=== PATIENT | female | born 1960 | race Caucasian/White ===

== ENCOUNTER → 2024-10-14 17:08 | Outpatient (REF) | payer MEDICARE, SELFPAY ==
[2024-10-14 17:57] LABS: ALT (SGPT) 18 U/L (0-35); AST (SGOT) 39 U/L (14-36); Albumin 4.9 g/dl (3.5-5.0); Alkaline Phosphatase 71 U/L (38-126); Blood Urea Nitrogen 12 mg/dl (7-17); Carbon Dioxide 25 mmol/L (22-30); Chloride 96 mmol/L (98-107); Glucose 92 mg/dl (70-99); Potassium 3.4 mmol/L (3.5-5.1); Sodium 132 mmol/L (135-145); Total Bilirubin 0.8 mg/dl (0.2-1.3); Total Protein 8.1 g/dl (6.3-8.2); eGFR > 60.00
== END ==
LOC: RAD 17:08
PROVIDERS: ATTENDING PHYSICIAN Family Medicine
DX: R22.1 Localized swelling, mass and lump, neck (principal); Q61.5 Medullary cystic kidney; Z00.01 Encounter for general adult medical examination with abnormal findings
CPT/HCPCS: 36415; 70491; 80053; Q9967

== ENCOUNTER 2024-12-03 08:31 | Outpatient (RCR) | payer MEDICARE, SELFPAY | END 2024-12-03 23:59 | disposition home or self-care (01) | LOC: RST 08:31 | PROVIDERS: ATTENDING PHYSICIAN Radiology Radiation Oncology | DX: C11.1 Malignant neoplasm of posterior wall of nasopharynx (principal); R13.12 Dysphagia, oropharyngeal phase | CPT/HCPCS: 92526; 92610 ==

== ENCOUNTER → 2024-12-18 07:12 | Outpatient (REF) | payer MEDICARE, SELFPAY ==
[2024-12-18 06:00] VITALS: BMI 17.2
[2024-12-18 08:07] LABS: Hematocrit 37.3 % (37.0-47.0); Hemoglobin 12.7 g/dL (12.0-16.0); Mean Corpuscular Hgb 34.2 pg (27.0-31.0); Mean Corpuscular Volume 100.5 fL (81.0-99.0); Mean Platelet Volume 10.5 fL (7.4-10.4); Platelet Count 377 10^3/uL (130-400); Red Blood Cell Count 3.71 10^6/uL (4.20-5.40); White Blood Cell Count 5.9 10^3/uL (4.8-10.8)
[2024-12-18 08:37] LABS: Absolute Neutrophils -Man Diff 3.3 10^3/uL (1.4-6.5); Band Neutrophils 0 % (0-3); Lymphocytes 23 % (20-51); Monocytes 20 % (2-9); Normal RBC Morphology Yes; Platelets Checked Yes; Segmented Neutrophils 57 % (42-75); Total Cells Counted 100
[2024-12-18 09:04] VITALS: BP 133/90; BP_SYST 60
[2024-12-18] MEDS: ANCEF 10 IV (09:33)
[2024-12-18 10:35] VITALS: BP 134/86; BP_SYST 60
[2024-12-18 10:55] VITALS: BP 108/75; BP_SYST 62
== END ==
LOC: RADI 07:12
PROVIDERS: ATTENDING PHYSICIAN Internal Medicine Hematology & Oncology; FAMILY PHYSICIAN Family Medicine
DX: C09.9 Malignant neoplasm of tonsil, unspecified (principal)
CPT/HCPCS: 36415; 36561; 75827; 76937; 77001; 85025; 99152; 99153; C1769; C1788

== ENCOUNTER → 2024-12-22 12:47 | Outpatient (REF) | payer MEDICARE, SELFPAY ==
--- NOTE | 2024-12-22 13:03 | W.PN.UPDATE ---
Update Note
Progress Note Update
64 yo female s/p IR port placement on 12/18/24. She returns for port site check> She is concerned about the red bump on her chest.
On exam the incision is CDI. Minimal erythema. No warmth or swelling. No tenderness or fluctuance. The raised are of concern is the port itself.
A/P: 64 yo female comes for port site check. She was reassured the site does not appear infected and is healing well. She has her next infusion on Sunday12/26/24
== END ==
LOC: RADI 12:47
PROVIDERS: ATTENDING PHYSICIAN Radiology Vascular & Interventional Radiology; FAMILY PHYSICIAN Family Medicine
DX: Z45.2 Encounter for adjustment and management of vascular access device (principal)

== ENCOUNTER → 2024-12-25 06:38 | Outpatient (REF) | payer MEDICARE, SELFPAY ==
[2024-12-25 07:23] LABS: % Basophils 0.6 % (0-2); % Eosinophils 1.1 % (0-6); % Immature Granulocytes 0.4 % (0-0.5); % Lymphocytes 13.3 % (20.5-51.1); % Monocytes 16.7 % (1.7-9.3); % Neutrophils 67.9 % (42.2-75.2); Absolute Basophils 0.1 10^3/uL (0-0.2); Absolute Eosinophils 0.1 10^3/uL (0-0.7); Absolute Monocytes 1.3 10^3/uL (0.1-0.6); Absolute Neutrophils 5.3 10^3/uL (1.4-6.5); Hematocrit 37.1 % (37.0-47.0); Hemoglobin 12.7 g/dL (12.0-16.0); Mean Corp Hgb Conc. 34.2 g/dL (33.0-37.0); Mean Corpuscular Hgb 34.5 pg (27.0-31.0); Mean Corpuscular Volume 100.8 fL (81.0-99.0); Mean Platelet Volume 10.3 fL (7.4-10.4); Nucleated Red Blood Cells % 0 %; Platelet Count 461 10^3/uL (130-400); Red Blood Cell Count 3.68 10^6/uL (4.20-5.40); Red Cell Dist. Width 12.9 % (11.5-14.5); White Blood Cell Count 7.8 10^3/uL (4.8-10.8)
[2024-12-25 07:47] LABS: ALT (SGPT) 21 U/L (0-35); AST (SGOT) 30 U/L (14-36); Albumin 4.5 g/dl (3.5-5.0); Alkaline Phosphatase 59 U/L (38-126); Blood Urea Nitrogen 15 mg/dl (7-17); Calcium 10.3 mg/dl (8.4-10.2); Carbon Dioxide 26 mmol/L (22-30); Chloride 105 mmol/L (98-107); Glucose 95 mg/dl (70-99); Magnesium 1.7 mg/dl (1.6-2.3); Sodium 138 mmol/L (135-145); Total Bilirubin 0.6 mg/dl (0.2-1.3); eGFR > 60.00
== END ==
LOC: REG 06:38
PROVIDERS: ATTENDING PHYSICIAN Nurse Practitioner Adult Health; FAMILY PHYSICIAN Family Medicine
DX: C01 Malignant neoplasm of base of tongue (principal)
CPT/HCPCS: 36415; 80053; 83735; 85025

== ENCOUNTER → 2025-01-01 06:25 | Outpatient (REF) | payer MEDICARE, SELFPAY ==
[2025-01-01 07:13] LABS: % Basophils 0.5 % (0-2); % Eosinophils 1.3 % (0-6); % Immature Granulocytes 0.5 % (0-0.5); % Lymphocytes 12.3 % (20.5-51.1); % Monocytes 18.1 % (1.7-9.3); % Neutrophils 67.3 % (42.2-75.2); Absolute Eosinophils 0.1 10^3/uL (0-0.7); Absolute Lymphocytes 0.8 10^3/uL (1.2-3.4); Absolute Monocytes 1.1 10^3/uL (0.1-0.6); Absolute Neutrophils 4.2 10^3/uL (1.4-6.5); Hematocrit 35.4 % (37.0-47.0); Mean Corp Hgb Conc. 33.9 g/dL (33.0-37.0); Mean Corpuscular Volume 100.3 fL (81.0-99.0); Mean Platelet Volume 10.1 fL (7.4-10.4); Nucleated Red Blood Cells % 0 %; Platelet Count 506 10^3/uL (130-400); Red Blood Cell Count 3.53 10^6/uL (4.20-5.40); Red Cell Dist. Width 12.5 % (11.5-14.5); White Blood Cell Count 6.3 10^3/uL (4.8-10.8)
[2025-01-01 07:58] LABS: ALT (SGPT) 19 U/L (0-35); AST (SGOT) 26 U/L (14-36); Albumin 4.4 g/dl (3.5-5.0); Alkaline Phosphatase 58 U/L (38-126); Blood Urea Nitrogen 18 mg/dl (7-17); Calcium 10.1 mg/dl (8.4-10.2); Carbon Dioxide 28 mmol/L (22-30); Chloride 99 mmol/L (98-107); Glucose 85 mg/dl (70-99); Magnesium 1.5 mg/dl (1.6-2.3); Potassium 3.7 mmol/L (3.5-5.1); Sodium 136 mmol/L (135-145); Total Bilirubin 0.5 mg/dl (0.2-1.3); Total Protein 7.9 g/dl (6.3-8.2); eGFR > 60.00
== END ==
LOC: RAD 06:25
PROVIDERS: ATTENDING PHYSICIAN Surgery Vascular Surgery; FAMILY PHYSICIAN Family Medicine; REFERRING PHYSICIAN Nurse Practitioner Adult Health
DX: I65.23 Occlusion and stenosis of bilateral carotid arteries (principal)
CPT/HCPCS: 36415; 80053; 83735; 85025; 93880

== ENCOUNTER 2025-01-07 16:00 | Outpatient (RCR) | payer MEDICARE, SELFPAY | END 2025-01-07 23:59 | disposition home or self-care (01) | LOC: RST 16:00 | PROVIDERS: ATTENDING PHYSICIAN Radiology Radiation Oncology | DX: C11.1 Malignant neoplasm of posterior wall of nasopharynx (principal); R13.12 Dysphagia, oropharyngeal phase | CPT/HCPCS: 92526 ==

== ENCOUNTER → 2025-01-08 06:18 | Outpatient (REF) | payer MEDICARE, SELFPAY ==
[2025-01-08 07:42] LABS: % Basophils 0.5 % (0-2); % Immature Granulocytes 0.2 % (0-0.5); % Lymphocytes 17.5 % (20.5-51.1); % Monocytes 19.9 % (1.7-9.3); % Neutrophils 60.9 % (42.2-75.2); Absolute Lymphocytes 0.7 10^3/uL (1.2-3.4); Absolute Monocytes 0.8 10^3/uL (0.1-0.6); Absolute Neutrophils 2.6 10^3/uL (1.4-6.5); Hematocrit 34.2 % (37.0-47.0); Hemoglobin 11.8 g/dL (12.0-16.0); Mean Corp Hgb Conc. 34.5 g/dL (33.0-37.0); Mean Corpuscular Hgb 34.4 pg (27.0-31.0); Mean Corpuscular Volume 99.7 fL (81.0-99.0); Mean Platelet Volume 10.2 fL (7.4-10.4); Nucleated Red Blood Cells % 0.5 %; Platelet Count 384 10^3/uL (130-400); Red Blood Cell Count 3.43 10^6/uL (4.20-5.40); Red Cell Dist. Width 12.4 % (11.5-14.5); White Blood Cell Count 4.2 10^3/uL (4.8-10.8)
[2025-01-08 08:19] LABS: ALT (SGPT) 18 U/L (0-35); AST (SGOT) 26 U/L (14-36); Albumin 4.3 g/dl (3.5-5.0); Alkaline Phosphatase 59 U/L (38-126); Blood Urea Nitrogen 23 mg/dl (7-17); Carbon Dioxide 30 mmol/L (22-30); Chloride 96 mmol/L (98-107); Glucose 84 mg/dl (70-99); Magnesium 1.3 mg/dl (1.6-2.3); Sodium 136 mmol/L (135-145); Total Bilirubin 0.3 mg/dl (0.2-1.3); Total Protein 7.6 g/dl (6.3-8.2); eGFR > 60.00
== END ==
LOC: REG 06:18
PROVIDERS: ATTENDING PHYSICIAN Nurse Practitioner Adult Health; FAMILY PHYSICIAN Family Medicine
DX: C01 Malignant neoplasm of base of tongue (principal)
CPT/HCPCS: 36415; 80053; 83735; 85025

== ENCOUNTER → 2025-01-15 06:26 | Outpatient (REF) | payer MEDICARE, SELFPAY ==
[2025-01-15 07:20] LABS: % Basophils 0.3 % (0-2); % Eosinophils 0.9 % (0-6); % Immature Granulocytes 0.3 % (0-0.5); % Lymphocytes 15.9 % (20.5-51.1); % Monocytes 15.6 % (1.7-9.3); Absolute Lymphocytes 0.5 10^3/uL (1.2-3.4); Absolute Monocytes 0.5 10^3/uL (0.1-0.6); Absolute Neutrophils 2.2 10^3/uL (1.4-6.5); Hemoglobin 11.3 g/dL (12.0-16.0); Mean Corp Hgb Conc. 34.2 g/dL (33.0-37.0); Mean Corpuscular Hgb 33.7 pg (27.0-31.0); Mean Corpuscular Volume 98.5 fL (81.0-99.0); Mean Platelet Volume 10.3 fL (7.4-10.4); Nucleated Red Blood Cells % 0 %; Platelet Count 213 10^3/uL (130-400); Red Blood Cell Count 3.35 10^6/uL (4.20-5.40); Red Cell Dist. Width 12.8 % (11.5-14.5); White Blood Cell Count 3.3 10^3/uL (4.8-10.8)
[2025-01-15 08:05] LABS: ALT (SGPT) 17 U/L (0-35); AST (SGOT) 22 U/L (14-36); Albumin 4.1 g/dl (3.5-5.0); Alkaline Phosphatase 57 U/L (38-126); Blood Urea Nitrogen 18 mg/dl (7-17); Calcium 9.4 mg/dl (8.4-10.2); Carbon Dioxide 28 mmol/L (22-30); Chloride 99 mmol/L (98-107); Glucose 88 mg/dl (70-99); Magnesium 1.2 mg/dl (1.6-2.3); Potassium 3.6 mmol/L (3.5-5.1); Sodium 136 mmol/L (135-145); Total Bilirubin 0.6 mg/dl (0.2-1.3); Total Protein 7.1 g/dl (6.3-8.2); eGFR > 60.00
== END ==
LOC: REG 06:26
PROVIDERS: ATTENDING PHYSICIAN Nurse Practitioner Adult Health; FAMILY PHYSICIAN Family Medicine
DX: C01 Malignant neoplasm of base of tongue (principal)
CPT/HCPCS: 36415; 80053; 83735; 85025

== ENCOUNTER 2025-01-21 16:18 | Emergency (ER) | payer MEDICARE, SELFPAY ==
[2025-01-21 16:19] VITALS: BP 104/70
--- NOTE | 2025-01-21 17:55 | ED.GENMED ---
History of Present Illness
General
Chief Complaint: DVT/Possible Blood Clot
Source: patient
Exam Limitations: none
Time Seen by Provider: 01/21/25 17:10
Nursing documentation reviewed up to this point in time: agreed with
History of Present Illness
History of Present Illness:
The patient is a 64-year-old female with history hypertension, hyperlipidemia, tonsillar CA currently undergoing radiation who presents with atraumatic left leg pain. Patient states that beginning last night she noticed very mild weakness in her
left leg. Upon waking this morning. The patient describes it as a sharp, stabbing pain localized to the left leg, initially starting higher on the leg and radiating downwards toward the front. Earlier today�patient states pain was present at both
at rest and with ambulation and she had to use a walker for assistance with weightbearing.
Patient states that currently her symptoms have completely resolved. She denies any pain. She denies any numbness/tingling in left lower extremity.
Patient denies any recent falls or trauma. She denies any fevers, chills, redness, or warmth of lower extremity. She denies any coolness symptoms of claudication.
She denies any prior history of similar symptoms.
Past History
Past History
ED Past Medical History: Other (History of alcoholism)
ED Past Surgical History: Orthopedic
Social History
Tobacco: Smoker
Alcohol: Former
Personal: Partner
Living: with roommate
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
Review of Systems
Review of Systems
Allergies reviewed?: Yes
All Other Systems: ROS reviewed and negative except as documented in HPI and ROS
Phy Exam
Physical Exam
Physical Exam:
Vitals: Patient's vital signs are stable. Afebrile
General: Patient is in no acute distress.
Skin: Warm and dry, no rashes or lesions
Head: Normocephalic, atraumatic
Throat: Protecting airway
Neck: Normal ROM, no cervical spine tenderness
Cardiac: Regular rate
Pulm: No apparent respiratory distress
Abdomen: Nondistended
Extremities: No deformity or bony tenderness of left lower extremity. She has no tenderness to left calf. Patient has full range of motion left ankle, left knee, and left hip without pain. No overlying erythema, warmth, or joint effusion of left
lower extremity. Patient has 2+ palpable left femoral, left popliteal, and left DP pulse. She has normal sensation. Capillary refill less than 2 seconds. Onychomycosis noted to left digits.
Neuro: Grossly intact
Psychiatric: Normal affect.
Course
Orders/Labs/Results
Orders:
Orders
01/21/25 16:22
US Periph Venous LOWER Ext LT Urgent
Comment:
Reason For Exam: Pain, elevated risk of blood clots
Vital Signs
Initial and Last Documented VS:
Initial Vital Signs
Temp Pulse Resp BP Pulse Ox
99.4 F 90 16 104/70 92
01/21/25 16:19 01/21/25 16:19 01/21/25 16:19 01/21/25 16:19 01/21/25 16:19
Last Documented Vital Signs
Temp Pulse Resp BP Pulse Ox
99.4 F 90 16 104/70 92
01/21/25 16:19 01/21/25 16:19 01/21/25 16:19 01/21/25 16:19 01/21/25 17:56
MDM/Problems Addressed
Differential Diagnosis Includes:
Not limited to: DVT, neuropathic pain, muscle strain, sciatica, PAD, osteoarthritis, etc.
MDM/Problems Addressed:
64-year-old female presenting with atraumatic left leg pain which has since resolved. She reports significant pain in her left leg extending from left mid thigh down to left lower leg worse with ambulation today. No recent trauma. She denies any
obvious joint pain. She denies any erythema, warmth, or rash. She denies any coolness or numbness/tingling in the left leg. Patient has stable vital signs overall, she is afebrile. By my assessment�patient has complete resolution of symptoms and
has no current complaints. Left lower extremity without any obvious deformity or bony tenderness. There is no evidence of joint effusions or any erythema, warmth, or rash of skin. She has excellent palpable femoral, popliteal, DP pulses in LLE.
No calf tenderness. Negative Homans' sign. A ultrasound of the left lower extremity was obtained which shows no evidence of DVT.
Considered x-ray imaging however given no history of trauma and complete resolution of symptoms feel this would be very low yield. With no history of claudication type symptoms and normal exam�do not suspect arterial process. No current findings
suggestive of infectious process. Possible neuropathic pain however at this time symptoms are resolved. Patient is ambulating without recurrence of pain and is requesting discharge home.
Strict return precautions discussed with patient. Advised to continue taking medications as prescribed and follow-up with PCP.
Chronic conditions affecting care:
N/A
Acute Exacerbation and/or Progression of Chronic Illness:
N/A
*Radiology
Radiology exam reviewed: radiology read reviewed
*Pulse Oximetry
SaO2: 92
Oxygen Mode of Delivery: Room air
Patient hypoxic: no
*EKG
Interpreted by ED Provider?: NA
*Claim Benefit Specialist Interpretation
Rate: Claim Benefit Specialist- N/A
*Critical Care Note
Total Time (30-74mins, 75-104mins- exclusive of procedures): Not Applicable
ED Attending Note
-
Portions of this chart may have been created with voice recognition software.� Occasional wrong word or��sound alike� substitutions may have occurred due to the inherent limitations of voice recognition software.
Discharge Plan
Departure
Patient Disposition: Home (Routine Discharge)
Date of Disposition: 01/21/25
Time of Disposition: 19:04
Patient with high blood pressure during this ER visit?: No
Condition: Good
Covid-19: Not Applicable
Discharge Problem:
Left leg pain
Prescriptions:
No Action
alendronate 70 MG tablet
70 mg PO WEEKLY
hydrochlorothiazide 12.5 MG capsule
12.5 mg PO DAILY
multivitamin [One Daily Multivitamin] 1 EACH tablet
1 tab PO DAILY
acetaminophen 325 MG tablet
650 mg PO Q4HPRN PRN (Reason: temp greater than 100.4 F) 0RF
aspirin 81 MG tablet,chewable
81 mg PO DAILY 0RF
atorvastatin 80 MG tablet
80 mg PO QPM Qty: 30 0RF
latanoprost 0.005 % Drops
1 drp OPHTHALMIC (EYE) DAILY
Vitamin C 100 mg Tablet
100 mg PO DAILY
Referrals:
Balwinder Yousif MD [Family Provider, Family Practice] - Follow up in 5-7 days
Activity Restrictions/Additional Instructions:
RETURN TO THE EMERGENCY DEPARTMENT WITH ANY INFECTIOUS SYMPTOMS INCLUDING FEVER, CHILLS, REDNESS OR WARMTH OR WOUNDS OF LEFT LEG, NUMBNESS/TINGLING IN LEFT LEG, RESTRICTED RANGE OF MOTION IN JOINTS AND LEFT LEG, COOLNESS, INTRACTABLE PAIN,
DIFFICULTY AMBULATING, OR ANY OTHER CONCERNS
- As discussed�your ultrasound showed no evidence of a blood clot in your left lower extremity. We are unsure the exact etiology of your symptoms today.
- Continue to take your medications as prescribed
- Follow-up with primary care for further evaluation/management to ensure the symptoms are improving
Monitor your symptoms closely and return to the emergency department with any acute worsening/new symptoms or any other concerns
Interventions
Interventions:
*Risk Screen - Suicide Last Done: 01/21/25 19:09
*General Assessment Last Done: 01/21/25 19:09
*Neglect/Abuse Screening Last Done: 01/21/25 19:09
*ED- Fall Risk Assessment Last Done: 01/21/25 19:09
*ED COVID-19 Vaccine History Last Done: 01/21/25 19:09
*Nursing Disposition Last Done: 01/21/25 19:09
ED- Cardiac Assessment Last Done: 01/21/25 17:30
ED- Pulmonary Assessment Last Done: 01/21/25 17:30
ED-Peripheral Vascular Assessment Last Done: 01/21/25 17:30
ED-Skin Assessment Last Done: 01/21/25 17:30
Discharge Date and Time
Discharge Date/Time: 01/21/25 19:10
Print Language: UGANDAN
== END 2025-01-21 19:10 | disposition home or self-care (01) ==
LOC: EMR 16:18
PROVIDERS: EMERGENCY PHYSICIAN Emergency Medicine; FAMILY PHYSICIAN Family Medicine
DX: M79.605 Pain in left leg (principal); E78.5 Hyperlipidemia, unspecified; I10 Essential (primary) hypertension; F17.200 Nicotine dependence, unspecified, uncomplicated; C09.9 Malignant neoplasm of tonsil, unspecified; Z92.3 Personal history of irradiation
CPT/HCPCS: 99284; 93971

== ENCOUNTER → 2025-01-22 06:34 | Outpatient (REF) | payer MEDICARE, SELFPAY ==
[2025-01-22 07:43] LABS: Hematocrit 30.1 % (37.0-47.0); Hemoglobin 10.4 g/dL (12.0-16.0); Mean Corp Hgb Conc. 34.6 g/dL (33.0-37.0); Mean Corpuscular Hgb 34.3 pg (27.0-31.0); Mean Corpuscular Volume 99.3 fL (81.0-99.0); Platelet Count 175 10^3/uL (130-400); Red Blood Cell Count 3.03 10^6/uL (4.20-5.40); Red Cell Dist. Width 13.5 % (11.5-14.5)
[2025-01-22 08:02] LABS: ALT (SGPT) 15 U/L (0-35); AST (SGOT) 20 U/L (14-36); Alkaline Phosphatase 53 U/L (38-126); Blood Urea Nitrogen 17 mg/dl (7-17); Carbon Dioxide 26 mmol/L (22-30); Chloride 98 mmol/L (98-107); Glucose 93 mg/dl (70-99); Magnesium 1.2 mg/dl (1.6-2.3); Sodium 132 mmol/L (135-145); Total Bilirubin 0.5 mg/dl (0.2-1.3); Total Protein 6.9 g/dl (6.3-8.2); eGFR > 60.00
[2025-01-22 08:59] LABS: Absolute Neutrophils -Man Diff 1.2 10^3/uL (1.4-6.5); Band Neutrophils 0 % (0-3); Eosinophils 1 % (0-6); Lymphocytes 21 % (20-51); Monocytes 11 % (2-9); Normal RBC Morphology Yes; Platelets Checked Yes; Segmented Neutrophils 67 % (42-75); Total Cells Counted 100; White Blood Cell Count 1.9 10^3/uL (4.8-10.8)
== END ==
LOC: REG 06:34
PROVIDERS: ATTENDING PHYSICIAN Nurse Practitioner Adult Health; FAMILY PHYSICIAN Family Medicine
DX: C01 Malignant neoplasm of base of tongue (principal)
CPT/HCPCS: 36415; 80053; 83735; 85025

== ENCOUNTER → 2025-01-29 06:27 | Outpatient (REF) | payer MEDICARE, SELFPAY ==
[2025-01-29 07:21] LABS: Hematocrit 29.4 % (37.0-47.0); Hemoglobin 10.2 g/dL (12.0-16.0); Mean Corp Hgb Conc. 34.7 g/dL (33.0-37.0); Mean Corpuscular Hgb 34.6 pg (27.0-31.0); Mean Corpuscular Volume 99.7 fL (81.0-99.0); Mean Platelet Volume 10.7 fL (7.4-10.4); Platelet Count 367 10^3/uL (130-400); Red Blood Cell Count 2.95 10^6/uL (4.20-5.40); Red Cell Dist. Width 14.3 % (11.5-14.5); White Blood Cell Count 2.5 10^3/uL (4.8-10.8)
[2025-01-29 07:44] LABS: ALT (SGPT) 16 U/L (0-35); AST (SGOT) 22 U/L (14-36); Albumin 4.1 g/dl (3.5-5.0); Alkaline Phosphatase 61 U/L (38-126); Blood Urea Nitrogen 15 mg/dl (7-17); Carbon Dioxide 29 mmol/L (22-30); Chloride 99 mmol/L (98-107); Glucose 78 mg/dl (70-99); Magnesium 1.2 mg/dl (1.6-2.3); Potassium 4.4 mmol/L (3.5-5.1); Sodium 136 mmol/L (135-145); Total Bilirubin 0.3 mg/dl (0.2-1.3); Total Protein 6.9 g/dl (6.3-8.2); eGFR > 60.00
[2025-01-29 07:58] LABS: Absolute Neutrophils -Man Diff 1.4 10^3/uL (1.4-6.5); Band Neutrophils 1 % (0-3); Lymphocytes 26 % (20-51); Monocytes 18 % (2-9); Segmented Neutrophils 55 % (42-75)
[2025-01-29 07:59] LABS: Anisocytosis 1+; Hypochromasia 1+; Normal RBC Morphology No; Nucleated Red Blood Cells 1 (-); Platelets Checked Yes; Polychromasia 1+
[2025-01-29 08:00] LABS: Total Cells Counted 100
== END ==
LOC: REG 06:27
PROVIDERS: ATTENDING PHYSICIAN Nurse Practitioner Adult Health; FAMILY PHYSICIAN Family Medicine
DX: C01 Malignant neoplasm of base of tongue (principal)
CPT/HCPCS: 36415; 80053; 83735; 85025

== ENCOUNTER → 2025-02-05 06:28 | Outpatient (REF) | payer MEDICARE, SELFPAY ==
[2025-02-05 07:34] LABS: Hematocrit 28.2 % (37.0-47.0); Hemoglobin 9.9 g/dL (12.0-16.0); Mean Corp Hgb Conc. 35.1 g/dL (33.0-37.0); Mean Corpuscular Volume 100.0 fL (81.0-99.0); Platelet Count 331 10^3/uL (130-400); Red Cell Dist. Width 14.7 % (11.5-14.5)
[2025-02-05 08:21] LABS: Absolute Neutrophils -Man Diff 3.1 10^3/uL (1.4-6.5); Anisocytosis 1+; Macrocytosis Slight; Normal RBC Morphology No; Platelets Checked Yes; Total Cells Counted 100
[2025-02-05 08:52] LABS: ALT (SGPT) 15 U/L (0-35); AST (SGOT) 23 U/L (14-36); Albumin 4.3 g/dl (3.5-5.0); Alkaline Phosphatase 59 U/L (38-126); Blood Urea Nitrogen 22 mg/dl (7-17); Calcium 9.4 mg/dl (8.4-10.2); Carbon Dioxide 26 mmol/L (22-30); Chloride 99 mmol/L (98-107); Glucose 85 mg/dl (70-99); Magnesium 1.3 mg/dl (1.6-2.3); Potassium 4.4 mmol/L (3.5-5.1); Sodium 133 mmol/L (135-145); Total Protein 7.4 g/dl (6.3-8.2); eGFR > 60.00
== END ==
LOC: REG 06:28
PROVIDERS: ATTENDING PHYSICIAN Nurse Practitioner Adult Health; FAMILY PHYSICIAN Family Medicine
DX: C01 Malignant neoplasm of base of tongue (principal)
CPT/HCPCS: 36415; 80053; 83735; 85025

== ENCOUNTER 2025-02-11 12:00 | Outpatient (RCR) | payer MEDICARE, SELFPAY | END 2025-02-11 23:59 | disposition home or self-care (01) | LOC: RST 12:00 | PROVIDERS: ATTENDING PHYSICIAN Radiology Radiation Oncology | DX: C11.1 Malignant neoplasm of posterior wall of nasopharynx (principal); R13.12 Dysphagia, oropharyngeal phase | CPT/HCPCS: 92526 ==

== ENCOUNTER → 2025-02-12 06:35 | Outpatient (REF) | payer MEDICARE, SELFPAY ==
[2025-02-12 07:48] LABS: Hematocrit 28.2 % (37.0-47.0); Hemoglobin 9.4 g/dL (12.0-16.0); Mean Corp Hgb Conc. 33.3 g/dL (33.0-37.0); Mean Corpuscular Volume 101.1 fL (81.0-99.0); Platelet Count 238 10^3/uL (130-400); Red Cell Dist. Width 16.0 % (11.5-14.5)
[2025-02-12 07:52] LABS: ALT (SGPT) 14 U/L (0-35); AST (SGOT) 23 U/L (14-36); Albumin 4.0 g/dl (3.5-5.0); Alkaline Phosphatase 58 U/L (38-126); Blood Urea Nitrogen 18 mg/dl (7-17); Calcium 9.5 mg/dl (8.4-10.2); Carbon Dioxide 26 mmol/L (22-30); Chloride 98 mmol/L (98-107); Glucose 86 mg/dl (70-99); Magnesium 1.5 mg/dl (1.6-2.3); Potassium 3.7 mmol/L (3.5-5.1); Sodium 133 mmol/L (135-145); Total Protein 6.9 g/dl (6.3-8.2); eGFR > 60.00
[2025-02-12 08:43] LABS: Absolute Neutrophils -Man Diff 2.3 10^3/uL (1.4-6.5)
[2025-02-12 08:44] LABS: Platelets Checked Yes; Total Cells Counted 100
[2025-02-12 08:45] LABS: Anisocytosis 1+; Macrocytosis 1+; Normal RBC Morphology No
== END ==
LOC: REG 06:35
PROVIDERS: ATTENDING PHYSICIAN Nurse Practitioner Adult Health; FAMILY PHYSICIAN Family Medicine
DX: C01 Malignant neoplasm of base of tongue (principal)
CPT/HCPCS: 36415; 80053; 83735; 85025

== ENCOUNTER → 2025-02-19 06:30 | Outpatient (REF) | payer MEDICARE, SELFPAY ==
[2025-02-19 07:29] LABS: Hematocrit 28.7 % (37.0-47.0); Hemoglobin 9.4 g/dL (12.0-16.0); Mean Corp Hgb Conc. 32.8 g/dL (33.0-37.0); Mean Corpuscular Volume 102.1 fL (81.0-99.0); Platelet Count 147 10^3/uL (130-400); Red Cell Dist. Width 16.3 % (11.5-14.5)
[2025-02-19 07:47] LABS: ALT (SGPT) 15 U/L (0-35); AST (SGOT) 24 U/L (14-36); Albumin 4.2 g/dl (3.5-5.0); Alkaline Phosphatase 57 U/L (38-126); Blood Urea Nitrogen 18 mg/dl (7-17); Calcium 9.6 mg/dl (8.4-10.2); Carbon Dioxide 28 mmol/L (22-30); Chloride 97 mmol/L (98-107); Glucose 85 mg/dl (70-99); Magnesium 1.3 mg/dl (1.6-2.3); Potassium 3.5 mmol/L (3.5-5.1); Sodium 134 mmol/L (135-145); Total Protein 7.0 g/dl (6.3-8.2); eGFR > 60.00
[2025-02-19 08:41] LABS: Absolute Neutrophils -Man Diff 2.1 10^3/uL (1.4-6.5); Anisocytosis 1+; Macrocytosis Slight; Normal RBC Morphology No; Platelets Checked Yes; Total Cells Counted 100
== END ==
LOC: REG 06:30
PROVIDERS: ATTENDING PHYSICIAN Nurse Practitioner Adult Health; FAMILY PHYSICIAN Family Medicine
DX: C01 Malignant neoplasm of base of tongue (principal)
CPT/HCPCS: 36415; 80053; 83735; 85025

== ENCOUNTER → 2025-02-26 06:37 | Outpatient (REF) | payer MEDICARE, SELFPAY ==
[2025-02-26 07:43] LABS: Hematocrit 27.4 % (37.0-47.0); Hemoglobin 9.2 g/dL (12.0-16.0); Mean Corp Hgb Conc. 33.6 g/dL (33.0-37.0); Mean Corpuscular Volume 103.8 fL (81.0-99.0); Platelet Count 150 10^3/uL (130-400); Red Cell Dist. Width 17.5 % (11.5-14.5)
[2025-02-26 08:01] LABS: ALT (SGPT) 10 U/L (0-35); AST (SGOT) 20 U/L (14-36); Albumin 4.1 g/dl (3.5-5.0); Alkaline Phosphatase 53 U/L (38-126); Blood Urea Nitrogen 12 mg/dl (7-17); Calcium 9.6 mg/dl (8.4-10.2); Carbon Dioxide 27 mmol/L (22-30); Chloride 103 mmol/L (98-107); Glucose 83 mg/dl (70-99); Magnesium 1.6 mg/dl (1.6-2.3); Potassium 3.9 mmol/L (3.5-5.1); Sodium 136 mmol/L (135-145); Total Protein 7.0 g/dl (6.3-8.2); eGFR > 60.00
[2025-02-26 08:16] LABS: Normal RBC Morphology Yes; Platelets Checked Yes; Total Cells Counted 100
[2025-02-26 08:31] LABS: Absolute Neutrophils -Man Diff 1.5 10^3/uL (1.4-6.5)
== END ==
LOC: REG 06:37
PROVIDERS: ATTENDING PHYSICIAN Nurse Practitioner Adult Health; FAMILY PHYSICIAN Family Medicine
DX: C01 Malignant neoplasm of base of tongue (principal)
CPT/HCPCS: 36415; 80053; 83735; 85025

== ENCOUNTER → 2025-03-05 06:31 | Outpatient (REF) | payer MEDICARE, SELFPAY ==
[2025-03-05 08:22] LABS: Hematocrit 29.3 % (37.0-47.0); Hemoglobin 9.7 g/dL (12.0-16.0); Mean Corp Hgb Conc. 33.1 g/dL (33.0-37.0); Mean Corpuscular Volume 105.4 fL (81.0-99.0); Platelet Count 260 10^3/uL (130-400); Red Cell Dist. Width 18.7 % (11.5-14.5)
[2025-03-05 08:46] LABS: ALT (SGPT) 10 U/L (0-35); AST (SGOT) 21 U/L (14-36); Albumin 4.3 g/dl (3.5-5.0); Alkaline Phosphatase 52 U/L (38-126); Blood Urea Nitrogen 15 mg/dl (7-17); Calcium 9.6 mg/dl (8.4-10.2); Carbon Dioxide 26 mmol/L (22-30); Chloride 103 mmol/L (98-107); Glucose 84 mg/dl (70-99); Magnesium 1.7 mg/dl (1.6-2.3); Potassium 4.3 mmol/L (3.5-5.1); Sodium 135 mmol/L (135-145); Total Protein 7.3 g/dl (6.3-8.2); eGFR > 60.00
[2025-03-05 09:37] LABS: Absolute Neutrophils -Man Diff 1.3 10^3/uL (1.4-6.5); Normal RBC Morphology No; Platelets Checked Yes
[2025-03-05 09:38] LABS: Anisocytosis 1+; Macrocytosis Slight; Total Cells Counted 100
== END ==
LOC: REG 06:31
PROVIDERS: ATTENDING PHYSICIAN Nurse Practitioner Adult Health; FAMILY PHYSICIAN Family Medicine
DX: C01 Malignant neoplasm of base of tongue (principal)
CPT/HCPCS: 36415; 80053; 83735; 85025

== ENCOUNTER → 2025-03-12 06:33 | Outpatient (REF) | payer MEDICARE, SELFPAY ==
[2025-03-12 08:01] LABS: Hematocrit 31.7 % (37.0-47.0); Hemoglobin 10.3 g/dL (12.0-16.0); Mean Corp Hgb Conc. 32.5 g/dL (33.0-37.0); Mean Corpuscular Volume 106.0 fL (81.0-99.0); Platelet Count 339 10^3/uL (130-400); Red Cell Dist. Width 19.2 % (11.5-14.5)
[2025-03-12 08:32] LABS: Absolute Neutrophils -Man Diff 2.0 10^3/uL (1.4-6.5); Platelets Checked Yes
[2025-03-12 08:33] LABS: Anisocytosis 1+; Hypochromasia 1+; Normal RBC Morphology No; Polychromasia 1+; Total Cells Counted 100
[2025-03-12 08:41] LABS: ALT (SGPT) 12 U/L (0-35); AST (SGOT) 26 U/L (14-36); Albumin 4.5 g/dl (3.5-5.0); Alkaline Phosphatase 57 U/L (38-126); Blood Urea Nitrogen 18 mg/dl (7-17); Calcium 10.0 mg/dl (8.4-10.2); Carbon Dioxide 27 mmol/L (22-30); Chloride 99 mmol/L (98-107); Glucose 90 mg/dl (70-99); Magnesium 1.8 mg/dl (1.6-2.3); Potassium 4.8 mmol/L (3.5-5.1); Sodium 136 mmol/L (135-145); Total Protein 7.7 g/dl (6.3-8.2); eGFR > 60.00
== END ==
LOC: REG 06:33
PROVIDERS: ATTENDING PHYSICIAN Nurse Practitioner Adult Health; FAMILY PHYSICIAN Family Medicine
DX: C01 Malignant neoplasm of base of tongue (principal)
CPT/HCPCS: 36415; 80053; 83735; 85025

== ENCOUNTER 2025-03-12 14:15 | Outpatient (RCR) | payer MEDICARE, SELFPAY | END 2025-03-12 23:59 | disposition home or self-care (01) | LOC: RST 14:15 | PROVIDERS: ATTENDING PHYSICIAN Radiology Radiation Oncology | DX: C11.1 Malignant neoplasm of posterior wall of nasopharynx (principal); R13.12 Dysphagia, oropharyngeal phase | CPT/HCPCS: 92526 ==

== ENCOUNTER → 2025-03-20 09:06 | Outpatient (REF) | payer MEDICARE, SELFPAY | LOC: RCS 09:06 | PROVIDERS: ATTENDING PHYSICIAN Physician Assistant; FAMILY PHYSICIAN Family Medicine | DX: E78.2 Mixed hyperlipidemia (principal); I25.10 Atherosclerotic heart disease of native coronary artery without angina pectoris; Z72.0 Tobacco use; R94.31 Abnormal electrocardiogram [ECG] [EKG] | CPT/HCPCS: 93306 ==

== ENCOUNTER → 2025-03-25 07:07 | Outpatient (REF) | payer MEDICARE, SELFPAY | LOC: HWRCS 07:07 | PROVIDERS: ATTENDING PHYSICIAN Physician Assistant; FAMILY PHYSICIAN Family Medicine | DX: E78.2 Mixed hyperlipidemia (principal); I25.10 Atherosclerotic heart disease of native coronary artery without angina pectoris; Z72.0 Tobacco use; R94.31 Abnormal electrocardiogram [ECG] [EKG] | CPT/HCPCS: 78452; 93017; A9500; J2785 ==

== ENCOUNTER → 2025-03-26 06:35 | Outpatient (REF) | payer MEDICARE, SELFPAY ==
[2025-03-26 07:23] LABS: Hematocrit 34.2 % (37.0-47.0); Hemoglobin 11.2 g/dL (12.0-16.0); Mean Corp Hgb Conc. 32.7 g/dL (33.0-37.0); Mean Corpuscular Volume 110.0 fL (81.0-99.0); Platelet Count 386 10^3/uL (130-400); Red Cell Dist. Width 19.2 % (11.5-14.5)
[2025-03-26 07:40] LABS: Absolute Neutrophils -Man Diff 1.9 10^3/uL (1.4-6.5); Anisocytosis 1+; Macrocytosis Slight; Normal RBC Morphology No; Platelets Checked Yes; Total Cells Counted 100
[2025-03-26 08:01] LABS: ALT (SGPT) 11 U/L (0-35); AST (SGOT) 23 U/L (14-36); Albumin 4.6 g/dl (3.5-5.0); Alkaline Phosphatase 56 U/L (38-126); Blood Urea Nitrogen 8 mg/dl (7-17); Calcium 10.0 mg/dl (8.4-10.2); Carbon Dioxide 25 mmol/L (22-30); Chloride 106 mmol/L (98-107); Glucose 92 mg/dl (70-99); Magnesium 1.7 mg/dl (1.6-2.3); Potassium 4.6 mmol/L (3.5-5.1); Sodium 139 mmol/L (135-145); Total Protein 7.6 g/dl (6.3-8.2); eGFR > 60.00
== END ==
LOC: REG 06:35
PROVIDERS: ATTENDING PHYSICIAN Nurse Practitioner Adult Health; FAMILY PHYSICIAN Family Medicine
DX: C01 Malignant neoplasm of base of tongue (principal)
CPT/HCPCS: 36415; 80053; 83735; 85025

== ENCOUNTER → 2025-04-09 06:36 | Outpatient (REF) | payer MEDICARE, SELFPAY ==
[2025-04-09 07:50] LABS: Hematocrit 34.7 % (37.0-47.0); Hemoglobin 11.2 g/dL (12.0-16.0); Mean Corp Hgb Conc. 32.3 g/dL (33.0-37.0); Mean Corpuscular Volume 111.9 fL (81.0-99.0); Platelet Count 291 10^3/uL (130-400); Red Cell Dist. Width 16.3 % (11.5-14.5)
[2025-04-09 07:56] LABS: ALT (SGPT) 11 U/L (0-35); AST (SGOT) 21 U/L (14-36); Albumin 4.5 g/dl (3.5-5.0); Alkaline Phosphatase 57 U/L (38-126); Blood Urea Nitrogen 16 mg/dl (7-17); Calcium 9.8 mg/dl (8.4-10.2); Carbon Dioxide 27 mmol/L (22-30); Chloride 104 mmol/L (98-107); Glucose 96 mg/dl (70-99); HDL Cholesterol 79 mg/dl; LDL Cholesterol, Calculated 76 mg/dl; Magnesium 1.7 mg/dl (1.6-2.3); Potassium 4.7 mmol/L (3.5-5.1); Sodium 137 mmol/L (135-145); Total Protein 7.6 g/dl (6.3-8.2); Very Low Density Lipoprotein 18 mg/dl (0-30); eGFR > 60.00
[2025-04-09 08:47] LABS: Absolute Neutrophils -Man Diff 3.2 10^3/uL (1.4-6.5); Anisocytosis 1+; Macrocytosis Slight; Normal RBC Morphology No; Platelets Checked Yes
[2025-04-09 08:48] LABS: Total Cells Counted 100
== END ==
LOC: REG 06:36
PROVIDERS: ATTENDING PHYSICIAN Nurse Practitioner Adult Health; FAMILY PHYSICIAN Family Medicine; REFERRING PHYSICIAN Internal Medicine Cardiovascular Disease
DX: E78.2 Mixed hyperlipidemia (principal); C01 Malignant neoplasm of base of tongue
CPT/HCPCS: 36415; 80053; 80061; 83735; 85025

== ENCOUNTER → 2025-04-17 08:46 | Outpatient (REF) | payer MEDICARE, SELFPAY | LOC: RST 08:46 | PROVIDERS: ATTENDING PHYSICIAN Nurse Practitioner Adult Health; FAMILY PHYSICIAN Family Medicine | DX: R13.10 Dysphagia, unspecified (principal); C01 Malignant neoplasm of base of tongue | CPT/HCPCS: 74230; 92611 ==

== ENCOUNTER → 2025-04-23 06:39 | Outpatient (REF) | payer MEDICARE, SELFPAY ==
[2025-04-23 08:22] LABS: ALT (SGPT) 11 U/L (0-35); AST (SGOT) 20 U/L (14-36); Albumin 4.5 g/dl (3.5-5.0); Alkaline Phosphatase 56 U/L (38-126); Blood Urea Nitrogen 15 mg/dl (7-17); Calcium 9.8 mg/dl (8.4-10.2); Carbon Dioxide 27 mmol/L (22-30); Chloride 103 mmol/L (98-107); Glucose 88 mg/dl (70-99); Magnesium 1.8 mg/dl (1.6-2.3); Potassium 4.5 mmol/L (3.5-5.1); Sodium 136 mmol/L (135-145); Total Protein 7.5 g/dl (6.3-8.2); eGFR > 60.00
[2025-04-23 09:05] LABS: Hematocrit 36.2 % (37.0-47.0); Hemoglobin 11.9 g/dL (12.0-16.0); Mean Corp Hgb Conc. 32.9 g/dL (33.0-37.0); Mean Corpuscular Volume 110.4 fL (81.0-99.0); Nucleated Red Blood Cells % 0 %; Platelet Count 266 10^3/uL (130-400); Red Cell Dist. Width 13.9 % (11.5-14.5)
== END ==
LOC: REG 06:39
PROVIDERS: ATTENDING PHYSICIAN Nurse Practitioner Adult Health; FAMILY PHYSICIAN Family Medicine
DX: C01 Malignant neoplasm of base of tongue (principal)
CPT/HCPCS: 36415; 80053; 83735; 85025

== ENCOUNTER 2025-04-24 11:31 | Outpatient (RCR) | payer MEDICARE, SELFPAY | END 2025-04-24 23:59 | disposition home or self-care (01) | LOC: RST 11:31 | PROVIDERS: ATTENDING PHYSICIAN Radiology Radiation Oncology | DX: C11.1 Malignant neoplasm of posterior wall of nasopharynx (principal); R13.12 Dysphagia, oropharyngeal phase; R22.0 Localized swelling, mass and lump, head | CPT/HCPCS: 92526 ==

== ENCOUNTER → 2025-05-07 06:31 | Outpatient (REF) | payer MEDICARE, SELFPAY ==
[2025-05-07 07:19] LABS: Hematocrit 39.5 % (37.0-47.0); Hemoglobin 13.1 g/dL (12.0-16.0); Mean Corp Hgb Conc. 33.2 g/dL (33.0-37.0); Mean Corpuscular Volume 108.8 fL (81.0-99.0); Platelet Count 274 10^3/uL (130-400); Red Cell Dist. Width 13.3 % (11.5-14.5)
[2025-05-07 07:34] LABS: ALT (SGPT) 12 U/L (0-35); AST (SGOT) 22 U/L (14-36); Albumin 4.5 g/dl (3.5-5.0); Alkaline Phosphatase 54 U/L (38-126); Blood Urea Nitrogen 14 mg/dl (7-17); Calcium 10.1 mg/dl (8.4-10.2); Carbon Dioxide 28 mmol/L (22-30); Chloride 103 mmol/L (98-107); Glucose 89 mg/dl (70-99); Magnesium 1.7 mg/dl (1.6-2.3); Potassium 4.2 mmol/L (3.5-5.1); Sodium 140 mmol/L (135-145); Total Protein 7.8 g/dl (6.3-8.2); eGFR > 60.00
[2025-05-07 07:59] LABS: Absolute Neutrophils -Man Diff 1.7 10^3/uL (1.4-6.5); Anisocytosis Slight; Macrocytosis Slight; Normal RBC Morphology No; Platelets Checked Yes; Total Cells Counted 100
== END ==
LOC: REG 06:31
PROVIDERS: ATTENDING PHYSICIAN Nurse Practitioner Adult Health; FAMILY PHYSICIAN Family Medicine
DX: C01 Malignant neoplasm of base of tongue (principal)
CPT/HCPCS: 36415; 80053; 83735; 85025

== ENCOUNTER → 2025-05-20 08:40 | Outpatient (REF) | payer MEDICARE, SELFPAY ==
[2025-05-20 09:27] LABS: Glucose 91 mg/dl (70-99)
== END ==
LOC: PET 08:40
PROVIDERS: ATTENDING PHYSICIAN Radiology Radiation Oncology; REFERRING PHYSICIAN Radiology Radiation Oncology
DX: C10.9 Malignant neoplasm of oropharynx, unspecified (principal)
CPT/HCPCS: 36415; 82947

== ENCOUNTER → 2025-05-21 06:38 | Outpatient (REF) | payer MEDICARE, SELFPAY ==
[2025-05-21 07:25] LABS: Hematocrit 43.1 % (37.0-47.0); Hemoglobin 13.6 g/dL (12.0-16.0); Mean Corp Hgb Conc. 31.6 g/dL (33.0-37.0); Mean Corpuscular Volume 108.8 fL (81.0-99.0); Nucleated Red Blood Cells % 0 %; Platelet Count 311 10^3/uL (130-400); Red Cell Dist. Width 13.4 % (11.5-14.5)
[2025-05-21 07:42] LABS: ALT (SGPT) 14 U/L (0-35); AST (SGOT) 19 U/L (14-36); Albumin 4.6 g/dl (3.5-5.0); Alkaline Phosphatase 48 U/L (38-126); Blood Urea Nitrogen 17 mg/dl (7-17); Calcium 10.1 mg/dl (8.4-10.2); Carbon Dioxide 29 mmol/L (22-30); Chloride 104 mmol/L (98-107); Glucose 98 mg/dl (70-99); Magnesium 1.8 mg/dl (1.6-2.3); Potassium 3.8 mmol/L (3.5-5.1); Sodium 139 mmol/L (135-145); Total Protein 7.9 g/dl (6.3-8.2); eGFR > 60.00
== END ==
LOC: REG 06:38
PROVIDERS: ATTENDING PHYSICIAN Nurse Practitioner Adult Health; FAMILY PHYSICIAN Family Medicine
DX: C01 Malignant neoplasm of base of tongue (principal)
CPT/HCPCS: 36415; 80053; 83735; 85025

== ENCOUNTER 2025-06-01 16:39 | Inpatient (IN) | payer MEDICARE, SELFPAY ==
[2025-06-01] VITALS (11 sets, daily range): BP systolic 105–153; BP diastolic 66–96; BMI 16.4; BMI 16.0
--- NOTE | 2025-06-01 12:56 | ED.GENMED ---
History of Present Illness
General
Chief Complaint: Failure to Thrive
Source: patient
Time Seen by Provider: 06/01/25 12:38
History of Present Illness
History of Present Illness:
64-year-old female with past medical history of maxillofacial cancer, hypertension, hyperlipidemia, previous CVA presenting to the emergency department at the request of her radiation oncology team due to worsening pain to the right facial region,
swelling and despite being on 10 mg of oxycodone 3-4 times a day as needed for pain patient still having significant pain and now inability to tolerate solids and minimally liquids. Her oncology team was concern for dehydration/failure to thrive
and that she would need a temporary feeding tube for nutritional purposes. Patient without any fevers or infectious symptoms, nausea or vomiting, bowel changes or urinary symptoms. Family at the bedside notes patient has had minimal oral intake
over the last few days. The right lower jaw is noted to be more swollen and erythematous than usual per family and patient. No recent abx.
Past History
Past History
ED Past Medical History: Cancer, CVA, HTN, Hypercholesterolemia and Other (History of alcoholism)
ED Past Surgical History: Orthopedic
Social History
Tobacco: Smoker
Alcohol: Former
Drug: None
Personal: Partner
Living: with roommate
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
Review of Systems
Review of Systems
All Other Systems: ROS reviewed and negative except as documented in HPI and ROS
Phy Exam
Physical Exam
Physical Exam:
GENERAL: Alert , in no apparent distress, appears older than stated age
HEAD: Normocephalic atraumatic
EYE: clear conjunctiva
NECK: Supple
ENT: o/p clr, significantly dry mucous membranes
CARDIAC: Regular rate and rhythm .
LUNGS: Clear breath sounds bilaterally, no acute respiratory distress, no wheezes/rales/rhonchi, port left upper chest wall
ABDOMEN: Soft, without focal tenderness, no r/g, no cvat
NEUROLOGICAL: Alert and oriented
SKIN: Warm and dry, skin intact.
MUSCULOSKELETAL: No edema, well perfused.
PSYCH: Normal and appropriate interaction.
Scores
Heart Failure Risk
Heart Failure Risk Score: Not Applicable
Heart Score for Chest Pain Patients
STEMI patient?: Not applicable
Withdrawal Assessment of Alcohol
Withdrawal Assessment Completed?: Not applicable
Course
Orders/Labs/Results
Orders:
Orders
06/01/25 12:50
HYDROmorphone [Dilaudid] 0.5 mg IV NOW STA
06/01/25 12:55
CMP [Comprehensive Metabolic Panel] Urgent
Complete Blood Count/With Diff Urgent
Lactic Acid Q4H
Comment: CANCEL 2nd LACTIC ACID IF 1st LACTIC ACID IS LESS THAN 2
Blood Culture Q30M
MAY Source: Blood/Venous
Specimen Description:
06/01/25 13:04
CT Facial Bones W/ Iv Contrast Urgent
Comment:
Reason For Exam: right lower mandible edema/erythema, hx cancer
06/01/25 13:36
Blood Culture Q30M
MAY Source: Blood/Venous
Specimen Description:
06/01/25 Dinner
Clear Liquid
At Your Request: Full Participation
Does patient need a safe tray?: No
06/01/25 16:07
0.9% Sodium Chloride 500 ml [Nss] 500 ml IV BOLUS
06/01/25 16:26
Admit/Transfer Patient As Directed
Co-Sign Provider:
Level of Care: Inpatient admission
Assign to:: Medical/Surgical
Physician / Group: Selvin Burnham
Diagnosis: adult failure to thrive, right tonsillar cancer stage T1 N2AM0 group [facility]
Reason for Hospitalization: adult failure to thrive, right tonsillar cancer stage T1 N2AM0 group [facility]
Expected length of stay greater than two midnights?: Yes
ELOS- Estimated Length of Stay in days: 3
I certify the patient meets the requirements for IP care: Yes
06/01/25 16:27
PRN Pain Medication Management As Directed
May give lesser potent ordered pain med per pt: Yes
preference::
Protocol:: Medication orders for pain may be administered in a
manner that supports deferring to patient preference
when the pt is:
- Requesting an ordered lesser potent pain medication.
Least to most potent pain medications are defined
as: acetaminophen < NSAID < tramadol < opioids
(morphine, oxycodone, hydromorphone).
- Requesting a lesser dose of the same medication IF
ORDERED.
- Requesting a less intrusive route of administration
if both routes are prescribed by the provider (PO <
IV).
06/01/25 16:28
Code Status As Directed
Resuscitation Status: Full Code
06/01/25 17:50
Dextrose 5%/Lactringers 1000ML [D5lr] 1,000 ml IV 80 mls/hr
HYDROmorphone [Dilaudid] 0.75 mg IV Q4HPRN PRN
Oxycodone [Roxicodone] 10 mg PO Q4HPRN PRN
06/01/25 17:50
Consult Cardiology [CARDIOLOGY CONSULT] Routine
Consulting Provider: Kareen Levy
Was physician already notified: Yes
GASTROINTESTINAL CONSULT Routine
Consulting Provider: Anthony Madsen
Was physician already notified: Yes
ONCOLOGY CONSULT Routine
Consulting Provider: Lele Haider
Was physician already notified: Yes
Activity As Directed
Activity Level: Ambulate
Intake/ Output As Directed
Frequency: Per unit guidelines
Pneumatic Compression Sleeves As Directed
Type: Knee high
Vital Signs As Directed
Frequency: Per unit guidelines
Weight As Directed
Frequency: Once
Comment: on admission
DX Deep Vein Thrombosis Video Routine
06/01/25 18:00
Acetaminophen [Tylenol] 650 mg PO Q4HPRN PRN temp greater than 100.4 F
06/01/25 20:00
Chlorhexidine Oral Rinse 0.12% [Peridex 0.12% Oral Rinse] 15 ml PO BID
Dexamethasone [Decadron] 8 mg PO BID
Pregabalin [Lyrica] 50 mg PO BID
06/01/25 22:00
Latanoprost [Xalatan Ophthalmic Solution] See Dose Instructions BOTH EYES HS
06/02/25 Breakfast
NPO
Allow oral meds: Yes
Allow clear liquids: No
06/02/25 08:00
Aspirin Chewable [Low Strength Aspirin] 81 mg PO DAILY
Atorvastatin [Lipitor] 20 mg PO DAILY
Metoprolol Xl [Toprol Xl] 25 mg PO DAILY
Abnormal Lab Results
06/01/25
12:55
RBC 4.17 L 10^6/uL
(4.20-5.40)
MCV 103.1 H fL
(81.0-99.0)
MCH 33.8 H pg
(27.0-31.0)
MCHC 32.8 L g/dL
(33.0-37.0)
MPV 11.4 H fL
(7.4-10.4)
Abs Immat Gran (auto) 0.1 H 10^3/uL
(0-0.05)
Absolute Neuts (auto) 9.3 H 10^3/uL
(1.4-6.5)
Absolute Lymphs (auto) 0.2 L 10^3/uL
(1.2-3.4)
Immature Gran % 0.7 H %
(0-0.5)
Neutrophils % 91.5 H %
(42.2-75.2)
Lymphocytes % 2.4 L %
(20.5-51.1)
Sodium 134 L mmol/L
(135-145)
BUN 35 H mg/dl
(7-17)
Glucose 102 H mg/dl
(70-99)
06/01/25 12:55
06/01/25 12:55
Vital Signs
Initial and Last Documented VS:
Initial Vital Signs
Temp Pulse Resp BP Pulse Ox
98.2 F 66 16 136/94 98
06/01/25 11:41 06/01/25 11:41 06/01/25 11:41 06/01/25 11:41 06/01/25 11:41
Last Documented Vital Signs
Temp Pulse Resp BP Pulse Ox
97.9 F 45 20 123/81 98
06/04/25 07:37 06/04/25 08:04 06/04/25 07:37 06/04/25 08:04 06/04/25 07:37
MDM/Problems Addressed
Differential Diagnosis Includes:
Cancer related pain
Periodontal abscess
Facial Cellulitis
Dehydration
Malnutrition
MDM/Problems Addressed:
64-year-old female presenting to the ER at the request of her radiation oncology team for evaluation and ultimately admission due to poor oral intake and significant weight loss. Patient with right-sided facial swelling and some erythema around the
mandible. Consider possible abscess/infectious etiology for the increased pain. Will obtain labs and CT imaging. Radiation oncology team was concerned about malnutrition and felt patient would likely need a temporary feeding tube in the interim.
Planning for admission.
Chronic conditions affecting care: Cancer
Acute Exacerbation and/or Progression of Chronic Illness: Cancer
*Radiology
Radiology exam reviewed: radiology read reviewed
*Pulse Oximetry
SaO2: 98
Oxygen Mode of Delivery: Room air
Patient hypoxic: no
*Critical Care Note
Total Time (30-74mins, 75-104mins- exclusive of procedures): Not Applicable
Data Reviewed
Review of Other/Old Records Reveals: Labs and Records
Patient Management
Discussion with other providers: Hospitalist
Escalation/DeEscalation of care consider admission/obs:
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 Labs with prerenal azotemia. Due to patient having a hard time with PO intake and recommended for tube feedings, will admit to hospitalist with surgery/oncology in consult.
ED Attending Note
-
Portions of this chart may have been created with voice recognition software.� Occasional wrong word or��sound alike� substitutions may have occurred due to the inherent limitations of voice recognition software.
Discharge Plan
Departure
Patient Disposition: Admit
Date of Disposition: 06/01/25
Time of Disposition: 15:01
Presentation/result/management discussed w/ accepting MD/DO: Hospitalist
Discharge Problem:
Adult failure to thrive, Mandibular pain
Interventions
Interventions:
*Risk Screen - Suicide Last Done: 06/01/25 11:41
*General Assessment Last Done: 06/01/25 12:06
*Neglect/Abuse Screening Last Done: 06/01/25 11:41
*ED- Fall Risk Assessment Last Done: 06/01/25 12:06
*ED COVID-19 Vaccine History Last Done: 06/01/25 12:06
*ED Influenza Vaccine History Last Done: 06/01/25 12:06
*Nursing Disposition Last Done: 06/01/25 17:50
Discharge Date and Time
Discharge Date/Time: 06/01/25 17:50
[2025-06-01 13:18] LABS: Hematocrit 43.0 % (37.0-47.0); Hemoglobin 14.1 g/dL (12.0-16.0); Mean Corp Hgb Conc. 32.8 g/dL (33.0-37.0); Mean Corpuscular Volume 103.1 fL (81.0-99.0); Nucleated Red Blood Cells % 0 %; Platelet Count 205 10^3/uL (130-400); Red Cell Dist. Width 12.8 % (11.5-14.5)
[2025-06-01] MEDS: DILAUDID 0.5 MG IV (13:24)
[2025-06-01 13:33] LABS: ALT (SGPT) 24 U/L (0-35); AST (SGOT) 20 U/L (14-36); Albumin 4.3 g/dl (3.5-5.0); Alkaline Phosphatase 46 U/L (38-126); Blood Urea Nitrogen 35 mg/dl (7-17); Calcium 9.7 mg/dl (8.4-10.2); Carbon Dioxide 24 mmol/L (22-30); Chloride 103 mmol/L (98-107); Estimated Creatinine Clearance 49 ml/min; Glucose 102 mg/dl (70-99); Potassium 4.2 mmol/L (3.5-5.1); Sodium 134 mmol/L (135-145); Total Protein 7.3 g/dl (6.3-8.2); eGFR > 60.00
--- NOTE | 2025-06-01 15:04 | W.PN.UPDATE ---
Update Note
Progress Note Update
This is an addendum to H&P written by GAS PLANT REPAIRER Lucy Chamorro
I saw and examined the patient.
The GAS PLANT REPAIRER's note was reviewed and I agree with the note.
Comment:
Ms. Miley Blair is a 64 yo woman with hx right tonsillar cancer s/p chemotherapy/radiation completed 02/27 with recent PET showing possible reoccurrence in one of the cervical LN seen with persistent jaw and neck pain and weight loss and sent to the
ER. She has biopsy with Dr. Ortega at [facility] 06/09.
Triage VS: T 98.2, P 66, RR 16, BP 136/94, SpO2 98%
LABS: WBC 10.1, HG 14.1, PLT 205, Na 134, K+ 4.2, CO2 24, Cr 0.8, Glucose 102, Lactate 1.3, liver enzymes WNL
Facial Bones CT
IMPRESSION: Ring-enhancing focus within the right side of the tongue, which likely represents neoplasia.
Nodular foci of enhancement within the adjacent right posterior base of the tongue and extending in the right oropharynx, also likely representing foci of neoplasia. There has been interval increase in right oral pharyngeal mass and adjacent
lymphadenopathy comparing to CT of the neck from October 14, 2024.
Edema within the soft tissues of the right parapharyngeal region and soft tissues of the right face, suggesting edema from radiation therapy. No evidence for abscess.
MAR: IV dilaudid
Hx Right Tonsillar Cancer with evidence of reoccurence
Jaw and Neck Pain, poor PO intake
-s/p chemotherapy/radiation 02/2025
-plans for outpatient biopsy with Dr. Ortega 06/09
-with lack of PO intake 2/2 pain, will admit for PEG placement and pain control
-GI consult
-clears, NPO after MN
-D5LR
-Oncology consult
-pain control, initiation of Lyrica and IV Dilaudid 0.75 q3 hr PRN severe pain (small response to 0.5mg in the ER)
-continue CHEMICAL DEPENDENCY ATTENDANT Decadron (patient is on 8mg q 12)
Carotid Artery Disease
-follows with Dr. Hinds
Coronary artery calcification seen on CT
Abnormal Stress Test
-continue Asa/Statin/ Metoprolol
-sees Dr. Brar, patient asymptomatic and conservative treatment recommended
-patient has an appt for Wed for approval for biopsy, I have sent a TT to Dr. Alcantara
Remainder of plan per GAS PLANT REPAIRER note
FULL CODE
--- NOTE | 2025-06-01 15:05 | HPS.HSE ---
Family Physician
-
Family Physician: Balwinder Yousif
Chief Complaint
-
failure to thrive and uncontrolled pain
History of Present Illness
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
uncontrolled pain. Patient states that she has been having difficulty swallowing since diagnosis but has had significantly increased difficulty over the last 10 days. Patient states it is a process to swallow pills and she even attempts to dilute
her boost supplemental drinks to be able to swallow them She also reports that pain has singificantly increased and is even having difficulty talking without severe discomfort. It is reported that she has had a 8% weight loss since diagnosis, with
starting weight at 101 pounds.
Medical History
Past Medical History
Past Medical History: Reports Other
Additional Past Medical History:
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
hypertension
hyperlipidemia
Past Surgical History: Reports Orthopedic
Social History
Tobacco: Former Smoker (quit 10/2024, approximate 25-30 pack year history )
Alcohol: Occasional (several times a week with have vodka )
Drug: None
Living: Alone
Family History
Family History: Other (Mother: clotting d/o, CHF, DM; Father: CAD )
Allergies / Home Medications
Allergies reflects when Allergies were last updated in [facility].
Home Medications with original date entered in [facility]
Allergy/Medication List:
Allergies
Allergy/AdvReac Type Severity Reaction Status Date / Time
bee venom protein (honey bee) Allergy Unknown Verified 06/01/25 11:40
latex Allergy Itching Verified 06/01/25 11:40
neomycin Allergy Itching Verified 06/01/25 11:40
Home Medications
alendronate 70 mg tablet 70 mg PO FR 09/26/19
acetaminophen 325 mg tablet 650 mg (2 x 325 mg) PO Q4HPRN PRN temp greater than 100.4 F 09/27/19
ascorbic acid (vitamin C) 100 mg tablet (Vitamin C) 100 mg PO DAILY Supplement 12/16/24
latanoprost 0.005 % eye drops 1 drp BOTH EYES HS Eye Condition 12/16/24
aspirin 81 mg chewable tablet 81 mg PO DAILY Blood Clot Prevention/Tx 06/01/25
atorvastatin 20 mg tablet (Lipitor) 20 mg PO DAILY High Cholesterol 06/01/25
chlorhexidine gluconate 0.12 % mouthwash 15 ml buccal BID 06/01/25
dexamethasone 4 mg tablet 4 mg PO DIRECTED Infection 06/01/25
metoprolol succinate 25 mg tablet,extended release 24 hr (Toprol XL) 25 mg PO DAILY Blood Pressure 06/01/25
oxycodone 5 mg tablet 5 mg PO Q4HPRN PRN severe pains 06/01/25
therapeutic multivitamin 1 tab PO DAILY Supplement 06/01/25
Review of Systems
-
History Source: Patient
Constitutional: Denies Fever or Chills
EENT: Reports Other (difficulty swallowing and right sided neck and jaw pain )
Respiratory: Denies Cough, Hemoptysis or Trouble Breathing
Cardiac: Denies Chest Pain, Diaphoresis, Palpitations or Syncope
Abdomen/GI: Denies Abdominal Pain, Nausea, Vomiting or Diarrhea
: Denies Dysuria, Frequency or Urgency
Musculoskeletal: Reports Edema (right jaw and neck line edema )
Skin: Denies Itching
Neurological: Denies Dizzy, Headache or Weakness
Endocrine: Denies Polyuria or Polydipsia
Hematologic/Lymphatic: Denies Bleeding
Physical Exam
Vital Signs
Vital Signs
Temp Pulse Resp BP Pulse Ox
98.2 F 46 11 107/74 99
06/01/25 11:41 06/01/25 14:45 06/01/25 14:45 06/01/25 14:00 06/01/25 14:45
Physical Exam
General: Well Developed, No Apparent Distress, Conversant and Appears Chronically Ill
HEENT: NormoCephalic, PERRLA, Nose Appears Normal and Ears Appear Normal
Respiratory: Clear and Non Labored Respirations
Cardiac: Regular Rhythm and Bradycardia
GI: Soft, Non Tender, Non Distended and Normal Bowel Sounds
Musculoskeletal: No Clubbing, No Cyanosis and No Edema
Skin: Warm and IV/Catheter Site
Neuro: Awake and AO x 3
Psych: Calm and Intact Judgment/Insight
Laboratory Results
-
06/01/25 12:55
06/01/25 12:55
Laboratory Results
Lactic Acid 1.3 mmol/L (0.7-2.0) 06/01/25 12:55
Total Bilirubin 0.6 mg/dl (0.2-1.3) 06/01/25 12:55
AST 20 U/L (14-36) 06/01/25 12:55
ALT 24 U/L (0-35) 06/01/25 12:55
Alkaline Phosphatase 46 U/L (38-126) 06/01/25 12:55
Data Reviewed
-
Lab Data: Labs Reviewed by me
Impression/Plan
-
IMPRESSION/PLAN:
#adult failure to thrive
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
difficulty swallowing, increased pain, 8% weight loss since 10/2024
- Admit to med/surg
- Consult Oncology
- Consult GI
- NPO at midnight, clear liquids for now
- IVF D5.045 NSS 80cc/hr
- start Lyrica at 50mg BID for two days, increase to 75mg BID for 2 days then 100mg BID per Rad/Onc IN FILE OPERATOR with patient goal to tolerate 100mg BID
- PRN Dilaudid and PRN Oxycodone
#hypertension
- continue metoprolol
#hyperlipidemia
- continue atorvastatin
Code status: full code
DVT prophylaxis: SCDs
[2025-06-01] MEDS: NSS 500 IV (16:23)
--- NOTE | 2025-06-01 17:40 | CON.GI ---
Consultation
-
Date/Time Consultation Requested: 06/01/25 4:24pm
Date/Time Consultation Performed: 06/01/25 5:41pm
Requesting Provider: Keara Chamorro
Performing Provider: nAthony Madsen
Reason for Consultation: Odynophagia, failure to thrive
Medical History
Chief Complaint / HPI
Chief Complaint: Odynophagia, failure to thrive
History of Present Illness:
64yo female recently dx'd with tonsillar CA T1N2M0 group stage VIKRAM in December and underwent chemoradiation from December through February. She was only able to eat soft foods due to pain in her R neck. More recently she has been unable to tolerate her Boost,
which she ends up diluting to better tolerate. She has lost 7#. She had f/u PET 05/20 that shows large R oropharyngeal squamous cell CA and metastatic R cervical LN, which is planned to be bx'd 06/09. She comes in now due to inability to tolerate
food and Boost.
Past Medical History
Past Medical History: Other (Tonsillar CA. B/l carotid stenosis. PVD)
Past Surgical History: Other (L sided port)
Social History
Tobacco: Smoker
Alcohol: None
Family History
Family History: Reviewed & Not Pertinent
Allergies / Home Medications
Allergy/AdvReac Type Severity Reaction Status Date / Time
bee venom protein (honey bee) Allergy Unknown Verified 06/01/25 11:40
latex Allergy Itching Verified 06/01/25 11:40
neomycin Allergy Itching Verified 06/01/25 11:40
�Medication �Instructions �Recorded
alendronate 70 mg tablet 70 mg PO FR 09/26/19
acetaminophen 325 mg tablet 650 mg (2 x 325 mg) PO Q4HPRN PRN 09/27/19
temp greater than 100.4 F
ascorbic acid (vitamin C) 100 mg 100 mg PO DAILY Supplement 12/16/24
tablet (Vitamin C)
latanoprost 0.005 % eye drops 1 drp BOTH EYES HS Eye Condition 12/16/24
aspirin 81 mg chewable tablet 81 mg PO DAILY Blood Clot 06/01/25
Prevention/Tx
atorvastatin 20 mg tablet (Lipitor) 20 mg PO DAILY High Cholesterol 06/01/25
chlorhexidine gluconate 0.12 % 15 ml buccal BID 06/01/25
mouthwash
dexamethasone 4 mg tablet 4 mg PO DIRECTED Infection 06/01/25
metoprolol succinate 25 mg 25 mg PO DAILY Blood Pressure 06/01/25
tablet,extended release 24 hr
(Toprol XL)
oxycodone 5 mg tablet 5 mg PO Q4HPRN PRN severe pains 06/01/25
therapeutic multivitamin 1 tab PO DAILY Supplement 06/01/25
Review of Systems
-
All other systems: A 12 pt ROS was Negative except as stated above in HPI
Vital Signs
Temp Pulse Resp BP Pulse Ox
98.2 F 48 24 105/66 97
06/01/25 11:41 06/01/25 17:15 06/01/25 17:15 06/01/25 17:00 06/01/25 17:15
Physical Exam
Exam
General: No Apparent Distress
HEENT: Other (R neck hyperpigmentation and tenderness)
Respiratory: Non Labored Respirations
GI: Soft, Non Tender and Non Distended
Results
WBC 10.1 10^3/uL (4.8-10.8) 06/01/25 12:55
Hgb 14.1 g/dL (12.0-16.0) 06/01/25 12:55
Hct 43.0 % (37.0-47.0) 06/01/25 12:55
MCV 103.1 fL (81.0-99.0) H 06/01/25 12:55
Plt Count 205 10^3/uL (130-400) 06/01/25 12:55
Absolute Neuts (auto) 9.3 10^3/uL (1.4-6.5) H 06/01/25 12:55
Sodium 134 mmol/L (135-145) L 06/01/25 12:55
Potassium 4.2 mmol/L (3.5-5.1) 06/01/25 12:55
Chloride 103 mmol/L (98-107) 06/01/25 12:55
Carbon Dioxide 24 mmol/L (22-30) 06/01/25 12:55
BUN 35 mg/dl (7-17) H 06/01/25 12:55
Creatinine 0.8 mg/dL (0.6-1.0) 06/01/25 12:55
Calcium 9.7 mg/dl (8.4-10.2) 06/01/25 12:55
Total Bilirubin 0.6 mg/dl (0.2-1.3) 06/01/25 12:55
AST 20 U/L (14-36) 06/01/25 12:55
ALT 24 U/L (0-35) 06/01/25 12:55
Alkaline Phosphatase 46 U/L (38-126) 06/01/25 12:55
Diagnostic Image Results:
Prior GI Procedures:
EGD:
Colonoscopy:
Assessment / Plan
-
Impression:
Odynophagia
Failure to thrive
Tonsillar Cancer. S/p chemo/XRT
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
b/l carotid stenosis
Recommendations:
Will reach out to Oncology to discuss PEG placement for nutrition as she proceeds with cancer treatment
-
-
Thank you for consultation and allowing me to participate in the patient's care. Please call the production support supervisor GI physician during the after hours with any questions or concerns.
--- NOTE | 2025-06-01 17:50 | EDRN ---
Patient taken to room 427-1 on stretcher by mechanical facilities technician.
[2025-06-01] MEDS: D5LR 1000 IV (18:36)
[2025-06-01] MEDS: PERIDEX 0.12% ORAL RINSE 15 ML PO (20:50)
[2025-06-01] MEDS: DECADRON 8 MG PO (20:50)
[2025-06-01] MEDS: LYRICA 50 MG PO (20:50)
[2025-06-01] MEDS: XALATAN OPHTHALMIC SOLUTION 1 DROP BOTH EYES (22:45)
[2025-06-01] MEDS: ROXICODONE 10 MG PO (23:27)
[2025-06-02] MEDS: D5LR 1000 IV (06:30)
[2025-06-02 07:57] VITALS: BP 124/85
[2025-06-02] MEDS: LYRICA 50 MG PO ×2 (08:33→20:27)
[2025-06-02] MEDS: DECADRON 8 MG PO ×2 (08:33→20:29)
[2025-06-02] MEDS: TOPROL XL PO (08:34)
[2025-06-02] MEDS: LOW STRENGTH ASPIRIN PO (08:39)
[2025-06-02] MEDS: PERIDEX 0.12% ORAL RINSE PO (08:39)
[2025-06-02] MEDS: LIPITOR PO (08:40)
[2025-06-02] MEDS: ROXICODONE 10 MG PO (08:42)
--- NOTE | 2025-06-02 08:45 | W.PN.GI.CBS2 ---
Addendum entered and electronically signed by Sagrario Kyle DO 06/02/25 11:43:
Patient seen and examined independently of ANCELMO. I agree with her note with my additions below
Miley is a 64-year-old active female diagnosed with tonsillar cancer in December and underwent chemoradiation from December until February 2025. She has had progressive worsening pain in her right neck with significant odynophagia and not able to tolerate liquids
or solids. She has lost around 10 pounds. She had a follow-up PET scan on 1014 that shows persistent disease and is planned for a biopsy on June 09, 2025.
Patient is on dexamethasone
She is in no acute distress but does have pain with swallowing.
Oral exam shows thrush and a beefy red tongue -highly likely contributing to her recent odynophagia
Severe calorie malnutrition -Will need nutrition consult for tube feeds
Will place a T-fastener PEG today
Prophylactic antibiotics to be given
Patient will need treatment for esophageal candidiasis - discussed with Dr. Pretty - would place the PEG even if the candidia is treated considering her future treatment/management
Patient is aware she will need to keep the tube in for at least 6 weeks which can help supplement her nutrition and medications
Patient has significant asymptomatic bradycardia - in for cardiology consult today - her metoprolol was held today
Original Note:
Today's Communication / Plan
-
await oncology consult for goals of treatment but will need to consider peg for nutrition
no improvement with oral steroids, Peridex rise and Oxycodone
pt is agreeable for peg -- will review Dr. Kyle for need for placement- T fastener and if unable to pass scope surgical peg
NPO
IVF
will add PPI BID with ASA and steroid use and magic mouthwash PRN
Assessment / Plan
-
64yo female recently dx'd with tonsillar CA T1N2M0 group stage VIKRAM in December and underwent chemoradiation from December through February. She was only able to eat soft foods due to pain in her R neck. More recently she has been unable to tolerate her Boost,
which she ends up diluting to better tolerate. She has lost 7#. She had f/u PET 05/20 that shows large R oropharyngeal squamous cell CA and metastatic R cervical LN, which is planned to be bx'd 06/09. She comes in now due to inability to tolerate
food and Boost.
Impression:
Odynophagia/dysphagia
Failure to thrive/wt loss
Tonsillar Cancer. S/p chemo/XRT
bradicardia
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
b/l carotid stenosis
prior tobacco use and current ETOH use
Recommendations:
await oncology consult for goals of treatment but will need to consider peg for nutrition
no improvement with oral steroids, Peridex rise and Oxycodone
pt is agreeable for peg -- will review Dr. Kyle for need for placement- T fastener and if unable to pass scope surgical peg
NPO
IVF
will add PPI BID with ASA and steroid use and magic mouthwash PRN
Subjective
Subjective
Date of Service: June 02, 2025
NPO, no stools-- pt continues to complaint of odynophagia and dysphagia with difficulty with pills this am
Objective
Data Reviewed
Laboratory Data:
Laboratory Results
06/01/25 12:55
06/01/25 12:55
Laboratory Results
Total Bilirubin 0.6 mg/dl (0.2-1.3) 06/01/25 12:55
AST 20 U/L (14-36) 06/01/25 12:55
ALT 24 U/L (0-35) 06/01/25 12:55
Alkaline Phosphatase 46 U/L (38-126) 06/01/25 12:55
Vital Signs and I&O:
Vital Signs
Temp Pulse Resp BP Pulse Ox
98.6 F 53 18 124/85 98
06/02/25 07:57 06/02/25 07:57 06/02/25 07:57 06/02/25 07:57 06/02/25 07:57
Physical Exam
Physical Exam
HEENT: Anicteric, Moist mucous membranes and Other (right neck fullness , unable to control secretions, severe pain with swallowing with pills )
Cardiology: Other (bradicardia )
Pulmonary: Clear and Other (cont clearing of throat)
GI: Soft, Non Distended and Non Tender
Extremities: No Edema
Neuro: Non Focal
--- NOTE | 2025-06-02 09:23 | CON.ONC ---
Consultation
-
Date Consultation Requested: 06/01/25
Date Consultation Performed: 06/02/25
Requesting Provider: ANCELMO Charlton
Performing Provider: Debby Pretty MD
Reason for Consultation: head/neck cancer
Impression
Impression
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
Now with local recurrent and progressive disease causing pain, difficulty swallowing, and weight loss
Tobacco abuse, history of substance abuse
Plan
Plan
Agree w/ plans for PEG - patient is agreeable
Pain control
Outpatient f/u w/ Dr. Vargas at [place] for biopsy and likely surgery w/ neck dissection
Patient History
History of Present Illness
This is a patient with stage Velvet, HPV negative right tonsillar cancer, who was treated with definitive chemotherapy and radiation with weekly cisplatin, which finished in mid February 2025. She was improving clinically over the summer, but recently was
noted to have increased difficulty swallowing, with increased pain and weight loss. PET CT scan done May 20, 2025 confirmed progressive disease with a large right oropharyngeal carcinoma and level 2 right cervical lymphadenopathy. She had
follow-up with her surgeon at [place] last week and has been scheduled for a biopsy there on June 09. Per patient, they discussed the need for surgery if persistent/recurrent cancer is identified. She was admitted to the hospital for PEG tube
placement and pain control.
Past-Medical/Surgical History
Past medical and surgical history is as per the HPI, also includes hypertension, hyperlipidemia, osteoporosis and TIA. She underwent bypass surgery to the left leg on 3 occasions for peripheral arterial disease.
Social history: She is a current cigarette smoker and single. History of substance abuse.
Family history is noted for celiac disease, blood clots, heart disease, asthma, diabetes and stroke.
Patient Medication
�Medication �Instructions �Recorded �Confirmed �Last Taken �Type
alendronate 70 mg tablet 70 mg PO FR 09/26/19 06/01/25 05/29/25 History
acetaminophen 325 mg tablet 650 mg (2 x 325 mg) PO Q4HPRN PRN 09/27/19 06/01/25 05/31/25 Rx
temp greater than 100.4 F
ascorbic acid (vitamin C) 100 mg 100 mg PO DAILY Supplement 12/16/24 06/01/25 Unknown History
tablet (Vitamin C)
latanoprost 0.005 % eye drops 1 drp BOTH EYES HS Eye Condition 12/16/24 06/01/25 05/31/25 History
aspirin 81 mg chewable tablet 81 mg PO DAILY Blood Clot 06/01/25 06/01/25 Unknown History
Prevention/Tx
atorvastatin 20 mg tablet (Lipitor) 20 mg PO DAILY High Cholesterol 06/01/25 06/01/25 Unknown History
chlorhexidine gluconate 0.12 % 15 ml buccal BID 06/01/25 06/01/25 Unknown History
mouthwash
dexamethasone 4 mg tablet 4 mg PO DIRECTED Infection 06/01/25 06/01/25 06/01/25 History
metoprolol succinate 25 mg 25 mg PO DAILY Blood Pressure 06/01/25 06/01/25 06/01/25 History
tablet,extended release 24 hr
(Toprol XL)
oxycodone 5 mg tablet 5 mg PO Q4HPRN PRN severe pains 06/01/25 06/01/25 06/01/25 History
therapeutic multivitamin 1 tab PO DAILY Supplement 06/01/25 06/01/25 Unknown History
Active Medications
Generic Name Dose Route Start Last Admin
Trade Name Freq PRN Reason Stop Dose Admin
Acetaminophen 650 mg 06/01/25 18:00
Acetaminophen 325 Mg Tablet PO 06/29/25 17:59
Q4HPRN PRN
temp greater than 100.4 F
Aspirin 81 mg 06/02/25 08:00 06/02/25 08:39
Aspirin 81 Mg Chewable Tablet PO 06/30/25 07:59 Not Given
DAILY GELY
Atorvastatin Calcium 20 mg 06/02/25 08:00 06/02/25 08:40
Atorvastatin (Lipitor) 20 Mg Tablet PO 06/30/25 07:59 Not Given
DAILY GELY
Chlorhexidine Gluconate 15 ml 06/01/25 20:00 06/02/25 08:39
Chlorhexidine Oral Rinse 0.12% 15 Ml Cup PO 06/29/25 19:59 Not Given
BID GELY
Dexamethasone 8 mg 06/01/25 20:00 06/02/25 08:33
Dexamethasone 4 Mg Tablet PO 06/29/25 19:59 8 mg
BID GELY Administration
Hydromorphone HCl 0.75 mg 06/01/25 17:50
Hydromorphone 0.5 Mg/0.5 Ml Syringe IV 06/15/25 17:49
Q4HPRN PRN
severe pain
Dextrose/Lactated Ringer's 1,000 mls @ 80 mls/hr 06/01/25 17:50 06/02/25 06:30
D5lr IV 1,000 mls
.[id number] GELY Administration
Latanoprost 0 drop 06/01/25 22:00 06/01/25 22:45
Latanoprost 0.005% (Ophthalmic Solution) 2.5 Ml Bottle BOTH EYES 06/29/25 21:59 1 drop
HS GELY Administration
Metoprolol Succinate 25 mg 06/02/25 08:00 06/02/25 08:34
Metoprolol 25 Mg Extended Release Tablet PO 06/30/25 07:59 Not Given
DAILY GELY
Multi-Ingredient Mouthwash/Gargle 5 ml 06/02/25 09:09
Magic (Miracle) Mouthwash 90 Ml Bottle PO
5/D PRN
pain with swallowing
Oxycodone HCl 10 mg 06/01/25 17:50 06/02/25 08:42
Oxycodone 5 Mg Regular Release Tablet PO 06/15/25 17:49 10 mg
Q4HPRN PRN Administration
moderate pain
Pantoprazole Sodium 40 mg 06/02/25 10:00
Pantoprazole Sodium 40 Mg/10 Ml Vial IV 06/30/25 09:59
BID GELY
Pregabalin 50 mg 06/01/25 20:00 06/02/25 08:33
Pregabalin 50 Mg Capsule PO 06/29/25 19:59 50 mg
BID GELY Administration
Sodium Chloride 0 flush 06/01/25 19:00
Sodium Chloride 0.9% (Flush) Syringe IV 06/29/25 18:59
PER PROTOCOL GELY
Sodium Chloride 10 ml 06/02/25 10:00
Sodium Chloride 0.9% (Preservative Free) 10 Ml Vial IV 06/30/25 09:59
BID GELY
Physical Exam
-
General: Conversant and Appears Chronically Ill
HEENT: Negative Moist Mucous Membranes
Musculoskeletal: No Clubbing, No Cyanosis and No Edema
Extremities: No C/C/E
Neurology: Non Focal, No Lateralizing Symptoms and No Word Finding Difficulty
Skin: Warm and Dry
Hematologic / Lymphatic: Lymphadenopathy (left neck)
Psych: Calm and Intact Judgement/Insight
Labs
Lab Results
WBC 10.1 10^3/uL (4.8-10.8) 06/01/25 12:55
RBC 4.17 10^6/uL (4.20-5.40) L 06/01/25 12:55
Hgb 14.1 g/dL (12.0-16.0) 06/01/25 12:55
Hct 43.0 % (37.0-47.0) 06/01/25 12:55
MCV 103.1 fL (81.0-99.0) H 06/01/25 12:55
MCH 33.8 pg (27.0-31.0) H 06/01/25 12:55
MCHC 32.8 g/dL (33.0-37.0) L 06/01/25 12:55
RDW 12.8 % (11.5-14.5) 06/01/25 12:55
Plt Count 205 10^3/uL (130-400) 06/01/25 12:55
MPV 11.4 fL (7.4-10.4) H 06/01/25 12:55
Abs Immat Gran (auto) 0.1 10^3/uL (0-0.05) H 06/01/25 12:55
Absolute Neuts (auto) 9.3 10^3/uL (1.4-6.5) H 06/01/25 12:55
Absolute Lymphs (auto) 0.2 10^3/uL (1.2-3.4) L 06/01/25 12:55
Absolute Monos (auto) 0.5 10^3/uL (0.1-0.6) 06/01/25 12:55
Absolute Eos (auto) 0.0 10^3/uL (0-0.7) 06/01/25 12:55
Absolute Basos (auto) 0.0 10^3/uL (0-0.2) 06/01/25 12:55
Immature Gran % 0.7 % (0-0.5) H 06/01/25 12:55
Neutrophils % 91.5 % (42.2-75.2) H 06/01/25 12:55
Lymphocytes % 2.4 % (20.5-51.1) L 06/01/25 12:55
Monocytes % 5.0 % (1.7-9.3) 06/01/25 12:55
Eosinophils % 0.3 % (0-6) 06/01/25 12:55
Basophils % 0.1 % (0-2) 06/01/25 12:55
Creatinine 0.8 mg/dL (0.6-1.0) 06/01/25 12:55
Vital Signs
Vital Signs
Temp Pulse Resp BP Pulse Ox
98.6 F 53 18 124/85 98
06/02/25 07:57 06/02/25 08:34 06/02/25 07:57 06/02/25 08:34 06/02/25 07:57
[2025-06-02 10:20] VITALS: BMI 16.0
[2025-06-02] MEDS: PROTONIX IV 40 MG IV ×2 (10:50→20:30)
[2025-06-02] MEDS: NSS (PRESERVATIVE FREE) 10 ML IV ×2 (10:51→20:29)
--- NOTE | 2025-06-02 10:57 | W.PN.HOSP.TC ---
Today's Communication/Plan
-
PEG placement
appreciate consultants
pain control
Assessment / Plan
Assessment / Plan
Ms. Miley Blair is a 64 yo woman with hx right tonsillar cancer s/p chemotherapy/radiation completed 02/27 with recent PET showing possible reoccurrence in one of the cervical LN seen with persistent jaw and neck pain and weight loss and sent to the
ER. She has biopsy with Dr. Ortega at [facility] 06/09.
Facial Bones CT
IMPRESSION: Ring-enhancing focus within the right side of the tongue, which likely represents neoplasia.
Nodular foci of enhancement within the adjacent right posterior base of the tongue and extending in the right oropharynx, also likely representing foci of neoplasia. There has been interval increase in right oral pharyngeal mass and adjacent
lymphadenopathy comparing to CT of the neck from October 14, 2024.
Edema within the soft tissues of the right parapharyngeal region and soft tissues of the right face, suggesting edema from radiation therapy. No evidence for abscess.
Hx Right Tonsillar Cancer with evidence of reoccurence
Jaw and Neck Pain, poor PO intake
-s/p chemotherapy/radiation 02/2025
-plans for outpatient biopsy with Dr. Ortega 06/09
-with lack of PO intake 2/2 pain, will admit for PEG placement and pain control
-GI consult appreciated
-Oncology consult appreciated
-NPO for PEG
-D5NS
-pain control, initiation of Lyrica; increase PRN dosing of oxycodone; IV dilaudid PRN breakthrough pain
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
Carotid Artery Disease
-follows with Dr. Hinds
Coronary artery calcification seen on CT
Abnormal Stress Test
-continue Asa/Statin/ Metoprolol
-sees Dr. Brar, patient asymptomatic and conservative treatment recommended
-patient has an appt for Wed for approval for biopsy, I have sent a TT to Dr. Sangrigoli - cardiology consulted inpatient
Hypertension
- continue metoprolol
Hyperlipidemia
- continue atorvastatin
Code status: full code
DVT prophylaxis: SCDs
Remainder of plan per BOTTLE HOUSE CLEANERS SUPERVISOR note
FULL CODE
51 minutes spent on patient care
Anticipated Discharge: 24 - 48 hours
Subjective/Interval History
-
Date of Service: June 02, 2025
slept ok
still having significant jaw pain
Objective Data
-
Labs:
Laboratory Results
06/02/25
09:55
PT Pending
INR Pending
Vital Signs:
Vital Signs
Temp Pulse Resp BP Pulse Ox
98.6 F 53 18 124/85 98
06/02/25 07:57 06/02/25 08:34 06/02/25 07:57 06/02/25 08:34 06/02/25 07:57
Review of Systems
-
History Source: Patient
All other systems: Reviewed and negative
Physical Exam
-
General: No Apparent Distress
HEENT: PERRLA and Other (swelling right jaw )
Respiratory: Clear to Auscultation; Negative Wheezes
Cardiac: Regular Rhythm and S1/S2
GI: Soft and Nontender
Musculoskeletal: No Edema
Skin: Warm and Dry; Negative Rash
Neuro: AO x 3
Psych: Calm
Data Reviewed
-
Diagnostic Radiology: Report Reviewed by me
Labs: Labs Reviewed by me
[2025-06-02] MEDS: D5/0.9% SODIUM CHLORIDE 1000 IV (11:25)
[2025-06-02] MEDS: ROCEPHIN 2000 MG IV (11:25)
[2025-06-02] MEDS: STERILE WATER FOR INJECTION 20 ML IV (11:25)
[2025-06-02 11:58] LABS: INR 1.11; PT 14.6 Sec (11.4-14.6)
[2025-06-02] MEDS: DILAUDID 0.5 MG IV (12:05)
--- NOTE | 2025-06-02 12:56 | CON.CAR ---
Addendum entered and electronically signed by Star Carranza MD 06/02/25 17:50:
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 Cardiology consultation requested for preoperative assessment. Recent recurrence of right tonsillar carcinoma will require panendoscopy and
biopsy, admitted yesterday with inability to eat and weight loss, for PEG tube placement. She has continued to work out voices. Cardiac history notable for substantial ischemia on sestamibi imaging, a large severe mostly reversible defect in the
basal to mid inferolateral and anterolateral tong, EF 57%, and for moderate eccentric mitral regurgitation by echo in March with normal pulmonary artery pressure. No cardiac symptoms.
PMH: Squamous cell carcinoma of the right tonsil, hyperlipidemia, cerebrovascular disease, moderate mitral regurgitation, presumed obstructive CAD with ischemia on sestamibi imaging.
Medications: Aspirin 81 mg a day, atorvastatin 20 mg daily, metoprolol ER 25 mg a day, Lyrica, dexamethasone, pantoprazole, Diflucan and D5 normal saline
Patient seen post PEG placement, still sedated but awake
124/79, pulse 61, respiratory rate 16, afebrile, appears somewhat older than stated age, no distress, lungs are clear, soft systolic murmur at apex JVD okay, abdomen with fresh PEG tube extremities without clubbing cyanosis or edema, pulses still
palpable
No recent ECG, has been ordered
White count 10 hemoglobin 14.1, MCV 103, platelets 205, BUN and creatinine 35 and 0.8, sodium 134
Impression:
Recurrence of squamous cell carcinoma of the right tonsil following chemoradiation 2024
Obstructive CAD by sestamibi perfusion imaging March 2025
Moderate mitral regurgitation
Hypercholesterolemia
Bilateral carotid disease
History of tobacco use
Glaucoma
Plan:
She presents now with a history of tonsillar cancer status post chemoradiation therapy, now in need of panendoscopy and biopsy for recurrence, unclear whether more extensive head neck surgery to be required thereafter. She has evidence of
obstructive CAD on sestamibi imaging, but her functional status is good and she has no cardiac symptoms. LV function is preserved. She also has moderate mitral regurgitation
Given stress findings suggesting substantial ischemia, perioperative cardiac risk of ACS/SD is elevated, likely in the 10-15% range for extensive procedures but substantially less for endoscopic procedures etc. As expected, it looks like she has
done very well with PEG tube placement today.
Her mitral regurgitation does not substantially increase perioperative cardiac risk.
There is little role for invasive cardiac assessment at this time. Overall, her functional status is remarkably good and she continues to work without any cardiac symptoms.
Will review EKG. No need to repeat echocardiogram.
Okay to proceed with tonsillar biopsy and other endoscopic procedures at acceptable cardiac risk. If she were to require extensive head neck procedures I would recommend that she proceed as planned despite her stress test findings given assessment
risk and benefit of surgery.
For future procedures, continue low-dose metoprolol perioperatively.
To the extent possible, aspirin 81 mg daily should be continued preoperatively unless bleeding risk on aspirin is prohibitive.
Original Note:
Consultation
Consultation Request
Date/Time Consultation Requested: 06/01/2025 at 1750
Date/Time Consultation Performed: 05/25/2025 1300
Requesting Provider: Dr. Murillo
Performing Provider: Dr. SHAJI Carranza
Reason for Consultation: Preop cardiovascular risk stratification for planned tonsillar biopsy
Medical History
-
History of Present Illness:
Patient came to the ER yesterday with inability to tolerate solid food intake and weight loss, cardiology is consulted for cardiovascular preoperative risk stratification for planned outpatient tonsil biopsy. Patient was last seen in the cardiology
office on 04/01/2025 and at that time there was a review of her outpatient testing including echo and Lexiscan stress test. The patient has a history of coronary calcification and abdominal aortic calcification. Stress test was abnormal as noted
above, the patient denied any chest pain, SOB or decline in activity level. There was consideration for treatment options and conservative treatment was recommended as she had ongoing workup for her cancer process. Patient was diagnosed with right
tonsillar squamous cell carcinoma and started chemoradiation 12/2024. Although there was improvement in the size of the neck mass there was no evidence that it ever completely resolved by imaging 03/2025. Then more recently she has had increasing
dysphagia and odynophagia with weight loss. She finally came to the ER when she was unable to tolerate any solid foods and started to have difficulty with liquids as well. Imaging since admission shows a ring-enhancing focus on the right side of
the tongue extending into the right oropharynx that is possible neoplasia and also an interval increase in the size of the right oropharyngeal mass compared to the previous imaging from earlier this year. There is a concern for recurrent tonsillar
cancer. Patient was already scheduled to be seen in the cardiology office on 06/03/2025 for cardiac clearance for planned tonsil biopsy, but due to admission and the need for PEG tube placement we are seeing patient in the hospital now. Patient
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
Patient denies any resting chest pain or SOB.
PMH:
Suspected recurrence of right tonsillar cancer
Right tonsillar squamous cell carcinoma initially treated with chemoradiation 12/2024
Improved size of neck mass, but no evidence of complete resolution 03/13/2025
Concern for ring-enhancing focus on the right side of the tongue and extending into the right oropharynx that is possible neoplasia and interval increase in the size of the right oropharyngeal mass compared to previous imaging
Abnormal stress test
s/p Lexiscan stress test with large area of inferolateral and anterolateral defect, 03/25/2025
Hyperlipidemia
B/L carotid disease
Past Medical History
Past Medical History: Other (In HPI)
Past Surgical History: Orthopedic and Other (Chemotherapy port placement on the left 12/18/2024, PEG placement and endoscopy Bernard. 06/02/25)
Social History
Tobacco: Smoker (She reports she is a very light smoker usually less than 1 cigarette a day, she would light a cigarette and then not even finish smoking it )
Alcohol: None
Drug: None
Personal: Single
Living: Alone
Employment: Employed (She works at the [employer] and loves it! She gets depressed when she can go to work.)
Family History
Family History: CAD and Hypertension
Allergies / Home Medications
Allergy/AdvReac Type Severity Reaction Status Date / Time
bee venom protein (honey bee) Allergy Unknown Verified 06/01/25 11:40
latex Allergy Itching Verified 06/01/25 11:40
neomycin Allergy Itching Verified 06/01/25 11:40
�Medication �Instructions �Recorded �Confirmed �Type
alendronate 70 mg tablet 70 mg PO FR 09/26/19 06/01/25 History
acetaminophen 325 mg tablet 650 mg (2 x 325 mg) PO Q4HPRN PRN 09/27/19 06/01/25 Rx
temp greater than 100.4 F
ascorbic acid (vitamin C) 100 mg 100 mg PO DAILY Supplement 12/16/24 06/01/25 History
tablet (Vitamin C)
latanoprost 0.005 % eye drops 1 drp BOTH EYES HS Eye Condition 12/16/24 06/01/25 History
aspirin 81 mg chewable tablet 81 mg PO DAILY Blood Clot 06/01/25 06/01/25 History
Prevention/Tx
atorvastatin 20 mg tablet (Lipitor) 20 mg PO DAILY High Cholesterol 06/01/25 06/01/25 History
chlorhexidine gluconate 0.12 % 15 ml buccal BID 06/01/25 06/01/25 History
mouthwash
dexamethasone 4 mg tablet 4 mg PO DIRECTED Infection 06/01/25 06/01/25 History
metoprolol succinate 25 mg 25 mg PO DAILY Blood Pressure 06/01/25 06/01/25 History
tablet,extended release 24 hr
(Toprol XL)
oxycodone 5 mg tablet 5 mg PO Q4HPRN PRN severe pains 06/01/25 06/01/25 History
therapeutic multivitamin 1 tab PO DAILY Supplement 06/01/25 06/01/25 History
Review of Systems
-
History Source: Patient
All other systems: Negative unless noted
Physical Exam
Vital Signs
Temp Pulse Resp BP Pulse Ox
98.6 F 53 18 124/85 98
06/02/25 07:57 06/02/25 08:34 06/02/25 07:57 06/02/25 08:34 06/02/25 07:57
GEN: NAD, AAO x 3
HEENT: EOMI, MMM
LUNGS: 2 L NC. CTAB/L without wheeze or rales
CV: SR on telemetry. Reg, S1/S2, 2/6 BSM
ABD: ND
EXT: No edema B/L LE
NEURO: Gross non-focal
SKIN: No rash
Lab Results
06/01/25 12:55
06/01/25 12:55
Impression / Plan
-
PCP: Dr. Balwinder Yousif
Cardiology: Dr. Chanelle Alcantara
Impression:
Admitted with weight loss and jaw and neck pain 06/01/2025
Dysphagia, odynophagia
Severe calorie malnutrition
Oral candidiasis
s/p PEG 05/25/2025
Suspected recurrence of right tonsillar cancer
Right tonsillar squamous cell carcinoma initially treated with chemoradiation 12/2024
Improved size of neck mass, but no evidence of complete resolution 03/13/2025
Concern for ring-enhancing focus on the right side of the tongue and extending into the right oropharynx that is possible neoplasia and interval increase in the size of the right oropharyngeal mass compared to previous imaging
Abnormal stress test
s/p Lexiscan stress test with large area of inferolateral and anterolateral defect, 03/25/2025
Hyperlipidemia
B/L carotid disease
Lexiscan nuclear stress test 03/25/2025: Large, severe, reversible perfusion defect in the basal to mid inferolateral and anterolateral tong, minimal improvement with prone imaging, EF 57%, transient ischemic dilatation not present the ratio was 1.15
Echo 03/20/2025: EF 73%, normal RV size and function, moderate eccentric MR with mild posterior leaflet prolapse, mild TR with PAP 21 mmHg, ascending aorta measures 4 cm
Plan:
-Patient came to the ER yesterday with inability to tolerate solid food intake and weight loss, cardiology is consulted for cardiovascular preoperative risk stratification for planned outpatient tonsil biopsy. Patient was last seen in the
cardiology office on 04/01/2025 and at that time there was a review of her outpatient testing including echo and Lexiscan stress test. The patient has a history of coronary calcification and abdominal aortic calcification. Stress test was abnormal
as noted above, the patient denied any chest pain, SOB or decline in activity level. There was consideration for treatment options and conservative treatment was recommended as she had ongoing workup for her cancer process. Patient was diagnosed
with right tonsillar squamous cell carcinoma and started chemoradiation 12/2024. Although there was improvement in the size of the neck mass there was no evidence that it ever completely resolved by imaging 03/2025. Then more recently she has had
increasing dysphagia and odynophagia with weight loss. She finally came to the ER when she was unable to tolerate any solid foods and started to have difficulty with liquids as well. Imaging since admission shows a ring-enhancing focus on the
right side of the tongue extending into the right oropharynx that is possible neoplasia and also an interval increase in the size of the right oropharyngeal mass compared to the previous imaging from earlier this year. There is a concern for
recurrent tonsillar cancer. Patient was already scheduled to be seen in the cardiology office on 06/03/2025 for cardiac clearance for planned tonsil biopsy, but due to admission and the need for PEG tube placement we are seeing patient in the
hospital now. Patient continues to work at least part-time at the [employer] near her home and reports that she is able to work 6 to 8 hours in a day with walking [id number] throughout the store and denies any chest pain, SOB or
lightheadedness with this. Patient denies any resting chest pain or SOB.
-No ECG performed this admission. ECG from last office visit 04/01/2025 was reviewed by me and shows SR without acute ST or T wave changes.
-Check ECG, orders placed by me
-Patient is able to complete at least 4 METS of activity without chest pain or shortness of breath. 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
No resting chest pain or SOB. Stress test was abnormal 04/01/2025, but she is not having any cardiac symptoms. We will continue with the plan for conservative management and recommend the patient proceed with the planned tonsil biopsy so that she
can proceed with additional workup and possible treatment of her possible recurrent right tonsillar cancer.
-Aspirin 81 mg daily should be continued, even during planned tonsil biopsy.
-LDL 76 on outpatient labs 04/09/2025 and patient has been taking atorvastatin 20 mg daily since 11/18/2024. Recheck CVE 06/03/2025 with a goal LDL of at least less than 70 and ideally closer to 50. Increase dose of atorvastatin if needed to meet LDL
goal.
[2025-06-02] MEDS: DIFLUCAN 200 MG 100 IV (14:03)
[2025-06-02 15:04] LABS: Magnesium 2.0 mg/dl (1.6-2.3)
--- NOTE | 2025-06-02 15:55 | CM ---
Patient seen bedside, initial assessment completed. Patient is a 64-year-old female with past medical history of right tonsillar cancer stage T1 N2AM0 group Velvet, hypertension and hyperlipidemia who presented to [facility] for evaluation at
recommendation of radiation oncology for failure to thrive and uncontrolled pain. NPO for peg placement.
Patient resides alone in a 2 bedroom ground level apartment, 1 small step to enter. Patient uses RW and cane for ambulation, independent w/ ADLs and personal care. Patient currently works at [employer] 22 hours per week. Denies SNF/HC hx.
Address, points of contact and insurance verified
PCP: Balwinder Yousif
Pharmacy: [facility]
Plan: CM will cont to follow for d/c planning
[2025-06-02 15:59] VITALS: BP 124/79
[2025-06-02] MEDS: MAGIC OR MIRACLE MOUTHWASH 5 ML PO (17:29)
[2025-06-02] MEDS: PERIDEX 0.12% ORAL RINSE 15 ML PO (20:34)
[2025-06-02] MEDS: ROXICODONE 15 MG PO (20:34)
[2025-06-02] MEDS: XALATAN OPHTHALMIC SOLUTION 1 DROP BOTH EYES (20:56)
[2025-06-02 23:14] VITALS: BP 109/75
[2025-06-03] MEDS: DILAUDID 0.5 MG IV ×3 (03:35→15:47)
[2025-06-03] MEDS: D5/0.9% SODIUM CHLORIDE 1000 IV ×2 (07:09→21:47)
[2025-06-03 07:26] VITALS: BP 121/75
[2025-06-03] MEDS: DECADRON 8 MG PO ×2 (08:21→20:11)
[2025-06-03] MEDS: TOPROL XL 25 MG PO (08:23)
[2025-06-03] MEDS: LIPITOR 20 MG PO (08:24)
[2025-06-03] MEDS: LOW STRENGTH ASPIRIN 81 MG PO (08:24)
[2025-06-03] MEDS: PERIDEX 0.12% ORAL RINSE 15 ML PO ×2 (08:24→20:12)
[2025-06-03] MEDS: LYRICA 50 MG PO ×2 (08:24→20:11)
[2025-06-03] MEDS: PROTONIX IV 40 MG IV (08:25)
[2025-06-03] MEDS: NSS (PRESERVATIVE FREE) 10 ML IV (08:25)
[2025-06-03 08:31] LABS: Blood Urea Nitrogen 20 mg/dl (7-17); Calcium 8.8 mg/dl (8.4-10.2); Carbon Dioxide 23 mmol/L (22-30); Chloride 107 mmol/L (98-107); Estimated Creatinine Clearance 53 ml/min; Glucose 120 mg/dl (70-99); Magnesium 2.1 mg/dl (1.6-2.3); Potassium 4.3 mmol/L (3.5-5.1); Sodium 136 mmol/L (135-145); eGFR > 60.00
--- NOTE | 2025-06-03 09:16 | W.PN.GI.CBS2 ---
Addendum entered and electronically signed by Sagrario Kyle DO 06/03/25 12:41:
Patient seen and examined independently of ANCELMO. I agree with her note with my additions below
Patient feels like her swallowing is slightly improved and would like to advance to full liquids.
She has had a little bleeding from around the T-fastener site but is not active right now but will monitor.
Okay to start tube feeds today. Monitor for refeeding.
Continue IV fluconazole for now and will transition to oral for total of 2-week course
Once daily PPI
As long as the bleeding is controlled and she tolerates the tube feeds okay for discharge.
2-week follow-up with [facility] on 06/17 at 1230
Addendum entered and electronically signed by ANCELMO Faulkner 06/03/25 09:34:
K, phos and mag stable cont to monitor with start of feeding
Original Note:
Today's Communication / Plan
-
s/p peg some oozing of T fastener site overnight continue to monitor only small amount of drainage this am
reviewed with nursing to call if persists
if continued bleeding recheck H/H
currently tolerating clear liquids
will start tube feed slowly and monitor tolerance
case management for home set up for tube feeds
cont Diflucan IV then transition to PO when tolerating feed and continue couse for 2 weeks
cont magic mouthwash and PPI BID
pain control per medical team
s/p cards eval noted
I sent message to office to arrange 2 week follow up for 06/17 at 12:30 PM -- office to call to confirm -- added to discharge and instructed to call for any problems
per oncology due follow up with Dr. Vargas at [place] for biopsy next week with likely surgery and neck dissection
Assessment / Plan
-
64yo female recently dx'd with tonsillar CA T1N2M0 group stage VIKRAM in December and underwent chemoradiation from December through February. She was only able to eat soft foods due to pain in her R neck. More recently she has been unable to tolerate her Boost,
which she ends up diluting to better tolerate. She has lost 7#. She had f/u PET 05/20 that shows large R oropharyngeal squamous cell CA and metastatic R cervical LN, which is planned to be bx'd 06/09. She comes in now due to inability to tolerate
food and Boost. s/p peg 06/02 with T fastener placement.
06/02/25
- Esophageal plaques were found, consistent with candidiasis.
- Gastric mucosal atrophy.
- An externally removable PEG placement was successfully completed -
placed in the gastric body
- Erythematous duodenopathy.
- No specimens collected.
Impression:
Odynophagia/dysphagia
Failure to thrive/wt loss s/p peg 06/03
candidiasis noted on EGD
Tonsillar Cancer. S/p chemo/XRT
bradycardia
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
b/l carotid stenosis
prior tobacco use and current ETOH use
mod MR
Recommendations:
s/p peg some oozing of T fastener site overnight continue to monitor only small amount of drainage this am
reviewed with nursing to call if persists
if continued bleeding recheck H/H
currently tolerating clear liquids
will start tube feed slowly and monitor tolerance
case management for home set up for tube feeds
cont Diflucan IV then transition to PO when tolerating feed and continue couse for 2 weeks
cont magic mouthwash and PPI BID
pain control per medical team
s/p cards kristian noted
I sent message to office to arrange 2 week follow up for 06/17 at 12:30 PM -- office to call to confirm -- added to discharge and instructed to call for any problems
per oncology due follow up with Dr. Vargas at [place] for biopsy next week with likely surgery and neck dissection
Subjective
Subjective
Date of Service: June 03, 2025
no stools on clear diet, some bleeding around peg noted overnight with need to change dressing no stools, tolerating some clear diet
Objective
Data Reviewed
Laboratory Data:
Laboratory Results
06/01/25 12:55
06/03/25 07:33
Laboratory Results
PT 14.6 Sec (11.4-14.6) 06/02/25 11:36
INR 1.11 06/02/25 11:36
Phosphorus 3.1 mg/dl (2.5-4.5) 06/03/25 07:33
Magnesium 2.1 mg/dl (1.6-2.3) 06/03/25 07:33
Total Bilirubin 0.6 mg/dl (0.2-1.3) 06/01/25 12:55
AST 20 U/L (14-36) 06/01/25 12:55
ALT 24 U/L (0-35) 06/01/25 12:55
Alkaline Phosphatase 46 U/L (38-126) 06/01/25 12:55
Vital Signs and I&O:
Vital Signs
Temp Pulse Resp BP Pulse Ox
98.2 F 48 16 121/75 96
06/03/25 07:26 06/03/25 08:23 06/03/25 07:26 06/03/25 07:26 06/03/25 07:26
I&O
06/02/25 06/03/25 06/04/25
06:59 06:59 06:59
Intake Total 240 / 240 840 / 840
Balance 240 / 240 840 / 840
Physical Exam
Physical Exam
HEENT: Anicteric, Moist mucous membranes and Other (right neck firmness )
Cardiology: Other (bradicardia )
Pulmonary: Clear
GI: Soft, Non Distended and Tender (arount peg and t fasteners site, small amount blood on drainage pad, peg intact )
Extremities: No Edema
Neuro: Non Focal
[2025-06-03] MEDS: MAGIC OR MIRACLE MOUTHWASH 5 ML PO (11:21)
--- NOTE | 2025-06-03 11:23 | W.PN.HOSP.TC ---
Today's Communication/Plan
-
Start TF and advance as tolerated
PT consult
possible DC in next 1-2 days
CM consult to help arrange home TF
Assessment / Plan
Assessment / Plan
Ms. Miley Blair is a 64 yo woman with hx right tonsillar cancer s/p chemotherapy/radiation completed 02/27 with recent PET showing possible reoccurrence in one of the cervical LN seen with persistent jaw and neck pain and weight loss and sent to the
ER. She has biopsy with Dr. Ortega at [facility] 06/09.
Facial Bones CT
IMPRESSION: Ring-enhancing focus within the right side of the tongue, which likely represents neoplasia.
Nodular foci of enhancement within the adjacent right posterior base of the tongue and extending in the right oropharynx, also likely representing foci of neoplasia. There has been interval increase in right oral pharyngeal mass and adjacent
lymphadenopathy comparing to CT of the neck from October 14, 2024.
Edema within the soft tissues of the right parapharyngeal region and soft tissues of the right face, suggesting edema from radiation therapy. No evidence for abscess.
EGD 06/02/25
Impression:
- Esophageal plaques were found, consistent with candidiasis.
- Gastric mucosal atrophy.
- An externally removable PEG placement was successfully completed -
placed in the gastric body
- Erythematous duodenopathy.
- No specimens collected.
Hx Right Tonsillar Cancer with evidence of reoccurence
Jaw and Neck Pain, poor PO intake
-s/p chemotherapy/radiation 02/2025
-plans for outpatient biopsy with Dr. Ortega 06/09
-with lack of PO intake 2/2 pain, now s/p PEG placement on 06/02
-advance TF as tolerated
-GI consult appreciated
-Oncology consult appreciated
-stop fluids once TF at goal
-pain control, initiation of Lyrica; increase PRN dosing of oxycodone; IV dilaudid PRN breakthrough pain
-continue [employer] Decadron (patient is on 8mg q 12)
Esophageal Candidiasis
-continue IV Fluconazole --> PO continue for 14 day course
Carotid Artery Disease
-follows with Dr. Hinds
Coronary artery calcification seen on CT
Abnormal Stress Test
-continue Asa/Statin/ Metoprolol
-sees Dr. Brar, patient asymptomatic and conservative treatment recommended
-appreciate Cardiology consult, patient cleared for endoscopic procedures
-Per Dr. Carranza: 'Given stress findings suggesting substantial ischemia, perioperative cardiac risk of ACS/GA is elevated, likely in the 10-15% range for extensive procedures but substantially less for endoscopic procedures etc... If she were to
require extensive head neck procedures I would recommend that she proceed as planned despite her stress test findings given assessment risk and benefit of surgery.'
Hypertension
- continue metoprolol
Hyperlipidemia
- continue atorvastatin
Code status: full code
DVT prophylaxis: SCDs
Remainder of plan per GEOPHYSICAL ENGINEER note
FULL CODE
51 minutes spent on patient care
Anticipated Discharge: 24 - 48 hours
Subjective/Interval History
-
Date of Service: June 03, 2025
feeling ok
some oozing from PEG site
Objective Data
-
Labs:
Laboratory Results
06/03/25
07:33
Sodium 136
Potassium 4.3
Chloride 107
Carbon Dioxide 23
BUN 20 H
Creatinine 0.7
Glucose 120 H
Calcium 8.8
Vital Signs:
Vital Signs
Temp Pulse Resp BP Pulse Ox
98.2 F 48 16 121/75 96
06/03/25 07:26 06/03/25 08:23 06/03/25 07:26 06/03/25 07:26 06/03/25 07:26
I&O
06/02/25 06/03/25 06/04/25
06:59 06:59 06:59
Intake Total 240 / 240 840 / 840
Balance 240 / 240 840 / 840
Review of Systems
-
History Source: Patient
All other systems: Reviewed and negative
Physical Exam
-
General: No Apparent Distress
HEENT: PERRLA and Other (swelling right jaw )
Respiratory: Clear to Auscultation; Negative Wheezes
Cardiac: Regular Rhythm and S1/S2
GI: Soft, Nontender and Peg Tube (with mild oozing )
Musculoskeletal: No Edema
Skin: Warm and Dry; Negative Rash
Neuro: AO x 3
Psych: Calm
Data Reviewed
-
Diagnostic Radiology: Report Reviewed by me
Labs: Labs Reviewed by me
--- NOTE | 2025-06-03 11:49 | CM ---
Addendum entered by Lynn Navarro 06/03/25 15:11:
CM faxed completed order form and clinicals to Tammy
Original Note:
Chart reviewed. CM consulted for tube feed set up at home.
PEG placement yesterday, start tube feed
Discussed d/c planning for tube feeds w/ patient bedside. Patient identified [facility] as provider to use. CM spoke w/ Tammy/[facility] clinical nurse liaison, to inform of new tube feeds. Tammy plans to come to hospital and will obtain clinical
information and order form from CM at that time as well as a walk through of tube feed process.
[facility] referral placed as they can provide the teaching
Plan: Home w/ [facility] (tube feed) and [facility]
[2025-06-03 12:34] VITALS: BP 108/75
--- NOTE | 2025-06-03 13:34 | VNURNOTE ---
Home Health Liaison met with patient at bedside to discuss [facility] nurse/therapy, visits, schedule and homebound status. Patient is agreeable and understands that visits at home will be 2-3 x per week to assess and teach medical management. Patient
plans on returning to work on MON. She is aware that [facility] can see her until she resumes work; she is agreeable. Patient is aware that [facility] will plan for same day SOC /day of discharge from . Provided contact number for [facility]. Explained to
pt that she will need HOB elevated during and after feedings. Offered to arrange a hospital bed. Patient declined hospital bed.
Tube feed to be arranged by CM.
Patient will need to be DC'ed by 1100 so [facility] can see for start of care /same day afternoon. Need to ensure equip will be delivered to home by 1300.
[facility] referral accepted in [facility].
[2025-06-03] MEDS: DIFLUCAN 200 MG 100 IV (13:39)
--- NOTE | 2025-06-03 15:24 | PN.CDI ---
CDI
- -
CDI:
Physician Documentation Request
Admit Date: 06/01/25 16:39
Dear Doctor Lidia,
Please review the following and provide your response in the progress notes.
Clinical Indicators:
National Sales Executive, 06/03
#Current BW: (06/01) 93 lbs 1.6 oz BMI:: 16.0 (underweight).
#...Weight history (12/18/24) 100 lbs. This is a 7% BW loss over 5 months.
#...meets AND and ASPEN criteria for severe protein calorie malnutrition
#...of chronic disease due to less than 75% of estimated nutrition needs
#...met for more than 1 month and severe fat loss in her orbitals.
To ensure the quality of the medical record, based on the above information and the recognized standards for malnutrition, please verify the patient's nutritional status:
Severe Protein Calorie Malnutrition of Chronic Illness
Other (please specify)
[place] Criteria ([facility] Hospitalist 2017)
2 or more criteria must be present for either
non severe or severe malnutrition
Note that the criteria differs related to the
presence of an acute or chronic illness
Chronic Illness
Energy Intake Non Severe: <75% for >1 month
Severe: <75% for >1 month
Weight Loss Non Severe: 5% over 1 month
7.5% over 3 months
10% over 6 months
20% over 1 year
Severe: >5% over 1 month
>7.5% over 3 months
>10% over 6 months
>20% over 1 year
Body Fat Non Severe: Mild Loss
Severe: Severe Loss
Muscle Mass Non Severe: Mild Loss
Severe: Severe Loss
Use of terms such as suspected, likely, concern for, or probable (associated with a specific diagnosis that is being evaluated, monitored, or treated as if it exists) are acceptable and can be coded in the inpatient setting, when documented at the
time of discharge.
Thank you,
Miley Soriano RN BSN CCDS
CDI Specialist
Please contact via tiger text
Please use your independent medical judgment in providing your response.
[2025-06-03 15:35] VITALS: BP 124/73
--- NOTE | 2025-06-03 16:29 | W.PN.UPDATE ---
Update Note
Progress Note Update
still with some oozing more localized to 9 oclock around peg. Silver nitrate applied. Cont to monitor. Tube feed order reviewed with case management.
--- NOTE | 2025-06-03 16:44 | W.PN.UPDATE ---
Update Note
Progress Note Update
Patient was seen for preoperative cardiovascular risk stratification for planned tonsil biopsy and there is also the possibility she will require more extensive head and neck surgery thereafter. Most recent stress test suggested obstructive CAD,
but overall her functional status is good and she denies any cardiac symptoms. Perioperative cardiac risk of ACS/DE is elevated, likely in the 10-15% range for extensive procedures but substantially less for endoscopic procedures etc and patient did
very well with PEG tube placement 06/02/2025. Recommend perioperative telemetry monitoring. Patient should continue with aspirin 81 mg daily unless bleeding risk on aspirin is prohibitive. Okay to proceed with tonsillar biopsy and other endoscopic
procedures at acceptable cardiac risk. If she requires extensive head and neck procedures would recommend that she proceed as planned despite her stress test findings given risk vs benefit of surgery. Cardiology will sign off at this time.
[2025-06-03] MEDS: XALATAN OPHTHALMIC SOLUTION 1 DROP BOTH EYES (21:47)
[2025-06-03] MEDS: ROXICODONE 15 MG PO (21:56)
[2025-06-03 23:06] VITALS: BP 125/81
[2025-06-04] MEDS: ROXICODONE 15 MG PO ×3 (05:22→22:19)
[2025-06-04 07:37] VITALS: BP 104/67
[2025-06-04] MEDS: DECADRON 8 MG PO ×2 (08:00→19:58)
[2025-06-04] MEDS: LYRICA 50 MG PO (08:00)
[2025-06-04] MEDS: LOW STRENGTH ASPIRIN 81 MG PO (08:00)
[2025-06-04] MEDS: LIPITOR 20 MG PO (08:00)
[2025-06-04] MEDS: NSS (PRESERVATIVE FREE) 10 ML IV (08:01)
[2025-06-04] MEDS: PROTONIX IV 40 MG IV (08:01)
[2025-06-04] MEDS: TOPROL XL 25 MG PO (08:04)
[2025-06-04] MEDS: D5/0.9% SODIUM CHLORIDE IV (08:06)
[2025-06-04] MEDS: PERIDEX 0.12% ORAL RINSE 15 ML PO ×2 (08:06→19:59)
[2025-06-04 08:32] LABS: Hematocrit 38.8 % (37.0-47.0); Hemoglobin 12.3 g/dL (12.0-16.0); Mean Corp Hgb Conc. 31.7 g/dL (33.0-37.0); Mean Corpuscular Volume 109.6 fL (81.0-99.0); Red Cell Dist. Width 12.8 % (11.5-14.5)
[2025-06-04 08:51] LABS: Blood Urea Nitrogen 20 mg/dl (7-17); Calcium 8.7 mg/dl (8.4-10.2); Carbon Dioxide 24 mmol/L (22-30); Chloride 106 mmol/L (98-107); Estimated Creatinine Clearance 46 ml/min; Glucose 103 mg/dl (70-99); Magnesium 2.1 mg/dl (1.6-2.3); Potassium 4.6 mmol/L (3.5-5.1); Sodium 133 mmol/L (135-145); eGFR > 60.00
[2025-06-04 09:23] LABS: Platelet Count 151 10^3/uL (130-400)
--- NOTE | 2025-06-04 11:48 | W.PN.ONC2 ---
Today's Communication / Plan
-
d/c planning
Impression
Impression
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
Now with local recurrent and progressive disease causing pain, difficulty swallowing, and weight loss
Tobacco abuse, history of substance abuse
Plan
Plan
TF vs PEG
Pain control
Outpatient f/u w/ Dr. Vargas next week at [place] for biopsy and likely surgery w/ neck dissection
Subjective/Objective
Subjective
using oxy IR and pregabalin for pain
afebrile, no hypoxia
denies overt bleeding
denies n/v/d or abdominal pain
Vital Signs:
Vital Signs
Temp Pulse Resp BP Pulse Ox
97.9 F 45 20 123/81 98
06/04/25 07:37 06/04/25 08:04 06/04/25 07:37 06/04/25 08:04 06/04/25 07:37
Lab Results:
Laboratory Data
WBC 9.8 10^3/uL (4.8-10.8) 06/04/25 07:26
Hgb 12.3 g/dL (12.0-16.0) 06/04/25 07:26
Plt Count 151 10^3/uL (130-400) D 06/04/25 07:26
PT 14.6 Sec (11.4-14.6) 06/02/25 11:36
INR 1.11 06/02/25 11:36
eGFR > 60.00 06/04/25 07:26
Physical Exam
HEENT: Moist Mucous Membranes; No Jaundice
Pulmonary: Other (unlaboredd)
GI: Other (tube feed)
Extremities: Pulses Present
--- NOTE | 2025-06-04 11:52 | W.PN.HOSP.TC ---
Addendum entered and electronically signed by Lashon Murillo MD 06/04/25 14:45:
Severe Protein Calorie Malnutrition of Chronic Illness
-appreciate dietary
Addendum entered and electronically signed by Lashon Murillo MD 06/04/25 14:45:
Patient will require TF for at least several months as she undergoes biopsy and likely neck resection surgery
Original Note:
Today's Communication/Plan
-
expect DC tomorrow once TF at goal and home TF set up
Assessment / Plan
Assessment / Plan
Ms. Miley Blair is a 64 yo woman with hx right tonsillar cancer s/p chemotherapy/radiation completed 02/27 with recent PET showing possible reoccurrence in one of the cervical LN seen with persistent jaw and neck pain and weight loss and sent to the
ER. She has biopsy with Dr. Ortega at [facility] 06/09.
Facial Bones CT
IMPRESSION: Ring-enhancing focus within the right side of the tongue, which likely represents neoplasia.
Nodular foci of enhancement within the adjacent right posterior base of the tongue and extending in the right oropharynx, also likely representing foci of neoplasia. There has been interval increase in right oral pharyngeal mass and adjacent
lymphadenopathy comparing to CT of the neck from October 14, 2024.
Edema within the soft tissues of the right parapharyngeal region and soft tissues of the right face, suggesting edema from radiation therapy. No evidence for abscess.
EGD 06/02/25
Impression:
- Esophageal plaques were found, consistent with candidiasis.
- Gastric mucosal atrophy.
- An externally removable PEG placement was successfully completed -
placed in the gastric body
- Erythematous duodenopathy.
- No specimens collected.
Hx Right Tonsillar Cancer with evidence of reoccurence
Jaw and Neck Pain, poor PO intake
-s/p chemotherapy/radiation 02/2025
-plans for outpatient biopsy with Dr. Ortega 06/09
-with lack of PO intake 2/2 pain, now s/p PEG placement on 06/02
-advance TF as tolerated - at goal later today
-GI consult appreciated
-Oncology consult appreciated
-stop fluids
-pain control, initiation of Lyrica (increase to 75mg today); increase PRN dosing of oxycodone; IV dilaudid PRN breakthrough pain
-per patient magic mouthwash helping as well
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
Esophageal Candidiasis
-continue IV Fluconazole --> PO continue for 14 day course (day 3)
Carotid Artery Disease
-follows with Dr. Hinds
Coronary artery calcification seen on CT
Abnormal Stress Test
-continue Asa/Statin/ Metoprolol
-sees Dr. Brar, patient asymptomatic and conservative treatment recommended
-appreciate Cardiology consult, patient cleared for endoscopic procedures
-Per Dr. Carranza: 'Given stress findings suggesting substantial ischemia, perioperative cardiac risk of ACS/IL is elevated, likely in the 10-15% range for extensive procedures but substantially less for endoscopic procedures etc... If she were to
require extensive head neck procedures I would recommend that she proceed as planned despite her stress test findings given assessment risk and benefit of surgery.'
Hypertension
- continue metoprolol
Hyperlipidemia
- continue atorvastatin
Code status: full code
DVT prophylaxis: SCDs
Remainder of plan per CARDIOLOGY NURSE PRACTITIONER note
FULL CODE
51 minutes spent on patient care
Anticipated Discharge: 24 - 48 hours
Subjective/Interval History
-
Date of Service: June 04, 2025
feeling well
tolerating TF
Objective Data
-
Labs:
Laboratory Results
06/04/25
07:26
WBC 9.8
Hgb 12.3
Hct 38.8
Plt Count 151 D
Sodium 133 L
Potassium 4.6
Chloride 106
Carbon Dioxide 24
BUN 20 H
Creatinine 0.8
Glucose 103 H
Calcium 8.7
Vital Signs:
Vital Signs
Temp Pulse Resp BP Pulse Ox
97.9 F 45 20 123/81 98
06/04/25 07:37 06/04/25 08:04 06/04/25 07:37 06/04/25 08:04 06/04/25 07:37
I&O
06/03/25 06/04/25 06/05/25
06:59 06:59 06:59
Intake Total 240 / 240 2265 / 2265 830 / 830
Balance 240 / 240 2265 / 2265 830 / 830
Review of Systems
-
History Source: Patient
All other systems: Reviewed and negative
Physical Exam
-
General: No Apparent Distress
HEENT: PERRLA and Other (swelling right jaw )
Respiratory: Clear to Auscultation; Negative Wheezes
Cardiac: Regular Rhythm and S1/S2
GI: Soft, Nontender and Peg Tube (with mild oozing )
Musculoskeletal: No Edema
Skin: Warm and Dry; Negative Rash
Neuro: AO x 3
Psych: Calm
Data Reviewed
-
Diagnostic Radiology: Report Reviewed by me
Labs: Labs Reviewed by me
[2025-06-04] MEDS: MAGIC OR MIRACLE MOUTHWASH 5 ML PO (11:58)
[2025-06-04] MEDS: LYRICA 25 MG PO (12:03)
[2025-06-04] MEDS: DIFLUCAN 200 MG 100 IV (13:28)
--- NOTE | 2025-06-04 14:29 | W.DCSUMMARY ---
Discharge Summary
Discharge Data
Date of Admission: 06/01/25
Date of Discharge: 06/05/25
-
Pending Results: No
Hospital Course
Discharging Physician : Dr. Lashon Murillo
Disposition : Home with Home Care
Primary care physician : Dr. Balwinder Yousif
Principal Discharge diagnosis : Right tonsillar cancer with pain resulting in poor oral intake now status post PEG 06/02/25
Hospital Course :
Ms. Miley Blair is a 64 yo woman with hx right tonsillar cancer s/p chemotherapy/radiation completed 02/27 with recent PET showing possible reoccurrence in one of the cervical LN seen with persistent jaw and neck pain and weight loss and sent to the
ER. She has biopsy with Dr. Ortega at [facility] 06/09.
Triage vitals stable, labs unremarkable. She was admitted to medicine with Oncology consulting and GI consulting for PEG placement. She is s/p PEG placement on 06/02/25. TF started on 06/03 and uptitrated to goal prior to discharge. She is
given instructions for bolus feeding on DC.
EGD with finding of esophageal plaques consistent with candidiasis. Patient was started on Fluconazole for esophagel candidiasis and prescribed a total 14 day course.
Patient's pain was better controlled with initiation of Lyrica (up to 75mg PO BID) and uptitration of Oxycodone to 15mg q4 hours pRN. I discussed Decadron recs with her Radiation Oncology LACQUERER Antionette Bennett who recommended to continue current dosing of
Decadron 8mg PO BID until directed otherwise post surgery. Patient is given a month's supply. She was called on the phone to update on these recommendations. She is told to not abruptly stop this medication.
Patient missed her outpatient appt for Cardiology clearance for biopsy but was seen by the Cardiology team in-house. Per Cardiology, she has a perioperative cardiac risk of ACS/ME 10-15% for extensive procedures, substantially less for endoscopic
procedures. Per Dr. Carranza: 'Okay to proceed with tonsillar biopsy and other endoscopic procedures at acceptable cardiac risk. If she were to require extensive head neck procedures I would recommend that she proceed as planned despite her stress
test findings given assessment risk and benefit of surgery.' Recommended to continue aspirin 81mg (if acceptable) and Metoprolol perioperatively.
HH arranged on discharge
time spent on discharge was 32 minutes.
Important imaging findings :
Facial Bones CT
IMPRESSION: Ring-enhancing focus within the right side of the tongue, which likely represents neoplasia.
Nodular foci of enhancement within the adjacent right posterior base of the tongue and extending in the right oropharynx, also likely representing foci of neoplasia. There has been interval increase in right oral pharyngeal mass and adjacent
lymphadenopathy comparing to CT of the neck from October 14, 2024.
Edema within the soft tissues of the right parapharyngeal region and soft tissues of the right face, suggesting edema from radiation therapy. No evidence for abscess.
Procedure findings :
EGD 06/02/25
Impression:
- Esophageal plaques were found, consistent with candidiasis.
- Gastric mucosal atrophy.
- An externally removable PEG placement was successfully completed -
placed in the gastric body
- Erythematous duodenopathy.
- No specimens collected.
Discharge Plan
-
Patient Disposition: Home with Home Care
Discharge Diagnosis/Procedures: status post PEG tube on 06/02/25
Diet: Tube feeding and Other diet
Additional Diets: oral diet as tolerated, tube feed Jevity 1.5 1 carton 5 times per day with 80ml flush before and after feeds. Ok to give med via peg if able to be crushed and unable to take orally. Flush with 15ml before and after medications.
Activity: As tolerated
Driving Restrictions: As prior to admission
Bathing Restrictions: None
Other Services: VN
Wound Care: peg care:
keep tube clean and try. Clean twice a day with warm water. Tube tube daily. T fasteners (buttons) around tube will eventually fall off. Call if any problems. Do not keep peg tube tight against skin. Call GI for redness, bleeding, swelling or
pain.
Stand Alone Forms: Return to Work
Referrals:
Luz Elena Lorenzo CRNP [Specified Professional Personl, Gastroenterology] - 06/17/25 12:30 pm
Referral Note: follow up for peg check. Call GI office if any further issues with peg prior to follow up visit. Call office to confirm appointment.
Balwinder Yousif MD [Family Provider, Family Practice] - in less than 1 week
Sanchez Whittaker MD [Non-Admitting Privileges, Otology]
Referral Note: A copy of your cardiac clearance was sent to Dr. Whittaker's office on 06/02/2025 in anticipation of your upcoming tonsil biopsy 06/09/2025.
Additional Discharge Medication Instructions: Per discussion with LACQUERER Antionette Bennett, continue on Decadron twice a day until post surgery. I have refilled this prescription. Please follow up with outpatient providers on when and how to taper down.
You are prescribed Fluconazole to treat esophageal candidiasis (thrush)
You are prescribed Lyrica, higher dose Oxycodone and magic mouthwash to help with pain. Lyrica dosing may be up-titrated as outpatient.
You are prescribed Lansoprazole to decrease acid in the stomach.
Prescriptions:
New
lidocaine HCl [Lidocaine Viscous] 2 % Solution
5 ml PO 5/D PRN (Reason: pain with swallowing) Qty: 300 0RF
pregabalin 75 mg Capsule
75 mg PO BID Qty: 60 0RF
oxycodone 15 mg Tablet
15 mg PO Q4HPRN PRN (Reason: severe pain) Qty: 30 0RF
lansoprazole 30 mg capsule,delayed release(DR/EC)
30 mg feeding tube DAILY Qty: 30 0RF
fluconazole 40 mg/mL suspension for reconstitution
200 mg feeding tube DAILY 11 Days Qty: 55 0RF
dexamethasone 4 mg Tablet
8 mg PO BID Qty: 120 0RF
Rx Instructions:
Take 8mg twice a day until further directed by outpatient providers.
Continued
alendronate 70 MG tablet
70 mg PO FR
acetaminophen 325 MG tablet
650 mg PO Q4HPRN PRN (Reason: temp greater than 100.4 F) 0RF
latanoprost 0.005 % Drops
1 drp BOTH EYES HS
Vitamin C 100 mg Tablet
100 mg PO DAILY
therapeutic multivitamin Tablet
1 tab PO DAILY
aspirin 81 MG tablet,chewable
81 mg PO DAILY
metoprolol succinate [Toprol XL] 25 mg Tablet Extended Release 24 Hr
25 mg PO DAILY
chlorhexidine gluconate 0.12 % Mouthwash
15 ml BUCCAL BID
atorvastatin [Lipitor] 20 mg Tablet
20 mg PO DAILY
Discontinued
dexamethasone 4 mg Tablet
4 mg PO DIRECTED
Rx Instructions:
take 4mg bid for 1 day then 8mg bid for 13 days there after
oxycodone 5 mg Tablet
5 mg PO Q4HPRN PRN (Reason: severe pains)
Discharge Orders:
Discharge Patient (As Directed); Ordered 06/05/25
Ordered By: Lashon Murillo
Discharge Date and Time
Print Language: COOK ISLANDER
--- NOTE | 2025-06-04 15:19 | CM ---
CM followed up w/ Yan/[facility], Tammy is out of the office. Yan confirmed order form and clinicals were received via fax.
Yan informed CM that per Medicare, he'll need documentation of the length need for TF. TT hospitalist about this who completed an updated note.
CM faxed updated note to [facility], confirmed delivery via fax confirmation page. CM called Yan back to inform hospitalist's note was faxed and to confirm if he received it. Yan stated that the fax takes a while to come through and will check
and follow up w/ CM. CM advised that patient is anticipating a d/c tomorrow and will need to know if supplies can be delivered tomorrow by noon as [facility] will need delivery to occur prior to their visit to provide teaching. Yan stated he will follow
up w/ CM once he is able to confirm receipt of fax. CM informed that after 4:30 to call the CM dept number.
Plan: Home, likely tomorrow w/ [facility] and [facility].
CM to confirm in the morning w/ [facility] of supply delivery
[2025-06-04 15:47] VITALS: BP 123/78
[2025-06-04] MEDS: LYRICA 75 MG PO (19:58)
[2025-06-04] MEDS: XALATAN OPHTHALMIC SOLUTION 1 DROP BOTH EYES (22:12)
[2025-06-04 23:15] VITALS: BP 116/74
[2025-06-05 07:00] VITALS: BP 118/71
--- NOTE | 2025-06-05 10:13 | W.PN.HOSP.TC ---
Today's Communication/Plan
-
plan for discharge today
Assessment / Plan
Assessment / Plan
Ms. Miley Blair is a 64 yo woman with hx right tonsillar cancer s/p chemotherapy/radiation completed 02/27 with recent PET showing possible reoccurrence in one of the cervical LN seen with persistent jaw and neck pain and weight loss and sent to the
ER. She has biopsy with Dr. Ortega at [facility] 06/09.
Facial Bones CT
IMPRESSION: Ring-enhancing focus within the right side of the tongue, which likely represents neoplasia.
Nodular foci of enhancement within the adjacent right posterior base of the tongue and extending in the right oropharynx, also likely representing foci of neoplasia. There has been interval increase in right oral pharyngeal mass and adjacent
lymphadenopathy comparing to CT of the neck from October 14, 2024.
Edema within the soft tissues of the right parapharyngeal region and soft tissues of the right face, suggesting edema from radiation therapy. No evidence for abscess.
EGD 06/02/25
Impression:
- Esophageal plaques were found, consistent with candidiasis.
- Gastric mucosal atrophy.
- An externally removable PEG placement was successfully completed -
placed in the gastric body
- Erythematous duodenopathy.
- No specimens collected.
Hx Right Tonsillar Cancer with evidence of reoccurence
Jaw and Neck Pain, poor PO intake
-s/p chemotherapy/radiation 02/2025
-plans for outpatient biopsy with Dr. Ortega 06/09
-with lack of PO intake 2/2 pain, now s/p PEG placement on 06/02
-TF now at goal
-GI consult appreciated
-Oncology consult appreciated
-stop fluids
-pain control, initiation of Lyrica (increase to 75mg today); increase PRN dosing of oxycodone; IV dilaudid PRN breakthrough pain
-per patient magic mouthwash helping as well
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
Esophageal Candidiasis
-continue IV Fluconazole --> PO continue for 14 day course (day 4)
Carotid Artery Disease
-follows with Dr. Hinds
Coronary artery calcification seen on CT
Abnormal Stress Test
-continue Asa/Statin/ Metoprolol
-sees Dr. Brar, patient asymptomatic and conservative treatment recommended
-appreciate Cardiology consult, patient cleared for endoscopic procedures
-Per Dr. Carranza: 'Given stress findings suggesting substantial ischemia, perioperative cardiac risk of ACS/AR is elevated, likely in the 10-15% range for extensive procedures but substantially less for endoscopic procedures etc... If she were to
require extensive head neck procedures I would recommend that she proceed as planned despite her stress test findings given assessment risk and benefit of surgery.'
Hypertension
- continue metoprolol
Hyperlipidemia
- continue atorvastatin
Code status: full code
DVT prophylaxis: SCDs
Remainder of plan per SYSTEMS LIBRARIAN note
FULL CODE
51 minutes spent on patient care
Anticipated Discharge: Today
Subjective/Interval History
-
Date of Service: June 05, 2025
feeling well and ready for DC
Objective Data
-
Vital Signs:
Vital Signs
Temp Pulse Resp BP Pulse Ox
97.8 F 48 12 118/71 94
06/05/25 07:00 06/05/25 07:00 06/05/25 07:00 06/05/25 07:00 06/05/25 07:00
I&O
06/04/25 06/05/25 06/06/25
06:59 06:59 06:59
Intake Total 2265 / 2265 4400 / 4400
Balance 2265 / 2265 4400 / 4400
Review of Systems
-
History Source: Patient
All other systems: Reviewed and negative
Physical Exam
-
General: No Apparent Distress
HEENT: PERRLA and Other (swelling right jaw )
Respiratory: Clear to Auscultation; Negative Wheezes
Cardiac: Regular Rhythm and S1/S2
GI: Soft, Nontender and Peg Tube (no further oozing)
Musculoskeletal: No Edema
Skin: Warm and Dry; Negative Rash
Neuro: AO x 3
Psych: Calm
Data Reviewed
-
Diagnostic Radiology: Report Reviewed by me
Labs: Labs Reviewed by me
[2025-06-05] MEDS: ROXICODONE 15 MG PO (10:15)
[2025-06-05] MEDS: NSS (PRESERVATIVE FREE) 10 ML IV (10:18)
[2025-06-05] MEDS: PROTONIX IV 40 MG IV (10:18)
[2025-06-05] MEDS: LIPITOR 20 MG PO (10:19)
[2025-06-05] MEDS: MAGIC OR MIRACLE MOUTHWASH 5 ML PO (10:19)
[2025-06-05] MEDS: LYRICA 75 MG PO (10:19)
--- NOTE | 2025-06-05 10:20 | W.DS.TRANS ---
DC Summary - Vice Principal
-
Discharge Instructions:
Discharge Diagnosis/Procedures status post PEG tube on 06/02/25
Diet Tube feeding,Other diet
Additional Diets oral diet as tolerated, tube feed Jevity 1.5 1
carton 5 times per day with 80ml flush before
and after feeds. Ok to give med via peg if able
to be crushed and unable to take orally. Flush
with 15ml before and after medications.
Activity As tolerated
Driving Restrictions As prior to admission
Bathing Restrictions None
Other Services VN
Wound Care peg care:
keep tube clean and try. Clean twice a day with
warm water. Tube tube daily. T fasteners (
buttons) around tube will eventually fall off.
Call if any problems. Do not keep peg tube
tight against skin. Call GI for redness,
bleeding, swelling or pain.
Instructions:
Stand-Alone Forms: Return to Work
Changes to Home Medications: Yes
Discharge Medications:
DC Medications w/original date entered in [employer]
alendronate 70 mg tablet 70 mg PO FR 09/26/19
acetaminophen 325 mg tablet 650 mg (2 x 325 mg) PO Q4HPRN PRN temp greater than 100.4 F 09/27/19
ascorbic acid (vitamin C) 100 mg tablet (Vitamin C) 100 mg PO DAILY Supplement 12/16/24
latanoprost 0.005 % eye drops 1 drp BOTH EYES HS Eye Condition 12/16/24
aspirin 81 mg chewable tablet 81 mg PO DAILY Blood Clot Prevention/Tx 06/01/25
atorvastatin 20 mg tablet (Lipitor) 20 mg PO DAILY High Cholesterol 06/01/25
chlorhexidine gluconate 0.12 % mouthwash 15 ml buccal BID 06/01/25
dexamethasone 4 mg tablet 4 mg PO DIRECTED Infection 06/01/25
metoprolol succinate 25 mg tablet,extended release 24 hr (Toprol XL) 25 mg PO DAILY Blood Pressure 06/01/25
therapeutic multivitamin 1 tab PO DAILY Supplement 06/01/25
fluconazole 40 mg/mL oral suspension 200 mg (5 mL) feeding tube DAILY 11 days #55 mL 06/04/25
lansoprazole 30 mg capsule,delayed release 30 mg feeding tube DAILY #30 caps 06/04/25
lidocaine HCl 2 % mucosal solution (Lidocaine Viscous) 5 ml PO 5/D PRN pain with swallowing #300 mL 06/04/25
oxycodone 15 mg tablet 15 mg PO Q4HPRN PRN severe pain #30 tabs 06/04/25
pregabalin 75 mg capsule 75 mg PO BID #60 caps 06/04/25
Home Medication Changes
Pending Results: No
[2025-06-05] MEDS: LOW STRENGTH ASPIRIN 81 MG PO (10:21)
[2025-06-05] MEDS: DECADRON 8 MG PO (10:21)
[2025-06-05] MEDS: PERIDEX 0.12% ORAL RINSE PO (10:22)
[2025-06-05] MEDS: TOPROL XL 25 MG PO (10:22)
--- NOTE | 2025-06-05 10:25 | VNURNOTE ---
[facility] rec'ed confirmation that TF supplies will be delivered to pt's house today between 1300 and 1400. Spoke with patient, she is aware and verbalizes understanding. She stated her brother will pick her up at 1200. Requested RN Will to send pt
home with extra drain sponges and syringes for PEG tube. Pt has contact numbers for [facility] and [facility]. She is aware that [facility] will see her this afternoon after supplies are rec'ed in home.
[2025-06-05] MEDS: DIFLUCAN 200 MG 100 IV (10:40)
--- NOTE | 2025-06-05 11:43 | CM ---
[id number] order for discharge.
\\Pt has a med that goes till 11:45.
[facility] will delivery med and supplies.
[facility] aware of dc and to visit today for tube feeding instructions.
Spoke with dgt Ana she agrees with dc.
IMM reviewed signed by patient.
PLAN Home with [facility] and teaching for tube feeding at home . [facility] for supplies
[2025-06-05] MEDS: FLUZONE HIGH-DOSE 2025-26 0.5 ML IM (11:45)
[2025-06-05 12:28] VITALS: BP 133/89
== END 2025-06-05 14:52 | disposition home health service (06) | DRG 146 ==
LOC: 4 WEST ACU 16:39
PROVIDERS: Emergency Medicine; Internal Medicine; Nurse Practitioner Adult Health; Physician Assistant Medical; ADMITTING PHYSICIAN Internal Medicine; ATTENDING PHYSICIAN Student in an Organized Health Care Education/Training Program; CONSULT PHYSICIAN Specialist; EMERGENCY PHYSICIAN Emergency Medicine; FAMILY PHYSICIAN Family Medicine; OTHER PHYSICIAN Internal Medicine Cardiovascular Disease; OTHER PHYSICIAN Internal Medicine Hematology & Oncology
PROC: 0DH63UZ Insertion of Feeding Device into Stomach, Percutaneous Approach (ICD-10-PCS; 2025-06-02)
PROC: 3E0G76Z Introduction of Nutritional Substance into Upper GI, Via Natural or Artificial Opening (ICD-10-PCS; 2025-06-02)
DX: C09.9 Malignant neoplasm of tonsil, unspecified (principal); E43 Unspecified severe protein-calorie malnutrition; B37.81 Candidal esophagitis; Z68.1 Body mass index [BMI] 19.9 or less, adult; Z43.1 Encounter for attention to gastrostomy; B37.0 Candidal stomatitis; F17.210 Nicotine dependence, cigarettes, uncomplicated; R62.7 Adult failure to thrive; I10 Essential (primary) hypertension; K31.89 Other diseases of stomach and duodenum; K22.9 Disease of esophagus, unspecified; Z79.82 Long term (current) use of aspirin; Z79.899 Other long term (current) drug therapy; Z92.21 Personal history of antineoplastic chemotherapy
CPT/HCPCS: 70487; 80048; 80053; 83605; 83735; 84100; 85025; 85027; 85610; 87040; 90662; 96361; 96374; 97116; 97162; 99285; G0008; Q9967

== ENCOUNTER 2025-06-15 17:08 | Inpatient (IN) | payer MEDICARE, SELFPAY ==
[2025-06-15 13:10] VITALS: BP 103/91
--- NOTE | 2025-06-15 13:44 | ED.GENMED ---
History of Present Illness
General
Chief Complaint: Weakness
Source: patient and ambulance crew
Exam Limitations: none
Time Seen by Provider: 06/15/25 13:27
Nursing documentation reviewed up to this point in time: agreed with
History of Present Illness
History of Present Illness:
Note:
CHIEF COMPLAINT(S)
Weakness
HISTORY OF PRESENT ILLNESS
The patient is a 64-year-old female who presents with complaints of feeling very weak, noted since yesterday. She describes her teeth as being yellow and reports an episode of screaming yesterday. The patient lives alone and admits to experiencing a
bit of difficulty in breathing. Past smoking history is noted. The patient mentioned that she had been at the medical facility approximately a week to ten days ago where she had an IV line administered and also experienced issues with pulse oximetry
readings. The difficulty in obtaining a reading was mitigated by using an oximeter on her ear, which eventually provided an accurate signal.
REVIEW OF SYSTEMS
- General: Weakness, feeling cold
- Respiratory: Slight difficulty in breathing
PHYSICAL EXAM
General: Alert, no acute distress.
Skin: Warm, dry.
Head: Normocephalic, atraumatic.
Neck: Supple, trachea midline.
Eye Ears, nose, mouth and throat: Oral mucosa moist.
Cardiovascular: Normal peripheral perfusion, No edema.
Respiratory: Respirations are non-labored. cough, bilateral rhonchi
Gastrointestinal: Abdomen nondistended
Back: Normal range of motion, Normal alignment.
Musculoskeletal: Normal ROM, normal strength.
Neurological: Alert and oriented to person, place, time, and situation, No focal neurological deficit observed.
Psychiatric: Cooperative, appropriate mood & affect.
PLAN
Perform laboratory investigations to evaluate electrolytes. Ensure accurate pulse oximetry readings utilizing alternative sites if necessary (e.g., ear).
DIFFERENTIAL DIAGNOSIS
The Differential Diagnosis includes, in no particular order and is not limited to:
- Anemia
- Chronic Obstructive Pulmonary Disease (COPD) exacerbation
- Electrolyte imbalance
- Hypothyroidism
- Heart failure
- Pharyngitis
- Upper respiratory tract infection
- Psychiatric causes, such as anxiety or panic attack
- Dental issues or oral health problems
- Side effects from medication use or withdrawal
CARE-UPDATE
06/15/25 - 16:00
Patient diagnosed with bilateral pneumonia based on Test Xx results. Initiating treatment with cefepime and vancomycin. Plan to admit for management of pneumonia and associated weakness.
Disposition:
SUMMARY OF ENCOUNTER
The patient, a 64-year-old female, was seen in the emergency department for weakness . During the assessment, it was noted that the patient had previously experienced respiratory difficulties and had a history of pulse oximetry issues. Evaluation
revealed a diagnosis of bilateral pneumonia, which necessitated the initiation of intravenous antibiotics, including ceftaroline and vancomycin. Given the patients symptoms and diagnosis, admission to the hospital for further management was deemed
appropriate.
DISPOSITION
Admit.
ASSESSMENT
The patient was diagnosed with bilateral pneumonia, contributing to her weakness and difficulty breathing.
MANAGEMENT OF THE PATIENTS CARE WAS DISCUSSED WITH
Hospitalists were consulted to facilitate the admission for treatment and continued care of the patients pneumonia.
PLAN
The plan includes inpatient admission to manage and treat bilateral pneumonia with intravenous antibiotics: ceftaroline and vancomycin.
MEDICATION RECONCILIATION
The patient is to receive the following antibiotics during their hospital admission:
1. cefepime (IV)
2. Vancomycin (IV)
MEDICAL DECISION MAKING
- Complexity of Data Reviewed: Chronic conditions affecting care include a past smoking history which may contribute to respiratory issues. Differential diagnosis considered included anemia, COPD exacerbation, electrolyte imbalance, hypothyroidism,
heart failure, pharyngitis, upper respiratory tract infection, anxiety or panic attack, dental issues, side effects from medication use or withdrawal.
- Data:
Category 1
My independent interpretation of imaging confirms bilateral pneumonia.
Category 3
Hospitalist consultation for pneumonia management and admission planning.
- Risk:
Due to the patients presenting complaint and underlying conditions, admission was required to manage the complexity and risk associated with pneumonia. The patient requires close monitoring and intravenous antibiotics to prevent complications and
support recovery.
DIAGNOSIS
Bilateral pneumonia (ICD-10: J18.9)
Past History
Past History
ED Past Medical History: Cancer, CVA, HTN, Hypercholesterolemia and Other (History of alcoholism)
ED Past Surgical History: Orthopedic
Social History
Tobacco: Smoker
Alcohol: Former
Drug: None
Personal: Partner
Living: with roommate
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
Phy Exam
Physical Exam
Physical Exam:
.
Course
Orders/Labs/Results
Orders:
Orders
06/15/25 13:13
Electrocardiogram (*1) Urgent
Reason for Study: Tachycardia
EKG- Treatment ONCE
06/15/25 13:40
CR Chest - 2 Views Urgent
Comment:
Reason For Exam: weakness, short of breath
06/15/25 13:42
IV Insert/Care/Rem.- Treatment PRN
06/15/25 14:03
Complete Blood Count/With Diff Urgent
Comprehensive Metabolic Panel Urgent
Magnesium Urgent
06/15/25 15:21
Urinalysis Reflex To Culture Urgent
06/15/25 15:43
Acetaminophen [Tylenol/Feverall] 650 mg RECTAL NOW STA
06/15/25 15:45
Acetaminophen [Tylenol Oral Solution] 650 mg PO NOW STA
06/15/25 15:52
Cefepime HCl [Maxipime] 1,000 mg IV NOW STA
06/15/25 15:53
Vancomycin 1 Gram/200 ml [Vancocin] 1 gram in 200 ml IV NOW
06/15/25 16:00
Lactic Acid Q4H
Comment: CANCEL 2nd LACTIC ACID IF 1st LACTIC ACID IS LESS THAN 2
Blood Culture Q30M
MAY Source: Blood/Venous
Specimen Description:
06/15/25 16:01
Acetaminophen 1000MG/100Ml [Ofirmev] 1,000 mg in 100 ml IV ONCE
Acetaminophen IV Indication:: No NH & No Enteral Access
06/15/25 16:30
Blood Culture Q30M
MAY Source: Blood/Venous
Specimen Description:
06/15/25 20:00
Lactic Acid Q4H
Comment: CANCEL 2nd LACTIC ACID IF 1st LACTIC ACID IS LESS THAN 2
Abnormal Lab Results
06/15/25
14:03
WBC 1.8 L* 10^3/uL
(4.8-10.8)
MCH 33.9 H pg
(27.0-31.0)
MPV 12.2 H fL
(7.4-10.4)
Absolute Lymphs (auto) 0.1 L 10^3/uL
(1.2-3.4)
Neutrophils % 89.7 H %
(42.2-75.2)
Lymphocytes % 2.7 L %
(20.5-51.1)
Sodium 128 L mmol/L
(135-145)
Chloride 93 L mmol/L
(98-107)
BUN 28 H mg/dl
(7-17)
Creatinine 0.5 L mg/dL
(0.6-1.0)
Glucose 116 H mg/dl
(70-99)
AST 39 H U/L
(14-36)
ALT 46 H U/L
(0-35)
06/15/25 14:03
06/15/25 14:03
Vital Signs
Initial and Last Documented VS:
Initial Vital Signs
Resp BP
17 103/91
06/15/25 13:10 06/15/25 13:10
Last Documented Vital Signs
Temp Pulse Resp BP Pulse Ox
97.5 F 80 16 94/79 96
06/15/25 13:15 06/15/25 15:00 06/15/25 16:02 06/15/25 16:00 06/15/25 14:55
*Pulse Oximetry
Patient hypoxic: no
*Critical Care Note
Total Time (30-74mins, 75-104mins- exclusive of procedures): Not Applicable
ED Attending Note
-
Portions of this chart may have been created with voice recognition software.� Occasional wrong word or��sound alike� substitutions may have occurred due to the inherent limitations of voice recognition software.
Discharge Plan
Departure
Patient Disposition: Admit
Date of Disposition: 06/15/25
Time of Disposition: 15:46
Admit to: Telemetry
Presentation/result/management discussed w/ accepting MD/DO: Hospitalist
Patient with high blood pressure during this ER visit?: Yes
Condition: Fair
Discharge Problem:
Bilateral pneumonia
Prescriptions:
No Action
alendronate 70 MG tablet
70 mg PO FR
latanoprost 0.005 % Drops
1 drp BOTH EYES HS
Vitamin C 100 mg Tablet
100 mg PO DAILY
therapeutic multivitamin Tablet
1 tab PO DAILY
aspirin 81 MG tablet,chewable
81 mg PO DAILY
metoprolol succinate [Toprol XL] 25 mg Tablet Extended Release 24 Hr
25 mg PO DAILY
chlorhexidine gluconate 0.12 % Mouthwash
15 ml BUCCAL BID
atorvastatin [Lipitor] 20 mg Tablet
20 mg PO DAILY
lidocaine HCl [Lidocaine Viscous] 2 % Solution
5 ml PO 5/D PRN (Reason: pain with swallowing) Qty: 300 0RF
oxycodone 15 mg Tablet
15 mg PO Q4HPRN PRN (Reason: severe pain) Qty: 30 0RF
dexamethasone 4 mg Tablet
8 mg PO BID Qty: 120 0RF
Rx Instructions:
Take 8mg twice a day until further directed by outpatient providers.
acetaminophen 325 MG tablet
650 mg PO Q4HPRN PRN (Reason: mild pain)
lansoprazole 30 mg capsule,delayed release(DR/EC)
30 mg feeding tube DAILY
pregabalin 75 mg capsule
75 mg PO BID
Referrals:
Balwinder Yousif MD [Family Provider, [facility]]
Interventions
Interventions:
*Risk Screen - Suicide Last Done: 06/15/25 13:16
*General Assessment Last Done: 06/15/25 13:16
*Neglect/Abuse Screening Last Done: 06/15/25 13:16
*ED- Fall Risk Assessment Last Done: 06/15/25 13:16
*ED COVID-19 Vaccine History Last Done: 06/15/25 13:16
*ED Influenza Vaccine History Last Done: 06/15/25 13:16
ED- Cardiac Assessment Last Done: 06/15/25 13:16
ED- Neurological Assessment Last Done: 06/15/25 13:16
ED- Pulmonary Assessment Last Done: 06/15/25 13:16
Discharge Date and Time
Print Language: COLOMBIAN
[2025-06-15 14:24] LABS: Hematocrit 43.4 % (37.0-47.0); Hemoglobin 15.2 g/dL (12.0-16.0); Mean Corp Hgb Conc. 35.0 g/dL (33.0-37.0); Mean Corpuscular Volume 96.9 fL (81.0-99.0); Platelet Count 132 10^3/uL (130-400); Red Cell Dist. Width 12.8 % (11.5-14.5)
[2025-06-15 14:40] LABS: ALT (SGPT) 46 U/L (0-35); AST (SGOT) 39 U/L (14-36); Albumin 3.8 g/dl (3.5-5.0); Alkaline Phosphatase 64 U/L (38-126); Blood Urea Nitrogen 28 mg/dl (7-17); Calcium 9.3 mg/dl (8.4-10.2); Carbon Dioxide 26 mmol/L (22-30); Chloride 93 mmol/L (98-107); Glucose 116 mg/dl (70-99); Magnesium 1.8 mg/dl (1.6-2.3); Potassium 4.4 mmol/L (3.5-5.1); Sodium 128 mmol/L (135-145); Total Protein 6.6 g/dl (6.3-8.2); eGFR > 60.00
[2025-06-15 15:00] VITALS: BP 124/83
--- NOTE | 2025-06-15 15:23 | VATNOTE ---
Unable to obtain PIV access veins sclerotic secondary to history of chemotherapy.
[2025-06-15 15:27] LABS: Nucleated Red Blood Cells % 0 %
[2025-06-15 16:00] VITALS: BP 94/79
[2025-06-15] MEDS: OFIRMEV 100 IV (16:04)
[2025-06-15] MEDS: MAXIPIME 1000 MG IV (16:15)
--- NOTE | 2025-06-15 16:15 | HPS.HSE ---
Family Physician
-
Family Physician: Balwinder Yousif
Chief Complaint
-
feeling very weak
History of Present Illness
64F former smoker, lives alone
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
Recent admission : 06/01/25 -06/05/25 DC Dx Right tonsillar cancer with pain resulting in poor oral intake now status post PEG 06/02/25
Seen at ER:
- feeling very weak, noted since yesterday.
- experiencing difficulty in breathing.
- she had been at the medical facility approximately a week to ten days ago where she had an IV line administered and also experienced issues with pulse oximetry readings. T
Medical History
Past Medical History
Past Medical History: Reports Other
Additional Past Medical History:
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
hypertension
hyperlipidemia
Past Surgical History: Reports Orthopedic
Social History
Tobacco: Former Smoker (quit 10/2024, approximate 25-30 pack year history )
Alcohol: Occasional (several times a week with have vodka )
Drug: None
Living: Alone
Family History
Family History: Other (Mother: clotting d/o, CHF, DM; Father: CAD )
Allergies / Home Medications
Allergies reflects when Allergies were last updated in [email or web address].
Home Medications with original date entered in [email or web address]
Allergy/Medication List:
Allergies
Allergy/AdvReac Type Severity Reaction Status Date / Time
bee venom protein (honey bee) Allergy Unknown Verified 06/01/25 11:40
latex Allergy Itching Verified 06/01/25 11:40
neomycin Allergy Itching Verified 06/01/25 11:40
Home Medications
alendronate 70 mg tablet 70 mg PO FR 09/26/19
acetaminophen 325 mg tablet 650 mg (2 x 325 mg) PO Q4HPRN PRN temp greater than 100.4 F 09/27/19
ascorbic acid (vitamin C) 100 mg tablet (Vitamin C) 100 mg PO DAILY Supplement 12/16/24
latanoprost 0.005 % eye drops 1 drp BOTH EYES HS Eye Condition 12/16/24
aspirin 81 mg chewable tablet 81 mg PO DAILY Blood Clot Prevention/Tx 06/01/25
atorvastatin 20 mg tablet (Lipitor) 20 mg PO DAILY High Cholesterol 06/01/25
chlorhexidine gluconate 0.12 % mouthwash 15 ml buccal BID 06/01/25
dexamethasone 4 mg tablet 4 mg PO DIRECTED Infection 06/01/25
metoprolol succinate 25 mg tablet,extended release 24 hr (Toprol XL) 25 mg PO DAILY Blood Pressure 06/01/25
oxycodone 5 mg tablet 5 mg PO Q4HPRN PRN severe pains 06/01/25
therapeutic multivitamin 1 tab PO DAILY Supplement 06/01/25
Review of Systems
-
Constitutional: Reports See HPI and Fatigue
EENT: Reports No Symptoms
Respiratory: Reports Trouble Breathing
Cardiac: Reports No Symptoms
Abdomen/GI: Reports No Symptoms
: Reports No Symptoms
Musculoskeletal: Reports No Symptoms
Skin: Reports No Symptoms
Neurological: Reports Weakness
Endocrine: Reports No Symptoms
Hematologic/Lymphatic: Reports No Symptoms
Psych: Reports No Symptoms
Physical Exam
Vital Signs
Vital Signs
Temp Pulse Resp BP Pulse Ox
97.5 F 80 16 94/79 96
06/15/25 13:15 06/15/25 15:00 06/15/25 16:02 06/15/25 16:00 06/15/25 14:55
Physical Exam
General: Well Developed, No Apparent Distress, Conversant and Appears Chronically Ill
HEENT: NormoCephalic, PERRLA, Nose Appears Normal and Ears Appear Normal
Respiratory: Clear and Non Labored Respirations
Cardiac: Regular Rhythm and Bradycardia
GI: Soft, Non Tender, Non Distended and Normal Bowel Sounds
Musculoskeletal: No Clubbing, No Cyanosis and No Edema
Skin: Warm and IV/Catheter Site
Neuro: Awake and AO x 3
Psych: Calm and Intact Judgment/Insight
Laboratory Results
-
06/15/25 14:03
06/15/25 14:03
Total Bilirubin 0.8 mg/dl (0.2-1.3) 06/15/25 14:03
AST 39 U/L (14-36) H 06/15/25 14:03
ALT 46 U/L (0-35) H 06/15/25 14:03
Alkaline Phosphatase 64 U/L (38-126) 06/15/25 14:03
Data Reviewed
-
Diagnostic Radiology: Report Reviewed by me
Lab Data: Labs Reviewed by me
Old Records: Reviewed
Impression/Plan
-
Vital Signs
Temp Pulse Resp BP Pulse Ox
97.5 F 80 16 94/79 96
06/15/25 13:15 06/15/25 15:00 06/15/25 16:02 06/15/25 16:00 06/15/25 14:55
06/04/25 06/15/25
07:26 14:03
WBC 9.8 1.8 L*
Hgb 12.3 15.2
Plt Count 151 D 132
Laboratory Tests
06/04/25 06/15/25 06/15/25
07:26 14:03 16:11
Sodium 133 L 128 L
Chloride 93 L
Carbon Dioxide 26
Creatinine 0.8 0.5 L
eGFR > 60.00 > 60.00
Glucose 116 H
Lactic Acid Pending
AST 39 H
ALT 46 H
06/15/25
20:00
Sodium
Chloride
Carbon Dioxide
Creatinine
eGFR
Glucose
Lactic Acid Pending
AST
ALT
CXR
Patchy parenchymal opacity within both lower lungs, suspicious for bilateral pneumonia. No evidence for associated pleural effusion.
EGD 06/02/25
Impression:
- Esophageal plaques were found, consistent with candidiasis.
- Gastric mucosal atrophy.
- An externally removable PEG placement was successfully completed -
placed in the gastric body
- Erythematous duodenography.
- No specimens collected.
Last hospitalist admission: 06/01/25 -06/05/25
DC Dx Right tonsillar cancer with pain resulting in poor oral intake now status post PEG 06/02/25
ASSESSMENT & PLAN
Pending Rx reconciliation
General weakness
Chr FTT being home alone
B/L PNA associated weakness
- BCx sent
- Empiric IV vanco and CFP
New onset leukopenia
Hypovolemic hyponatremia due to dehydration
local recurrent and progressive tongue CA causing pain, difficulty swallowing, and weight loss s/p PEG placed
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
Tobacco abuse, history of substance abuse
- c/w TF
- OP f/u at [facility] for biopsy and likely surgery w/ neck dissection Dr. Ortega 06/09
- empiric ABx
- cancer pain control : Lyrica 75mg daily, PRN oxycodone
HX Esophageal Candidiasis
- s/p Fluconazole for 14 day
Carotid Artery Disease
- follows with Dr. Hinds
Coronary artery calcification seen on CT
Abnormal Stress Test
- on Asa/Statin/ Metoprolol
- sees Dr. Brar
Bn HTN
- continue metoprolol
Hyperlipidemia
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
Protein calorie malnutrition
BMI 16 - severely underweight
- consult level glass forming machine operator for TF
DVT Px: LMWH
Full code per patient
IP MS
[2025-06-15] MEDS: VANCOCIN 200 IV (16:52)
[2025-06-15 17:32] VITALS: BP 111/79
[2025-06-15] MEDS: NSS 1000 IV (18:05)
[2025-06-15] MEDS: ROXICODONE 15 MG PO (18:10)
[2025-06-15] MEDS: LOVENOX 40 MG SC (18:11)
--- NOTE | 2025-06-15 19:41 | PHA.VAN.IN ---
Assessment
- Assessment
Renal Function: Appears similar to baseline
Concomitant Antimicrobials: CEFEPIME
AUC Dosing Plan
- Dosing Variables
Dosing Weight (kg): 43.8
Dosing CrCl (ml/min): 64
Vd coefficient (L/kg): 0.7
- Empiric Dosing
Initial / Loading Dose: Vancomycin 1000 mg IV ~ 1650
Maintenance Regimen: Vancomycin 750 mg IV Q24H
Estimated AUC (mcg*h/mL): 438
Estimated Peak (mcg*h/mL): 32.7
Estimated Trough (mcg/ml): 8.7
Estimated Half Life (H): 12
- Monitoring
No levels ordered at this time: Consider levels in next few days
Pharmacokinetics Vancomycin I
- -
Patient Age: 64
Patient Sex: Female
Vancomycin Day #: 1
Indication: Pulmonary/Respiratory
Requesting Provider: Dr Tej Fu
Pertinent Antimicrobial Allergies:
Neomycin w. itching-eczema
Height / Weight:
Height 5 ft 5 in
Actual Weight 43.8 kg
Pertinent Past Medical History: Right tonsillar cancer stage T1 N2AM0 group Velvet presented w. pna
- Vital Signs / Lab Results
Temp Pulse Resp BP Pulse Ox
98.3 F 72 17 111/79 94
06/15/25 17:32 06/15/25 17:32 06/15/25 17:32 06/15/25 17:32 06/15/25 17:32
Lab Results - Hematology
06/15/25
14:03
WBC 1.8 L*
Lab Results - Chemistry
06/15/25
14:03
BUN 28 H
Creatinine 0.5 L
Albumin 3.8
06/15/25
16:11
Lactic Acid 2.7 H
[2025-06-15] MEDS: PERIDEX 0.12% ORAL RINSE 15 ML PO (20:28)
[2025-06-15] MEDS: DECADRON 6 MG IV (20:29)
[2025-06-15] MEDS: XALATAN OPHTHALMIC SOLUTION 1 DROP BOTH EYES (22:00)
[2025-06-15 23:16] VITALS: BP 116/82
[2025-06-16] MEDS: MAXIPIME 1000 MG IV ×4 (00:08→23:09)
[2025-06-16] MEDS: STERILE WATER FOR INJECTION 10 ML IV ×4 (00:08→23:09)
[2025-06-16] MEDS: OFIRMEV 100 IV ×2 (04:34→23:05)
--- NOTE | 2025-06-16 04:59 | W.PN.UPDATE ---
Update Note
Progress Note Update
per RN patient failed swallowing screen, asking for IV form for PM meds, Dexamethasone PO given IV almost equivalent form, confirmed with pharmacist.
[2025-06-16 05:01] LABS: Blood Urea Nitrogen 26 mg/dl (7-17); Carbon Dioxide 27 mmol/L (22-30); Chloride 99 mmol/L (98-107); Estimated Creatinine Clearance 64 ml/min; Sodium 128 mmol/L (135-145); eGFR > 60.00
[2025-06-16 05:02] LABS: Hematocrit 38.5 % (37.0-47.0); Hemoglobin 13.4 g/dL (12.0-16.0); Mean Corp Hgb Conc. 34.8 g/dL (33.0-37.0); Mean Corpuscular Volume 97.0 fL (81.0-99.0); Platelet Count 112 10^3/uL (130-400); Red Cell Dist. Width 12.7 % (11.5-14.5)
[2025-06-16 05:11] LABS: Calcium 8.8 mg/dl (8.4-10.2); Glucose 109 mg/dl (70-99)
[2025-06-16 05:29] LABS: Potassium 4.4 mmol/L (3.5-5.1)
[2025-06-16] MEDS: NSS 1000 IV (05:40)
[2025-06-16] MEDS: VANCOCIN 150 IV ×2 (05:40→17:20)
[2025-06-16 05:55] LABS: Nucleated Red Blood Cells % 0 %
[2025-06-16 06:00] VITALS: BMI 15.0
[2025-06-16 07:00] VITALS: BP 109/78
--- NOTE | 2025-06-16 08:15 | VNURNOTE ---
Chart reviewed. Patient is current with [facility]. Will continue to follow hospital course and DC plans.
--- NOTE | 2025-06-16 08:16 | VNURNOTE ---
Chart reviewed. Patient is current with [facility]. Pt sent to - by MAHESH. VN with concerns that pt is unable to care for herself at home, lives alone. Seeking placement. [facility] Text sent to covering. Will continue to follow hospital course and
DC plans.
--- NOTE | 2025-06-16 08:23 | PHA.VAN.FU ---
Vancomycin Assessment / Plan
- Assessment
Renal Function: Stable
In the past 24 hrs, patient has been: Afebrile
Concomitant Antimicrobials: cefepime
- Dosing Plan
Adjust Regimen to: Vanc 750mg Q12H - next dose at 1800
New Regimen Predicts: AUC (532), Peak (32.1), Trough (14.3)
Dosing Comments: utilized IBW for dosing weight & est CrCl
Patient may have increased vancomycin clearance due to BMI < 18.5 and cancer
- Monitoring Plan
No level(s) ordered at this time: consider levels in next few days
- Follow Up
Pharmacy will continue to follow.
Vancomycin Follow UP
- -
Patient Age: 64
Patient Sex: Female
Vancomycin Day #: 2
Indication: Pulmonary/Respiratory
Requesting Provider: Dr Tej Fu
Pertinent Antimicrobial Allergies:
Neomycin w. itching-eczema
Height / Weight:
Height 5 ft 5 in
Actual Weight 40.852 kg
IBW in k
Pertinent Past Medical History: R. tonsillar cancer; BMI ~15
- Vital Signs / Lab Results
Temp Pulse Resp BP Pulse Ox
97.7 F 73 16 109/78 92
06/16/25 07:00 06/16/25 07:00 06/16/25 07:00 06/16/25 07:00 06/16/25 07:00
Lab Results - Hematology
06/15/25 06/16/25
14:03 04:23
WBC 1.8 L* 5.4
Lab Results - Chemistry
06/15/25 06/16/25
14:03 04:23
BUN 28 H 26 H
Creatinine 0.5 L 0.5 L
Estimated Creat Clear 64
Albumin 3.8
06/15/25 06/15/25
16:11 20:02
Lactic Acid 2.7 H 2.4 H
[2025-06-16] MEDS: PERIDEX 0.12% ORAL RINSE 15 ML PO (08:43)
[2025-06-16] MEDS: DECADRON 6 MG IV ×2 (08:43→21:40)
[2025-06-16] MEDS: THERAGRAN PO (08:44)
[2025-06-16] MEDS: ZOFRAN 4 MG IV (09:54)
--- NOTE | 2025-06-16 10:26 | PTOTSP ---
Dysphagia Evaluation
Patient with acute on chronic dysphagia risk factors (i.e., b/l PNA, esophageal candidiasis, right tonsillar cancer stage T1 N2AM0 group IV s/p chemo and XRT, malnutrition) and current signs concerning for odynophagia, pharyngeal dysphagia,
signs/symptoms concerning for aspiration, and concern for aspiration complications. Patient has been unable to consume PO beyond sips of liquids for the past 4 days.
Recommend:
1. NPO (use non-oral means/PEG in place)
2. Aspiration Risk Hydration Protocol - sips of water and ice chips after oral care
3. Medications via non-oral means
4. Repeat video swallow study if/when able to tolerate. Current barrier includes odynophagia
[2025-06-16 10:52] VITALS: BMI 15.0
--- NOTE | 2025-06-16 11:31 | W.PN.HOSP.TC ---
Today's Communication/Plan
-
switch meds via tube
IV abx for now
ppi added
PT eval
started tube feeds
Assessment / Plan
Assessment / Plan
General weakness Likely multifactorial secondary to pneumonia, recent prolonged hospitalization and malignancy
Chronic failure to thrive
New onset leukopenia -wbc improved
- BCx sent
- Empiric IV vanco and Cefepime for now. If MRSA negative-dc vanc.
- Check strep/legionella antigen. Check sputum sample
Hypovolemic hyponatremia due to dehydration
-Trend bmp for now. looks dehydrated
-If Na downtrends further, check urine studies.
local recurrent and progressive tongue CA causing pain, difficulty swallowing, and weight loss s/p PEG placed
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
Tobacco abuse, history of substance abuse
- c/w TF
- OP f/u at [facility] for biopsy and likely surgery w/ neck dissection Dr. Ortega
- empiric ABx
- cancer pain control : Lyrica 75mg daily, PRN oxycodone
Recent Esophageal Candidiasis
Dysphagia
- Completed Fluconazole 14 day
-failed shallow eval. speech following. switched meds via peg
Carotid Artery Disease
- follows with Dr. Hinds
Coronary artery calcification seen on CT
Abnormal Stress Test
- on Asa/Statin/ Metoprolol
- sees Dr. Brar
HTN
- continue metoprolol-switch to lopressor via tube
Hyperlipidemia
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
Protein calorie malnutrition
BMI 16 - severely underweight
- Started Jevity 1.5 at 50cc/hr. Dietary following.
DVT Px: LMWH
Full code
PT eval
Anticipated Discharge: > 48 hours
Subjective/Interval History
-
Date of Service: June 16, 2025
states of nausea
Objective Data
-
Labs:
Laboratory Results
06/16/25
04:23
WBC 5.4
Hgb 13.4
Hct 38.5
Plt Count 112 L
Sodium 128 L
Potassium 4.4
Chloride 99
Carbon Dioxide 27
BUN 26 H
Creatinine 0.5 L
Glucose 109 H
Calcium 8.8
Vital Signs:
Vital Signs
Temp Pulse Resp BP Pulse Ox
97.7 F 73 16 109/78 92
06/16/25 07:00 06/16/25 07:00 06/16/25 07:00 06/16/25 07:00 06/16/25 07:00
Physical Exam
-
General: No Apparent Distress and Appears Chronically Ill
HEENT: Nose Appears Normal, Ears Appear Normal and Other (swelling right jaw )
Respiratory: Clear to Auscultation; Negative Wheezes
Cardiac: Regular Rhythm and S1/S2
GI: Soft, Nontender and Peg Tube
Musculoskeletal: No Edema
Skin: Warm and Dry; Negative Rash
Neuro: Awake and AO x 3
Psych: Calm
Data Reviewed
-
Total Time Spent with Patient (in minutes): 60
[2025-06-16] MEDS: PREVACID 30 MG TUBE (12:21)
[2025-06-16] MEDS: ROXICODONE 15 MG TUBE ×2 (12:21→17:21)
--- NOTE | 2025-06-16 13:29 | CM ---
Patient seen at bedside [place] [facility] with brother also present. Patient confirmed that she resides alone in a 2 bedroom ground level apartment, 1 small step to enter. Patient uses RW and cane for ambulation, independent w/ ADLs and personal care.
Patient was followed by [facility] following last discharge from and was brought back to due to concerns about patient at home. Patient now willing to go to SNF, hoping to regain strength and be able to return to her home. Patient brother indicated
that they would not be able to have patient at their homes due to steps. Patient family encouraging placement in local homes. Patient PCP is Dr. Yousif and she uses the [facility] in [place]. CM will send referrals to local SNF options and review
with patient and family choices. CM will continue to follow for discharge planning needs.
Plan; SNF
[2025-06-16 14:12] VITALS: BP 123/50
[2025-06-16 15:00] VITALS: BP 107/72
[2025-06-16] MEDS: LOVENOX 30 MG SC (17:19)
[2025-06-16 21:41] LABS: Urine Character Clear (Clear)
[2025-06-16] MEDS: XALATAN OPHTHALMIC SOLUTION 1 DROP BOTH EYES (21:42)
[2025-06-16] MEDS: LYRICA 75 MG TUBE (21:43)
[2025-06-16] MEDS: PERIDEX 0.12% ORAL RINSE PO (21:44)
[2025-06-16] MEDS: LOPRESSOR TUBE (21:44)
[2025-06-16 21:47] LABS: Urine Urothelial Cell 0-2 /LPF (FEW)
[2025-06-16 21:48] LABS: Urine White Cell 80-90 /HPF (0-5)
[2025-06-16 23:00] VITALS: BP 114/75
--- NOTE | 2025-06-17 00:21 | W.PN.UPDATE ---
Update Note
Progress Note Update
RN reports Tube feed is leaking around the PEG tube insertion site. Patient seen and evaluated. PEG tube noted to not be secured with sutures and protruding out further now than usual per patient report. RN reports when she tried to flush, contents
of flush noted to be leaking out. Patient without any new complaints, stable VS. TF on hold.
will Consult GI
--- NOTE | 2025-06-17 04:21 | PTCARENOTE ---
Pt noted to have saturated dressing around PEG tube site. Upon assessment, PEG tube observed to not be secured with sutures and appears to be protruding out further than usual per patient report. This RN paused tube feeding and performed a flush;
contents of flush noted to leak from the sides of the tube. ANCELMO Rodriguez notified and assessed patient at bedside. MACHINE BASTER advised to hold tube feeds and medications in tube overnight until patient can be evaluated by GI. Dressing changed and site
cleaned. Plan of care ongoing.
[2025-06-17 05:17] VITALS: BMI 13.7
[2025-06-17] MEDS: VANCOCIN 150 IV (05:30)
[2025-06-17 06:06] LABS: Hematocrit 35.5 % (37.0-47.0); Hemoglobin 12.2 g/dL (12.0-16.0); Mean Corp Hgb Conc. 34.4 g/dL (33.0-37.0); Mean Corpuscular Volume 98.3 fL (81.0-99.0); Nucleated Red Blood Cells % 0 %; Platelet Count 103 10^3/uL (130-400); Red Cell Dist. Width 13.0 % (11.5-14.5)
[2025-06-17 06:35] LABS: ALT (SGPT) 32 U/L (0-35); AST (SGOT) 22 U/L (14-36); Albumin 2.9 g/dl (3.5-5.0); Alkaline Phosphatase 59 U/L (38-126); Blood Urea Nitrogen 30 mg/dl (7-17); Calcium 8.7 mg/dl (8.4-10.2); Carbon Dioxide 25 mmol/L (22-30); Chloride 103 mmol/L (98-107); Estimated Creatinine Clearance 54 ml/min; Glucose 110 mg/dl (70-99); Potassium 4.2 mmol/L (3.5-5.1); Sodium 129 mmol/L (135-145); Total Protein 5.7 g/dl (6.3-8.2); eGFR > 60.00
--- NOTE | 2025-06-17 06:58 | CON.GI ---
Addendum entered and electronically signed by Maggie Carver Do, MD 06/17/25 13:43:
I saw and examined the patient.
The CONTACT OFFICER's note was reviewed and I agree with the note.
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 She does 3 cans bolus feeds per day and has trouble with that. Denies blood from PEG. She is
constipated. She is on chronic opioids--oxycodone for her neck pain. She is not on daily bowel regimen. Vitals stable Exam thick thrush over tongue and mouth. radiation changes to neck. PEG with loose bumper. Tfastners appropriate. Labs
reviewed
Impression
- Weakness failure to thrive
- PNA
- Leaking PEG tube
- Candidal esophagitis
- Tonsillar cancer
- h/o tobacco and ETOH use
Recommendations
- PEG tube bumper tightened and balloon inflated 2ml additional bedside by me
- Recommend TF via pump not gravity
- PPI IV BID
- Constipation is contributor recommend miralax through tube daily basis
- Start Diflucan for candidal esophagitis and nystatin s/s x1
Will follow with you
Addendum entered and electronically signed by ANCELMO Faulkner 06/17/25 10:26:
Pt also with some constipation continue Miralax and will add senna via tube at HS
pt due next week to office will cancel follow up as seen during current admission
Original Note:
Consultation
-
Date/Time Consultation Requested: 06/17/25529
Date/Time Consultation Performed: 06/17/25929
Requesting Provider: ANCELMO Verdin
Performing Provider: ANCELMO Weber, Maggie Castanon MD
Reason for Consultation: leaking peg tube
Medical History
Chief Complaint / HPI
Chief Complaint: leaking peg
History of Present Illness:
64yo female with tonsillar CA T1N2M0 group stage VIKRAM in December and underwent chemoradiation from December through February. 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
at [place] with biopsy and further treatment. She was admitted 06/01-06/05 for malnutrition and had T fastener peg placed and also concern for esophageal candidiasis. She now presents 06/15 for weakness and concern for PNA. Asked to see for leaking
peg with increased drainage around tube overnight. Pt was due OP follow up to review for also possible change in tube feed regiment.
In review with patient she admits to continued dysphagia and odynophagia and neck pain. She was getting about 3 cartons per day of tube feeds and needed about 5. She was working on transition to continuous feeds but ended up back in hospital
and now working of possible SNF placement. She denies nausea, vomiting, abdominal pain, diarrhea, blood or black in stools. Pt is noted with some constipation with narcotic use. Last stool 2 days prior to admission but some hard stools at times.
Past Medical History
Past Medical History: Other (Tonsillar CA. B/l carotid stenosis. PVD)
Past Surgical History: Other (L sided port, s/p peg)
Social History
Tobacco: Smoker
Alcohol: Other (social in past )
Drug: None
Living: Alone
Employment: Employed (was working at [employer] prior to last admission)
Family History
Family History: Other (denies any GI issue in family )
Allergies / Home Medications
Allergy/AdvReac Type Severity Reaction Status Date / Time
bee venom protein (honey bee) Allergy Unknown Verified 06/01/25 11:40
latex Allergy Itching-BLI Verified 06/15/25 17:57
STERS
neomycin Allergy Itching-ecz Verified 06/15/25 17:57
luis
�Medication �Instructions �Recorded
alendronate 70 mg tablet 70 mg PO FR bone 09/26/19
ascorbic acid (vitamin C) 100 mg 100 mg PO DAILY Supplement 12/16/24
tablet (Vitamin C)
latanoprost 0.005 % eye drops 1 drp BOTH EYES HS Eye Condition 12/16/24
aspirin 81 mg chewable tablet 81 mg PO DAILY Blood Clot 06/01/25
Prevention/Tx
atorvastatin 20 mg tablet (Lipitor) 20 mg PO DAILY High Cholesterol 06/01/25
chlorhexidine gluconate 0.12 % 15 ml buccal BID mouth care 06/01/25
mouthwash
metoprolol succinate 25 mg 25 mg PO DAILY Blood Pressure 06/01/25
tablet,extended release 24 hr
(Toprol XL)
therapeutic multivitamin 1 tab PO DAILY Supplement 06/01/25
lidocaine HCl 2 % mucosal solution 5 ml PO 5/D PRN pain with 06/04/25
(Lidocaine Viscous) swallowing #300 mL
oxycodone 15 mg tablet 15 mg PO Q4HPRN PRN severe pain 06/04/25
#30 tabs
dexamethasone 4 mg tablet 8 mg (2 x 4 mg) PO BID #120 tabs 06/05/25
acetaminophen 325 mg tablet 650 mg PO Q4HPRN PRN mild pain 06/15/25
lansoprazole 30 mg capsule,delayed 30 mg feeding tube DAILY 06/15/25
release Gastrointestinal Issue
pregabalin 75 mg capsule 75 mg PO BID mild pain 06/15/25
Review of Systems
-
History Source: Patient
Constitutional: Reports Weight Loss and Fatigue
EENT: Reports Other (neck pain, odynophagia, dysphagia )
Respiratory: Reports No Symptoms and Cough
Abdomen/GI: Reports Constipated and Other (leaking peg )
: Reports No Symptoms
Musculoskeletal: Reports No Symptoms
Skin: Reports No Symptoms
Neurological: Reports Weakness
Endocrine: Reports No Symptoms
Hematologic/Lymphatic: Reports No Symptoms
Vital Signs
Temp Pulse Resp BP Pulse Ox
98 F 54 16 114/75 95
06/16/25 23:00 06/16/25 23:00 06/16/25 23:00 06/16/25 23:00 06/16/25 23:00
Physical Exam
Exam
General: Other (thin appearing is some distress with neck pain )
HEENT: Normocephalic, Anicteric, Thrush and Other (neck fullness and thick speech with hx CA)
Respiratory: Other (decreased bases )
Cardiac: Regular Rhythm
GI: Soft, Non Tender, Non Distended and Other (peg intact with loose bumper at 8 pulled back to 5, very minimal drainage on pad, T fasteners without redness or pain and remain intact )
Musculoskeletal: No Clubbing and No Cyanosis
Skin: Warm and Dry
Neuro: Awake, Alert and AO x 3
Psych: Calm
Results
WBC 5.1 10^3/uL (4.8-10.8) 06/17/25 05:46
Hgb 12.2 g/dL (12.0-16.0) 06/17/25 05:46
Hct 35.5 % (37.0-47.0) L 06/17/25 05:46
MCV 98.3 fL (81.0-99.0) 06/17/25 05:46
Plt Count 103 10^3/uL (130-400) L 06/17/25 05:46
Absolute Neuts (auto) 4.8 10^3/uL (1.4-6.5) 06/17/25 05:46
Sodium 129 mmol/L (135-145) L 06/17/25 05:46
Potassium 4.2 mmol/L (3.5-5.1) 06/17/25 05:46
Chloride 103 mmol/L (98-107) 06/17/25 05:46
Carbon Dioxide 25 mmol/L (22-30) 06/17/25 05:46
BUN 30 mg/dl (7-17) H 06/17/25 05:46
Creatinine 0.6 mg/dL (0.6-1.0) 06/17/25 05:46
Calcium 8.7 mg/dl (8.4-10.2) 06/17/25 05:46
Total Bilirubin 0.6 mg/dl (0.2-1.3) 06/17/25 05:46
AST 22 U/L (14-36) 06/17/25 05:46
ALT 32 U/L (0-35) 06/17/25 05:46
Alkaline Phosphatase 59 U/L (38-126) 06/17/25 05:46
Diagnostic Image Results:
06/15/25
Patchy parenchymal opacity within both lower lungs, suspicious for bilateral pneumonia. No evidence for associated pleural effusion.
Prior GI Procedures:
EGD: walp 06/01/25
- Esophageal plaques were found, consistent with candidiasis.
- Gastric mucosal atrophy.
- An externally removable PEG placement was successfully completed -
placed in the gastric body
- Erythematous duodenopathy.
- No specimens collected.
2015- colon Dr. Arredondo
- One 4 mm polyp in the sigmoid colon. Biopsied.
- One 5 mm polyp in the descending colon. Biopsied.
- One 8 mm polyp in the sigmoid colon. Biopsied.
- One 8 mm polyp in the sigmoid colon. Resected and
retrieved.
- The examined portion of the ileum was normal.
bx TA
Assessment / Plan
-
64yo female with tonsillar CA T1N2M0 group stage VIKRAM in December and underwent chemoradiation from December through February. 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
at [place] with biopsy and further treatment. She was admitted 06/01-06/05 for malnutrition and had T fastener peg placed and also concern for esophageal candidiasis. She now presents 06/15 for weakness and concern for PNA. Asked to see for leaking
peg. Also noted with continued Noé and concern and working with case management for rehab options.
leaking peg
PNA
oral candidiasis
leukopenia on admission
Odynophagia/dysphagia with Failure to thrive/wt loss s/p peg 06/03 with continued wt loss since discharge
Tonsillar Cancer. S/p chemo/XRT -- follow up at [place] due for further treatment s/p biopsy last week
bradycardia
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
b/l carotid stenosis
prior tobacco use and current ETOH use
mod MR
Plan:
Leaking peg may be related to loose bumper vs underfilling of balloon vs other
tube balloon filled with additional 3 ml fluid and bumper tightened
pt also noted with continued noé
reviewed meds with Dr. Gibson and pharmacy will resume IV Diflucan as no suspension available and also add nystatin Will hold Oxy for now with interaction
QTc stable 418 on admission 06/15
support given as overwhelmed with home and peg for social work eval
appreciate social work input looking at SNF placement
pt was trying to get tube feed pump at home but will hold for now with plan for SNF
reviewed with Dr. Gibson and nursing staff
-
-
Thank you for consultation and allowing me to participate in the patient's care. Please call the consulting analyst GI physician during the after hours with any questions or concerns.
[2025-06-17 07:43] VITALS: BP 128/86
[2025-06-17] MEDS: STERILE WATER FOR INJECTION 10 ML IV ×3 (08:16→23:55)
[2025-06-17] MEDS: MAXIPIME 1000 MG IV ×3 (08:16→23:55)
[2025-06-17] MEDS: DECADRON 6 MG IV ×2 (08:17→21:09)
[2025-06-17] MEDS: PERIDEX 0.12% ORAL RINSE 15 ML PO ×2 (08:40→21:12)
[2025-06-17] MEDS: DILAUDID 0.5 MG IV ×3 (09:35→23:00)
[2025-06-17] MEDS: MIRALAX 17 GRAMS TUBE (10:16)
[2025-06-17] MEDS: LOW STRENGTH ASPIRIN 81 MG TUBE (10:17)
[2025-06-17] MEDS: LIPITOR 20 MG TUBE (10:17)
[2025-06-17] MEDS: THERAGRAN 1 TABLET PO (10:17)
[2025-06-17] MEDS: PREVACID 30 MG TUBE (10:17)
[2025-06-17] MEDS: NSS 1000 IV (10:19)
[2025-06-17] MEDS: LYRICA 75 MG TUBE ×2 (10:20→21:20)
[2025-06-17] MEDS: DIFLUCAN 200 MG 100 IV (10:22)
[2025-06-17] MEDS: LOPRESSOR TUBE ×2 (10:25→21:30)
--- NOTE | 2025-06-17 11:52 | W.PN.HOSP.TC ---
Today's Communication/Plan
-
Monitor vitals
See plan
Continue with PT/OT
Needs SNF
Restart tube feeds
Continue Diflucan, nystatin
DC vancomycin, continue with cefepime. Add Flagyl
Discussed with brother Orlando
Assessment / Plan
Assessment / Plan
General weakness Likely multifactorial secondary to pneumonia, recent prolonged hospitalization and malignancy
Chronic failure to thrive
New onset leukopenia -wbc improved
- BCxNGTD
MRSA negative, DC further vancomycin. Continue with cefepime. Add Flagyl
- Check strep/legionella antigen neg. Check sputum sample
Recent Esophageal Candidiasis
Dysphagia
- Completed Fluconazole 14 day
-failed swallow eval. speech following. switched meds via peg
Discussed with GI, started Diflucan and nystatin
Hypovolemic hyponatremia due to dehydration
-Sodium 129. looks dehydrated
-If Na downtrends further, check urine studies.
local recurrent and progressive tongue CA causing pain, difficulty swallowing, and weight loss s/p PEG placed
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
Tobacco abuse, history of substance abuse
Tube feed leaking, evaluated by GI. Status post feeling of balloon. Restart tube feed later today
- c/w TF
- OP f/u at [place] for biopsy and likely surgery w/ neck dissection Dr. Ortega
- empiric ABx
- cancer pain control : Lyrica 75mg daily, Hold as needed oxycodone
Pain control
Carotid Artery Disease
- follows with Dr. Hinds
Coronary artery calcification seen on CT
Abnormal Stress Test
- on Asa/Statin/ Metoprolol
- sees Dr. Brar
Asymptomatic pyuria
Monitor
HTN
- continue metoprolol-switch to lopressor via tube
Hyperlipidemia
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
Thrombocytopenia likely secondary malignancy
Monitor
Protein calorie malnutrition
BMI 16 - severely underweight
- Started Jevity 1.5 at 50cc/hr. Dietary following.
DVT Px: LMWH
Full code
PT eval Recommended SNF. OT consult
General: No Apparent Distress and Appears Chronically Ill
HEENT: Nose Appears Normal, Ears Appear Normal and Other (swelling right jaw )
Respiratory: Clear to Auscultation; Negative Wheezes
Cardiac: Regular Rhythm and S1/S2
GI: Soft, Nontender and Peg Tube
Musculoskeletal: No Edema
Neuro: Awake and AO x 3
Psych: Calm
I spent a total of 52 minutes with the patient or on the floor. More than 50% of this time involved counseling and coordination of care.
Anticipated Discharge: 24 - 48 hours
Subjective/Interval History
-
Date of Service: June 17, 2025
Anxious
Objective Data
-
Labs:
Laboratory Results
06/17/25
05:46
WBC 5.1
Hgb 12.2
Hct 35.5 L
Plt Count 103 L
Sodium 129 L
Potassium 4.2
Chloride 103
Carbon Dioxide 25
BUN 30 H
Creatinine 0.6
Glucose 110 H
Calcium 8.7
Total Bilirubin 0.6
AST 22
ALT 32
Alkaline Phosphatase 59
Vital Signs:
Vital Signs
Temp Pulse Resp BP Pulse Ox
97.7 F 55 16 118/77 97
06/17/25 07:43 06/17/25 10:25 06/17/25 07:43 06/17/25 10:06/17/25 07:43
[2025-06-17] MEDS: MYCOSTATIN ORAL SUSPENSION 5 ML PO ×3 (12:58→22:57)
[2025-06-17] MEDS: FLAGYL 500 MG 100 IV ×2 (12:58→21:08)
[2025-06-17 14:49] VITALS: BP 110/73
[2025-06-17] MEDS: LOVENOX 30 MG SC (18:21)
[2025-06-17] MEDS: TYLENOL ORAL SOLUTION 650 MG TUBE (18:26)
[2025-06-17] MEDS: XALATAN OPHTHALMIC SOLUTION 1 DROP BOTH EYES (22:57)
[2025-06-17] MEDS: SENNA SYRUP 8.8 MG TUBE (22:57)
[2025-06-17 23:52] VITALS: BP 120/83
[2025-06-18] MEDS: FLAGYL 500 MG 100 IV (04:39)
--- NOTE | 2025-06-18 05:00 | PTCARENOTE ---
Pt noted to have saturated dressing around PEG tube site, leaking onto gown and blankets. This RN paused tube feeding and performed a flush. Flush not leaking. KANDIS Bautista notified and assessed patient at bedside. SEO STRATEGIST advised to hold tube
feeds and medications in tube until patient can be evaluated by GI. Dressing changed and site cleaned. Plan of care ongoing.
[2025-06-18] MEDS: DILAUDID 0.5 MG IV ×4 (05:15→21:46)
[2025-06-18 05:21] LABS: Hematocrit 36.3 % (37.0-47.0); Hemoglobin 12.0 g/dL (12.0-16.0); Mean Corp Hgb Conc. 33.1 g/dL (33.0-37.0); Mean Corpuscular Volume 103.1 fL (81.0-99.0); Nucleated Red Blood Cells % 0 %; Platelet Count 105 10^3/uL (130-400); Red Cell Dist. Width 13.2 % (11.5-14.5)
[2025-06-18 05:23] VITALS: BMI 12.7
[2025-06-18 05:30] LABS: ALT (SGPT) 40 U/L (0-35); AST (SGOT) 24 U/L (14-36); Albumin 2.9 g/dl (3.5-5.0); Alkaline Phosphatase 63 U/L (38-126); Blood Urea Nitrogen 29 mg/dl (7-17); Calcium 8.6 mg/dl (8.4-10.2); Carbon Dioxide 22 mmol/L (22-30); Chloride 107 mmol/L (98-107); Estimated Creatinine Clearance 50 ml/min; Glucose 174 mg/dl (70-99); Potassium 4.0 mmol/L (3.5-5.1); Sodium 134 mmol/L (135-145); Total Protein 5.5 g/dl (6.3-8.2); eGFR > 60.00
--- NOTE | 2025-06-18 06:52 | W.PN.UPDATE ---
Update Note
Progress Note Update
~ 5 am PEG tube is leaking large amounts. Flushing well. Tube feed on hold. TT to GI to updated on overnight leakage. Will see patient today, per TARIQ Mcdonough Do.�
[2025-06-18 07:44] VITALS: BP 150/94
[2025-06-18] MEDS: PERIDEX 0.12% ORAL RINSE 15 ML PO ×2 (10:04→20:48)
[2025-06-18] MEDS: MYCOSTATIN ORAL SUSPENSION 5 ML PO ×3 (10:05→18:08)
[2025-06-18] MEDS: MAXIPIME 1000 MG IV (10:11)
[2025-06-18] MEDS: STERILE WATER FOR INJECTION 10 ML IV ×2 (10:12→14:21)
[2025-06-18] MEDS: DECADRON 6 MG IV ×2 (10:12→20:50)
[2025-06-18] MEDS: DIFLUCAN 200 MG 100 IV (10:15)
--- NOTE | 2025-06-18 10:41 | W.PN.GI.CBS2 ---
Addendum entered and electronically signed by Maggie Carver Do, MD 06/18/25 11:53:
I saw and examined the patient.
The YARDER's note was reviewed and I agree with the note.
Comment: No issues with PEG until early this AM around completion of TF via pump. She remains constipated despite BM last night. Denies abd pain. Vitals stable exam tongue with less white exudates. PEG bumper at 2cm to skin and no leakage or
erythema. Tfastners in appropriate location. Labs reviewed
Recommendation
- PEG tube check
- C/w dressings
- Ok to use for meds, hold TF for now
- PPI IV BID
- Recommend miralax BID and ducolax oral
- Anticipate resumption of TF once having better BMs
Will follow with you.
Addendum entered and electronically signed by ANCELMO Faulkner 06/18/25 10:52:
updated nursing staff
Original Note:
Today's Communication / Plan
-
Leaking peg may be related to loose bumper vs underfilling of balloon vs constipation vs other
still with leakage overnight with saturated dressing
now no drainage at site
resume tube feed regiment
reviewed with nursing to check dressing every 1-2 hours to keep clean and dry
tube balloon filled with additional 3 ml fluid and bumper tightened 06/17 remain on at 5 at mid bumper
cont rx for noé
pt also with rectal bleeding -- rectal exam with certified nursing assistant and teacher at bedside with large soft stool burden in rectum with internal hemorrhoid no blood seen and external skin breakdown
to get PRN dulcolax now
increase miralax to BID and increase senna dose via peg
reviewed with wound nurse they cont to follow for local treatment
Assessment / Plan
-
64yo female with tonsillar CA T1N2M0 group stage VIKRAM in December and underwent chemoradiation from December through February. 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
at [place] with biopsy and further treatment. She was admitted 06/01-06/05 for malnutrition and had T fastener peg placed and also concern for esophageal candidiasis. She now presents 06/15 for weakness and concern for PNA. Asked to see for leaking
peg. Also noted with continued Noé and concern and working with case management for rehab options.
leaking peg
rectal bleeding
constipation -narcotic induced
PNA
oral candidiasis
leukopenia on admission
Odynophagia/dysphagia with Failure to thrive/wt loss s/p peg 06/03 with continued wt loss since discharge
Tonsillar Cancer. S/p chemo/XRT -- follow up at [place] due for further treatment s/p biopsy last week
bradycardia
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
b/l carotid stenosis
prior tobacco use and current ETOH use
mod MR
Plan:
Leaking peg may be related to loose bumper vs underfilling of balloon vs constipation vs other
still with leakage overnight with saturated dressing
now no drainage at site
resume tube feed regiment
reviewed with nursing to check dressing every 1-2 hours to keep clean and dry
tube balloon filled with additional 3 ml fluid and bumper tightened 06/17 remain on at 5 at mid bumper
cont rx for noé
pt also with rectal bleeding -- rectal exam with certified nursing assistant and teacher at bedside with large soft stool burden in rectum with internal hemorrhoid no blood seen and external skin breakdown
to get PRN dulcolax now
increase miralax to BID and increase senna dose via peg
reviewed with wound nurse they cont to follow for local treatment
Subjective
Subjective
Date of Service: June 18, 2025
currently with formed stool with red blood in commode -- pt admit to occasional rectal bleeding, tube feeds on hold with some saturation of dressing under peg
Objective
Data Reviewed
Laboratory Data:
Laboratory Results
06/18/25 04:51
06/18/25 04:51
Laboratory Results
Magnesium 1.8 mg/dl (1.6-2.3) 06/15/25 14:03
Total Bilirubin 0.4 mg/dl (0.2-1.3) 06/18/25 04:51
AST 24 U/L (14-36) 06/18/25 04:51
ALT 40 U/L (0-35) H 06/18/25 04:51
Alkaline Phosphatase 63 U/L (38-126) 06/18/25 04:51
Vital Signs and I&O:
Vital Signs
Temp Pulse Resp BP Pulse Ox
97.3 F 55 18 150/94 94
06/18/25 07:44 06/18/25 07:44 06/18/25 07:44 06/18/25 07:44 06/18/25 07:44
Physical Exam
Physical Exam
HEENT: Anicteric and Moist mucous membranes (+ thrush )
Cardiology: Other (bradicardia )
Pulmonary: Clear
GI: Soft, Distended (mild ) and Non Tender
Rectal: Other (large stool burden in rectum brown, + hemorrhoids, no blood seen, + external skin breakdown )
Extremities: No Edema
Neuro: Non Focal
[2025-06-18] MEDS: DULCOLAX 10 MG RECTAL (11:08)
[2025-06-18] MEDS: PREVACID 30 MG TUBE (11:08)
--- NOTE | 2025-06-18 11:12 | WOUNDNOTE ---
[facility] RN NOTE: Patient visited for new PI of buttocks found on HAP report. 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 Per LINK Braxton, patient has had diarrhea over the past few days contributing to the
MASD. Wounds were cleaned and Calazime applied. Heels blanchable and adhesive foam applied. Will recommend air overlay has patient demonstrates limited mobility and has a BMI of 12. LINK Braxton given update. Will continue to follow during in patient
stay.
[2025-06-18] MEDS: LOPRESSOR TUBE ×2 (11:14→21:03)
[2025-06-18] MEDS: LIPITOR 20 MG TUBE (11:15)
[2025-06-18] MEDS: LOW STRENGTH ASPIRIN 81 MG TUBE (11:16)
[2025-06-18] MEDS: MIRALAX 17 GRAMS TUBE ×2 (11:16→20:48)
[2025-06-18] MEDS: SENOKOT-S 1 TABLET PO (11:16)
[2025-06-18] MEDS: THERAGRAN 1 TABLET PO (11:16)
[2025-06-18] MEDS: LYRICA 75 MG TUBE ×2 (11:19→20:54)
--- NOTE | 2025-06-18 12:16 | W.PN.HOSP.TC ---
Today's Communication/Plan
-
Monitor vital signs see plan
Need SNF
PEG tube study today
Okay to use tube for medications, hold tube feeds per GI
Continue antibiotic
Discussed with brother
Assessment / Plan
Assessment / Plan
General weakness Likely multifactorial secondary to pneumonia, recent prolonged hospitalization and malignancy
Chronic failure to thrive
New onset leukopenia -wbc improved
- BCxNGTD
Switch antibiotics to ceftriaxone and Doxy
- Check strep/legionella antigen neg. Check sputum sample
Recent Esophageal Candidiasis
Dysphagia
- Completed Fluconazole 14 day
-failed swallow eval. speech following. switched meds via peg
Discussed with GI, started Diflucan and nystatin
Hypovolemic hyponatremia due to dehydration
Improving
-If Na downtrends further, check urine studies.
local recurrent and progressive tongue CA causing pain, difficulty swallowing, and weight loss s/p PEG placed
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
Tobacco abuse, history of substance abuse
Tube feed leaking, evaluated by GI. Status post feeling of balloon. Tube feed check today. Currently tube feed on hold. Okay to use of meds
- c/w TF
- OP f/u at [place] for biopsy and likely surgery w/ neck dissection Dr. Ortega
- empiric ABx
- cancer pain control : Lyrica 75mg daily, Hold as needed oxycodone
Pain control
constipation; cw laxatives
Carotid Artery Disease
- follows with Dr. Hinds
Coronary artery calcification seen on CT
Abnormal Stress Test
- on Asa/Statin/ Metoprolol
- sees Dr. Brar
Asymptomatic pyuria
Monitor
HTN
- continue metoprolol-switch to lopressor via tube
Hyperlipidemia
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
Thrombocytopenia likely secondary malignancy
Monitor
Protein calorie malnutrition
BMI 16 - severely underweight
- Started Jevity 1.5 at 50cc/hr. Dietary following. Currently tube feeds on hold due to leaking. Tube feed check pending
DVT Px: LMWH
Full code
PT eval Recommended SNF. OT consult
General: No Apparent Distress and Appears Chronically Ill
HEENT: Nose Appears Normal, Ears Appear Normal and Other (swelling right jaw )
Respiratory: Clear to Auscultation; Negative Wheezes
Cardiac: Regular Rhythm and S1/S2
GI: Soft, Nontender and Peg Tube
Musculoskeletal: No Edema
Neuro: Awake and AO x 3
Psych: Calm
I spent a total of 52 minutes with the patient or on the floor. More than 50% of this time involved counseling and coordination of care.
Anticipated Discharge: > 48 hours
Subjective/Interval History
-
Date of Service: June 18, 2025
Has pain
Objective Data
-
Labs:
Laboratory Results
06/18/25
04:51
WBC 4.9
Hgb 12.0
Hct 36.3 L
Plt Count 105 L
Sodium 134 L
Potassium 4.0
Chloride 107
Carbon Dioxide 22
BUN 29 H
Creatinine 0.5 L
Glucose 174 H
Calcium 8.6
Total Bilirubin 0.4
AST 24
ALT 40 H
Alkaline Phosphatase 63
Vital Signs:
Vital Signs
Temp Pulse Resp BP Pulse Ox
97.3 F 54 18 150/94 94
06/18/25 07:44 06/18/25 11:14 06/18/25 07:44 06/18/25 07:44 06/18/25 07:44
[2025-06-18] MEDS: VIBRAMYCIN 100 MG TUBE ×2 (14:14→21:08)
[2025-06-18] MEDS: ROCEPHIN 1000 MG IV (14:14)
[2025-06-18] MEDS: DULCOLAX 10 MG S (14:15)
[2025-06-18] MEDS: FLAGYL 500 MG IV (14:17)
[2025-06-18 16:14] VITALS: BP 137/87
[2025-06-18 16:34] VITALS: BP 137/87; PULSE 55; O2SAT 90
--- NOTE | 2025-06-18 16:51 | CM ---
CM following for discharge to SNF when medically stable. D/C anticipated in >48 hours.
[2025-06-18] MEDS: LOVENOX 30 MG SC (18:10)
[2025-06-18] MEDS: SENNA SYRUP TUBE (21:08)
[2025-06-18] MEDS: XALATAN OPHTHALMIC SOLUTION 1 DROP BOTH EYES (21:09)
[2025-06-18] MEDS: MYCOSTATIN ORAL SUSPENSION PO (21:09)
[2025-06-18 23:10] VITALS: BP 137/95
[2025-06-19] MEDS: DILAUDID 0.5 MG IV ×5 (05:21→22:22)
[2025-06-19 05:45] LABS: Hematocrit 40.9 % (37.0-47.0); Hemoglobin 14.3 g/dL (12.0-16.0); Mean Corp Hgb Conc. 35.0 g/dL (33.0-37.0); Mean Corpuscular Volume 99.3 fL (81.0-99.0); Nucleated Red Blood Cells % 0 %; Platelet Count 121 10^3/uL (130-400); Red Cell Dist. Width 12.9 % (11.5-14.5)
[2025-06-19 06:04] LABS: ALT (SGPT) 46 U/L (0-35); AST (SGOT) 27 U/L (14-36); Albumin 3.4 g/dl (3.5-5.0); Alkaline Phosphatase 74 U/L (38-126); Blood Urea Nitrogen 28 mg/dl (7-17); Calcium 9.2 mg/dl (8.4-10.2); Carbon Dioxide 21 mmol/L (22-30); Chloride 108 mmol/L (98-107); Estimated Creatinine Clearance 50 ml/min; Glucose 110 mg/dl (70-99); Potassium 4.1 mmol/L (3.5-5.1); Sodium 136 mmol/L (135-145); Total Protein 6.4 g/dl (6.3-8.2); eGFR > 60.00
[2025-06-19 06:10] VITALS: BMI 13.9
[2025-06-19 07:32] VITALS: BP 134/96
[2025-06-19] MEDS: DECADRON 6 MG IV ×2 (09:34→20:57)
[2025-06-19] MEDS: LIPITOR 20 MG TUBE (09:38)
[2025-06-19] MEDS: LOPRESSOR 12.5 MG TUBE (09:38)
[2025-06-19] MEDS: VIBRAMYCIN 100 MG TUBE ×2 (09:38→20:57)
[2025-06-19] MEDS: PREVACID 30 MG TUBE (09:44)
[2025-06-19] MEDS: LOW STRENGTH ASPIRIN 81 MG TUBE (09:44)
[2025-06-19] MEDS: MYCOSTATIN ORAL SUSPENSION 5 ML PO ×4 (09:45→20:57)
[2025-06-19] MEDS: THERAGRAN 1 TABLET PO (09:45)
[2025-06-19] MEDS: PERIDEX 0.12% ORAL RINSE 15 ML PO ×2 (09:46→20:57)
[2025-06-19] MEDS: DIFLUCAN 200 MG 100 IV (09:48)
[2025-06-19] MEDS: MIRALAX 17 GRAMS TUBE ×2 (09:48→20:57)
[2025-06-19] MEDS: LYRICA 75 MG TUBE ×2 (09:52→20:57)
--- NOTE | 2025-06-19 10:46 | W.PN.HOSP.TC ---
Today's Communication/Plan
-
Monitor vitals
See plan
Restart tube feeds when okay with GI
Continue with laxatives
Continue with antibiotic
Continue with Diflucan, nystatin
Needs SNF placement
Assessment / Plan
Assessment / Plan
General weakness Likely multifactorial secondary to pneumonia, recent prolonged hospitalization and malignancy
Chronic failure to thrive
New onset leukopenia -wbc improved
- BCxNGTD
cw with ceftriaxone and Doxy; should treat for atleast 7 days
- Check strep/legionella antigen neg. Check sputum sample if able
Esophageal Candidiasis
Dysphagia
- Completed Fluconazole 14 day
-failed swallow eval. speech following. switched meds via peg
Discussed with GI, started Diflucan and nystatin
Hypovolemic hyponatremia due to dehydration
Improving
-If Na downtrends further, check urine studies.
local recurrent and progressive tongue CA causing pain, difficulty swallowing, and weight loss s/p PEG placed
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
Tobacco abuse, history of substance abuse
Tube feed leaking, evaluated by GI. Status post feeling of balloon. Tube feed check 06/18 noted. Currently tube feed on hold. Okay to use of meds. restart tube feeds if ok with GI
- c/w TF
- OP f/u at [place] for biopsy and likely surgery w/ neck dissection Dr. Ortega
- empiric ABx
- cancer pain control : Lyrica 75mg daily, Hold as needed oxycodone. dilaudid for pain control
Pain control
constipation; cw laxatives
Carotid Artery Disease
- follows with Dr. Hinds
Coronary artery calcification seen on CT
Abnormal Stress Test
- on Asa/Statin/ Metoprolol
- sees Dr. Brar
Asymptomatic pyuria
Monitor
HTN
- continue metoprolol-switch to lopressor via tube
Hyperlipidemia
- ARGON TESTER atorvastatin
Thrombocytopenia likely secondary malignancy
Monitor
Protein calorie malnutrition
BMI 16 - severely underweight
- Started Jevity 1.5 at 50cc/hr. Dietary following. Currently tube feeds on hold due to leaking. Tube feed check noted. Restart tube feeds when okay with GI
DVT Px: LMWH
Full code
PT eval Recommended SNF. OT consult
General: No Apparent Distress and Appears Chronically Ill
HEENT: Nose Appears Normal, Ears Appear Normal and Other (swelling right jaw )
Respiratory: Clear to Auscultation; Negative Wheezes
Cardiac: Regular Rhythm and S1/S2
GI: Soft, Nontender and Peg Tube
Musculoskeletal: No Edema
Neuro: Awake and AO x 3
Psych: Calm
I spent a total of 51 minutes with the patient or on the floor. More than 50% of this time involved counseling and coordination of care.
Anticipated Discharge: 24 - 48 hours
Subjective/Interval History
-
Date of Service: June 19, 2025
Denies pain
Objective Data
-
Labs:
Laboratory Results
06/19/25
05:22
WBC 4.6 L
Hgb 14.3
Hct 40.9
Plt Count 121 L
Sodium 136
Potassium 4.1
Chloride 108 H
Carbon Dioxide 21 L
BUN 28 H
Creatinine 0.5 L
Glucose 110 H
Calcium 9.2
Total Bilirubin 0.7
AST 27
ALT 46 H
Alkaline Phosphatase 74
Vital Signs:
Vital Signs
Temp Pulse Resp BP Pulse Ox
97.7 F 62 17 134/96 92
06/19/25 07:32 06/19/25 07:32 06/19/25 07:32 06/19/25 07:32 06/19/25 07:32
I&O
06/18/25 06/19/25 06/20/25
06:59 06:59 06:59
Intake Total 220 / 220
Balance 220 / 220
--- NOTE | 2025-06-19 11:40 | CM ---
PT rec SNF
spoke with patient/brother Orlando regarding facilities that accepted.
brother would like [email or web address] list care compare and they will decide which facility
CM to follow up with patient/brother - will need ins authorization once bed secured
PLAN: SNF, pending bed availability, will need ins auth once bed secured
--- NOTE | 2025-06-19 12:11 | W.PN.GI.CBS2 ---
Addendum entered and electronically signed by ANCELMO Faulkner 06/19/25 13:18:
message sent to office to reschedule follow up in a few weeks
Addendum entered and electronically signed by ANCELMO Fauklner 06/19/25 13:18:
GI will sign off. Call with any further leakage or problems. May have some leakage til track further matures.
Original Note:
Today's Communication / Plan
-
Leaking peg may be related to loose bumper vs underfilling of balloon vs constipation vs other
minimal leakage overnight
resume tube feed regiment
cont for nursing to check dressing every 1-2 hours to keep clean and dry
tube balloon filled with additional 3 ml fluid and bumper tightened 06/17 remain on at 5 at mid bumper
cont rx for jessica
multiple stools overnight with improved constipation
cont miralax to BID and senna HS
reviewed with wound nurse they cont to follow for local treatment per nursing staff for rectal breakdown
case management working on SNF
Assessment / Plan
-
64yo female with tonsillar CA T1N2M0 group stage VIKRAM in December and underwent chemoradiation from December through February. 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
at [place] with biopsy and further treatment. She was admitted 06/01-06/05 for malnutrition and had T fastener peg placed and also concern for esophageal candidiasis. She now presents 06/15 for weakness and concern for PNA. Asked to see for leaking
peg. Also noted with continued Jessica and concern and working with case management for rehab options.
06/18 tube check
The percutaneous gastrostomy tube tip is within the fundus of the stomach. A small amount of contrast material is identified on the skin surface at the insertion site of the gastrostomy tube, likely tracking retrograde along the tube tract. No
intraperitoneal extraluminal extravasation. No gastric distention or gastric outlet obstruction.
leaking peg
rectal bleeding
constipation -narcotic induced
PNA
oral candidiasis
leukopenia on admission
Odynophagia/dysphagia with Failure to thrive/wt loss s/p peg 06/03 with continued wt loss since discharge
Tonsillar Cancer. S/p chemo/XRT -- follow up at [place] due for further treatment s/p biopsy last week
bradycardia
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
b/l carotid stenosis
prior tobacco use and current ETOH use
mod MR
rectal [place]own with wound care following
Plan:
Leaking peg may be related to loose bumper vs underfilling of balloon vs constipation vs other
minimal leakage overnight
resume tube feed regiment
cont for nursing to check dressing every 1-2 hours to keep clean and dry
tube balloon filled with additional 3 ml fluid and bumper tightened 06/17 remain on at 5 at mid bumper
cont rx for jessica
multiple stools overnight with improved constipation
cont miralax to BID and senna HS
reviewed with wound nurse they cont to follow for local treatment per nursing staff for rectal breakdown
case management working on SNF
Subjective
Subjective
Date of Service: June 19, 2025
Pt with sevral stools since yesterday and feeling well. No abdominal pain. Minimal drainage around tube
Objective
Data Reviewed
Laboratory Data:
Laboratory Results
06/19/25 05:22
06/19/25 05:22
Laboratory Results
Magnesium 1.8 mg/dl (1.6-2.3) 06/15/25 14:03
Total Bilirubin 0.7 mg/dl (0.2-1.3) 06/19/25 05:22
AST 27 U/L (14-36) 06/19/25 05:22
ALT 46 U/L (0-35) H 06/19/25 05:22
Alkaline Phosphatase 74 U/L (38-126) 06/19/25 05:22
Vital Signs and I&O:
Vital Signs
Temp Pulse Resp BP Pulse Ox
97.7 F 62 17 134/96 92
06/19/25 07:32 06/19/25 07:32 06/19/25 07:32 06/19/25 07:32 06/19/25 07:32
I&O
06/18/25 06/19/25 06/20/25
06:59 06:59 06:59
Intake Total 220 / 220
Balance 220 / 220
Physical Exam
Physical Exam
HEENT: Anicteric, Moist mucous membranes and Other (right neck fullness )
Cardiology: Normal Sinus Rhythm
Pulmonary: Clear
GI: Soft, Non Distended, Non Tender and Other (peg with intact t fasteners )
Extremities: No Edema
Neuro: Non Focal
[2025-06-19] MEDS: STERILE WATER FOR INJECTION 10 ML IV (13:52)
[2025-06-19] MEDS: ROCEPHIN 1000 MG IV (13:52)
[2025-06-19 15:41] VITALS: BP 110/78
--- NOTE | 2025-06-19 16:42 | PTCARENOTE ---
Pt found to be 86% on RA during routine vitals. Pt denied SOB, appeared comfortable. Lung sounds unchanged (coarse/dimished) from earlier today. Raised HOB to 90 degrees, patient repositioned, encouraged to deep breathe and cough - all with no
change in pulse ox. 2LO2 applied via NC - up to 90%. TT to hospitalist, will continue to monitor for further hypoxia. Continue TF.
[2025-06-19] MEDS: LOVENOX 30 MG SC (17:34)
[2025-06-19] MEDS: XALATAN OPHTHALMIC SOLUTION 1 DROP BOTH EYES (20:55)
[2025-06-19] MEDS: SENNA SYRUP 17.6 MG TUBE (20:56)
[2025-06-19] MEDS: LOPRESSOR TUBE (21:11)
[2025-06-19 23:00] VITALS: BP 153/97
[2025-06-20] MEDS: DILAUDID 0.5 MG IV ×5 (05:14→22:41)
[2025-06-20 05:58] LABS: Hematocrit 41.7 % (37.0-47.0); Hemoglobin 13.5 g/dL (12.0-16.0); Mean Corp Hgb Conc. 32.4 g/dL (33.0-37.0); Mean Corpuscular Volume 103.0 fL (81.0-99.0); Nucleated Red Blood Cells % 0 %; Platelet Count 107 10^3/uL (130-400); Red Cell Dist. Width 13.1 % (11.5-14.5)
[2025-06-20 06:00] VITALS: BMI 14.6
[2025-06-20 06:15] LABS: ALT (SGPT) 50 U/L (0-35); AST (SGOT) 30 U/L (14-36); Albumin 3.4 g/dl (3.5-5.0); Alkaline Phosphatase 80 U/L (38-126); Blood Urea Nitrogen 31 mg/dl (7-17); Calcium 9.0 mg/dl (8.4-10.2); Carbon Dioxide 20 mmol/L (22-30); Chloride 107 mmol/L (98-107); Estimated Creatinine Clearance 55 ml/min; Glucose 167 mg/dl (70-99); Potassium 3.6 mmol/L (3.5-5.1); Sodium 133 mmol/L (135-145); Total Protein 6.3 g/dl (6.3-8.2); eGFR > 60.00
[2025-06-20 07:00] VITALS: BP 145/95
[2025-06-20] MEDS: PERIDEX 0.12% ORAL RINSE 15 ML PO ×2 (08:34→22:38)
[2025-06-20] MEDS: TYLENOL ORAL SOLUTION 650 MG TUBE (08:34)
[2025-06-20] MEDS: DECADRON 6 MG IV ×2 (08:35→22:36)
[2025-06-20] MEDS: MYCOSTATIN ORAL SUSPENSION 5 ML PO ×4 (08:35→22:38)
[2025-06-20] MEDS: LOW STRENGTH ASPIRIN 81 MG TUBE (08:36)
[2025-06-20] MEDS: VIBRAMYCIN 100 MG TUBE (08:37)
[2025-06-20] MEDS: PREVACID 30 MG TUBE (08:37)
[2025-06-20] MEDS: LIPITOR 20 MG TUBE (08:37)
[2025-06-20] MEDS: LOPRESSOR 12.5 MG TUBE (08:37)
[2025-06-20] MEDS: THERAGRAN 1 TABLET PO (08:38)
[2025-06-20] MEDS: LYRICA 75 MG TUBE (08:39)
[2025-06-20] MEDS: MIRALAX TUBE ×2 (08:39→22:38)
[2025-06-20] MEDS: DIFLUCAN 200 MG 100 IV (09:42)
--- NOTE | 2025-06-20 11:22 | W.PN.HOSP.TC ---
Today's Communication/Plan
-
Assessment / Plan
Assessment / Plan
General: No Apparent Distress and Appears Chronically Ill
HEENT: Nose Appears Normal, Ears Appear Normal and Other (swelling right jaw )
Respiratory: Clear to Auscultation; Negative Wheezes
Cardiac: Regular Rhythm and S1/S2
GI: Soft, Nontender and Peg Tube
Musculoskeletal: No Edema
Neuro: Awake and AO x 3
Psych: Calm
General weakness Likely multifactorial secondary to pneumonia, recent prolonged hospitalization and malignancy
Chronic failure to thrive
New onset leukopenia -wbc improved
- BCxNGTD
cw with ceftriaxone and Doxy; should treat for atleast 7 days
- Check strep/legionella antigen neg. Check sputum sample if able
Esophageal Candidiasis
Dysphagia
- Redose Fluconazole for 14 day per GI discussion today
-failed swallow eval. speech following. switched meds via peg
Discussed with GI, started Diflucan and nystatin
Hypovolemic hyponatremia due to dehydration
Improving
-If Na downtrends further, check urine studies.
local recurrent and progressive tongue CA causing pain, difficulty swallowing, and weight loss s/p PEG placed
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
Tobacco abuse, history of substance abuse
Tube feed leaking, evaluated by GI. Status post feeling of balloon. Tube feed check 06/18 noted. Currently tube feed on hold. Okay to use of meds. restart tube feeds if ok with GI
- c/w TF
- OP f/u at [place] for biopsy and likely surgery w/ neck dissection Dr. Ortega
- empiric ABx
- cancer pain control : Lyrica 75mg daily, Hold as needed oxycodone. dilaudid for pain control
Pain control
constipation; cw laxatives
Carotid Artery Disease
- follows with Dr. Hinds
Coronary artery calcification seen on CT
Abnormal Stress Test
- on Asa/Statin/ Metoprolol
- sees Dr. Brar
Asymptomatic pyuria
Monitor
HTN
- continue metoprolol-switch to lopressor via tube
Hyperlipidemia
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
Thrombocytopenia likely secondary malignancy
Monitor
Protein calorie malnutrition
BMI 16 - severely underweight
- Started Jevity 1.5 at 50cc/hr. Dietary following. Currently tube feeds on hold due to leaking. Tube feed check noted. Restart tube feeds when okay with GI
DVT Px: LMWH
Full code
PT/OT SNF
Called brother Augusto, Currently on the way to the hospital to discuss facilities with CM. CM notified via TT
Anticipated Discharge: > 48 hours
Subjective/Interval History
-
Date of Service: June 20, 2025
seen and examined. no new complaits. no acute overnight events
pt eval rec snf
spoke with gi, which was asking how many days did she use diflucan at home
-she tells me only used for 4days
Objective Data
-
Labs:
Laboratory Results
06/20/25
05:43
WBC 3.1 L
Hgb 13.5
Hct 41.7
Plt Count 107 L
Sodium 133 L
Potassium 3.6
Chloride 107
Carbon Dioxide 20 L
BUN 31 H
Creatinine 0.5 L
Glucose 167 H
Calcium 9.0
Total Bilirubin 0.6
AST 30
ALT 50 H
Alkaline Phosphatase 80
Vital Signs:
Vital Signs
Temp Pulse Resp BP Pulse Ox
97.5 F 61 17 145/95 95
06/20/25 07:00 06/20/25 08:37 06/20/25 07:00 06/20/25 08:37 06/20/25 10:14
I&O
06/19/25 06/20/25 06/21/25
06:59 06:59 06:59
Intake Total 220 / 220
Balance 220 / 220
[2025-06-20 13:21] VITALS: BP 158/103
--- NOTE | 2025-06-20 13:22 | CM ---
Reviewed with brother Orlando and pt SNF that have accepted her .
CM number given requested call back when SNF choice made.
Will need auth for SNF.
PLAN Locate SNF obtain auth
[2025-06-20] MEDS: STERILE WATER FOR INJECTION 10 ML IV (13:24)
[2025-06-20] MEDS: ROCEPHIN 1000 MG IV (13:24)
[2025-06-20 14:58] VITALS: BP 137/91
[2025-06-20] MEDS: LOVENOX 30 MG SC (17:24)
--- NOTE | 2025-06-20 21:45 | PTCARENOTE ---
During med pass pt alerted RN to leakage at PEG site. Upon assessment PEG dressing found to be saturated with a large amount of what appeared to be tube feed and tube feed colored mucus. Pts LUQ soft non tender and slightly distended. Catheter now
at 4cm, previously at 5cm. Upon palpitation, more tube feed colored fluid leaked from site and air head to be escaping from site. TF stopped, 200 ml of aspirate removed, 180ml discarded, 20mls re-instilled. Site care done. ANCELMO Rome made aware,
advised to hold TF until site reassessed by GI. Tube mediations held, stat one time IV medications administered to cover ABX and BP medications. Pt aware of plan. Will continue to monitor and follow plan of care.
[2025-06-20] MEDS: LOPRESSOR TUBE (22:38)
[2025-06-20] MEDS: LYRICA TUBE (22:38)
[2025-06-20] MEDS: SENNA SYRUP TUBE (22:38)
[2025-06-20] MEDS: XALATAN OPHTHALMIC SOLUTION 1 DROP BOTH EYES (22:39)
[2025-06-20] MEDS: VIBRAMYCIN TUBE (22:47)
[2025-06-20 22:55] VITALS: BP 144/91
[2025-06-20 23:03] VITALS: BP 144/91
--- NOTE | 2025-06-20 23:16 | W.PN.UPDATE ---
Update Note
Progress Note Update
~2200- RN contacted about pts peg tube leaking tube feed and mucus with 200ml of tube feed aspirated when checked. peg tube is situated at the 4cm chantel with the bumper not tight to the skin. Pts stomach is slightly more distended on the left vs.
the right- and with palpation TF was draining from the PEG site. Pt denies pain or nausea. Pt has positive bowel sounds and you can hear air when instilled. Pt reports multiple BMs today- and new incontinence. TF and meds on hold at this time. TT
placed to on-call GI Dr. Suarez to make aware.
[2025-06-20 23:25] VITALS: BP 141/93
[2025-06-20] MEDS: LOPRESSOR 52.5 MG IV (23:57)
[2025-06-21] MEDS: VIBRAMYCIN 260 MG IV (00:07)
[2025-06-21 06:00] VITALS: BMI 14.2
[2025-06-21] MEDS: DILAUDID 0.5 MG IV ×4 (06:07→22:16)
[2025-06-21 07:00] VITALS: BP 137/95
[2025-06-21] MEDS: MYCOSTATIN ORAL SUSPENSION 5 ML PO ×4 (08:34→21:08)
[2025-06-21] MEDS: VIBRAMYCIN 100 MG TUBE ×2 (08:35→20:52)
[2025-06-21] MEDS: LOW STRENGTH ASPIRIN 81 MG TUBE (08:35)
[2025-06-21] MEDS: DECADRON 6 MG IV ×2 (08:35→20:45)
[2025-06-21] MEDS: PERIDEX 0.12% ORAL RINSE 15 ML PO ×2 (08:35→20:44)
[2025-06-21] MEDS: THERAGRAN 1 TABLET PO (08:36)
[2025-06-21] MEDS: MIRALAX TUBE ×2 (08:36→20:52)
[2025-06-21] MEDS: LYRICA 75 MG TUBE ×2 (08:36→20:54)
[2025-06-21] MEDS: LIPITOR 20 MG TUBE (08:36)
[2025-06-21] MEDS: PREVACID 30 MG TUBE (08:36)
[2025-06-21] MEDS: LOPRESSOR 12.5 MG TUBE (08:38)
--- NOTE | 2025-06-21 09:29 | W.PN.UPDATE ---
Update Note
Progress Note Update
Brief GI Note:
Examined PEG-tube site this AM given concern for recurrent leaking TFs overnight. TFs currently off. Re-examined PEG site, PEG tube loose at 5 cm and tightened this AM to 3.5 cm and taught to skin. Otherwise, intact with T-fasteners. Deferred
inflating balloon as previously inflated with additional 3 mL of fluid. Would defer repeating formal tube check at this time. Favor restarting TFs and monitoring closely over next 24-48 hrs, if ongoing leak will need to reconsider further evaluating
and/or replacing PEG tube.
Discussed with nursing this AM. GI will continue to follow and re-evaluate tomorrow as well. Please call with any questions or concerns.
[2025-06-21] MEDS: DIFLUCAN 200 MG 100 IV (10:07)
[2025-06-21] MEDS: ROCEPHIN 1000 MG IV (13:04)
[2025-06-21] MEDS: STERILE WATER FOR INJECTION 10 ML IV (13:04)
--- NOTE | 2025-06-21 13:04 | W.PN.HOSP.TC ---
Today's Communication/Plan
-
Assessment / Plan
Assessment / Plan
General: No Apparent Distress and Appears Chronically Ill
HEENT: Nose Appears Normal, Ears Appear Normal and Other (swelling right jaw )
Respiratory: Clear to Auscultation; Negative Wheezes
Cardiac: Regular Rhythm and S1/S2
GI: Soft, Nontender and Peg Tube
Musculoskeletal: No Edema
Neuro: Awake and AO x 3
Psych: Calm
General weakness Likely multifactorial secondary to pneumonia, recent prolonged hospitalization and malignancy
Chronic failure to thrive
New onset leukopenia -wbc improved
- BCxNGTD
cw with ceftriaxone and Doxy; should treat for atleast 7 days
- Check strep/legionella antigen neg. Check sputum sample if able
Esophageal Candidiasis
Dysphagia
- Redose Fluconazole for 14 day per GI discussion today
-failed swallow eval. speech following. switched meds via peg
Discussed with GI, started Diflucan and nystatin
Hypovolemic hyponatremia due to dehydration
Improving
-If Na downtrends further, check urine studies.
local recurrent and progressive tongue CA causing pain, difficulty swallowing, and weight loss s/p PEG placed
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
Tobacco abuse, history of substance abuse
Tube feed leaking, evaluated by GI. Status post feeling of balloon. Tube feed check 06/18 noted. Currently tube feed on hold. Okay to use of meds. restart tube feeds if ok with GI
- c/w TF
- OP f/u at [place] for biopsy and likely surgery w/ neck dissection Dr. Ortega
- empiric ABx
- cancer pain control : Lyrica 75mg daily, Hold as needed oxycodone. dilaudid for pain control
Pain control
constipation; cw laxatives
Carotid Artery Disease
- follows with Dr. Hinds
Coronary artery calcification seen on CT
Abnormal Stress Test
- on Asa/Statin/ Metoprolol
- sees Dr. Brar
Asymptomatic pyuria
Monitor
HTN
- continue metoprolol-switch to lopressor via tube
Hyperlipidemia
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
Thrombocytopenia likely secondary malignancy
Monitor
Protein calorie malnutrition
BMI 16 - severely underweight
- Started Jevity 1.5 at 50cc/hr. Dietary following. Currently tube feeds on hold due to leaking. Tube feed check noted. Restart tube feeds when okay with GI
DVT Px: LMWH
Full code
PT/OT SNF
Called brother Augusto, Currently on the way to the hospital to discuss facilities with CM. CM notified via TT
Anticipated Discharge: 24 - 48 hours
Subjective/Interval History
-
Date of Service: June 21, 2025
seen and examined
overnight tf stopped for lakage aroung peg site
gi note appreciated
Objective Data
-
Vital Signs:
Vital Signs
Temp Pulse Resp BP Pulse Ox
98.1 F 64 17 137/95 94
06/21/25 07:00 06/21/25 08:38 06/21/25 07:00 06/21/25 08:38 06/21/25 09:55
[2025-06-21 15:00] VITALS: BP 150/99
[2025-06-21] MEDS: LOVENOX 30 MG SC (17:36)
[2025-06-21] MEDS: LOPRESSOR TUBE (21:02)
[2025-06-21] MEDS: XALATAN OPHTHALMIC SOLUTION 1 DROP BOTH EYES (21:06)
[2025-06-21] MEDS: SENNA SYRUP TUBE (21:06)
[2025-06-21 23:10] VITALS: BP 140/90
--- NOTE | 2025-06-21 23:35 | PTCARENOTE ---
Oral care was not performed on patient because she stated that it was her preference to brush teeth in the morning.
[2025-06-22 02:53] VITALS: BMI 14.2
[2025-06-22] MEDS: DILAUDID 0.5 MG IV ×4 (06:08→20:03)
--- NOTE | 2025-06-22 07:50 | W.PN.GI.CBS2 ---
Addendum entered and electronically signed by Fausto Suarez DO 06/22/25 13:19:
I saw and examined the patient.
The LEAD PRESSER's note was reviewed and I agree with the note.
Comment: Without any further recurrent leaking from PEG site since tightening bumper. Agree with rest of care as below along with outpatient follow-up in our office for PEG check. GI will sign-off. Please re-contact with any questions or concerns.
Original Note:
Today's Communication / Plan
-
minimal leakage overnight
cont tube feeds at goal --- would continued pump feeds for now til peg tract has time to mature
cont for nursing to check dressing every 1-2 hours to keep clean and dry
tube balloon filled with additional 3 ml fluid and bumper tightened 06/17 remain on at 5 at mid bumper
cont rx for jessica reviewed last week with Dr. Bejarano for course
cont bowel regiment
cont miralax to BID and senna HS as constipation adding to drainage
local treatment per nursing staff for rectal breakdown
pt stable from GI for discharge-- office to call to arrange follow up for peg in several weeks
case management working on SNF
Assessment / Plan
-
64yo female with tonsillar CA T1N2M0 group stage VIKRAM in December and underwent chemoradiation from December through February. 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
at [facility] with biopsy and further treatment. She was admitted 06/01-06/05 for malnutrition and had T fastener peg placed and also concern for esophageal candidiasis. She now presents 06/15 for weakness and concern for PNA. Asked to see for leaking
peg. Also noted with continued Jessica and concern and working with case management for rehab options.
06/18 tube check
The percutaneous gastrostomy tube tip is within the fundus of the stomach. A small amount of contrast material is identified on the skin surface at the insertion site of the gastrostomy tube, likely tracking retrograde along the tube tract. No
intraperitoneal extraluminal extravasation. No gastric distention or gastric outlet obstruction.
leaking peg
rectal bleeding- resolved
constipation -narcotic induced
PNA
oral candidiasis
leukopenia on admission
Odynophagia/dysphagia with Failure to thrive/wt loss s/p peg 06/03 with continued wt loss since discharge
protein calorie malnutrition
Tonsillar Cancer. S/p chemo/XRT -- follow up at [facility] due for further treatment s/p biopsy last week
bradycardia
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
b/l carotid stenosis
prior tobacco use and current ETOH use
mod MR
rectal breakdown with wound care following
Plan:
Leaking peg may be related to loose bumper vs underfilling of balloon vs constipation vs other
minimal leakage overnight
cont tube feeds at goal --- would continued pump feeds for now til peg tract has time to mature
cont for nursing to check dressing every 1-2 hours to keep clean and dry
tube balloon filled with additional 3 ml fluid and bumper tightened 06/17 remain on at 5 at mid bumper
cont rx for jessica reviewed last week with Dr. Bejarano for course
cont bowel regiment
cont miralax to BID and senna HS as constipation adding to drainage
local treatment per nursing staff for rectal breakdown
pt stable from GI for discharge-- office to call to arrange follow up for peg in several weeks
case management working on SNF
Subjective
Subjective
Date of Service: June 22, 2025
pt reports minimal drainage overnight, tolerating tube feeds at 50ml/hr via pump
Objective
Data Reviewed
Laboratory Data:
Laboratory Results
06/20/25 05:43
06/20/25 05:43
Laboratory Results
Magnesium 1.8 mg/dl (1.6-2.3) 06/15/25 14:03
Total Bilirubin 0.6 mg/dl (0.2-1.3) 06/20/25 05:43
AST 30 U/L (14-36) 06/20/25 05:43
ALT 50 U/L (0-35) H 06/20/25 05:43
Alkaline Phosphatase 80 U/L (38-126) 06/20/25 05:43
Vital Signs and I&O:
Vital Signs
Temp Pulse Resp BP Pulse Ox
97.7 F 60 14 140/90 94
06/21/25 23:00 06/21/25 23:00 06/21/25 23:00 06/21/25 23:10 06/21/25 23:00
Physical Exam
Physical Exam
HEENT: Anicteric and Moist mucous membranes
Cardiology: Normal Sinus Rhythm
Pulmonary: Clear
GI: Soft, Non Distended, Non Tender and Other (peg intact no drainage, t fasteners in place -- noted at 4 at bumper )
Extremities: No Edema
Neuro: Non Focal
[2025-06-22 07:57] VITALS: BP 159/103
[2025-06-22] MEDS: LYRICA 75 MG TUBE ×2 (08:31→21:03)
[2025-06-22] MEDS: PREVACID 30 MG TUBE (09:53)
[2025-06-22] MEDS: VIBRAMYCIN 100 MG TUBE ×2 (09:53→20:58)
[2025-06-22] MEDS: PERIDEX 0.12% ORAL RINSE 15 ML PO ×2 (09:53→20:58)
[2025-06-22] MEDS: LOPRESSOR 12.5 MG TUBE (09:53)
[2025-06-22] MEDS: MYCOSTATIN ORAL SUSPENSION 5 ML PO ×4 (09:53→21:09)
[2025-06-22] MEDS: LOW STRENGTH ASPIRIN 81 MG TUBE (09:54)
[2025-06-22] MEDS: LIPITOR 20 MG TUBE (09:54)
[2025-06-22] MEDS: MIRALAX TUBE ×2 (09:54→20:58)
[2025-06-22] MEDS: DECADRON 6 MG IV ×2 (09:54→20:56)
[2025-06-22] MEDS: THERAGRAN 1 TABLET PO (09:54)
[2025-06-22] MEDS: DIFLUCAN 200 MG 100 IV (09:55)
--- NOTE | 2025-06-22 13:07 | PTOTSP ---
Videofluoroscopic swallow study
Patient presents with signs concerning for moderate oral/pharyngeal dysphagia. Concern for esophageal dysphagia is also present due to episodic retrograde flow through PES into pyriform sinuses. Top down and bottom up aspiration risk are both
elevated.
Could consider cautious diet below (if medically cleared) to allow opportunities to use swallowing muscles/prevent disuse atrophy. Primary means should be via PEG.
Consider:
1. Thin purees and thin liquids similar to a Full Liquid diet
2. Medications: via PEG
3. Strategies: upright to 90 degrees, small single sips/bites, multiple swallows, remain upright for 30-60 minutes post swallow, monitor for coughing as this is a sign of aspiration for this patient
4. Oral care 3x daily to reduce risk for aspiration complications
5. Dysphagia therapy at the acute care level and after D/C for instruction/education
[2025-06-22] MEDS: STERILE WATER FOR INJECTION 10 ML IV (14:01)
[2025-06-22] MEDS: ROCEPHIN 1000 MG IV (14:01)
[2025-06-22 15:43] VITALS: BP 129/88
--- NOTE | 2025-06-22 15:54 | CM ---
Reviewed with brother Orlando and pt SNF that have accepted her .
Pt and Orlando requested [facility] . Sheree notified.
Requested updated OT eval
Will need auth for SNF.
IMM reviewed signed on chart.
Tube feeding Jevity 1.5
Rachele :

Dr Mendes Npi [id number]
[facility] report [phone]
fax [phone]
PLAN To [facility] after auth
[2025-06-22 16:37] VITALS: BP 135/98; PULSE 56; O2SAT 90
--- NOTE | 2025-06-22 17:51 | W.PN.HOSP.TC ---
Today's Communication/Plan
-
request ID consult for leukopenia with recent dx of headneck ca
Assessment / Plan
Assessment / Plan
General: No Apparent Distress and Appears Chronically Ill
HEENT: Nose Appears Normal, Ears Appear Normal and Other (swelling right jaw )
Respiratory: Clear to Auscultation; Negative Wheezes
Cardiac: Regular Rhythm and S1/S2
GI: Soft, Nontender and Peg Tube
Musculoskeletal: No Edema
Neuro: Awake and AO x 3
Psych: Calm
General weakness Likely multifactorial secondary to pneumonia, recent prolonged hospitalization and malignancy
Chronic failure to thrive
New onset leukopenia -wbc improved
- BCxNGTD
cw with ceftriaxone and Doxy; should treat for atleast 7 days
- Check strep/legionella antigen neg. Check sputum sample if able
Esophageal Candidiasis
Dysphagia
- Redose Fluconazole for 14 day per GI discussion today
-failed swallow eval. speech following. switched meds via peg
Discussed with GI, started Diflucan and nystatin
Hypovolemic hyponatremia due to dehydration
Improving
-If Na downtrends further, check urine studies.
local recurrent and progressive tongue CA causing pain, difficulty swallowing, and weight loss s/p PEG placed
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
Tobacco abuse, history of substance abuse
Tube feed leaking, evaluated by GI. Status post feeling of balloon. Tube feed check 06/18 noted. Currently tube feed on hold. Okay to use of meds. restart tube feeds if ok with GI
- c/w TF
- OP f/u at [facility] for biopsy and likely surgery w/ neck dissection Dr. Ortega
- empiric ABx
- cancer pain control : Lyrica 75mg daily, Hold as needed oxycodone. dilaudid for pain control
Pain control
constipation; cw laxatives
Carotid Artery Disease
- follows with Dr. Hinds
Coronary artery calcification seen on CT
Abnormal Stress Test
- on Asa/Statin/ Metoprolol
- sees Dr. Brar
Asymptomatic pyuria
Monitor
HTN
- continue metoprolol-switch to lopressor via tube
Hyperlipidemia
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
Thrombocytopenia likely secondary malignancy
Monitor
Protein calorie malnutrition
BMI 16 - severely underweight
- Started Jevity 1.5 at 50cc/hr. Dietary following. Currently tube feeds on hold due to leaking. Tube feed check noted. Restart tube feeds when okay with GI
DVT Px: LMWH
Full code
PT/OT SNF
Called brother Augusto, Currently on the way to the hospital to discuss facilities with CM. CM notified via TT
Anticipated Discharge: 24 - 48 hours
Subjective/Interval History
-
Date of Service: June 22, 2025
seen and exmained. no new complaints
Objective Data
-
Vital Signs:
Vital Signs
Temp Pulse Resp BP Pulse Ox
98 F 63 16 129/88 91
06/22/25 15:43 06/22/25 15:43 06/22/25 15:43 06/22/25 15:43 06/22/25 15:43
[2025-06-22] MEDS: LOVENOX 30 MG SC (18:54)
--- NOTE | 2025-06-22 19:59 | PTCARENOTE ---
Family wanting to feed patient broth and water. Discussed aspiration risk and family's own concern for worsening PNA. ST approved thin liquids with double sips and precautions and pureed foods via VSE today but was never ordered. Family attempted to
go to kitchen to get food for patient themselves. Discussed VSE result with HEMATOLOGY TECHNICIAN and verbal recommendation from ST - gave verbal for puree/thin to add on to current TF diet.
[2025-06-22] MEDS: SENNA SYRUP TUBE (21:08)
[2025-06-22] MEDS: XALATAN OPHTHALMIC SOLUTION 1 DROP BOTH EYES (21:09)
[2025-06-22] MEDS: LOPRESSOR TUBE (21:15)
[2025-06-22 23:22] VITALS: BP 141/98
[2025-06-23] MEDS: DILAUDID 0.5 MG IV ×4 (04:13→22:21)
[2025-06-23 06:06] VITALS: BMI 14.2
[2025-06-23 07:34] VITALS: BP 135/98
[2025-06-23] MEDS: LIPITOR 20 MG TUBE (09:00)
[2025-06-23] MEDS: LYRICA 75 MG TUBE ×2 (09:00→21:49)
[2025-06-23] MEDS: MYCOSTATIN ORAL SUSPENSION 5 ML PO (09:00)
[2025-06-23] MEDS: DECADRON 6 MG IV ×2 (09:00→21:49)
[2025-06-23] MEDS: MIRALAX 17 GRAMS TUBE (09:00)
[2025-06-23] MEDS: PERIDEX 0.12% ORAL RINSE 15 ML PO ×2 (09:00→21:53)
[2025-06-23] MEDS: THERAGRAN 1 TABLET PO (09:01)
[2025-06-23] MEDS: LOW STRENGTH ASPIRIN 81 MG TUBE (09:01)
[2025-06-23] MEDS: VIBRAMYCIN 100 MG TUBE (09:01)
[2025-06-23] MEDS: LOPRESSOR 12.5 MG TUBE ×2 (09:01→21:59)
[2025-06-23] MEDS: PREVACID 30 MG TUBE (09:27)
--- NOTE | 2025-06-23 10:08 | CON.ID ---
Consultation
-
Date/Time Consultation Requested: June 22, 2025 1705
Date/Time Consultation Performed: June 23, 2025 1010
Requesting Provider: Dr. Luis Bejarano
Performing Provider: Dr. Sunita Cantu
Reason for Consultation: Family request: ?PNA, not on treatment
Chief Complaint / Past History
Chief Complaint
Weakness, cough.
History of Present Illness
History obtained from the patient as well as from his brother on speaker phone. 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
May 2025. She was recently hospitalized here June 01 - June 05 with dysphagia, odynophagia requiring PEG tube placement June 02. EGD showed Jessica esophagitis and she was discharged on fluconazole. She had follow-up with [facility] and underwent biopsy of head and neck mass. However, patient returned to the ER June 15 due to increased weakness and shortness of breath. Chest x-ray showed bibasilar opacities. Patient failed swallowing screen. Video swallow
showed aspiration of thin liquids. PEG tube with leakage, corrected by GI. She is currently on ceftriaxone and doxycycline. Patient denies fevers or chills. Cough and shortness of breath slightly improved. Cough is nonproductive. No abdominal
pain. No diarrhea. She is constipated. No dysuria, urgency, or frequency. No flank pain.
Past History
Additional Past Medical History:
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
Dysphagia status post PEG tube placement 06/02/25
Hypertension
Dyslipidemia
TIA
PAD status post left lower extremity bypass vascularization
Port placement
LLE ORIF
Allergy History:
bee venom protein (honey bee) Allergy (Verified 06/01/25 11:40)
Unknown
latex Allergy (Verified 06/15/25 17:57)
Itching-BLISTERS
neomycin Allergy (Verified 06/15/25 17:57)
Itching-eczema
Medications Reviewed: Yes
Current Antibiotics:
Doxycycline IV d6
Ceftriaxone d6 abx
Fluconazole 200mg IV q24
Social History
Tobacco: Former Smoker
Alcohol: Former
Drug: None
Personal: Single
Family History
Family History: Not Pertinent
Review of Systems
Review of Systems
General: Change in Appetite; Negative Fever or Chills
HEENT: Negative Sinus Problems or Headache
Cardiovascular: Negative Chest Pain or Edema
Respiratory: Dyspnea and Cough; Negative Sputum Production
Gasteroenterology: Negative Nausea, Vomiting or Diarrhea
Genital / Urological: Negative Dysuria or Flank Pain
Endocrine: Weakness and Fatigue
Vital Signs
Temp Pulse Resp BP Pulse Ox
97.4 F 68 16 135/98 92
06/22/25 23:22 06/23/25 07:34 06/23/25 07:34 06/23/25 07:34 06/23/25 07:34
Physical Exam
Physical Exam
Constitutional: Chronically Ill and Cachetic
Head: Other (No sinus tenderness)
Eyes: No Conjunctival Hemorrhage and Sclera Anicteric
Oral: Thrush
Cardiovascular: Regular Rate and S1/S2
Pulmonary: Rales (crackles bases)
Gastrointestinal: Soft, Non Tender, Non Distended, Normal Bowel Sounds and Other (PEG site dry)
Genito-Urinary: Negative CVA Tenderness
Extremities: Negative Edema
Skin: Negative Rash
Neurological: AO x 3
Lines: Port (LCW no erythema)
Lab / Diagnostic Study Results
Abs Immat Gran (auto) 0.0 10^3/uL (0-0.05) 06/20/25 05:43
Absolute Neuts (auto) 2.8 10^3/uL (1.4-6.5) 06/20/25 05:43
Absolute Lymphs (auto) 0.1 10^3/uL (1.2-3.4) L 06/20/25 05:43
Absolute Monos (auto) 0.1 10^3/uL (0.1-0.6) 06/20/25 05:43
Absolute Basos (auto) 0.0 10^3/uL (0-0.2) 06/20/25 05:43
Immature Gran % 1.3 % (0-0.5) H 06/20/25 05:43
Neutrophils % 91.6 % (42.2-75.2) H 06/20/25 05:43
Lymphocytes % 2.3 % (20.5-51.1) L 06/20/25 05:43
Monocytes % 4.5 % (1.7-9.3) 06/20/25 05:43
Eosinophils % 0.0 % (0-6) 06/20/25 05:43
Basophils % 0.3 % (0-2) 06/20/25 05:43
Lactic Acid 2.4 mmol/L (0.7-2.0) H 06/15/25 20:02
Ur Squamous Epith Cells 6-10 /LPF (Few) 06/16/25 19:09
Microbiology Results
Micro:
06/15/25 16:13 Blood Culture - Final
Blood/Venous No Growth - Final Report
06/15/25 16:11 Blood Culture - Final
Blood/Venous No Growth - Final Report
06/16/25 19:09 Urine Culture - Final
Urine Enterococcus faecium - VRE
06/16/25 19:09 Legionella Urinary Antigen - Final
Urine Negative for Legionella pneumophila Serogroup 1 antigen.
A negative result does not rule out the possiblity of
Legionella infection due to other serogroups or species of
Legionella. Clinical correlation is recommended.
Streptococcus pneumoniae Antigen (M - Final
Negative for Streptococcus pneumoniae antigen.
A negative result does not exclude infection with
Streptococcus pneumoniae. Clinical correlation is
recommended.
06/16/25 11:09 Nasal Screen MRSA (PCR) - Final
Nose MRSA not detected - performed by PCR methodology.
06/15/25 CXR: Patchy parenchymal opacity within both lower lungs, suspicious for bilateral pneumonia.
Assessment / Plan
# Aspiration pneumonia from dysphagia/odynophagia
- s/p PEG 06/02
- DC ceftriaxone/doxy (d6)
-Transition to amox/clav 500mg tube bid through 06/27/25.
- Aspiration precaution.
# Jessica esophagitis (seen by EGD 06/02)
- DC nystatin S/S
- Transition IV fluconazole (d7) to fluconazole 200mg tube daily through 06/30.
# Stage Velvet R oropharyngeal SCC, progressed, currently not on tx
ID will sign off.
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
Dysphagia status post PEG tube placement 06/02/25
Hypertension
Dyslipidemia
TIA
PAD status post left lower extremity bypass vascularization
Port placement
LLE ORIF
Care Review
Plan reviewed with: Physician (Dr. Keny Bejarano)
[2025-06-23] MEDS: DIFLUCAN 200 MG 100 IV (10:32)
[2025-06-23 10:34] LABS: Hematocrit 43.3 % (37.0-47.0); Hemoglobin 14.6 g/dL (12.0-16.0); Mean Corp Hgb Conc. 33.7 g/dL (33.0-37.0); Mean Corpuscular Volume 103.1 fL (81.0-99.0); Platelet Count 99 10^3/uL (130-400); Red Cell Dist. Width 13.1 % (11.5-14.5)
[2025-06-23 10:40] LABS: Blood Urea Nitrogen 27 mg/dl (7-17); Calcium 9.2 mg/dl (8.4-10.2); Carbon Dioxide 24 mmol/L (22-30); Chloride 105 mmol/L (98-107); Estimated Creatinine Clearance 56 ml/min; Glucose 178 mg/dl (70-99); Potassium 3.9 mmol/L (3.5-5.1); Sodium 133 mmol/L (135-145); eGFR > 60.00
[2025-06-23] MEDS: AUGMENTIN 250 MG/5 ML 500 MG TUBE ×2 (12:18→21:59)
--- NOTE | 2025-06-23 12:48 | CM ---
CM reviewed chart, reviewed with Hospitalist.
Patient seen bedside, aware plan will be to d.c to [facility], will need insurance auth.
Patient requesting call to her brother- Orlando.
CM spoke with patients brother, not comfortable with discharge, reports they appealed the discharge last night. CM discussed appeal cannot be done until discharge order is entered, as of now, no d/c.
Patients brother requesting call from GI when possible, reports they do not want patient to stay in hospital for unnecessarily length of time, however have questions prior to d.c.
CM will continue to follow.
Plan; [facility], will require auth via [employer]- family not comfortable with discharge today
--- NOTE | 2025-06-23 13:23 | W.PN.HOSP.TC ---
Today's Communication/Plan
-
I believe discussion with [id number] Ana over the phone.
She is concerned about the oxygen need and she is concerned directed nutritional intake. Concerned that since being in the hospital she has been much sicker with now likely weighs less. States has been on and off tube feed which is correct.
Informed her that the oxygen will continue to wean as facility. She should be on incentive spirometer.
She has a poor performance status which is multifactorial in the setting of poor p.o. intake which is tube feeds have been off and on and has had poor ambulatory status since being hospitalized
Family has requested ID for which ID evaluated already and signed off
Family also requested GI to give them a call.
Assessment / Plan
Assessment / Plan
General: No Apparent Distress and Appears Chronically Ill
HEENT: Nose Appears Normal, Ears Appear Normal and Other (swelling right jaw )
Respiratory: Clear to Auscultation; Negative Wheezes
Cardiac: Regular Rhythm and S1/S2
GI: Soft, Nontender and Peg Tube
Musculoskeletal: No Edema
Neuro: Awake and AO x 3
Psych: Calm
General weakness Likely multifactorial secondary to pneumonia, recent prolonged hospitalization and malignancy
Chronic failure to thrive
New onset leukopenia -wbc improved
- BCxNGTD
-Vanc/Cefe to Ctx/Dox and transition to oral augmentin per ID till 06/27
Esophageal Candidiasis
Dysphagia
- Redose Fluconazole for 14 day per GI discussion today
-failed swallow eval. speech following. switched meds via peg
Discussed with GI, started Diflucan and nystatin
ID rec dc nystatin, trnasition fluconazole 200mg daily through 06/30
Hypovolemic hyponatremia due to dehydration
Improving
-If Na downtrends further, check urine studies.
local recurrent and progressive tongue CA causing pain, difficulty swallowing, and weight loss s/p PEG placed
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
Tobacco abuse, history of substance abuse
Tube feed leaking, evaluated by GI. Status post feeling of balloon. Tube feed check 06/18 noted. Currently tube feed on hold. Okay to use of meds. restart tube feeds if ok with GI
- c/w TF
- OP f/u at [facility] for biopsy and likely surgery w/ neck dissection Dr. Ortega
- empiric ABx
- cancer pain control : Lyrica 75mg daily, Hold as needed oxycodone. dilaudid for pain control
Pain control
constipation; cw laxatives
Carotid Artery Disease
- follows with Dr. Hinds
Coronary artery calcification seen on CT
Abnormal Stress Test
- on Asa/Statin/ Metoprolol
- sees Dr. Brar
Asymptomatic pyuria
Monitor
HTN
- continue metoprolol-switch to lopressor via tube
Hyperlipidemia
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
Thrombocytopenia likely secondary malignancy
Monitor
Protein calorie malnutrition
BMI 16 - severely underweight
- Started Jevity 1.5 at 50cc/hr. Dietary following. Currently tube feeds on hold due to leaking. Tube feed check noted. Restart tube feeds when okay with GI
DVT Px: LMWH
Full code
PT/OT SNF
Called brother Augusto, Currently on the way to the hospital to discuss facilities with CM. CM notified via TT
Anticipated Discharge: Within 24 hours
Subjective/Interval History
-
Date of Service: June 23, 2025
Seen and examined. No new complaints. No acute overnight events.
Objective Data
-
Labs:
Laboratory Results
06/23/25
10:17
WBC 5.0
Hgb 14.6
Hct 43.3
Plt Count 99 L
Sodium 133 L
Potassium 3.9
Chloride 105
Carbon Dioxide 24
BUN 27 H
Creatinine 0.4 L
Glucose 178 H
Calcium 9.2
Vital Signs:
Vital Signs
Temp Pulse Resp BP Pulse Ox
97.6 F 68 16 135/98 92
06/23/25 12:32 06/23/25 07:34 06/23/25 07:34 06/23/25 07:34 06/23/25 07:34
--- NOTE | 2025-06-23 14:52 | W.PN.UPDATE ---
Update Note
Progress Note Update
reviewed with nursing small amount of drainage this am-- at tube feeds at goal. Reviewed and updated brother all questions answered. will need 1-2 month follow up to check tube as per discharge instructions.
[2025-06-23 15:14] VITALS: BP 135/101
[2025-06-23] MEDS: LOVENOX 30 MG SC (17:26)
[2025-06-23] MEDS: MIRALAX TUBE (21:47)
[2025-06-23] MEDS: XALATAN OPHTHALMIC SOLUTION 1 DROP BOTH EYES (21:52)
[2025-06-23] MEDS: SENNA SYRUP 17.6 MG TUBE (21:54)
[2025-06-23 22:49] VITALS: BP 144/97
--- NOTE | 2025-06-24 03:10 | DOWNTIME ---
There was a [employer] Client [address] Scan Special Procedures Technologist Downtime on 06/24/2025 from 0100 to 06/24/2025 at 0255. Downtime documentation of patient's care, including medication administrations, has been reconciled in the electronic record per guidelines. Refer to the
patient's paper chart under the miscellaneous tab to see printed paper medication records and downtime forms.
[2025-06-24 05:04] VITALS: BMI 14.9
[2025-06-24] MEDS: DILAUDID 0.5 MG IV ×2 (05:13→09:15)
[2025-06-24 08:09] VITALS: BP 157/110
[2025-06-24 08:30] LABS: Hematocrit 41.8 % (37.0-47.0); Hemoglobin 14.2 g/dL (12.0-16.0); Mean Corp Hgb Conc. 34.0 g/dL (33.0-37.0); Mean Corpuscular Volume 98.8 fL (81.0-99.0); Platelet Count 104 10^3/uL (130-400); Red Cell Dist. Width 13.2 % (11.5-14.5)
[2025-06-24] MEDS: AUGMENTIN 250 MG/5 ML 500 MG TUBE (08:45)
[2025-06-24] MEDS: DECADRON 6 MG IV (08:46)
[2025-06-24] MEDS: THERAGRAN 1 TABLET PO (08:46)
[2025-06-24] MEDS: PERIDEX 0.12% ORAL RINSE 15 ML PO (08:46)
[2025-06-24] MEDS: PREVACID 30 MG TUBE (08:46)
[2025-06-24] MEDS: MIRALAX TUBE (08:46)
[2025-06-24] MEDS: DIFLUCAN 200 MG TUBE (08:46)
[2025-06-24] MEDS: LIPITOR 20 MG TUBE (08:46)
[2025-06-24] MEDS: LOW STRENGTH ASPIRIN 81 MG TUBE (08:46)
[2025-06-24] MEDS: LYRICA 75 MG TUBE (08:54)
[2025-06-24 09:22] LABS: Blood Urea Nitrogen 26 mg/dl (7-17); Calcium 9.0 mg/dl (8.4-10.2); Carbon Dioxide 26 mmol/L (22-30); Chloride 103 mmol/L (98-107); Estimated Creatinine Clearance 59 ml/min; Glucose 177 mg/dl (70-99); Potassium 4.2 mmol/L (3.5-5.1); Sodium 135 mmol/L (135-145); eGFR > 60.00
[2025-06-24] MEDS: LOPRESSOR 12.5 MG TUBE (11:02)
--- NOTE | 2025-06-24 12:15 | W.PN.HOSP.TC ---
Addendum entered and electronically signed by Jo Carnes MD 06/24/25 14:09:
D/W - Steroids started per Rad Onc
Antionette from radiation oncology call me back
Stated that patient was started on steroids 2 weeks ago because of difficulty swallowing. Discussed that patient is on pur�ed diet and also tube feeds now.
Reportedly biopsy showed a recurrent send patient needs to discuss further plans of treatment with Dr. Vargas
I was advised to slowly wean off the steroids at this point.
Patient should also call them to schedule an appointment as soon as she is out of the rehab.
I relayed this to patient's brother Orlando
Okay for discharge to rehab
Discharge coordination time over 50 min
Addendum entered and electronically signed by Jo Carnes MD 06/24/25 12:49:
Spoke to [id number] who does not know why the patient is on 16 mg of dexamethasone
Patient does not know who prescribed she thinks it is radiation oncology-I called radiation oncology Dr. Hairston but is not in today. Left a message for Dr. Rosas
Also called and left a message for [facility].
Original Note:
Today's Communication/Plan
-
OK for discharge
Need to run meds by pt's ALIX
Assessment / Plan
Assessment / Plan
64-year-old female presented to the hospital with feeling weak and difficulty breathing, leaking PEG tube
CVS: S1-S2 normal, Sm at apex
Chest: CTA B/L
Abdomen: Soft, G tube no leak, Bowel sounds present
Extremities: No edema
# Bilateral pneumonia-aspiration pneumonia-continue Augmentin aspiration precautions..
# Generalized weakness secondary to pneumonia, recent prolonged hospitalization and malignancy
# Esophageal candidiasis
Continue fluconazole-infectious disease recommended dosage through 06/30/2025
Status post PEG tube placement end June 02 2025
Tube feed leak was checked by GI-bumper was tightened-continue tube feeds at goal
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 Improved .
# Asymptomatic pyuria
# Thrombocytopenia likely secondary to malignancy/chemo
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
Because of recent dysphagia follow-up PET scan on 05/20/2025 showed a large right oropharyngeal squamous cell carcinoma and metastatic right cervical lymph node with follow-up with [facility] for biopsy and further treatment.
Pain control with Lyrica Dilaudid
# Coronary artery disease
Lexiscan stress test with large area of inferolateral and anterolateral defect, 03/25/2025- Medical management due to malignancy treatment.
Echo 03/20/2025-EF 73%. RV size and function normal. Trace AI. Moderate MR. Mild TR. PA pressure 21 mmHg. Ascending aorta 4.0 cm
Continue aspirin, statin and metoprolol. Follows up with Dr. Alcantara
# Moderate mitral regurgitation
# Hypertension-continue metoprolol
# Hyperlipidemia-continue statin
# History of TIA-continue aspirin, statin
# Bilateral carotid artery disease-follows with Dr. Hinds
# Glaucoma-continue latanoprost eyedrops
# Osteoporosis on alendronate on Fridays
# Hypoalbuminemia /Severe protein calorie malnutrition with a BMI of 14.9-continue tube feeds
# Ex-smoker versus active smoker
# History of alcohol abuse-sober since 2016
# DVT prophylaxis-Lovenox
# Full code
Spoke to Brother Orlando and updated
Family and Pt agreable for discharge.
D/W GI- G tube leak taken care off
Called [facility] to discuss meds- left message
D/W Dietitian- TF at goal
D/W Case management
Part of this note was created using voice recognition system. Occasional wrong word or��sound alike� substitutions may have inadvertently occurred due to the inherent limitations of voice recognition software. If noted kindly bring it to my
attention for correction.
Anticipated Discharge: Today
Subjective/Interval History
-
Date of Service: June 24, 2025
Objective Data
-
Labs:
Laboratory Results
06/24/25
08:18
WBC 4.4 L
Hgb 14.2
Hct 41.8
Plt Count 104 L
Sodium 135
Potassium 4.2
Chloride 103
Carbon Dioxide 26
BUN 26 H
Creatinine 0.4 L
Glucose 177 H
Calcium 9.0
Vital Signs:
Vital Signs
Temp Pulse Resp BP Pulse Ox
97.7 F 63 16 142/105 95
06/24/25 08:09 06/24/25 11:02 06/24/25 08:09 06/24/25 11:02 06/24/25 11:31
I&O
06/23/25 06/24/25 06/25/25
06:59 06:59 06:59
Intake Total 1016 / 1016
Balance 1016 / 1016
[2025-06-24 12:16] VITALS: BP 145/98; PULSE 75; O2SAT 90
--- NOTE | 2025-06-24 12:43 | CM ---
Received auth from [facility] # [id number] from 06/24/25 to 06/30/25 NRD 07/01/25 call Sonia at [phone].
Sheree from [facility] notified of auth and update sent via [facility] Building Coordinator update faxed to [facility] also.
Spoke with Orlando brother [phone] . MD given brother number for update.
IMM given to brother he is aware of appeal process.
Continue tube feedings.
Brother requested ambulance Medical nec form completed.
[facility] report
report [phone]
fax [phone]
PLAN To [facility]
[2025-06-24 13:39] VITALS: BP 145/98; PULSE 75; O2SAT 90
--- NOTE | 2025-06-24 14:14 | W.DS.TRANS ---
Addendum entered and electronically signed by Jo Carnes MD 06/24/25 16:31:
Dictation- [id number]
Original Note:
DC Summary - Carpenter Assembler
-
Discharge Instructions:
Discharge Diagnosis/Procedures Bilateral pneumonia-aspiration pneumonia
Esophageal candidiasis
Mild hyponatremia
Thrombocytopenia
Stage IV tonsillar cancer
Coronary artery disease
Moderate MR
Hypertension
Hyperlipidemia
History of TIA
Bilateral carotid artery disease
Glaucoma
Osteoporosis
Severe protein calorie malnutrition
Ex-smoker
Diet Other diet,Tube feeding
Additional Diets thin purees and thin liquids similar to full
liquid diet Plus tube feeds. TF- Jevity 1.5 at
50 mL/h with 30 mL/h of tube feed flushes
Activity As tolerated,With assistance
Driving Restrictions As prior to admission
Other Services PT,OT
Instructions:
Stand-Alone Forms:
Changes to Home Medications: Yes
Discharge Medications:
DC Medications w/original date entered in [employer]
alendronate 70 mg tablet 70 mg PO FR bone 09/26/19
ascorbic acid (vitamin C) 100 mg tablet (Vitamin C) 100 mg PO DAILY Supplement 12/16/24
latanoprost 0.005 % eye drops 1 drp BOTH EYES HS Eye Condition 12/16/24
atorvastatin 20 mg tablet (Lipitor) 20 mg PO DAILY High Cholesterol 06/01/25
chlorhexidine gluconate 0.12 % mouthwash 15 ml buccal BID mouth care 06/01/25
therapeutic multivitamin 1 tab PO DAILY Supplement 06/01/25
lidocaine HCl 2 % mucosal solution (Lidocaine Viscous) 5 ml PO 5/D PRN pain with swallowing #300 mL 06/04/25
acetaminophen 325 mg tablet 650 mg PO Q4HPRN PRN mild pain 06/15/25
lansoprazole 30 mg capsule,delayed release 30 mg feeding tube DAILY Gastrointestinal Issue 06/15/25
pregabalin 75 mg capsule 75 mg PO BID mild pain 06/15/25
amoxicillin 250 mg-potassium clavulanate 62.5 mg/5 mL oral suspension 17.5 ml feeding tube BID pneumonia #0 mL 06/24/25
aspirin 81 mg chewable tablet 81 mg feeding tube DAILY Blood Clot Prevention/Tx #0 tabs 06/24/25
bisacodyl 10 mg rectal suppository 10 mg [place] [id number] PRN constipation #0 ea 06/24/25
dexamethasone 4 mg tablet 7 mg (1.75 x 4 mg) PO BID Radiation Oncology reasosn #30 tabs 06/24/25
fluconazole 200 mg tablet 200 mg feeding tube DAILY oral #0 tabs 06/24/25
metoprolol tartrate 25 mg tablet 12.5 mg (1/2 x 25 mg) feeding tube BID Heart disease/condition #0 tabs 06/24/25
oxycodone 15 mg tablet 15 mg PO Q4HPRN PRN severe pain #12 tabs 06/24/25
polyethylene glycol 3350 17 gram oral powder packet 17 g feeding tube BID Constipation #0 ea 06/24/25
sennosides 8.8 mg/5 mL oral syrup 17.6 mg (10 mL) feeding tube HS Constipation #0 mL 06/24/25
Home Medication Changes
Senokot and MiraLAX are new
Fluconazole and amoxicillin are new
Dexamethasone changed to a tapering dose
Metoprolol changed to twice a day dosage
Pending Results: No
[2025-06-24 15:27] VITALS: BP 136/99
[2025-06-24] MEDS: DILAUDID 1 MG IV (16:12)
[2025-06-24] MEDS: LOVENOX SC (17:40)
== END 2025-06-24 18:16 | DRG 177 ==
LOC: 3 WEST ACU 17:08
PROVIDERS: Hospitalist; Internal Medicine; Student in an Organized Health Care Education/Training Program; ADMITTING PHYSICIAN Internal Medicine; ATTENDING PHYSICIAN Hospitalist; CONSULT PHYSICIAN Internal Medicine Gastroenterology; CONSULT PHYSICIAN Internal Medicine Infectious Disease; EMERGENCY PHYSICIAN Emergency Medicine; FAMILY PHYSICIAN Family Medicine
PROC: 0DW6XUZ Revision of Feeding Device in Stomach, External Approach (ICD-10-PCS; 2025-06-21)
DX: J69.0 Pneumonitis due to inhalation of food and vomit (principal); E43 Unspecified severe protein-calorie malnutrition; B37.81 Candidal esophagitis; E87.1 Hypo-osmolality and hyponatremia; Z68.1 Body mass index [BMI] 19.9 or less, adult; K94.23 Gastrostomy malfunction; J18.9 Pneumonia, unspecified organism; C10.9 Malignant neoplasm of oropharynx, unspecified; D69.6 Thrombocytopenia, unspecified; I10 Essential (primary) hypertension; C09.9 Malignant neoplasm of tonsil, unspecified; I25.10 Atherosclerotic heart disease of native coronary artery without angina pectoris; I34.0 Nonrheumatic mitral (valve) insufficiency; Z86.73 Personal history of transient ischemic attack (TIA), and cerebral infarction without residual deficits; Z87.891 Personal history of nicotine dependence; E86.0 Dehydration; E86.1 Hypovolemia; G89.3 Neoplasm related pain (acute) (chronic); R62.7 Adult failure to thrive; Z79.82 Long term (current) use of aspirin; Z92.21 Personal history of antineoplastic chemotherapy; Z92.3 Personal history of irradiation
CPT/HCPCS: 49465; 71046; 74230; 80048; 80053; 81003; 81015; 83605; 83735; 85025; 85027; 87040; 87077; 87086; 87186; 87449; 87641; 87899; 92526; 92610; 92611; 93005; 96374; 96375; 97110; 97116; 97162; 97167; 97530; 97535; 99285

== ENCOUNTER 2025-07-14 10:41 | Inpatient (IN) | payer MEDICARE, SELFPAY ==
[2025-07-14] VITALS (42 sets, daily range): BP systolic 74–109; BP diastolic 42–87; BMI 18.9; BMI 16.1
--- NOTE | 2025-07-14 06:34 | ED.GENMED ---
History of Present Illness
<Yessi Adair MD, Resident - Last Filed: 07/14/25 11:37>
General
Chief Complaint: Abdominal Pain
Source: patient and records
Time Seen by Provider: 07/14/25 06:04
History of Present Illness
History of Present Illness:
Patient is a 64-year-old female with past medical history of stage IV tonsillar cancer, esophageal candidiasis, on tube feedings (PEG tube in place), recently discharged from the hospital on June 24 after being treated for bilateral aspiration
pneumonia, esophageal candidiasis and infected PEG tube. She is here with complaint of abdominal distention, constipation and abdominal pain.
She is coming from [facility]. Her last bowel movement was on Sunday, July 11, 2025, her tube feeds have been on hold since yesterday 10 PM, she is in a lot of abdominal pain, and her abdomen is distended with absent bowel sounds.
She is actively shaking and appears very dry. Bedsores found on skin examination of the buttocks.
Past History
<Yessi Adair MD, Resident - Last Filed: 07/14/25 11:37>
Past History
ED Past Medical History: Cancer, CVA, HTN, Hypercholesterolemia and Other (History of alcoholism)
ED Past Surgical History: Orthopedic
Social History
Tobacco: Smoker
Alcohol: Occasional
Drug: None
Personal: Partner
Living: with roommate
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
Review of Systems
<Yessi Adair MD, Resident - Last Filed: 07/14/25 11:37>
Review of Systems
Unable to obtain full review of systems at this time due to: due to acuity
Phy Exam
<Yessi Adair MD, Resident - Last Filed: 07/14/25 11:37>
General Physical Exam
General Presentation: moderate distress (Very cold, actively shaking, in distress due to pain)
General Skin: cool
General Habitus: failure to thrive
General Mental: alert
Cardiovascular Exam
Cardiovascular Exam: regular rate/rhythm, no edema and tachycardia
Pulmonary Exam
Pulmonary Exam: lungs clear and no respiratory distress
Gastrointestinal Exam
Gastrointestinal Exam: distended and other (firm, distended, absent bowel sounds, PEG tube with signs of infection)
Neurological Exam
Neurological Exam: alert
Skin Exam
Skin Exam: other (Bed sores on the buttocks)
Psychiatric Exam
Psychiatric Exam: anxious
Course
<Yessi Adair MD, Resident - Last Filed: 07/14/25 11:37>
Orders/Labs/Results
Orders:
Orders
07/14/25 Breakfast
NPO
Allow oral meds: No
Allow clear liquids: No
07/14/25 06:26
Portable Chest Xray [CR Chest Portable - 1 View] Urgent
Comment:
Reason For Exam: hypoxic
Reason Study Needs to be Portable: Patient Unstable
07/14/25 06:27
0.9% Sodium Chloride 1000 ml [Nss] 1,000 ml IV BOLUS
07/14/25 06:37
CBC/With Diff [Complete Blood Count/With Diff] Urgent
CMP [Comprehensive Metabolic Panel] Urgent
Lactate Level [Lactic Acid] Urgent
Magnesium Urgent
Manual Differential Urgent
07/14/25 06:46
HYDROmorphone [Dilaudid] 1 mg IV NOW STA
07/14/25 07:05
CT Abd/pelvis W Iv Cont Urgent
Comment:
Reason For Exam: abdominal distension
07/14/25 08:32
Betancur Placement- Treatment ONCE
Reason for insertion: Outlet obstruction
0.9% Sodium Chloride 1000 ml [Nss] 1,000 ml IV BOLUS
07/14/25 08:44
Urinalysis Reflex To Culture Urgent
Date Specimen was Collected: 07/14/25
Time Specimen was Collected: 08:38
Urine Microscopic Reflex Cult Urgent
Urine Culture Urgent
MAY Source: U
Specimen Description:
Obtained by: Random
Date Specimen was Collected: 07/14/25
Time Specimen was Collected: 08:38
07/14/25 09:31
Piperacillin/Tazo 3.375 Gram [Zosyn] 3.375 gram in 50 ml IV NOW
07/14/25 09:38
CT Chest With Iv Contrast Urgent
Comment:
Reason For Exam: hypoxia,suspicion of PNA/mass in right lower lobe
07/14/25 09:49
Blood Culture Q30M
MAY Source: Blood/Venous
Specimen Description:
07/14/25 09:50
Blood Culture Q30M
MAY Source: Blood/Venous
Specimen Description:
07/14/25 10:22
Admit/Transfer Patient As Directed
Co-Sign Provider:
Level of Care: Inpatient admission
Assign to:: IMU- Intermediate Care
Physician / Group: Sade
Diagnosis: Respiratory failure
Reason for Hospitalization: Above
Expected length of stay greater than two midnights?: Yes
ELOS- Estimated Length of Stay in days: 3
I certify the patient meets the requirements for IP care: Yes
07/14/25 10:23
PRN Pain Medication Management As Directed
May give lesser potent ordered pain med per pt: Yes
preference::
Protocol:: Medication orders for pain may be administered in a
manner that supports deferring to patient preference
when the pt is:
- Requesting an ordered lesser potent pain medication.
Least to most potent pain medications are defined
as: acetaminophen < NSAID < tramadol < opioids
(morphine, oxycodone, hydromorphone).
- Requesting a lesser dose of the same medication IF
ORDERED.
- Requesting a less intrusive route of administration
if both routes are prescribed by the provider (PO <
IV).
07/14/25 10:26
Code Status As Directed
Resuscitation Status: Full Code
Abnormal Lab Results
07/14/25 07/14/25
06:37 08:44
RBC 3.61 L 10^6/uL
(4.20-5.40)
Hct 35.3 L %
(37.0-47.0)
MCH 34.1 H pg
(27.0-31.0)
Plt Count 42 L 10^3/uL
(130-400)
Abs Neuts (Manual) 9.1 H 10^3/uL
(1.4-6.5)
Segmented Neutrophils 80 H %
(42-75)
Band Neutrophils 15 H %
(0-3)
Lymphocytes (Manual) 2 L %
(20-51)
Monocytes (Manual) 1 L %
(2-9)
Sodium 133 L mmol/L
(135-145)
Chloride 93 L mmol/L
(98-107)
Carbon Dioxide 33 H mmol/L
(22-30)
BUN 83 H mg/dl
(7-17)
Lactic Acid 2.1 H mmol/L
(0.7-2.0)
ALT 59 H U/L
(0-35)
Alkaline Phosphatase 180 H U/L
(38-126)
Total Protein 6.2 L g/dl
(6.3-8.2)
Albumin 3.0 L g/dl
(3.5-5.0)
Ur Occult Blood Reflex 4+ A
(Negative)
Leukocyte Esterase Rfl 3+ A
(Negative)
Urine RBC 7-10 A /HPF
(0-2)
Urine WBC (Reflex) >100 A /HPF
(0-5)
Urine Bacteria (Reflex) Few A
(Negative)
Urine Yeast Moderate A
(Negative)
Urine Albumin (Reflex) 2+ A
(Neg - Trace)
07/14/25 06:37
07/14/25 06:37
Vital Signs
Initial and Last Documented VS:
Initial Vital Signs
Temp Pulse Resp BP
97.9 F 110 23 103/87
07/14/25 06:04 07/14/25 06:04 07/14/25 06:04 07/14/25 06:04
Last Documented Vital Signs
Temp Pulse Resp BP Pulse Ox
99.4 F 102 22 97/84 77
07/14/25 06:16 07/14/25 10:30 07/14/25 10:30 07/14/25 10:12 07/14/25 10:12
<Geovanni Razo, DO - Last Filed: 07/14/25 08:34>
Orders/Labs/Results
Orders:
Orders
07/14/25 Breakfast
NPO
Allow oral meds: No
Allow clear liquids: No
07/14/25 06:26
Portable Chest Xray [CR Chest Portable - 1 View] Urgent
Comment:
Reason For Exam: hypoxic
Reason Study Needs to be Portable: Patient Unstable
07/14/25 06:27
0.9% Sodium Chloride 1000 ml [Nss] 1,000 ml IV BOLUS
07/14/25 06:37
CBC/With Diff [Complete Blood Count/With Diff] Urgent
CMP [Comprehensive Metabolic Panel] Urgent
Lactate Level [Lactic Acid] Urgent
Magnesium Urgent
Manual Differential Urgent
07/14/25 06:46
HYDROmorphone [Dilaudid] 1 mg IV NOW STA
07/14/25 07:05
CT Abd/pelvis W Iv Cont Urgent
Comment:
Reason For Exam: abdominal distension
07/14/25 08:32
Betancur Placement- Treatment ONCE
Reason for insertion: Outlet obstruction
0.9% Sodium Chloride 1000 ml [Nss] 1,000 ml IV BOLUS
07/14/25 08:44
Urinalysis Reflex To Culture Urgent
Date Specimen was Collected: 07/14/25
Time Specimen was Collected: 08:38
Urine Microscopic Reflex Cult Urgent
Urine Culture Urgent
MAY Source: U
Specimen Description:
Obtained by: Random
Date Specimen was Collected: 07/14/25
Time Specimen was Collected: 08:38
07/14/25 09:31
Piperacillin/Tazo 3.375 Gram [Zosyn] 3.375 gram in 50 ml IV NOW
07/14/25 09:38
CT Chest With Iv Contrast Urgent
Comment:
Reason For Exam: hypoxia,suspicion of PNA/mass in right lower lobe
07/14/25 09:49
Blood Culture Q30M
MAY Source: Blood/Venous
Specimen Description:
07/14/25 09:50
Blood Culture Q30M
MAY Source: Blood/Venous
Specimen Description:
07/14/25 10:22
Admit/Transfer Patient As Directed
Co-Sign Provider:
Level of Care: Inpatient admission
Assign to:: IMU- Intermediate Care
Physician / Group: Sade
Diagnosis: Respiratory failure
Reason for Hospitalization: Above
Expected length of stay greater than two midnights?: Yes
ELOS- Estimated Length of Stay in days: 3
I certify the patient meets the requirements for IP care: Yes
07/14/25 10:23
PRN Pain Medication Management As Directed
May give lesser potent ordered pain med per pt: Yes
preference::
Protocol:: Medication orders for pain may be administered in a
manner that supports deferring to patient preference
when the pt is:
- Requesting an ordered lesser potent pain medication.
Least to most potent pain medications are defined
as: acetaminophen < NSAID < tramadol < opioids
(morphine, oxycodone, hydromorphone).
- Requesting a lesser dose of the same medication IF
ORDERED.
- Requesting a less intrusive route of administration
if both routes are prescribed by the provider (PO <
IV).
07/14/25 10:26
Code Status As Directed
Resuscitation Status: Full Code
Abnormal Lab Results
07/14/25 07/14/25
06:37 08:44
RBC 3.61 L 10^6/uL
(4.20-5.40)
Hct 35.3 L %
(37.0-47.0)
MCH 34.1 H pg
(27.0-31.0)
Plt Count 42 L 10^3/uL
(130-400)
Abs Neuts (Manual) 9.1 H 10^3/uL
(1.4-6.5)
Segmented Neutrophils 80 H %
(42-75)
Band Neutrophils 15 H %
(0-3)
Lymphocytes (Manual) 2 L %
(20-51)
Monocytes (Manual) 1 L %
(2-9)
Sodium 133 L mmol/L
(135-145)
Chloride 93 L mmol/L
(98-107)
Carbon Dioxide 33 H mmol/L
(22-30)
BUN 83 H mg/dl
(7-17)
Lactic Acid 2.1 H mmol/L
(0.7-2.0)
ALT 59 H U/L
(0-35)
Alkaline Phosphatase 180 H U/L
(38-126)
Total Protein 6.2 L g/dl
(6.3-8.2)
Albumin 3.0 L g/dl
(3.5-5.0)
Ur Occult Blood Reflex 4+ A
(Negative)
Leukocyte Esterase Rfl 3+ A
(Negative)
Urine RBC 7-10 A /HPF
(0-2)
Urine WBC (Reflex) >100 A /HPF
(0-5)
Urine Bacteria (Reflex) Few A
(Negative)
Urine Yeast Moderate A
(Negative)
Urine Albumin (Reflex) 2+ A
(Neg - Trace)
07/14/25 06:37
07/14/25 06:37
Vital Signs
Initial and Last Documented VS:
Initial Vital Signs
Temp Pulse Resp BP
97.9 F 110 23 103/87
07/14/25 06:04 07/14/25 06:04 07/14/25 06:04 07/14/25 06:04
Last Documented Vital Signs
Temp Pulse Resp BP Pulse Ox
99.4 F 102 22 97/84 77
07/14/25 06:16 07/14/25 10:30 07/14/25 10:30 07/14/25 10:12 07/14/25 10:12
<Yessi Adair MD, Resident - Last Filed: 07/14/25 11:37>
MDM/Problems Addressed
Differential Diagnosis Includes:
Small bowel perforation/obstruction
Sepsis
Infected PEG tube
FTT
Stage 4 tonsillar cancer
Bedsores
Dehydration
MDM/Problems Addressed:
CBC shows a mild decrease in hemoglobin from 14.2-12.3 since last admission, WBC count normal, platelet count 42
Lactic acid 2.1, but patient does not fulfill [address] abdomen/pelvis done-marked distention of bladder suggesting outlet obstruction with resulting bilateral hydronephrosis
Consolidation in the right lower lobe suggestive of pneumonia
Low-attenuation mass of the right lobe of the liver which suggests metastatic disease in context of stage IV tonsillar cancer
Plan to admit the patient, discussed with the hospitalist
<Yessi Adair MD, Resident - Last Filed: 07/14/25 11:37>
*Pulse Oximetry
Nasal Cannula flow liters per minute: 2
<Geovanni Razo, DO - Last Filed: 07/14/25 08:34>
*Radiology
Radiology exam reviewed: preliminary read by ED provider
*Pulse Oximetry
SaO2: 78
Oxygen Mode of Delivery: Simple mask
Patient hypoxic: yes
*Critical Care Note
Total Time (30-74mins, 75-104mins- exclusive of procedures): 31
<Geovanni Razo, - Last Filed: 07/14/25 08:34>
Update Note
Update Note:
8:30 AM update chest x-ray noted CT noted will place Betancur hopefully her respiratory mechanics will improve with decompression
Will require admission
ED Attending Note
<Yessi Adair MD, Resident - Last Filed: 07/14/25 11:37>
-
Portions of this chart may have been created with voice recognition software.� Occasional wrong word or��sound alike� substitutions may have occurred due to the inherent limitations of voice recognition software.
<Geovanni Razo, DO - Last Filed: 07/14/25 08:34>
ED Attending Note
Patient seen and examined by attending physician: Yes
I performed a history and physical exam of patient and discussed management with resident, I reviewed resident's note and agree with documented findings and plan of care.: Yes
ED Attending Note:
Seen with resident examined independently, 64 female metastatic tonsillar cancer followed at [place] admitted recently to [place] with aspiration pneumonia she has a feeding tube, presents with distended abdomen, constipation looks ill here low sats
differential includes perforated viscus obstruction constipation obstipation
Discharge Plan
Departure
Patient Disposition: Admit
Date of Disposition: 07/14/25
Time of Disposition: 08:52
Presentation/result/management discussed w/ accepting MD/DO: Hospitalist
Patient with high blood pressure during this ER visit?: No
Discharge Problem:
Urinary retention, Pneumonia
Interventions
Interventions:
*Risk Screen - Suicide Last Done: 07/14/25 06:04
*General Assessment Last Done: 07/14/25 06:04
*Neglect/Abuse Screening Last Done: 07/14/25 06:04
*ED COVID-19 Vaccine History Last Done: 07/14/25 06:04
*ED Influenza Vaccine History Last Done: 07/14/25 06:04
[facility] Fall Risk Assessment Tool Last Done: 07/14/25 07:00
FL-Mddsve-Wjwejvqlcj Assessment Last Done: 07/14/25 06:15
[2025-07-14 07:05] LABS: Hematocrit 35.3 % (37.0-47.0); Hemoglobin 12.3 g/dL (12.0-16.0); Mean Corp Hgb Conc. 34.8 g/dL (33.0-37.0); Mean Corpuscular Volume 97.8 fL (81.0-99.0); Red Cell Dist. Width 14.3 % (11.5-14.5)
[2025-07-14] MEDS: NSS 1000 IV ×5 (07:07→21:02)
[2025-07-14] MEDS: DILAUDID 1 MG IV (07:08)
[2025-07-14 07:14] LABS: ALT (SGPT) 59 U/L (0-35); AST (SGOT) 32 U/L (14-36); Albumin 3.0 g/dl (3.5-5.0); Alkaline Phosphatase 180 U/L (38-126); Blood Urea Nitrogen 83 mg/dl (7-17); Calcium 8.5 mg/dl (8.4-10.2); Carbon Dioxide 33 mmol/L (22-30); Chloride 93 mmol/L (98-107); Estimated Creatinine Clearance 50 ml/min; Glucose 99 mg/dl (70-99); Magnesium 2.3 mg/dl (1.6-2.3); Potassium 4.9 mmol/L (3.5-5.1); Sodium 133 mmol/L (135-145); Total Protein 6.2 g/dl (6.3-8.2); eGFR > 60.00
--- NOTE | 2025-07-14 07:15 | VATNOTE ---
07/14 0130 - Paged by PCN to access patients port. Patient with gauze and dressing over port. Upon cleaning site, scab noted. Patient with good peripheral veins so decision was made to place peripheral IV instead. Patient and PCN aware and ok
with the decision. Line established and labs drawn.
[2025-07-14 08:31] LABS: Absolute Neutrophils -Man Diff 9.1 10^3/uL (1.4-6.5); Normal RBC Morphology Yes; Platelets Checked Yes; Total Cells Counted 100
[2025-07-14 08:32] LABS: Platelet Count 42 10^3/uL (130-400)
[2025-07-14 09:25] LABS: Urine Character Cloudy (Clear)
[2025-07-14 09:39] LABS: Urine Squamous Cell 0-2 /LPF (Few); Urine White Cell >100 /HPF (0-5)
[2025-07-14] MEDS: ZOSYN 50 IV ×3 (10:11→22:51)
--- NOTE | 2025-07-14 10:36 | HPS.HSE ---
Family Physician
-
Family Physician: Balwinder Yousif
Chief Complaint
-
Abdominal distention.
History of Present Illness
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
nursing facility for rehab now presents with severe abdominal distention. Patient has a PEG tube in place. While in the emergency room patient was found to be afebrile, tachycardic, hypoxic with pulse ox at 80% on 2 L of nasal cannula oxygen. On
further evaluation she was found to have distended abdomen with urinary retention. Betancur catheter was placed and over 3 L of urine removed. Follow-up exam revealed soft and benign abdomen. Patient reports no fever. She does not report any
particular trouble breathing. Besides the abdominal distention she could not specify on retention given prior incontinence. She denies any upper gastrointestinal symptoms including nausea or vomiting.
Medical History
Past Medical History
Past Medical History: Reports CAD and Cancer (Squamous cell carcinoma of the head and neck)
Past Surgical History: Reports Other (PEG tube placement)
Social History
Tobacco: Former Smoker
Alcohol: Former
Drug: Former User
Personal: Single
Living: With Family
Employment: Not Employed
Family History
Family History: Not pertinent
Allergies / Home Medications
Allergies reflects when Allergies were last updated in [employer].
Home Medications with original date entered in [employer]
Allergy/Medication List:
Allergies
Allergy/AdvReac Type Severity Reaction Status Date / Time
bee venom protein (honey bee) Allergy Unknown Verified 07/14/25 06:13
latex Allergy Itching-BLI Verified 07/14/25 06:13
STERS
neomycin Allergy Itching-ecz Verified 07/14/25 06:13
luis
Home Medications
alendronate 70 mg tablet 70 mg PO FR bone 09/26/19
latanoprost 0.005 % eye drops 1 drp BOTH EYES HS Eye Condition 12/16/24
atorvastatin 20 mg tablet (Lipitor) 20 mg feeding tube DAILY High Cholesterol 06/01/25
chlorhexidine gluconate 0.12 % mouthwash 15 ml buccal BID mouth care 06/01/25
therapeutic multivitamin 1 tab feeding tube DAILY Supplement 06/01/25
acetaminophen 325 mg tablet 650 mg PO Q4HPRN PRN mild pain 06/15/25
pregabalin 75 mg capsule 75 mg feeding tube BID mild pain 06/15/25
aspirin 81 mg chewable tablet 81 mg feeding tube DAILY Blood Clot Prevention/Tx #0 tabs 06/24/25
metoprolol tartrate 25 mg tablet 12.5 mg (1/2 x 25 mg) feeding tube BID Heart disease/condition #0 tabs 06/24/25
polyethylene glycol 3350 17 gram oral powder packet 17 g feeding tube BID Constipation #0 ea 06/24/25
Lansoprazole 3mg/Ml 10 ml feeding tube DAILY 07/14/25
ascorbic acid (vitamin C) 100 mg tablet (Vitamin C) 100 mg feeding tube DAILY 07/14/25
bisacodyl 10 mg rectal suppository 10 mg SC [id number] PRN if no bm aftr mom 07/14/25
dexamethasone 4 mg tablet 7 mg feeding tube DIRECTED Radiation Oncology reasosn 07/14/25
lidocaine HCl 2 % mucosal solution (Lidocaine Viscous) 5 ml PO Q6HPRN PRN pain with swallowing 07/14/25
magnesium hydroxide 400 mg/5 mL oral suspension (Milk of Magnesia) 2,400 mg feeding tube [id number] PRN constipation 07/14/25
oxycodone 15 mg tablet 15 mg feeding tube Q4HPRN PRN severe pain 07/14/25
sennosides 8.6 mg tablet (senna) 17.2 mg feeding tube HS 07/14/25
sodium phosphates 19 gram-7 gram/118 mL enema (Fleet Enema) 118 ml SC DAILYPRN PRN if no bm aftr dulcolax 07/14/25
Review of Systems
-
A 12 point ROS was completed and negative except as noted: Yes
Physical Exam
Vital Signs
Vital Signs
Temp Pulse Resp BP Pulse Ox
99.4 F 107 21 86/73 95
07/14/25 06:16 07/14/25 09:17 07/14/25 09:17 07/14/25 09:17 07/14/25 09:17
Physical Exam
General: Well Developed, Well Nourished and No Apparent Distress
HEENT: NormoCephalic, Moist mucous membranes and Atraumatic
Respiratory: Rhonchi; No Wheezes
Cardiac: S1/S2 and Regular Rhythm; No Murmur or Rub
GI: Soft, Non Tender, Non Distended, Normal Bowel Sounds and Peg Tube; No Organomegaly
Rectal: Deferred by Provider
Genito-urinary: Betancur
Musculoskeletal: No Clubbing, No Cyanosis and No Edema
Skin: No Rash
Neuro: Nonfocal/grossly intact
Laboratory Results
-
07/14/25 06:37
07/14/25 06:37
Laboratory Results
Lactic Acid 2.1 mmol/L (0.7-2.0) H 07/14/25 06:37
Total Bilirubin 0.6 mg/dl (0.2-1.3) 07/14/25 06:37
AST 32 U/L (14-36) 07/14/25 06:37
ALT 59 U/L (0-35) H 07/14/25 06:37
Alkaline Phosphatase 180 U/L (38-126) H 07/14/25 06:37
Impression/Plan
-
IMPRESSION:
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
Acute hypoxic respiratory failure.
� Differential diagnosis ongoing aspiration pneumonia, versus extensive metastatic process, versus pulmonary embolism.
Acute urinary retention with hydronephrosis. Betancur catheter placed in the emergency room with 3 L of urine removed.
Acute kidney injury with mild azotemia
Hyponatremia�sodium 133
Thrombocytopenia
Recent hospitalization with aspiration pneumonia, esophageal candidiasis, infected PEG tube site.
Completed course of antibiotics for aspiration pneumonia and antifungal therapy.
Conditions prior to admission
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
� Status post chemoradiation with cisplatin December - February 2025.
Dysphagia secondary to above with aspiration syndrome requiring PEG tube placement
Malignant pain
CAD
PAD
Bilateral carotid artery stenosis with history of TIA
Essential hypertension
Dyslipidemia
Severe protein calorie malnutrition with BMI of 18
History of tobacco use disorder
History of substance abuse including alcohol
PLAN:
Acute hypoxic respiratory failure with pulse ox in low 80s while on 2 L of nasal cannula.
Differential diagnosis ongoing aspiration syndrome with pneumonia, versus extensive and progressive metastatic process, versus pulmonary embolism.
Recently treated for aspiration pneumonia.
Imaging including CT scan of the abdomen and pelvis showed right lower lobe process, lingular process with concern for pulmonary mets.
Check CT scan of the chest PE protocol.
Aspiration precautions.
Recently completed course of antibiotics for aspiration pneumonia.
Will expand antibiotic course with Zosyn.
Recently on corticosteroid taper.
Resume Decadron at 4 mg IV every 12 hours
AWA
Continue oxygen supplementation, currently required nonrebreather mask.
Pulmonary evaluation.
Squamous cell carcinoma of head and neck/tonsillar CA.
Chemoradiation including cisplatin December - February 2025
Recent PET scan as well as imaging on presentation with concern for local and distant including pulmonary, hepatic metastatic process.
Additional imaging with CT of the chest.
Oncology consultation
Thrombocytopenia. Monitor closely
Acute urinary retention with bilateral hydronephrosis.
Betancur catheter placed in ED with close to 2 L of urine removed.
Incontinent at the baseline.
Check UA and reflex to culture.
Maintain Betancur catheter.
Hyponatremia secondary to hypovolemia.
Check urine osmolarity and urine sodium
Challenge with isotonic solution
Follow BMP closely
Dysphagia with aspiration syndrome related to tonsillar lesion.
Given unstable respiratory status, keep n.p.o. with aspiration precautions per
Speech and swallow evaluation.
Status post PEG tube placement. On Jevity 1.5 at 50 mL an hour prior to presentation.
Hold tube feeds for now.
Continue PPI
ASCVD.
� CAD.
� PAD/bilateral carotid artery stenosis with history of TIA.
Recent echocardiogram with preserved biventricular function and no significant valvular abnormalities.
Continue aspirin.
Hold Lipitor acutely.
Continue beta-marcin monitoring for hypotension
Malignant pain.
Continue preadmission regimen including oxycodone and Lyrica. Titrate as required
DVT prophylaxis with subcu heparin
Full code
--- NOTE | 2025-07-14 12:02 | CON.PUL ---
Consultation
Consultation Request
Date/Time Consultation Requested: 07/14/2025-10:30 AM
Date/Time Consultation Performed: 07/14/2025-11 AM
Requesting Provider: Hospitalist
Performing Provider: Dr. Mejía
Reason for Consultation: Shortness of breath
Medical History
-
Chief Complaint: Shortness of breath
History of Present Illness:
64-year-old former smoking female with stage IV tonsillar carcinoma, aspiration syndrome. Recently treated for aspiration pneumonia, esophageal candidiasis discharged to a local senior care facility and then presented with abdominal distention
and noted to be hypoxemic with urinary retention and pulmonary consulted for ongoing hypoxemia 07/14/25. The patient is somewhat lethargic in the emergency room. 2. Family members are with her. They report that she recently had a pneumonia has
been hypoxemic on oxygen for 3 weeks in the rehabilitation center. She has a gastrostomy tube as well. She had smoked until her diagnosis. She likely has underlying COPD. Patient complains of significant shortness of breath with minimal
exertion, some chest congestion, productive cough, but no chest pain or abdominal pain is relieved with Betancur catheter placement.
Past Medical History
Past Medical History: None ( CAD. Squamous cell carcinoma, stage IV tonsillar. Aspiration syndrome. Gastrostomy tube placement. COPD suspected.)
Social History
Tobacco: Former Smoker ( 67-wydm-phdt, recently quit)
Alcohol: Former
Drug: None
Personal: Single
Living: Other ( rehabilitation facility)
Occupational Exposures: no known asbestos exposure
Environmental Exposures: No known tuberculosis exposure
Family History
Family History: Reviewed & Not Pertinent
Allergies / Home Medications
Allergies
Allergy/AdvReac Type Severity Reaction Status Date / Time
bee venom protein (honey bee) Allergy Unknown Verified 07/14/25 06:13
latex Allergy Itching-BLI Verified 07/14/25 06:13
STERS
neomycin Allergy Itching-ecz Verified 07/14/25 06:13
luis
Home Medications
�Medication �Instructions �Recorded �Confirmed �Last Taken �Type
alendronate 70 mg tablet 70 mg PO FR bone 09/26/19 07/14/25 07/10/25 History
latanoprost 0.005 % eye drops 1 drp BOTH EYES HS Eye Condition 12/16/24 07/14/25 07/13/25 History
atorvastatin 20 mg tablet (Lipitor) 20 mg feeding tube DAILY High 06/01/25 07/14/25 07/13/25 History
Cholesterol
chlorhexidine gluconate 0.12 % 15 ml buccal BID mouth care 06/01/25 07/14/25 07/13/25 History
mouthwash
therapeutic multivitamin 1 tab feeding tube DAILY Supplement 06/01/25 07/14/25 07/13/25 History
acetaminophen 325 mg tablet 650 mg PO Q4HPRN PRN mild pain 06/15/25 07/14/25 Unknown History
pregabalin 75 mg capsule 75 mg feeding tube BID mild pain 06/15/25 07/14/25 07/13/25 History
aspirin 81 mg chewable tablet 81 mg feeding tube DAILY Blood 06/24/25 07/14/25 07/13/25 Rx
Clot Prevention/Tx #0 tabs
metoprolol tartrate 25 mg tablet 12.5 mg (1/2 x 25 mg) feeding tube 06/24/25 07/14/25 07/13/25 Rx
BID Heart disease/condition #0 tabs
polyethylene glycol 3350 17 gram 17 g feeding tube BID Constipation 06/24/25 07/14/25 07/13/25 Rx
oral powder packet #0 ea
Lansoprazole 3mg/Ml 10 ml feeding tube DAILY 07/14/25 07/14/25 07/13/25 History
ascorbic acid (vitamin C) 100 mg 100 mg feeding tube DAILY 07/14/25 07/14/25 07/13/25 History
tablet (Vitamin C)
bisacodyl 10 mg rectal suppository 10 mg KS [id number] PRN if no bm aftr 07/14/25 07/14/25 Unknown History
mom
dexamethasone 4 mg tablet 7 mg feeding tube DIRECTED 07/14/25 07/14/25 07/13/25 History
Radiation Oncology reasosn
lidocaine HCl 2 % mucosal solution 5 ml PO Q6HPRN PRN pain with 07/14/25 07/14/25 Unknown History
(Lidocaine Viscous) swallowing
magnesium hydroxide 400 mg/5 mL 2,400 mg feeding tube [id number] PRN 07/14/25 07/14/25 Unknown History
oral suspension (Milk of Magnesia) constipation
oxycodone 15 mg tablet 15 mg feeding tube Q4HPRN PRN 07/14/25 07/14/25 07/13/25 History
severe pain
sennosides 8.6 mg tablet (senna) 17.2 mg feeding tube HS 07/14/25 07/14/25 07/13/25 History
sodium phosphates 19 gram-7 118 ml KS DAILYPRN PRN if no bm 07/14/25 07/14/25 Unknown History
gram/118 mL enema (Fleet Enema) aftr dulcolax
Review of Systems
-
Unable to Obtain full review of systems at this time due to: Other (Per HPI)
Vitals / Labs / Diagnostic Testing
Vital Signs
Temp Pulse Resp BP Pulse Ox
99.4 F 96 16 109/81 95
07/14/25 06:16 07/14/25 11:30 07/14/25 11:30 07/14/25 11:00 07/14/25 11:00
Lab Data
07/14/25 06:37
07/14/25 06:37
Diagnostic Testing:
Physical Exam
-
Exam:
Cachectic appearing female
HEENT-atraumatic, normocephalic, temporal wasting
Neck-supple, no JVD, no bruit
Heart-regular rate and rhythm-no murmurs, rubs or gallops
Chest with diminished breath sounds, prolonged expiratory time, expiratory wheezing and rare crackles at the right base
Chest-clear to auscultation, no wheezes, crackles
Back-no tenderness
Abdomen-soft, nontender, nondistended, no hepatosplenomegaly
Extremities-no cyanosis, clubbing, edema and good peripheral pulses
Integument-intact, no rashes, lesions or ecchymosis
Neurology-alert and oriented, nonfocal motor and sensory exam
Assessment
-
64-year-old former smoking female with stage IV tonsillar carcinoma, aspiration syndrome. Recently treated for aspiration pneumonia, esophageal candidiasis discharged to a local senior care facility and then presented with abdominal distention
and noted to be hypoxemic with urinary retention and pulmonary consulted for ongoing hypoxemia 07/14/25
Aspiration pneumonia
Aspiration risk.
Stage IV head and neck/tonsillar cancer status post chemoradiation including cisplatin February 2025-hepatic metastases.
COPD suspected with mild acute exacerbation.
Hyponatremia.
Lactic acidosis
Conditions present prior to admission:
CAD.
Squamous cell carcinoma, stage IV tonsillar.
Aspiration syndrome.
Gastrostomy tube placement.
COPD suspected.
Plan
The patient has long history of smoking, recently quit and undoubtedly has underlying COPD in addition to being an aspiration risk.
Supplement oxygen as needed.
Aspiration precautions..
Add nebulizers
Decadron..
Mucus clearing devices is able to participate.
Consider vest therapy
CT neck and chest pending
Check cultures.
Empiric antibiotics-Zosyn initiated..
Oncology following-correspondence reviewed
DVT prophylaxis-on heparin.
GI prophylaxis-on. Lansoprazole
Nutrition-gastrostomy tube feeds with aspiration precautions.
Early mobilization/physical therapy
Diagnostic data:
Chest x-ray 07/14/25-airspace disease in both lower lobes of actually improved from prior study.
CT , abdomen and pelvis 07/14/25-marked distention of the bladder, consolidation right lower lobe suggesting pneumonia, low-attenuation mass in the right lobe liver suggesting metastases
Echocardiogram 03/20/25-year 73%, aortic valve sclerosis without stenosis
Data Reviewed
-
EKG: Report reviewed by me
Radiology: Report reviewed by me
CT Scan: Report reviewed by me
Medical Tests (Nuc Med, Echo etc): Report reviewed by me
Labs: Labs reviewed by me
Old Records: Reviewed
Total Time Spent with Patient (in minutes): 55
--- NOTE | 2025-07-14 12:59 | EDCM ---
Reviewed chart and met with family bedside in ED. Pt was admitted from [facility] where she has been for STR since 06/24 after hospital admission. Recent diagnosis of tonsillar cancer, had been receiving chemo and radiation but no recent
treatments.
Pt lives alone in ground floor formerly [facility] apartment, [address] [facility].
Requires assistance for ADLs and personal care. Ambulates with RW, also has cane. Wearing O2 2L NC at since last admission, currently on NRB mask. Pt has PEG, receiving tube feeds at [facility]. Was also doing tube feeds at home prior to
last admit. Family states she was also eating at , not yet cleared for PO here per RN. Family very concerned about weakness, PNA and pt inability to get cancer treatments.
Home PCP: Balwinder Yousif, Dr Isidro Mendes is physician at
Local pharmacy: [facility]
Anticipate return to for STR, CM will continue to follow for all discharge planning needs.
--- NOTE | 2025-07-14 14:02 | CON.ONC ---
Consultation
-
Date Consultation Requested: 07/14/25
Date Consultation Performed: 07/14/25
Requesting Provider: Sade
Performing Provider: Hao
Reason for Consultation: H&N cancer
Impression
Impression
Recurrent squamous carcinoma of the tonsil with cervical lymphadenopathy; CT scan suggestive of possible liver metastases
Respiratory insufficiency, currently on rebreather
Progressive weakness
New onset thrombocytopenia
Possible aspiration pneumonia
Urinary outlet obstruction, 4 L in the bladder
Plan
Plan
Agree with plans for CT chest. I would also recommend a CT of the neck to get some sense of the size of her local recurrence. Unclear cause at this point as to why her respiratory status is so tenuous.
Also unclear is why she has had such progressive weakness despite getting reasonable calories and through her PEG tube. It is possible that she has more cancer than showed up on the PET scan 2 months ago.
Also unclear as to the etiology of her thrombocytopenia. I will check studies to rule out DIC. I have requested a manual differential to look for evidence of a myelophthisic process.
I did speak to her in the presence of her family about her resuscitation status, and advised her that medically I did not think it was a good idea. She would like to think things over.
Patient History
History of Present Illness
This 64-year-old woman [facility] to [facility] abdominal distention. This had come on relatively suddenly. Evaluation here with a CT scan showed no evidence of bowel obstruction or malfunction of the PEG tube.
However, she had a very enlarged bladder that has been drained of 4 L of urine. She has also been hypoxic, and has required progressive oxygenation, now on nonrebreather. Chest x-ray shows only mild improvement from previously noted airspace
disease.
Her recent history is remarkable for a squamous carcinoma of the tonsil that was treated with definitive radiation therapy and cisplatin based chemotherapy. However, she began experiencing some oropharyngeal symptoms, and underwent a repeat PET
scan which showed local recurrence as well as cervical lymphadenopathy. She saw her head and neck surgeon at the [facility], and a biopsy reportedly shows recurrent cancer. She missed her follow-up appointment, but according to her
daughter, the surgeon said that the only meaningful treatment would be surgical excision, but that it would obviously be extremely disfiguring surgery. In the interim, due to nutritional problems, she had a PEG tube placed. There were some
malfunctions of this interrupting her feedings. Ultimately it was placed and working well, and she went to a rehab about 2 to 3 weeks ago. She has gained a few pounds, now up to about 98 pounds. However, she remains extremely weak and is
essentially unable to participate in therapy.
Past-Medical/Surgical History
She reportedly has a history of coronary artery disease.
Social history: She is a former smoker as well as a former heavy drinker.
Family history is noncontributory.
Patient Medication
�Medication �Instructions �Recorded �Confirmed �Last Taken �Type
alendronate 70 mg tablet 70 mg PO FR bone 09/26/19 07/14/25 07/10/25 History
latanoprost 0.005 % eye drops 1 drp BOTH EYES HS Eye Condition 12/16/24 07/14/25 07/13/25 History
atorvastatin 20 mg tablet (Lipitor) 20 mg feeding tube DAILY High 06/01/25 07/14/25 07/13/25 History
Cholesterol
chlorhexidine gluconate 0.12 % 15 ml buccal BID mouth care 06/01/25 07/14/25 07/13/25 History
mouthwash
therapeutic multivitamin 1 tab feeding tube DAILY Supplement 06/01/25 07/14/25 07/13/25 History
acetaminophen 325 mg tablet 650 mg PO Q4HPRN PRN mild pain 06/15/25 07/14/25 Unknown History
pregabalin 75 mg capsule 75 mg feeding tube BID mild pain 06/15/25 07/14/25 07/13/25 History
aspirin 81 mg chewable tablet 81 mg feeding tube DAILY Blood 06/24/25 07/14/25 07/13/25 Rx
Clot Prevention/Tx #0 tabs
metoprolol tartrate 25 mg tablet 12.5 mg (1/2 x 25 mg) feeding tube 06/24/25 07/14/25 07/13/25 Rx
BID Heart disease/condition #0 tabs
polyethylene glycol 3350 17 gram 17 g feeding tube BID Constipation 06/24/25 07/14/25 07/13/25 Rx
oral powder packet #0 ea
Lansoprazole 3mg/Ml 10 ml feeding tube DAILY 07/14/25 07/14/25 07/13/25 History
ascorbic acid (vitamin C) 100 mg 100 mg feeding tube DAILY 07/14/25 07/14/25 07/13/25 History
tablet (Vitamin C)
bisacodyl 10 mg rectal suppository 10 mg NM [id number] PRN if no bm aftr 07/14/25 07/14/25 Unknown History
mom
dexamethasone 4 mg tablet 7 mg feeding tube DIRECTED 07/14/25 07/14/25 07/13/25 History
Radiation Oncology reasosn
lidocaine HCl 2 % mucosal solution 5 ml PO Q6HPRN PRN pain with 07/14/25 07/14/25 Unknown History
(Lidocaine Viscous) swallowing
magnesium hydroxide 400 mg/5 mL 2,400 mg feeding tube [id number] PRN 07/14/25 07/14/25 Unknown History
oral suspension (Milk of Magnesia) constipation
oxycodone 15 mg tablet 15 mg feeding tube Q4HPRN PRN 07/14/25 07/14/25 07/13/25 History
severe pain
sennosides 8.6 mg tablet (senna) 17.2 mg feeding tube HS 07/14/25 07/14/25 07/13/25 History
sodium phosphates 19 gram-7 118 ml NM DAILYPRN PRN if no bm 07/14/25 07/14/25 Unknown History
gram/118 mL enema (Fleet Enema) aftr dulcolax
Review of Systems
-
All Other Systems: Reviewed and Negative
Physical Exam
-
Physical examination shows the patient to be very weak, lethargic but arousable and able to answer simple questions, in no respiratory distress on a rebreather.
HEENT exam is unremarkable, however the oropharynx is not well-visualized.
There are no palpable nodes.
Chest is clear.
The heart is regular with no murmur or gallop.
The abdomen is soft and nontender with no organomegaly or masses. There is a PEG tube in the left side.
Extremities are unremarkable.
Neurologic is grossly intact.
Labs
Lab Results
WBC 9.6 10^3/uL (4.8-10.8) 07/14/25 06:37
RBC 3.61 10^6/uL (4.20-5.40) L 07/14/25 06:37
Hgb 12.3 g/dL (12.0-16.0) 07/14/25 06:37
Hct 35.3 % (37.0-47.0) L 07/14/25 06:37
MCV 97.8 fL (81.0-99.0) 07/14/25 06:37
MCH 34.1 pg (27.0-31.0) H 07/14/25 06:37
MCHC 34.8 g/dL (33.0-37.0) 07/14/25 06:37
RDW 14.3 % (11.5-14.5) 07/14/25 06:37
Plt Count 42 10^3/uL (130-400) L 07/14/25 06:37
MPV Not Reportable 07/14/25 06:37
Creatinine 0.8 mg/dL (0.6-1.0) 07/14/25 06:37
Vital Signs
Vital Signs
Temp Pulse Resp BP Pulse Ox
99.4 F 102 18 91/76 95
07/14/25 06:16 07/14/25 13:00 07/14/25 13:00 07/14/25 13:00 07/14/25 11:00
[2025-07-14] MEDS: DECADRON 4 MG IV (15:38)
--- NOTE | 2025-07-14 16:25 | PTCARENOTE ---
Patient received from the ED via stretcher accompanied by RN. Transferred and admitted to IMU 3351. Placed on CM. SR. See boot turner charted on worklist flowsheet. Mouth is very dry, tongue and lips cracked. Assertive Oral care rendered and mouth
moisturizer given. Initially on 100% NRB, sats 92-97%. Respiratory therapist placed on 40L/80% FiO2--sats maintained. BBS with no air movement audible right lung. Left lung diminished t/o with left base very diminished. S1S2 regular with positive
murmur. Pulses palpable, bilateral pedal edema 1+. PEG clamped. Site care rendered. PEG insertion site red but intact, cleansed with CHG and drain sponge donned. Coccyx and bilateral medial buttocks with several stage III ulcers noted, cleansed with
NS and border foam dressing donned. LFA and right posterior hip bruise noted. Rash noted on labia. Betancur cath patent draining clear yellow urine. Bed in low and locked position, bed alarm on, call cook within reach.
--- NOTE | 2025-07-14 17:17 | PTCARENOTE ---
Patient SBP noted low 77-89, but MAP is acceptable 65-69. BP currently 77/63, MAP is 69. Appropriate cuff size in place. Dr Stuart notified, new orders received. IVF bolus given per order. Patient readied for transfer to ICU, belongings gathered.
Family is aware.
[2025-07-14] MEDS: HEPARIN 5000 UNITS SC (17:24)
--- NOTE | 2025-07-14 17:28 | W.PN.UPDATE ---
Update Note
Progress Note Update
Progressive decompensation with worsening hypoxia and hypotension.
CT neck chest indicative for extensive upper and lower airway neoplastic changes, mucous plaquing. Negative for PE.
While ongoing GOC discussion will transfer to ICU
Antibiotics
IVF bolus
May need vasopressor support
NPO
Airway clearance.
Low threshold for intubation.
Prognosis guirded
[2025-07-14 17:41] LABS: Urine Character Slightly Cloudy (Clear)
[2025-07-14 17:46] LABS: Urine Squamous Cell 0-2 /LPF (Few)
[2025-07-14 17:47] LABS: Urine Red Blood Cell 26-30 /HPF (0-2)
[2025-07-14 17:48] LABS: Urine White Cell >100 /HPF (0-5)
--- NOTE | 2025-07-14 18:15 | PTCARENOTE ---
Report given verbally to RN assuming care, Antoinette Brizuela. Questions answered. At 182, patient transferred to ICU via bed accompanied by RN. Belongings sent.
[2025-07-14 18:49] LABS: Glucose - Point of Care 78 mg/dl (70-99)
[2025-07-14] MEDS: DUONEB 3 ML INH (19:23)
--- NOTE | 2025-07-14 19:33 | PTCARENOTE ---
183-Pt transported to ICU 3358 via bed. Pt is awake and alert.speech is appropriate.+CAT.Assists with turning.Denies pain at this time.SR with PACs-78 noted.BP 75/64.NSS wide open.Left SQ port is not accessed.Rectal temp 97.Bare hugger applied
low.POX 99-100% High Flow 40 l/80%.Very limited breath sounds right side.Diminished breath sounds left lung field.No SOB,tachypnea or use of accessories noted.NPO.J tube intact.Betancur draining yellow urine.Sacral foam intact.Pt's brother and sister
in law at bedside.Plan of care discussed.Pt wants her family at bedside when test results and planning discussed.Family plans to be at bedside early tomorrow morning.
--- NOTE | 2025-07-14 20:00 | PTCARENOTE ---
pt AAOx3, very weak but CAT, SR/ST on the monitor, BP low but maps above 65, rectal probe and toro hugger placed, om highflow 80% 40L 99%, NPO, PEG tube, medrano in place, wound on sacrum, family at bedside, call cook in reach
[2025-07-14] MEDS: DECADRON IV (20:13)
[2025-07-14] MEDS: LYRICA TUBE (20:14)
[2025-07-14] MEDS: LEVOPHED 250 IV (20:14)
[2025-07-14] MEDS: MIRALAX TUBE (20:14)
[2025-07-14] MEDS: SENOKOT TUBE (20:14)
[2025-07-14] MEDS: XALATAN OPHTHALMIC SOLUTION 1 DROP BOTH EYES (20:14)
[2025-07-14] MEDS: DILAUDID 0.25 MG IV (21:01)
[2025-07-14 21:18] LABS: Hematocrit 32.0 % (37.0-47.0); Hemoglobin 10.6 g/dL (12.0-16.0); Mean Corp Hgb Conc. 33.1 g/dL (33.0-37.0); Mean Corpuscular Volume 99.1 fL (81.0-99.0); Platelet Count 34 10^3/uL (130-400); Red Cell Dist. Width 14.5 % (11.5-14.5)
[2025-07-14 21:21] LABS: INR 1.30; PT 16.3 Sec (11.4-14.6)
[2025-07-14 21:22] LABS: APTT 30.6 Sec (23.4-35.0)
[2025-07-14 21:37] LABS: Blood Urea Nitrogen 56 mg/dl (7-17); Calcium 7.5 mg/dl (8.4-10.2); Carbon Dioxide 29 mmol/L (22-30); Chloride 102 mmol/L (98-107); Estimated Creatinine Clearance 53 ml/min; Glucose 74 mg/dl (70-99); Magnesium 2.2 mg/dl (1.6-2.3); Potassium 3.1 mmol/L (3.5-5.1); Sodium 136 mmol/L (135-145); eGFR > 60.00
[2025-07-14 21:40] LABS: Troponin I 0.140 ng/ml
[2025-07-14 21:51] LABS: D-Dimer 7.46 ug/mlFEU (0.00-0.50)
[2025-07-14] MEDS: CALCIUM GLUCONATE 130 MG IV (22:49)
[2025-07-14] MEDS: KCL 270 MEQ IV (22:50)
[2025-07-14 23:23] LABS: Cortisol, Random 64.7 ug/dl
[2025-07-15] VITALS (57 sets, daily range): BP systolic 76–123; BP diastolic 30–105; PULSE 79; O2SAT 92; BMI 16.7
--- NOTE | 2025-07-15 00:52 | PTCARENOTE ---
GEOTECHNICAL FIELD TECHNICIAN at bedside to assess pt. Labs, EKG and pain meds ordered. levo gtt started per GEOTECHNICAL FIELD TECHNICIAN, Half dose of dilaudid was given and pt pulse ox dropped to 85%, labs were repleated, Heart rate jumping from 50-101 per minute GEOTECHNICAL FIELD TECHNICIAN aware, pt asymptomatic, no new
orders at this time, call cook in reach
--- NOTE | 2025-07-15 01:05 | PTCARENOTE ---
R chest wall port accessed by VAT team, pt tolerated well
--- NOTE | 2025-07-15 03:23 | PTCARENOTE ---
LEVO gtt remains on starting dose, pt denies chest pain and SOB at this time, pt repositioned q2h, call cook in reach
[2025-07-15] MEDS: ZOSYN 50 IV ×4 (03:53→21:14)
[2025-07-15] MEDS: DECADRON 4 MG IV ×2 (03:53→17:25)
[2025-07-15] MEDS: NSS 1000 IV (03:55)
[2025-07-15 04:40] LABS: Venous Blood Gas B.E. -0.5 mmol/L (-4 to +4); Venous Blood Gas O2 Sat % 92.4 %
[2025-07-15 04:49] LABS: Hematocrit 38.5 % (37.0-47.0); Hemoglobin 12.9 g/dL (12.0-16.0); Mean Corp Hgb Conc. 33.5 g/dL (33.0-37.0); Mean Corpuscular Volume 99.0 fL (81.0-99.0); Red Cell Dist. Width 14.6 % (11.5-14.5)
[2025-07-15 04:51] LABS: APTT 29.9 Sec (23.4-35.0); INR 1.28; PT 16.2 Sec (11.4-14.6)
[2025-07-15 04:56] LABS: Fibrinogen 840 MG/DL (199-459)
[2025-07-15 05:11] LABS: Blood Urea Nitrogen 48 mg/dl (7-17); Calcium 8.5 mg/dl (8.4-10.2); Carbon Dioxide 26 mmol/L (22-30); Chloride 111 mmol/L (98-107); Estimated Creatinine Clearance 64 ml/min; Glucose 79 mg/dl (70-99); Potassium 3.8 mmol/L (3.5-5.1); Sodium 143 mmol/L (135-145); eGFR > 60.00
[2025-07-15 05:15] LABS: Absolute Neutrophils -Man Diff 5.4 10^3/uL (1.4-6.5); Platelet Count 31 10^3/uL (130-400)
[2025-07-15 05:16] LABS: Acanthocytes 1+; Normal RBC Morphology No; Platelets Checked Yes; Polychromasia 1+; Total Cells Counted 100
[2025-07-15 05:26] LABS: Troponin I 0.139 ng/ml
[2025-07-15] MEDS: DUONEB 3 ML INH ×3 (07:24→19:46)
[2025-07-15] MEDS: MIRALAX 17 GRAMS TUBE ×2 (08:14→19:46)
[2025-07-15] MEDS: LOW STRENGTH ASPIRIN 81 MG TUBE (08:14)
[2025-07-15] MEDS: ROXICODONE 15 MG TUBE (08:14)
[2025-07-15] MEDS: LYRICA 75 MG TUBE ×2 (08:15→19:49)
[2025-07-15] MEDS: PREVACID 30 MG TUBE (08:15)
[2025-07-15] MEDS: HEPARIN 5000 UNITS SC (08:15)
--- NOTE | 2025-07-15 09:01 | W.PN.ONC2 ---
Today's Communication / Plan
-
DNR suggested. They are considering.
Hospice evaluation.
See my PLAN for full details.
35 minutes.
Impression
Impression
Recurrent and refractory squamous carcinoma of the tonsil with cervical lymphadenopathy; CT scan suggestive of possible liver metastases
Respiratory insufficiency, currently on hi flow O2
Progressive weakness
New onset thrombocytopenia
Possible aspiration pneumonia
Urinary outlet obstruction, 4 L in the bladder
Plan
Plan
Long conversation with her and her son regarding the advanced nature of her malignancy and the fact that it was refractory to primary radiation, shows multiple sites of malignancy on imaging, and her PS is very poor. Discussed she is extremely
unlikely (almost impossible) for her to qualify for chemotherapy or immunotherapy which is outpatient based. She has been either in hospital or rehab since her biopsy 06/08.
I suggested DNR and they are considering this after speaking with other family members.
Also recommended hospice care. They are agreeable to meet and discuss hospice with SW in more detail.
Subjective/Objective
Chief Complaint
ACS Heme Onc - End of life GOC conversation
Subjective
Remains PS 4 and bedbound. Son at bedside. On Hi-Flow O2. Was on Levophed pressors overnight successfully weaned.
Vital Signs:
Vital Signs
Temp Pulse Resp BP Pulse Ox
98.9 F 99 9 90/79 100
07/15/25 07:20 07/15/25 07:30 07/15/25 07:30 07/15/25 07:30 07/15/25 08:12
Lab Results:
Laboratory Data
WBC 5.8 10^3/uL (4.8-10.8) 07/15/25 04:19
Hgb 12.9 g/dL (12.0-16.0) D 07/15/25 04:19
Plt Count 31 10^3/uL (130-400) L 07/15/25 04:19
PT 16.2 Sec (11.4-14.6) H 07/15/25 04:19
INR 1.28 07/15/25 04:19
APTT 29.9 Sec (23.4-35.0) 07/15/25 04:19
eGFR > 60.00 07/15/25 04:19
Physical Exam
PS 4. Weak.
Cardiology: S1 and S2
Pulmonary: Rhonchi
--- NOTE | 2025-07-15 09:35 | PHA.VAN.IN ---
Assessment
- Assessment
Renal Function: Appears similar to baseline (SCR similar to baseline but BUN elevated)
Concomitant Antimicrobials: piperacillin/tazobactam
Plan
- Plan
Initial / Loading Dose: 1250mg - administration pending
Maintenance Regimen: dosing by level
Monitoring: random 07/16 06
MRSA Screen: Ordered per protocol
Patient unlikely to follow population PK
Patient is underweight with cancer - may have increased clearance / require larger mg/kg maintenance doses
BUN elevated so patient may have some impaired clearance
Will follow with levels for now prior to any re-dosing
Pharmacokinetics Vancomycin I
- -
Patient Age: 64
Patient Sex: Female
Vancomycin Day #: 1
Indication: Pulmonary/Respiratory
Requesting Provider: Dr. Stuart
Pertinent Antimicrobial Allergies:
neomycin - itching; eczema
Height / Weight:
Height 5 ft 4 in
Actual Weight 44.1 kg
IBW in k.7
Pertinent Past Medical History: BMI ~16.7; Stage IV tonsillar carcinoma
- Vital Signs / Lab Results
Temp Pulse Resp BP Pulse Ox
98.9 F 99 9 90/79 100
07/15/25 07:20 07/15/25 07:30 07/15/25 07:30 07/15/25 07:30 07/15/25 08:12
Lab Results - Hematology
07/14/25 07/14/25 07/15/25
06:37 21:00 04:19
WBC 9.6 8.2 5.8
Band Neutrophils 15 H 13 H
Lab Results - Chemistry
07/14/25 07/14/25 07/15/25
06:37 21:00 04:19
BUN 83 H 56 H 48 H
Creatinine 0.8 0.7 0.6
Estimated Creat Clear 50 53 64
Albumin 3.0 L
07/14/25 07/14/25
06:37 21:00
Lactic Acid 2.1 H 1.7
Lab Results - Urine
07/14/25 07/14/25
08:44 17:30
Urine Nitrite (Reflex) Negative Negative
Leukocyte Esterase Rfl 3+ A 3+ A
Urine WBC (Reflex) >100 A >100 A
Ur Squamous Epith Cells 0-2 0-2
Urine Bacteria (Reflex) Few A Many A
Microbiology Results
07/14/25 08:44 Urine Culture - Preliminary
Urine Escherichia coli
07/14/25 09:49 Blood Culture - Preliminary
Blood/Venous Positive culture in progress
Gram Stain - Preliminary
07/14/25 09:50 Blood Culture - Preliminary
Blood/Venous Positive culture in progress
Gram Stain - Preliminary
--- NOTE | 2025-07-15 09:41 | W.PN.UPDATE ---
Update Note
Progress Note Update
Yesterday, patient was upgraded to the ICU due to worsening hypotension and need for vasopressors. Patient had required a low-dose of Levophed with a peak of 2 mcg/min. She was weaned off Levophed earlier this morning at 6:20 AM. Now downgraded
to IMU. Pulmonary service will continue to follow along.
--- NOTE | 2025-07-15 10:27 | WOUNDNOTE ---
SACRAL COCCYX/BILATERAL BUTTOCKS
--- NOTE | 2025-07-15 10:48 | WOUNDNOTE ---
[facility] RN note: Patient admitted with possible pneumonia
See H&P for complete history.
PMH: Recurrent and refractory squamous carcinoma of the tonsil with cervical lymphadenopathy; CT scan suggestive of possible liver metastases
Respiratory insufficiency, currently on hi flow O2
Progressive weakness
New onset thrombocytopenia
Possible aspiration pneumonia
Urinary outlet obstruction, 4 L in the bladder
Wound Location and type/assessment: Patient admitted with stage 2 PI with MASD to buttocks and deep dermal 2 vs stage 3 PI to sacrum. Please see worklist for details and measurements of wound. Patient reports pain and tenderness to areas with PI.
Bilateral heels with stage 1 PI.
Appetite: Low BMI of 16
Pressure redistribution devices in place: Centrella Max Air, turning schedule, heels off-loaded with pillow under calves.
Plan: Buttock wounds were cleaned and Calazime applied to open areas. No-sting barrier and adhesive foam applied to bilateral heels. Per chart review, Oncologist is recommending hospice and family has agreed to discuss with SW. Patient has several
comorbidities including stage 4 carcinoma of tonsil, respiratory insufficiency and low BMI. Wounds may worsen and new wounds may develop even with optimal care. Will confirm orders with hospitalist and update nurse. Updated care plan and will
follow as needed.
Note to case management of equipment requested for discharge:
Recommend follow up at wound care center upon discharge.
--- NOTE | 2025-07-15 10:49 | W.PN.PUL.V3 ---
Today's Communication / Plan
-
Supplemental oxygen
Antibiotics
DNR suggested by oncology
Hospice evaluation being considered
Nebulizers and steroids
Assessment
-
64-year-old former smoking female with stage IV tonsillar carcinoma, aspiration syndrome. Recently treated for aspiration pneumonia, esophageal candidiasis discharged to a local snf facility and then presented with abdominal distention
and noted to be hypoxemic with urinary retention and pulmonary consulted for ongoing hypoxemia 07/14/25
Aspiration pneumonia
Aspiration risk.
Mucous plugs
Urosepsis
Stage IV head and neck/tonsillar cancer status post chemoradiation including cisplatin February 2025-hepatic metastases.
COPD suspected with mild acute exacerbation.
Hyponatremia.
Lactic acidosis
Conditions present prior to admission:
CAD.
Squamous cell carcinoma, stage IV tonsillar.
Aspiration syndrome.
Gastrostomy tube placement.
COPD suspected.
Plan
The patient has long history of smoking, recently quit and undoubtedly has underlying COPD in addition to being an aspiration risk.
Supplement oxygen as needed-high flow
Aspiration precautions continues
Nebulizers
Add nebulizers
Decadron 4 mg IV every 12
Mucus clearing devices is able to participate.
Consider vest therapy
CT neck and chest 07/14/2025-no pulmonary emboli, extensive intraluminal opacifications in the bronchus intermedius representing extensive secretions or mucous plugging, multiple bilateral additional nodules and masslike opacifications are
demonstrated, CT neck with hypopharynx circumferential wall thickening with severe narrowing, neoplastic involvement cannot be excluded, progressive metastatic disease/lymph node metastases along right side of the lateral neck
Cultures reviewed
MRSA screen pending
Urine culture-E. coli
Blood culture 07/14/2020 5-3/3 bottles positive E. coli
Empiric antibiotics-Zosyn initiated
Norepinephrine as needed-attempt to wean
Intravenous fluids with boluses
Oncology following-correspondence reviewed
Recommend DNR
Recommend hospice evaluation
DVT prophylaxis-on heparin
GI prophylaxis-on Lansoprazole
Nutrition-gastrostomy tube feeds with aspiration precautions.
Early mobilization/physical therapy
Reviewed with nursing
Reviewed with family member at the bedside
Diagnostic data:
Chest x-ray 07/14/25-airspace disease in both lower lobes of actually improved from prior study.
CT , abdomen and pelvis 07/14/25-marked distention of the bladder, consolidation right lower lobe suggesting pneumonia, low-attenuation mass in the right lobe liver suggesting metastases
Echocardiogram 03/20/25-year 73%, aortic valve sclerosis without stenosis
Subjective Data
-
Date of Service:
Date of Service: July 15, 2025
Chief Complaint: Pulmonary Follow Up and Dyspnea Follow Up
Subjective:
Significant shortness of breath, chest congestion, unable to produce sputum, no chest pain or abdominal pain
Review of Systems
General: Other (Per HPI)
Objective Data
Data Reviewed
Vital Signs / I&O:
Vital Signs
Temp Pulse Resp BP Pulse Ox
98.9 F 99 9 90/79 100
07/15/25 07:20 07/15/25 07:30 07/15/25 07:30 07/15/25 07:30 07/15/25 08:12
Intake and Output
07/14/25 07/15/25 07/16/25
06:59 06:59 06:59
Intake Total 3170.0 / 3170.0 250 / 250
Output Total 4400 / 4400 250 / 250
Balance -1230.0 / -1230.0 0 / 0
SaO2: 100
Nasal Cannula flow liters per minute: 40
Physical Exam
General: Respiratory Distress (n)
HEENT: Normocephalic, Anicteric and Other ( temporal wasting)
Cardiovascular: Regular Rhythm
Respiratory: Wheeze (Forced expiratory), Crackles (Basilar), Rhonchi (Few expiratory), Non-Labored Respirations, Accessory Resp Muscle Use (n) and Stridor (n)
GI: Soft, Non Distended and Feeding Tube
Neurology: Awake, Alert and No Motor Deficits
Skin: Warm, Good Color, Cyanosis (n), Jaundice (n) and Rash (n)
Labs/Micro/Reports
Lab Data
07/15/25 04:19
07/15/25 04:19
Laboratory Results
07/14/25 07/15/25
21:00 04:19
PT 16.3 H 16.2 H
INR 1.30 1.28
APTT 30.6 29.9
Microbiology
07/14/25 09:49 Blood/Venous Blood Culture - Preliminary
Escherichia coli
07/14/25 09:49 Blood/Venous Gram Stain - Preliminary
07/14/25 08:44 Urine Urine Culture - Preliminary
Escherichia coli
07/14/25 09:50 Blood/Venous Blood Culture - Preliminary
Positive culture in progress
07/14/25 09:50 Blood/Venous Gram Stain - Preliminary
--- NOTE | 2025-07-15 12:00 | PTCARENOTE ---
Pt drowsy. Sinus rhythm. Remains off Levophed. O2 weaned to 6L NC. Tube feeds started via PEG. Betancur draining yellow with sediment. Sacral wound dressing change with WOC. Turning q2hr. All other assessments unchanged.
[2025-07-15] MEDS: VANCOCIN 275 MG IV (12:20)
--- NOTE | 2025-07-15 13:13 | W.PN.HOSP.TC ---
Today's Communication/Plan
-
IV antibiotics
Corticosteroids
IV fluids
Attempt to wean off oxygen as tolerates
Ongoing goals of care discussion
Assessment / Plan
Assessment / Plan
IMPRESSION:
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
Acute hypoxic respiratory failure.
Sepsis with septic shock not responding to IV fluid bolus and requiring vasopressors
E. coli bacteremia
Acute kidney injury with mild azotemia
Hyponatremia�sodium 133
Thrombocytopenia
Recent hospitalization with aspiration pneumonia, esophageal candidiasis, infected PEG tube site.
Completed course of antibiotics for aspiration pneumonia and antifungal therapy.
Conditions prior to admission
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
� Status post chemoradiation with cisplatin December - February 2025.
Dysphagia secondary to above with aspiration syndrome requiring PEG tube placement
Malignant pain
CAD
PAD
Bilateral carotid artery stenosis with history of TIA
Essential hypertension
Dyslipidemia
Severe protein calorie malnutrition with BMI of 18
History of tobacco use disorder
History of substance abuse including alcohol
Imaging
CT chest
No evidence of pulmonary embolism.
Pulmonary artery branching order level of the most proximal pulmonary embolism: N/A
Extensive intraluminal opacity in the bronchus intermedius, extending into the right lower lobe, which could represent extensive secretions and/or mucous plugging. Secondary collapse of the right lower lobe with dense consolidation.
Endobronchial opacity also extending into the right middle lobe and scattered throughout the right upper lobe, likely scattered regions of mucous plugging.
Multiple bilateral additional nodules and masslike opacities are demonstrated, as described. This could represent regions of focal pneumonia/infection, though would be difficult to exclude the possibility of neoplastic process, such as metastatic
disease. Further evaluation advised, which may include PET/CT, biopsy, bronchoscopy, and/or follow-up to assess resolution.
If the patient has emphysema, patient should be assessed for an annual low dose lung cancer CT program, as pulmonary emphysema is an independent risk factor for lung cancer.
CT neck
Likely extensive neoplasm involving the central and right paracentral floor of mouth as well as the right paramidline hard palate. This extends posteriorly with soft tissue element obliterating the right vallecula and piriform sinus.
Hypopharynx circumferential wall thickening with severe narrowing of the supraglottic airway. Possibly related to phase of respiration. Neoplastic involvement cannot be excluded. Similar to prior examination.
Progressive metastatic disease/lymph node metastasis along the right lateral neck.
PLAN:
Acute hypoxic respiratory failure with pulse ox in low 80s while on 2 L of nasal cannula.
Required nonrebreather mask and currently on high flow O2
CT scan of the neck and chest as above with progressive metastatic disease, mucous plugging and extensive endobronchial obstruction
Sputum cultures pending
Antibiotics broadened to vancomycin and Zosyn
Resume Decadron at 4 mg IV every 12 hours
AWA
Continue oxygen supplementation, currently required nonrebreather mask.
Pulmonary evaluation.
Sepsis with septic shock.
E. coli bacteremia
Probable sources: Complicated UTI with retention, pulmonary with extensive bronchial obstruction, aspiration, possibly postobstructive process.
Antibiotics broadened to vancomycin and Zosyn pending final cultures including sputum
IV fluids, currently on isotonic solution
Pressors as required
Pulse dose of systemic steroids
Squamous cell carcinoma of head and neck/tonsillar CA.
Chemoradiation including cisplatin December - February 2025
Recent PET scan as well as imaging on presentation with concern for local and distant including pulmonary, hepatic metastatic process.
Additional imaging with CT of the chest and neck as above
Unfortunately progressively deteriorated performance status, multiple acute comorbidities predicting further treatment
Ongoing goals of care discussion with suggestion of DNR and hospice pending patient and family discussion
Thrombocytopenia. Noted with decreasing platelet count 40�34.
Heparin discontinued
Consider HIT panel
So far no evidence of DIC given increased fibrinogen
Acute urinary retention with bilateral hydronephrosis.
Betancur catheter placed in ED with close to 2 L of urine removed.
Incontinent at the baseline.
Check UA and reflex to culture.
Maintain Betancur catheter.
Hyponatremia secondary to hypovolemia.
Check urine osmolarity and urine sodium
Challenge with isotonic solution
Follow BMP closely
Dysphagia with aspiration syndrome related to tonsillar lesion.
Given unstable respiratory status, keep n.p.o. with aspiration precautions per
Speech and swallow evaluation.
Status post PEG tube placement. On Jevity 1.5 at 50 mL an hour prior to presentation.
Hold tube feeds for now.
Continue PPI
ASCVD.
� CAD.
� PAD/bilateral carotid artery stenosis with history of TIA.
Recent echocardiogram with preserved biventricular function and no significant valvular abnormalities.
Continue aspirin.
Hold Lipitor acutely.
Continue beta-marcin monitoring for hypotension
Malignant pain.
Continue preadmission regimen including oxycodone and Lyrica. Titrate as required
DVT mechanical
Heparin discontinued given thrombocytopenia
Full code
Anticipated Discharge: > 48 hours
Subjective/Interval History
-
Date of Service: July 15, 2025
Objective Data
-
Labs:
Laboratory Results
07/15/25
04:19
WBC 5.8
Hgb 12.9 D
Hct 38.5
Plt Count 31 L
PT 16.2 H
INR 1.28
APTT 29.9
Sodium 143
Potassium 3.8
Chloride 111 H
Carbon Dioxide 26
BUN 48 H
Creatinine 0.6
Glucose 79
Calcium 8.5
Vital Signs:
Vital Signs
Temp Pulse Resp BP Pulse Ox
98.8 F 89 14 101/81 98
07/15/25 10:35 07/15/25 11:30 07/15/25 11:30 07/15/25 11:28 07/15/25 11:42
I&O
07/14/25 07/15/25 07/16/25
06:59 06:59 06:59
Intake Total 3170.0 / 3170.0 250 / 250
Output Total 4400 / 4400 250 / 250
Balance -1230.0 / -1230.0 0 / 0
Physical Exam
-
General: No Apparent Distress and Appears Chronically Ill
HEENT: Nose Appears Normal, Ears Appear Normal and Other (swelling right jaw )
Respiratory: Rhonchi and Crackles; Negative Wheezes
Cardiac: Regular Rhythm and S1/S2
GI: Soft, Nontender and Peg Tube
Musculoskeletal: No Edema
Skin: Warm and Dry; Negative Rash
Neuro: Other (Lethargic)
Psych: Calm
--- NOTE | 2025-07-15 14:11 | CM ---
F/U: KANIKA Hope saw consult for Hospice and Advance Care Planning. Asked Hospitalist to confirm which, spoke to RN who said family wants to talk to Hospice. Therefore, at least had [facility] ([facility]) fulfillment representative speak to brother today.
Brother aware that Ольга will be up to speak to him. PLAN: Inpatient Hospice vs. Not.
--- NOTE | 2025-07-15 15:36 | VNURNOTE ---
Chart reviewed. Patient is current with [facility]. Will continue to follow hospital course and DC plans - possible hospice?
--- NOTE | 2025-07-15 15:54 | VATNOTE ---
Discussed need for port access now that pt is no longer receiving levophed. Per PCN, pt is likely going to be going on hospice tomorrow, will leave for patient comfort at this time.
--- NOTE | 2025-07-15 16:13 | PN.CDI ---
CDI
- -
CDI:
Physician Documentation Request
Admit Date: 07/14/25 10:41
Dear Doctor,
Patient admitted for sepsis.
07/14 Potassium level: 3.1
07/14 Potassium chloride 40 meq IV administered
Based on the above, could you clarify in the progress notes, the appropriate diagnosis, if significant, that supports the above abnormalities and additional evaluation, monitoring and/or treatment rendered:
Hypokalemia
Abnormal lab value insignificant
Other
Use of terms such as suspected, likely, concern for, or probable (associated with a specific diagnosis that is being evaluated, monitored, or treated as if it exists) are acceptable and can be coded in the inpatient setting, when documented at the
time of discharge.
Thank you,
Katya Christensen RN, BSN
CDI Specialist
Available via [place] text
Please use your independent medical judgment in providing your response.
--- NOTE | 2025-07-15 16:18 | PN.CDI ---
CDI
- -
CDI:
Physician Documentation Request
Admit Date: 07/14/25 10:41
Dear Doctor,
Patient admitted for sepsis.
07/15 Hospitalist PN: 'Patient admitted with stage 2 PI with MASD to buttocks and deep dermal 2 vs stage 3 PI to sacrum...Bilateral heels with stage 1 PI.'
Physician documentation of the type and location of wounds is required for compliant documentation. Based on the above clinical findings and your assessment, please provide the following in your progress note:
1. Location of the ulcer/wound, including laterality.
2. Type (etiology) of ulcer/wound:
- Diabetic ulcer
- Arterial (ischemic) ulcer
- Traumatic wound
- Venous stasis ulcer
- Pressure (decubitus) ulcer
- Non-healing surgical wound
- Other
- Unable to determine
3. For a non-pressure ulcer, please indicate the depth/severity:
- Limited to the breakdown of skin
- With fat layer exposed
- With necrosis of muscle
- With necrosis of bone
- Other
- Unable to determine
4. If a pressure ulcer, please also include the stage* of the ulcer:
- Stage 1 - Skin intact, non-blanchable redness
- Stage 2 - Partial thickness loss of dermis, includes intact or open blister
- Stage 3 - Full thickness tissue not including bone, tendon or muscle
- Stage 4 - Full thickness tissue loss, including exposed bone, tendon or muscle
- Unstageable - Full thickness loss in which the base of the ulcer is covered by slough (yellow, daniels, oconnor, green or brown) and/or eschar (daneils, brown or black) in the wound bed.
- Unable to determine
Use of terms such as suspected, likely, concern for, or probable (associated with a specific diagnosis that is being evaluated, monitored, or treated as if it exists) are acceptable and can be coded in the inpatient setting, when documented at the
time of discharge.
Thank you,
Katya Christensen RN, BSN
CDI Specialist
Available via [place] text
Please use your independent medical judgment in providing your response.
*Source: National Pressure Ulcer Advisory Panel (NPUAP)
--- NOTE | 2025-07-15 16:37 | HOSPNOTE ---
Spoke with family and discussed hospice and the philosophy. For right now the patient remains a full code and they would like me to follow up tomorrow. More information to follow.
[2025-07-15] MEDS: SENOKOT 17.2 MG TUBE (21:14)
[2025-07-15] MEDS: XALATAN OPHTHALMIC SOLUTION 1 DROP BOTH EYES (21:15)
[2025-07-15] MEDS: XYLOCAINE VISCOUS CUP 5 ML PO (21:15)
--- NOTE | 2025-07-15 22:40 | PTCARENOTE ---
Patient aao x2-3 at start of shift, some forgetfulness and confusion noted at times. Appears cachectic, generalized weakness noted.
NSR on the monitor, ST at times to low 110's, then returns to NSR. Weak PP, + radial pulses b/l. +1 pedal edema noted b/l as well.
Lung sounds diminished throughout right side. Pox 97% on 6L O2 via n/c. Breathing shallow, dyspnea noted on exertion and at rest with conversation. Patient with wet voice, moist cough noted. Patient c/o discomfort to throat, PRN Xylocaine
administered as ordered. Discussed respiratory status with ANCELMO Bautista, new order for Mucinex prn.
Jevity 1.5 at goal of 50ml/hr with 20ml/hr flush, patient tolerating well. BS active x4.
Betancur catheter exchanged for 18Fr latex-free catheter. Patient tolerated well. Betancur catheter draining clear, yellow urine.
Patient repositioned for comfort and pressure relief. Call cook within reach, will continue to monitor patient closely.
[2025-07-16] VITALS (10 sets, daily range): BP systolic 86–136; BP diastolic 62–96; BMI 17.0
[2025-07-16] MEDS: DECADRON 4 MG IV ×2 (03:35→16:20)
[2025-07-16] MEDS: ZOSYN 50 IV ×2 (03:35→09:10)
[2025-07-16 04:07] LABS: Hematocrit 30.1 % (37.0-47.0); Hemoglobin 9.8 g/dL (12.0-16.0); Mean Corp Hgb Conc. 32.6 g/dL (33.0-37.0); Mean Corpuscular Volume 99.3 fL (81.0-99.0); Platelet Count 32 10^3/uL (130-400); Red Cell Dist. Width 14.6 % (11.5-14.5)
[2025-07-16 04:30] LABS: Blood Urea Nitrogen 47 mg/dl (7-17); Calcium 8.0 mg/dl (8.4-10.2); Carbon Dioxide 22 mmol/L (22-30); Chloride 113 mmol/L (98-107); Estimated Creatinine Clearance 55 ml/min; Glucose 329 mg/dl (70-99); Potassium 3.4 mmol/L (3.5-5.1); Sodium 144 mmol/L (135-145); eGFR > 60.00
--- NOTE | 2025-07-16 05:05 | PTCARENOTE ---
AM labs reviewed with ANCELMO Bautista. Confirmed am glucose with 1x accu check for 362. ANCELMO notified. Patient started IV steroids 07/15.
[2025-07-16 05:13] LABS: Glucose - Point of Care 362 mg/dl (70-99)
[2025-07-16 06:13] LABS: Absolute Neutrophils -Man Diff 7.4 10^3/uL (1.4-6.5)
[2025-07-16 06:14] LABS: Normal RBC Morphology Yes; Platelets Checked Yes; Total Cells Counted 100
--- NOTE | 2025-07-16 06:16 | W.PN.UPDATE ---
Update Note
Progress Note Update
AM labs significant for elevated glucose level, result 329. Repeat accucheck done to confirm, result 362. Patient not previously diabetic, takes no diabetic medications at home. Ordered SS insulin coverage, low dose and additional hypoglycemic
medications and labs per order set.
[2025-07-16] MEDS: NOVOLOG FLEXPEN-LOW RESISTANCE 5 UNITS SC (06:37)
[2025-07-16 06:48] LABS: Glucose - Point of Care 386 mg/dl (70-99)
[2025-07-16] MEDS: DUONEB 3 ML INH ×2 (07:22→21:02)
[2025-07-16] MEDS: LYRICA 75 MG TUBE ×2 (09:10→20:26)
[2025-07-16] MEDS: LOW STRENGTH ASPIRIN 81 MG TUBE (09:10)
[2025-07-16] MEDS: MIRALAX 17 GRAMS TUBE (09:10)
[2025-07-16] MEDS: PREVACID 30 MG TUBE (09:10)
--- NOTE | 2025-07-16 09:11 | W.PN.ONC ---
Today's Communication / Plan
-
Infiltrates with some shifting character possibly inflammatory
Monitor for persistence
Consider biopsy to document metastatic disease
Await improvement in performance status
Follow-up with Sam as an outpatient
Impression
Impression
Recurrent and refractory squamous carcinoma of the tonsil with cervical lymphadenopathy; CT scan suggestive of possible liver metastases
Respiratory insufficiency, currently on hi flow O2
Progressive weakness
New onset thrombocytopenia
Possible aspiration pneumonia
Urinary outlet obstruction, 4 L in the bladder
Plan
Plan
Subjective/Objective
Subjective/Objective
Patient significantly agitated by n.p.o. state waiting for speech to evaluate swallowing
Vital Signs:
Vital Signs
Temp Pulse Resp BP Pulse Ox
97.8 F 78 19 111/95 98
07/16/25 08:00 07/16/25 07:26 07/16/25 07:26 07/16/25 06:00 07/16/25 07:26
Physical exam unchanged
Lab Results:
Laboratory Data
WBC 8.4 10^3/uL (4.8-10.8) 07/16/25 03:42
Hgb 9.8 g/dL (12.0-16.0) L D 07/16/25 03:42
Plt Count 32 10^3/uL (130-400) L 07/16/25 03:42
PT 16.2 Sec (11.4-14.6) H 07/15/25 04:19
INR 1.28 07/15/25 04:19
APTT 29.9 Sec (23.4-35.0) 07/15/25 04:19
eGFR > 60.00 07/16/25 03:42
--- NOTE | 2025-07-16 10:35 | W.PN.PUL.V3 ---
Today's Communication / Plan
-
Antibiotics
Wean FiO2
Aspiration precautions
Speech therapy evaluation
Decadron
Nebulizers
Assessment
-
64-year-old former smoking female with stage IV tonsillar carcinoma, aspiration syndrome. Recently treated for aspiration pneumonia, esophageal candidiasis discharged to a local custodial facility and then presented with abdominal distention
and noted to be hypoxemic with urinary retention and pulmonary consulted for ongoing hypoxemia 07/14/25
Aspiration pneumonia
Aspiration risk.
Mucous plugs
Urosepsis
Stage IV head and neck/tonsillar cancer status post chemoradiation including cisplatin February 2025-hepatic metastases.
COPD suspected with mild acute exacerbation.
Hyponatremia.
Lactic acidosis
Conditions present prior to admission:
CAD.
Squamous cell carcinoma, stage IV tonsillar.
Aspiration syndrome.
Gastrostomy tube placement.
COPD suspected.
Plan
The patient has long history of smoking, recently quit and undoubtedly has underlying COPD in addition to being an aspiration risk.
Supplement oxygen as needed-weaned from high flow
Assess discharge supplemental oxygen needs
Aspiration precautions continues
Speech therapy evaluation
Nebulizers-DuoNebs
Decadron 4 mg IV every 12-no change-consider changing to prednisone with taper in the next 24 hours
Mucus clearing devices is able to participate.
Consider vest therapy if unable to mobilize secretions
CT neck and chest 07/14/2025-no pulmonary emboli, extensive intraluminal opacifications in the bronchus intermedius representing extensive secretions or mucous plugging, multiple bilateral additional nodules and masslike opacifications are
demonstrated, CT neck with hypopharynx circumferential wall thickening with severe narrowing, neoplastic involvement cannot be excluded, progressive metastatic disease/lymph node metastases along right side of the lateral neck
Follow-up CT chest after appropriate treatment for pneumonia
Cultures reviewed
MRSA screen negative
Urine culture-E. coli
Blood culture 07/14/2020 5-3/3 bottles positive E. coli
Empiric antibiotics-Zosyn initiated-finite course
Norepinephrine weaned off
Oncology following-correspondence reviewed
Recommended DNR
Recommended hospice evaluation
Might require additional biopsies to prove metastatic disease
DVT prophylaxis-on heparin
GI prophylaxis-on Lansoprazole
Nutrition-gastrostomy tube feeds with aspiration precautions.
Early mobilization/physical therapy
Dr. Mejía reviewed with brother at the bedside 07/15/2025 and 07/16/2025
Reviewed with nursing
Diagnostic data:
Chest x-ray 07/14/25-airspace disease in both lower lobes of actually improved from prior study.
CT , abdomen and pelvis 07/14/25-marked distention of the bladder, consolidation right lower lobe suggesting pneumonia, low-attenuation mass in the right lobe liver suggesting metastases
Echocardiogram 03/20/25-year 73%, aortic valve sclerosis without stenosis
Subjective Data
-
Date of Service:
Date of Service: July 16, 2025
Chief Complaint: Pulmonary Follow Up and Dyspnea Follow Up
Subjective:
Complaining of significant thirst and asking for ice chips, no complaints of shortness of breath, or abdominal pain
Review of Systems
General: Other (Per HPI)
Objective Data
Data Reviewed
Vital Signs / I&O:
Vital Signs
Temp Pulse Resp BP Pulse Ox
97.8 F 78 19 111/95 96
07/16/25 08:00 07/16/25 07:26 07/16/25 07:26 07/16/25 06:00 07/16/25 10:21
Intake and Output
07/15/25 07/16/25 07/17/25
06:59 06:59 06:59
Intake Total 3170.0 / 3170.0 1954
Output Total 4400 / 4400 950 / 950
Balance -1230.0 / -1230.0 1005 / 1005
SaO2: 96
Nasal Cannula flow liters per minute: 2
Physical Exam
General: Respiratory Distress (n)
HEENT: Normocephalic, Anicteric and Other ( temporal wasting)
Cardiovascular: Regular Rhythm
Respiratory: Wheeze (Forced expiratory), Crackles (Basilar), Rhonchi (Few expiratory), Non-Labored Respirations, Accessory Resp Muscle Use (n) and Stridor (n)
GI: Soft, Non Distended and Feeding Tube
Neurology: Awake, Alert and No Motor Deficits
Skin: Warm, Good Color, Cyanosis (n), Jaundice (n) and Rash (n)
Labs/Micro/Reports
Lab Data
07/16/25 03:42
07/16/25 03:42
Microbiology
07/14/25 09:49 Blood/Venous Blood Culture - Final
Escherichia coli
07/14/25 09:49 Blood/Venous Gram Stain - Final
07/14/25 09:50 Blood/Venous Blood Culture - Preliminary
Escherichia coli
07/14/25 09:50 Blood/Venous Gram Stain - Final
07/14/25 08:44 Urine Urine Culture - Final
Escherichia coli
07/14/25 17:30 Urine Urine Culture - Final
Escherichia coli
07/15/25 10:58 Nose Nasal Screen MRSA (PCR) - Final
MRSA not detected - performed by PCR methodology.
--- NOTE | 2025-07-16 11:23 | HOSPNOTE ---
No decisions about hospice at this time and patient remains a full code. We will continue to follow.
[2025-07-16] MEDS: XYLOCAINE VISCOUS CUP 5 ML PO ×2 (11:44→20:55)
[2025-07-16] MEDS: DILAUDID 0.25 MG IV ×2 (11:44→18:25)
[2025-07-16] MEDS: NOVOLOG FLEXPEN-LOW RESISTANCE 4 UNITS SC ×2 (12:01→18:20)
[2025-07-16 12:15] LABS: Glucose - Point of Care 338 mg/dl (70-99)
[2025-07-16] MEDS: DUONEB INH (13:31)
--- NOTE | 2025-07-16 14:34 | W.PN.HOSP.TC ---
Today's Communication/Plan
-
Narrow antibiotics to Unasyn
Observe hemodynamics off IV fluids
Attempt to wean off oxygen as tolerates (overall improved respiratory status while on on nasal cannula at 2 L)
Continue IV steroids
Insulin sliding scale
PT/OT assessment
Ongoing goals of care discussed
Assessment / Plan
Assessment / Plan
IMPRESSION:
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
Acute hypoxic respiratory failure.
Sepsis with septic shock not responding to IV fluid bolus and requiring vasopressors
E. coli bacteremia
Acute kidney injury with mild azotemia
Hyponatremia�sodium 133
Thrombocytopenia
Recent hospitalization with aspiration pneumonia, esophageal candidiasis, infected PEG tube site.
Completed course of antibiotics for aspiration pneumonia and antifungal therapy.
Conditions prior to admission
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
� Status post chemoradiation with cisplatin December - February 2025.
Dysphagia secondary to above with aspiration syndrome requiring PEG tube placement
Malignant pain
CAD
PAD
Bilateral carotid artery stenosis with history of TIA
Essential hypertension
Dyslipidemia
Severe protein calorie malnutrition with BMI of 18
History of tobacco use disorder
History of substance abuse including alcohol
Imaging
CT chest
No evidence of pulmonary embolism.
Pulmonary artery branching order level of the most proximal pulmonary embolism: N/A
Extensive intraluminal opacity in the bronchus intermedius, extending into the right lower lobe, which could represent extensive secretions and/or mucous plugging. Secondary collapse of the right lower lobe with dense consolidation.
Endobronchial opacity also extending into the right middle lobe and scattered throughout the right upper lobe, likely scattered regions of mucous plugging.
Multiple bilateral additional nodules and masslike opacities are demonstrated, as described. This could represent regions of focal pneumonia/infection, though would be difficult to exclude the possibility of neoplastic process, such as metastatic
disease. Further evaluation advised, which may include PET/CT, biopsy, bronchoscopy, and/or follow-up to assess resolution.
If the patient has emphysema, patient should be assessed for an annual low dose lung cancer CT program, as pulmonary emphysema is an independent risk factor for lung cancer.
CT neck
Likely extensive neoplasm involving the central and right paracentral floor of mouth as well as the right paramidline hard palate. This extends posteriorly with soft tissue element obliterating the right vallecula and piriform sinus.
Hypopharynx circumferential wall thickening with severe narrowing of the supraglottic airway. Possibly related to phase of respiration. Neoplastic involvement cannot be excluded. Similar to prior examination.
Progressive metastatic disease/lymph node metastasis along the right lateral neck.
PLAN:
Acute hypoxic respiratory failure with pulse ox in low 80s while on 2 L of nasal cannula.
Required nonrebreather mask and currently on high flow O2
CT scan of the neck and chest as above with progressive metastatic disease, mucous plugging and extensive endobronchial obstruction
MRSA screen negative
Respiratory status improved and oxygen weaned down from nonrebreather/high flow to nasal cannula 2 L.
Antibiotics broadened to vancomycin and Zosyn initially and narrowed to Unasyn on 07/16
Continue Decadron at 4 mg IV every 12 hours
AWA
Aspiration precaution
Sepsis with septic shock.
E. coli bacteremia
UTI/urine culture positive for E. coli
Probable sources: Complicated UTI with retention, pulmonary with extensive bronchial obstruction, aspiration, possibly postobstructive process.
Antibiotics broadened to vancomycin and Zosyn and narrowed to Unasyn on 07/16 according to sensitivities
Responded and currently off IV fluids and vasopressors.
Pulse dose of systemic steroids
Steroid-induced hyperglycemia
No prior history of diet
Hemoglobin A1c pending
Initiated on insulin sliding scale
Squamous cell carcinoma of head and neck/tonsillar CA.
Chemoradiation including cisplatin December - February 2025
Recent PET scan as well as imaging on presentation with concern for local and distant including pulmonary, hepatic metastatic process.
Additional imaging with CT of the chest and neck as above
Unfortunately progressively deteriorated performance status, multiple acute comorbidities predicting further treatment
Ongoing goals of care discussion with suggestion of DNR and hospice pending patient and family discussion
Thrombocytopenia. Noted with decreasing platelet count 40�34.
Heparin discontinued
Consider HIT panel
So far no evidence of DIC given increased fibrinogen
Acute urinary retention with bilateral hydronephrosis.
Betancur catheter placed in ED with close to 2 L of urine removed.
Incontinent at the baseline.
Urine culture with sensitive E. coli
Maintain Betancur catheter.
Hyponatremia secondary to hypovolemia.
Check urine osmolarity and urine sodium
Improved with IV fluids
Follow BMP closely
Dysphagia with aspiration syndrome related to tonsillar lesion.
Given unstable respiratory status, keep n.p.o. with aspiration precautions per
Speech and swallow evaluation.
Status post PEG tube placement. On Jevity 1.5 at 50 mL an hour prior to presentation.
Hold tube feeds for now.
Continue PPI
ASCVD.
� CAD.
� PAD/bilateral carotid artery stenosis with history of TIA.
Recent echocardiogram with preserved biventricular function and no significant valvular abnormalities.
Continue aspirin.
Hold Lipitor acutely.
Continue beta-marcin monitoring for hypotension
Malignant pain.
Continue preadmission regimen including oxycodone and Lyrica. Titrate as required
DVT mechanical
Heparin discontinued given thrombocytopenia
Full code
Anticipated Discharge: 24 - 48 hours
Subjective/Interval History
-
Date of Service: July 16, 2025
Objective Data
-
Labs:
Laboratory Results
07/16/25
03:42
WBC 8.4
Hgb 9.8 L D
Hct 30.1 L
Plt Count 32 L
Sodium 144
Potassium 3.4 L
Chloride 113 H
Carbon Dioxide 22
BUN 47 H
Creatinine 0.7
Glucose 329 H
Calcium 8.0 L
Vital Signs:
Vital Signs
Temp Pulse Resp BP Pulse Ox
97.5 F 78 19 111/95 96
07/16/25 11:00 07/16/25 07:26 07/16/25 07:26 07/16/25 06:00 07/16/25 10:35
I&O
07/15/25 07/16/25 07/17/25
06:59 06:59 06:59
Intake Total 3170.0 / 3170.0 1954 / 1954 225 / 225
Output Total 4400 / 4400 950 / 950 350 / 350
Balance -1230.0 / -1230.0 1005 / 1005 -125 / -125
Physical Exam
-
General: No Apparent Distress and Appears Chronically Ill
HEENT: Nose Appears Normal, Ears Appear Normal and Other (swelling right jaw )
Respiratory: Rhonchi and Crackles; Negative Wheezes
Cardiac: Regular Rhythm and S1/S2
GI: Soft, Nontender and Peg Tube
Musculoskeletal: No Edema
Skin: Warm and Dry; Negative Rash
Neuro: Other (Lethargic)
Psych: Calm
--- NOTE | 2025-07-16 15:18 | CM ---
F/U: Brother informed me that the plan is to see if a new medication/ Abx will assist with her improving, if so, not need for Inpatient Hospice, and if not then it will be Hospice. PLAN: Inpatient Hospice or not.
[2025-07-16] MEDS: KCL ELIXIR 40 MEQ TUBE (16:19)
[2025-07-16] MEDS: ROBITUSSIN 200 MG TUBE ×2 (16:19→20:26)
--- NOTE | 2025-07-16 16:39 | PTOTSP ---
Speech Therapy Evaluation:
Pt with known moderate oral/pharyngeal dysphagia s/p VSE in June 2025 in the setting of stage IV tonsillar CA. VSE with recommendations for primary nutrition/hydration via PEG and consideration of thin purees/thin liquids with multiple swallows.
Pt reported she has been tolerating this diet since d/c from hospitalization. Given current admission with respiratory failure, findings of CT chest (mucous plugging, collapse of the right lower lobe with dense consolidation, PNA vs neoplastic
process), and progression of metastatic disease (CT neck showing involvement in floor of mouth, hard palate, soft tissue obliterating R vallecula and pyriform sinus, hypopharynx wall thickening with severe narrowing of supraglottic airway,
progressive mets in lymph nodes along R lateral neck), concerned for worsening in prior swallow function. Pt appears appropriate for sparing ice chips following frequent and thorough oral care for comfort and to prevent disuse atrophy, however
recommend repeat VSE prior to reinitiation of any oral diet.
Recommend:
1. NPO with nutrition/hydration via PEG
2. Medications via PEG
3. ARHP via sparing ice chips following oral care with SPV
4. VSE
5. Further recommendations pending VSE
[2025-07-16] MEDS: UNASYN IV ×2 (16:43→21:00)
[2025-07-16 17:30] LABS: Glucose - Point of Care 301 mg/dl (70-99)
[2025-07-16] MEDS: MIRALAX TUBE (19:26)
[2025-07-16] MEDS: SENOKOT TUBE (19:26)
[2025-07-16] MEDS: XALATAN OPHTHALMIC SOLUTION 1 DROP BOTH EYES (20:26)
[2025-07-16] MEDS: LANTUS 0.1 UNITS SC (20:47)
[2025-07-16] MEDS: ROXICODONE 15 MG TUBE (20:55)
[2025-07-16] MEDS: TYLENOL ORAL SOLUTION 650 MG TUBE (20:55)
[2025-07-16 20:57] LABS: Glucose - Point of Care 223 mg/dl (70-99)
[2025-07-16] MEDS: NOVOLOG FLEXPEN-LOW RESISTANCE 2 UNITS SC (23:07)
[2025-07-16 23:16] LABS: Glucose - Point of Care 224 mg/dl (70-99)
[2025-07-17] VITALS (15 sets, daily range): BP systolic 109–150; BP diastolic 78–131; BMI 17.2
[2025-07-17] MEDS: DILAUDID 0.25 MG IV ×2 (03:47→13:15)
[2025-07-17] MEDS: XYLOCAINE VISCOUS CUP 5 ML PO ×2 (03:47→13:16)
[2025-07-17] MEDS: DECADRON 4 MG IV (03:47)
[2025-07-17] MEDS: UNASYN IV ×4 (03:48→21:19)
[2025-07-17 04:11] LABS: Hematocrit 29.9 % (37.0-47.0); Hemoglobin 9.2 g/dL (12.0-16.0); Mean Corp Hgb Conc. 30.8 g/dL (33.0-37.0); Mean Corpuscular Volume 105.3 fL (81.0-99.0); Platelet Count 31 10^3/uL (130-400); Red Cell Dist. Width 14.7 % (11.5-14.5)
[2025-07-17 04:28] LABS: Blood Urea Nitrogen 44 mg/dl (7-17); Calcium 8.3 mg/dl (8.4-10.2); Carbon Dioxide 26 mmol/L (22-30); Chloride 121 mmol/L (98-107); Estimated Creatinine Clearance 65 ml/min; Glucose 187 mg/dl (70-99); Potassium 3.7 mmol/L (3.5-5.1); Sodium 151 mmol/L (135-145); eGFR > 60.00
[2025-07-17] MEDS: NOVOLOG FLEXPEN-LOW RESISTANCE 1 UNITS SC (05:39)
[2025-07-17 05:48] LABS: Nucleated Red Blood Cells % 0.3 %
[2025-07-17 05:49] LABS: Glucose - Point of Care 197 mg/dl (70-99)
[2025-07-17] MEDS: DUONEB 3 ML INH ×3 (07:45→19:57)
[2025-07-17] MEDS: MIRALAX TUBE ×2 (09:11→19:47)
[2025-07-17] MEDS: LYRICA 75 MG TUBE ×2 (09:15→19:54)
[2025-07-17] MEDS: ROBITUSSIN 200 MG TUBE ×4 (09:15→21:19)
[2025-07-17] MEDS: PREVACID 30 MG TUBE (09:15)
[2025-07-17] MEDS: LOW STRENGTH ASPIRIN 81 MG TUBE (09:15)
--- NOTE | 2025-07-17 10:21 | W.PN.PUL.V3 ---
Today's Communication / Plan
-
Continue to wean O2
Increase activity
Prednisone taper
Finite course of antibiotics
Aspiration precautions
Pulmonary will sign off-please call with questions
Assessment
-
64-year-old former smoking female with stage IV tonsillar carcinoma, aspiration syndrome. Recently treated for aspiration pneumonia, esophageal candidiasis [facility] and then presented with abdominal distention
and noted to be hypoxemic with urinary retention and pulmonary consulted for ongoing hypoxemia 07/14/25
Aspiration pneumonia
Aspiration risk.
Mucous plugs
Urosepsis
Stage IV head and neck/tonsillar cancer status post chemoradiation including cisplatin February 2025-hepatic metastases.
COPD suspected with mild acute exacerbation.
Hyponatremia.
Lactic acidosis
Conditions present prior to admission:
CAD.
Squamous cell carcinoma, stage IV tonsillar.
Aspiration syndrome.
Gastrostomy tube placement.
COPD suspected.
Plan
The patient has long history of smoking, recently quit and undoubtedly has underlying COPD in addition to being an aspiration risk.
Supplement oxygen as needed-weaned from high flow to 2 L nasal cannula
Assess discharge supplemental oxygen needs prior to discharge
Aspiration precautions continues
Speech therapy evaluation ongoing-significant aspiration risk, n.p.o.
Nebulizers-DuoNebs
Decadron 4 mg IV every 12-no change--changed to prednisone 40 mg with slow taper to off over the next 10-14 days
Mucus clearing devices is able to participate.
Consider vest therapy if unable to mobilize secretions
CT neck and chest 07/14/2025-no pulmonary emboli, extensive intraluminal opacifications in the bronchus intermedius representing extensive secretions or mucous plugging, multiple bilateral additional nodules and masslike opacifications are
demonstrated, CT neck with hypopharynx circumferential wall thickening with severe narrowing, neoplastic involvement cannot be excluded, progressive metastatic disease/lymph node metastases along right side of the lateral neck
Follow-up CT chest after appropriate treatment for pneumonia
Cultures reviewed
MRSA screen negative
Urine culture-E. coli
Blood culture 07/14/2020 5-3/3 bottles positive E. coli
Empiric antibiotics-Zosyn initiated-finite course-changed to Unasyn
Norepinephrine weaned off
Oncology following-correspondence reviewed
Recommended DNR
Recommended hospice evaluation-patient and family not ready yet
Might require additional biopsies to prove metastatic disease
DVT prophylaxis-on heparin
GI prophylaxis-on Lansoprazole
Nutrition-gastrostomy tube feeds with aspiration precautions.
Early mobilization/physical therapy
Dr. Mejía reviewed with brother at the bedside 07/15/2025 and 07/16/2025 as well as 07/17/2025
Patient stable from a pulmonary perspective-aspiration risk, prednisone taper, finite course of antibiotics-pulmonary will sign off-please call with questions
Reviewed with nursing
Diagnostic data:
Chest x-ray 07/14/25-airspace disease in both lower lobes of actually improved from prior study.
CT , abdomen and pelvis 07/14/25-marked distention of the bladder, consolidation right lower lobe suggesting pneumonia, low-attenuation mass in the right lobe liver suggesting metastases
Echocardiogram 03/20/25-year 73%, aortic valve sclerosis without stenosis
Subjective Data
-
Date of Service:
Date of Service: July 17, 2025
Chief Complaint: Pulmonary Follow Up and Dyspnea Follow Up
Subjective:
Episode of significant coughing and secretions after 'ice chips', still asking for ice chips, less short of breath, decreased wheezing, no chest pain or abdominal pain
Review of Systems
HEENT: Other (Per HPI)
Objective Data
Data Reviewed
Vital Signs / I&O:
Vital Signs
Temp Pulse Resp BP Pulse Ox
98.1 F 79 25 129/119 97
07/17/25 04:45 07/17/25 07:47 07/17/25 07:47 07/17/25 06:00 07/17/25 07:47
Intake and Output
07/16/25 07/17/25 07/18/25
06:59 06:59 06:59
Intake Total 1955 / 5 1745 / 1745
Output Total 950 / 950 1475 / 1475
Balance 1005 / 1005 270 / 270
SaO2: 97
Nasal Cannula flow liters per minute: 6
Physical Exam
General: Respiratory Distress (n)
HEENT: Normocephalic, Anicteric and Other ( temporal wasting)
Cardiovascular: Regular Rhythm
Respiratory: Wheeze (Forced expiratory), Crackles (Basilar), Rhonchi (Few expiratory), Non-Labored Respirations, Accessory Resp Muscle Use (n) and Stridor (n)
GI: Soft, Non Distended and Feeding Tube
Neurology: Awake, Alert and No Motor Deficits
Skin: Warm, Good Color, Cyanosis (n), Jaundice (n) and Rash (n)
Labs/Micro/Reports
Lab Data
07/17/25 03:37
07/17/25 03:37
Microbiology
07/14/25 09:49 Blood/Venous Blood Culture - Final
Escherichia coli
07/14/25 09:49 Blood/Venous Gram Stain - Final
07/14/25 09:50 Blood/Venous Blood Culture - Preliminary
Escherichia coli
07/14/25 09:50 Blood/Venous Gram Stain - Final
07/14/25 08:44 Urine Urine Culture - Final
Escherichia coli
07/14/25 17:30 Urine Urine Culture - Final
Escherichia coli
07/15/25 10:58 Nose Nasal Screen MRSA (PCR) - Final
MRSA not detected - performed by PCR methodology.
[2025-07-17 10:56] LABS: Glycohemoglobin (HgbA1c) 7.4 % (4.0-5.9)
--- NOTE | 2025-07-17 11:30 | CM ---
F/U: Spoke to Hospitalist who said still attempting abx, and a Oncologist talked about Chemotherapy, but the plan will likely be Hospice so will see when a decision is made, Case Management to follow. PLAN: Anticipate Inpatient Hospice.
[2025-07-17] MEDS: D5W with KCL 20 MEQ 1000 IV ×2 (12:59→22:51)
[2025-07-17] MEDS: NOVOLOG FLEXPEN-LOW RESISTANCE SC (13:07)
[2025-07-17 13:27] LABS: Glucose - Point of Care 136 mg/dl (70-99)
--- NOTE | 2025-07-17 13:31 | W.PN.HOSP.TC ---
Today's Communication/Plan
-
IV antibiotics covering aspiration pneumonia and UTI/E. coli bacteremia
Steroid taper
Monitor for worsening of thrombocytopenia. Will check
Basal bolus protocol
Add Lantus
PT assessment
Prognosis guarded
Discussed with nursing and patient's brother at the bedside
Assessment / Plan
Assessment / Plan
IMPRESSION:
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
Acute hypoxic respiratory failure.
Sepsis with septic shock not responding to IV fluid bolus and requiring vasopressors
E. coli bacteremia
Acute kidney injury with mild azotemia
Hyponatremia�sodium 133
Thrombocytopenia
Recent hospitalization with aspiration pneumonia, esophageal candidiasis, infected PEG tube site.
Completed course of antibiotics for aspiration pneumonia and antifungal therapy.
Conditions prior to admission
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
� Status post chemoradiation with cisplatin December - February 2025.
Dysphagia secondary to above with aspiration syndrome requiring PEG tube placement
Malignant pain
CAD
PAD
Bilateral carotid artery stenosis with history of TIA
Essential hypertension
Dyslipidemia
Severe protein calorie malnutrition with BMI of 18
History of tobacco use disorder
History of substance abuse including alcohol
Imaging
CT chest
No evidence of pulmonary embolism.
Pulmonary artery branching order level of the most proximal pulmonary embolism: N/A
Extensive intraluminal opacity in the bronchus intermedius, extending into the right lower lobe, which could represent extensive secretions and/or mucous plugging. Secondary collapse of the right lower lobe with dense consolidation.
Endobronchial opacity also extending into the right middle lobe and scattered throughout the right upper lobe, likely scattered regions of mucous plugging.
Multiple bilateral additional nodules and masslike opacities are demonstrated, as described. This could represent regions of focal pneumonia/infection, though would be difficult to exclude the possibility of neoplastic process, such as metastatic
disease. Further evaluation advised, which may include PET/CT, biopsy, bronchoscopy, and/or follow-up to assess resolution.
If the patient has emphysema, patient should be assessed for an annual low dose lung cancer CT program, as pulmonary emphysema is an independent risk factor for lung cancer.
CT neck
Likely extensive neoplasm involving the central and right paracentral floor of mouth as well as the right paramidline hard palate. This extends posteriorly with soft tissue element obliterating the right vallecula and piriform sinus.
Hypopharynx circumferential wall thickening with severe narrowing of the supraglottic airway. Possibly related to phase of respiration. Neoplastic involvement cannot be excluded. Similar to prior examination.
Progressive metastatic disease/lymph node metastasis along the right lateral neck.
PLAN:
Acute hypoxic respiratory failure with pulse ox in low 80s while on 2 L of nasal cannula.
Required nonrebreather mask and currently on high flow O2
CT scan of the neck and chest as above with progressive metastatic disease, mucous plugging and extensive endobronchial obstruction
MRSA screen negative
Respiratory status improved and oxygen weaned down from nonrebreather/high flow to nasal cannula 2 L.
Antibiotics broadened to vancomycin and Zosyn initially and narrowed to Unasyn on 07/16
Continue steroids changing to Decadron to prednisone 40 mg with taper
AWA
Aspiration precaution
Sepsis with septic shock.
E. coli bacteremia
UTI/urine culture positive for E. coli
Probable sources: Complicated UTI with retention, pulmonary with extensive bronchial obstruction, aspiration, possibly postobstructive process.
Antibiotics broadened to vancomycin and Zosyn and narrowed to Unasyn on 07/16 according to sensitivities
Responded and currently off IV fluids and vasopressors.
Diabetes new diagnosis
Steroid-induced hyperglycemia
Notably glucose lowering medications prior to admission
Hemoglobin A1c 7.4
Initiated on insulin sliding scale
Given persistent hyperglycemia will add Lantus at 10 units at bedtime
Squamous cell carcinoma of head and neck/tonsillar CA.
Chemoradiation including cisplatin December - February 2025
Recent PET scan as well as imaging on presentation with concern for local and distant including pulmonary, hepatic metastatic process.
Additional imaging with CT of the chest and neck as above
Unfortunately progressively deteriorated performance status, multiple acute comorbidities predicting further treatment
Ongoing goals of care discussion with suggestion of DNR and hospice pending patient and family discussion
Thrombocytopenia. Noted with decreasing platelet count 40�34.
Heparin discontinued
Check HIT panel
So far no evidence of DIC given increased fibrinogen
Acute urinary retention with bilateral hydronephrosis.
Betancur catheter placed in ED with close to 2 L of urine removed.
Incontinent at the baseline.
Urine culture with sensitive E. coli
Maintain Betancur catheter.
Hyponatremia secondary to hypovolemia.
Improved with IV fluid bolus.
Sodium up to 151 today. Increase free water flushes to 40 mL/h. Continue IV fluids with free water. Follow BMP
Dysphagia with aspiration syndrome related to tonsillar lesion.
Given unstable respiratory status, keep n.p.o. with aspiration precautions per
Speech and swallow evaluation.
Status post PEG tube placement. On Jevity 1.5 at 50 mL an hour prior to presentation.
Remains on tube feeds
Speech and swallow evaluation with repeat DSA today
Continue PPI
ASCVD.
� CAD.
� PAD/bilateral carotid artery stenosis with history of TIA.
Recent echocardiogram with preserved biventricular function and no significant valvular abnormalities.
Continue aspirin.
Hold Lipitor acutely.
Continue beta-marcin monitoring for hypotension
Malignant pain.
Continue preadmission regimen including oxycodone and Lyrica. Titrate as required
DVT mechanical
Heparin discontinued given thrombocytopenia
Full code
Anticipated Discharge: > 48 hours
Subjective/Interval History
-
Date of Service: July 17, 2025
Objective Data
-
Labs:
Laboratory Results
07/17/25
03:37
WBC 7.8
Hgb 9.2 L
Hct 29.9 L
Plt Count 31 L
Sodium 151 H
Potassium 3.7
Chloride 121 H
Carbon Dioxide 26
BUN 44 H
Creatinine 0.6
Glucose 187 H
Calcium 8.3 L
Vital Signs:
Vital Signs
Temp Pulse Resp BP Pulse Ox
97.8 F 79 25 129/119 97
07/17/25 13:00 07/17/25 07:47 07/17/25 07:47 07/17/25 06:00 07/17/25 10:21
I&O
07/16/25 07/17/25 07/18/25
06:59 06:59 06:59
Intake Total 1955 / 1955 1745 / 1745 740 / 740
Output Total 950 / 950 1475 / 1475 550 / 550
Balance 1005 / 1005 270 / 270 190 / 190
Physical Exam
-
General: No Apparent Distress and Appears Chronically Ill
HEENT: Nose Appears Normal, Ears Appear Normal and Other (swelling right jaw )
Respiratory: Rhonchi and Crackles; Negative Wheezes
Cardiac: Regular Rhythm and S1/S2
GI: Soft, Nontender and Peg Tube
Musculoskeletal: No Edema
Skin: Warm and Dry; Negative Rash
Neuro: Other (Lethargic)
Psych: Calm
--- NOTE | 2025-07-17 14:12 | PTOTSP ---
Speech Therapy VSE:
Patient presents with moderate oral and severe pharyngeal dysphagia. Observed aspiration across all consistencies. Reflexive cough response was weak and ineffective at clearing material from airway/vestibule. Diffuse pharyngeal residue across
trials. Multiple, effortful swallows ineffective at improving clearance. Residue was significant with puree, requiring suctioning and termination of study. Performance on this study demonstrates worsening in function compared to VSE completed
06/12/2025, likely in the setting of progressive metastatic disease
Recommend:
1. NPO with primary means of nutrition/hydration via PEG
2. Can consider ARHP via sparing ice chips for comfort following oral care with known risks
3. Medications via PEG
4. Strategies with ice chips: Multiple swallows, upright for 30-60 minutes post swallow
5. Oral care 3x daily to reduce risk for aspiration complications
5. Dysphagia therapy at the acute care level and after D/C for instruction/education
--- NOTE | 2025-07-17 16:47 | PTOTSP ---
Speech Therapy Dysphagia Education:
Provided extensive education to pt and family regarding results of VSE. Reviewed findings of moderate oral and severe pharyngeal dysphagia with aspiration across all consistencies. Discussed recommendation for NPO with continuation of
nutrition/hydration via PEG. Replayed images from study and provided education re: pharyngeal impairments causing aspiration. Family inquired about potential for meaningful recovery in regard to swallowing. Education provided that dysphagia is most
likely related to progression of tonsillar CA, and therefore functional improvement is not expected without aggressive treatment of etiology. However, pt may participate in pharyngeal strengthening exercises to preserve current swallow function as
able. Reviewed risks versus benefits of limited ice chips, including aspiration risk and strategies to mitigate complications should ice chips be elected. All questions were addressed. Pt and family verbalized understanding and in agreement.
--- NOTE | 2025-07-17 17:34 | PTCARENOTE ---
PEG tube around inception site small leak noted; leak was noted a day before as well. No change in amount noted; pt's [id number] and brother at bedside very concern; Dr Russo made aware. Abdominal X-RAy order, results pending
patient AAO x 3. C/o of left neck pain
Sinus Tachycardia 113 no edema;
on 6L via nasal canula PoX 97%
Abdomen round soft. PEG tube +placement auscultating; TF: javity 1.2 50/40water flush. pt NPO; ok ice chips for comfort
Indwelling Betancur for acute retention ; urine clear yellow
[2025-07-17] MEDS: ROXICODONE 15 MG TUBE (17:40)
[2025-07-17] MEDS: NOVOLOG FLEXPEN-LOW RESISTANCE 2 UNITS SC ×2 (17:41→23:01)
[2025-07-17 17:43] LABS: Glucose - Point of Care 234 mg/dl (70-99)
[2025-07-17] MEDS: SENOKOT TUBE (21:19)
[2025-07-17] MEDS: XALATAN OPHTHALMIC SOLUTION 1 DROP BOTH EYES (21:24)
[2025-07-17] MEDS: LANTUS 0.1 UNITS SC (23:02)
[2025-07-17 23:12] LABS: Glucose - Point of Care 208 mg/dl (70-99)
[2025-07-18] VITALS (13 sets, daily range): BP systolic 101–135; BP diastolic 83–120; BMI 17.3
[2025-07-18] MEDS: UNASYN IV ×4 (03:14→21:44)
--- NOTE | 2025-07-18 03:51 | PTCARENOTE ---
Pt has been saturating 85% in 8L MF. pt was increased to 10L MF, SaO2 90-92. Asymptotic.
[2025-07-18] MEDS: ROXICODONE 15 MG TUBE ×4 (04:45→21:42)
[2025-07-18] MEDS: NOVOLOG FLEXPEN-LOW RESISTANCE SC ×4 (05:20→23:19)
[2025-07-18 05:26] LABS: Glucose - Point of Care 79 mg/dl (70-99)
[2025-07-18 05:30] LABS: Hematocrit 34.0 % (37.0-47.0); Hemoglobin 11.1 g/dL (12.0-16.0); Mean Corp Hgb Conc. 32.6 g/dL (33.0-37.0); Mean Corpuscular Volume 100.6 fL (81.0-99.0); Platelet Count 39 10^3/uL (130-400); Red Cell Dist. Width 14.7 % (11.5-14.5)
[2025-07-18 05:35] LABS: Blood Urea Nitrogen 34 mg/dl (7-17); Calcium 8.4 mg/dl (8.4-10.2); Carbon Dioxide 26 mmol/L (22-30); Chloride 117 mmol/L (98-107); Estimated Creatinine Clearance 67 ml/min; Glucose 58 mg/dl (70-99); Potassium 3.5 mmol/L (3.5-5.1); Sodium 149 mmol/L (135-145); eGFR > 60.00
[2025-07-18 07:18] LABS: Nucleated Red Blood Cells % 0.9 %
[2025-07-18 07:35] LABS: Glucose - Point of Care 103 mg/dl (70-99)
[2025-07-18] MEDS: DUONEB 3 ML INH ×3 (07:50→19:34)
[2025-07-18] MEDS: DELTASONE 40 MG PO (09:35)
[2025-07-18] MEDS: ROBITUSSIN 200 MG TUBE ×4 (09:35→21:36)
[2025-07-18] MEDS: LOW STRENGTH ASPIRIN 81 MG TUBE (09:35)
[2025-07-18] MEDS: LYRICA 75 MG TUBE ×2 (09:35→19:45)
[2025-07-18] MEDS: PREVACID 30 MG TUBE (09:36)
[2025-07-18] MEDS: MIRALAX TUBE ×2 (09:36→19:45)
--- NOTE | 2025-07-18 11:45 | HOSPNOTE ---
Hospice has been following in the distance. Reviewed notes. Hospice remains available if and when patient becomes ready.
[2025-07-18 12:15] LABS: Glucose - Point of Care 126 mg/dl (70-99)
--- NOTE | 2025-07-18 15:35 | W.PN.HOSP.TC ---
Today's Communication/Plan
-
Assessment / Plan
Assessment / Plan
General: No Apparent Distress, Comfortable and Conversant
HEENT: NormoCephalic, nasal cannula in place
Respiratory: Scattered rhonchi throughout, productive cough
Cardiac: S1/S2 and Regular Rhythm; No Rub or Gallop
GI: Soft, Non Tender, PEG tube in place
Musculoskeletal: No Edema, no deformity
: Betancur draining clear yellow urine
Neuro: Awake, Alert, Nonfocal/grossly intact
Psych: Calm and cooperative
IMPRESSION:
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
Acute hypoxic respiratory failure.
Sepsis with septic shock not responding to IV fluid bolus and requiring vasopressors
E. coli bacteremia
Acute kidney injury with mild azotemia
Hyponatremia�sodium 133
Thrombocytopenia
Recent hospitalization with aspiration pneumonia, esophageal candidiasis, infected PEG tube site.
Completed course of antibiotics for aspiration pneumonia and antifungal therapy.
Conditions prior to admission
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
� Status post chemoradiation with cisplatin December - February 2025.
Dysphagia secondary to above with aspiration syndrome requiring PEG tube placement
Malignant pain
CAD
PAD
Bilateral carotid artery stenosis with history of TIA
Essential hypertension
Dyslipidemia
Severe protein calorie malnutrition with BMI of 18
History of tobacco use disorder
History of substance abuse including alcohol
Imaging
CT chest
No evidence of pulmonary embolism.
Pulmonary artery branching order level of the most proximal pulmonary embolism: N/A
Extensive intraluminal opacity in the bronchus intermedius, extending into the right lower lobe, which could represent extensive secretions and/or mucous plugging. Secondary collapse of the right lower lobe with dense consolidation.
Endobronchial opacity also extending into the right middle lobe and scattered throughout the right upper lobe, likely scattered regions of mucous plugging.
Multiple bilateral additional nodules and masslike opacities are demonstrated, as described. This could represent regions of focal pneumonia/infection, though would be difficult to exclude the possibility of neoplastic process, such as metastatic
disease. Further evaluation advised, which may include PET/CT, biopsy, bronchoscopy, and/or follow-up to assess resolution.
If the patient has emphysema, patient should be assessed for an annual low dose lung cancer CT program, as pulmonary emphysema is an independent risk factor for lung cancer.
CT neck
Likely extensive neoplasm involving the central and right paracentral floor of mouth as well as the right paramidline hard palate. This extends posteriorly with soft tissue element obliterating the right vallecula and piriform sinus.
Hypopharynx circumferential wall thickening with severe narrowing of the supraglottic airway. Possibly related to phase of respiration. Neoplastic involvement cannot be excluded. Similar to prior examination.
Progressive metastatic disease/lymph node metastasis along the right lateral neck.
PLAN:
Acute hypoxic respiratory failure with pulse ox in low 80s while on 2 L of nasal cannula.
Required nonrebreather mask and currently on high flow O2
CT scan of the neck and chest as above with progressive metastatic disease, mucous plugging and extensive endobronchial obstruction
MRSA screen negative
Respiratory status improved and oxygen weaned down from nonrebreather/high flow to nasal cannula 2 L, however now back up to 10L.
Antibiotics broadened to vancomycin and Zosyn initially and narrowed to Unasyn on 07/16
Continue steroids changing from Decadron to prednisone 40 mg with taper
AWA
Aspiration precaution
Sepsis with septic shock.
E. coli bacteremia
UTI/urine culture positive for E. coli
Probable sources: Complicated UTI with retention, pulmonary with extensive bronchial obstruction, aspiration, possibly postobstructive process.
Antibiotics broadened to vancomycin and Zosyn and narrowed to Unasyn on 07/16 according to sensitivities
Responded and currently off IV fluids and vasopressors.
Diabetes new diagnosis
Steroid-induced hyperglycemia
Notably glucose lowering medications prior to admission
Hemoglobin A1c 7.4
Initiated on insulin sliding scale
Given persistent hyperglycemia added Lantus at 10 units at bedtime
Squamous cell carcinoma of head and neck/tonsillar CA.
Chemoradiation including cisplatin December - February 2025
Recent PET scan as well as imaging on presentation with concern for local and distant including pulmonary, hepatic metastatic process.
Additional imaging with CT of the chest and neck as above
Unfortunately progressively deteriorated performance status, multiple acute comorbidities predicting further treatment
Ongoing goals of care discussion with suggestion of DNR and hospice pending patient and family discussion
Thrombocytopenia. Noted with decreasing platelet count 40�34.
Heparin discontinued
Check HIT panel
So far no evidence of DIC given increased fibrinogen
Acute urinary retention with bilateral hydronephrosis.
Betancur catheter placed in ED with close to 2 L of urine removed.
Incontinent at the baseline.
Urine culture with sensitive E. coli
Maintain Betancur catheter.
Hyponatremia secondary to hypovolemia.
Improved with IV fluid bolus.
Sodium up to 149 today. Increase free water flushes to 40 mL/h. Continue IV fluids with free water. Follow BMP
Dysphagia with aspiration syndrome related to tonsillar lesion.
Given unstable respiratory status, keep n.p.o. with aspiration precautions per
Speech and swallow evaluation.
Status post PEG tube placement. On Jevity 1.5 at 50 mL an hour prior to presentation.
Remains on tube feeds
Speech and swallow evaluation with repeat DSA, occasional ice chips ok
Continue PPI
ASCVD.
� CAD.
� PAD/bilateral carotid artery stenosis with history of TIA.
Recent echocardiogram with preserved biventricular function and no significant valvular abnormalities.
Continue aspirin.
Hold Lipitor acutely.
Continue beta-marcin monitoring for hypotension
Malignant pain.
Continue preadmission regimen including oxycodone and Lyrica. Titrate as required
DVT mechanical
Heparin discontinued given thrombocytopenia
Full code
Anticipated Discharge: > 48 hours
Subjective/Interval History
-
Date of Service: July 18, 2025
Patient was seen and examined at bedside this morning. Oxygen requirements are up to 10 L via nasal cannula.
Objective Data
-
Labs:
Laboratory Results
07/18/25
04:39
WBC 13.1 H
Hgb 11.1 L D
Hct 34.0 L
Plt Count 39 L D
Sodium 149 H
Potassium 3.5
Chloride 117 H
Carbon Dioxide 26
BUN 34 H
Creatinine 0.5 L
Glucose 58 L
Calcium 8.4
Vital Signs:
Vital Signs
Temp Pulse Resp BP Pulse Ox
98 F 84 18 119/85 94
07/18/25 15:02 07/18/25 13:54 07/18/25 13:54 07/18/25 12:00 07/18/25 13:54
I&O
07/17/25 07/18/25 07/19/25
06:59 06:59 06:59
Intake Total 1745 / 1745 3690 / 3690
Output Total 1475 / 1475 2300 / 2300
Balance 270 / 270 1390 / 1390
Review of Systems
-
History Source: Patient
All other systems: Reviewed and negative
Respiratory: Reports Cough
Physical Exam
-
General: No Apparent Distress and Appears Chronically Ill
[2025-07-18 18:21] LABS: Glucose - Point of Care 137 mg/dl (70-99)
--- NOTE | 2025-07-18 19:33 | PTCARENOTE ---
AAO, pleasant despite pain 9/10 right side neck area. Roxicodone given x2 this shift. Harsh Freq NPC- attempted to retrieve with esvin unsuccessfully. Oral care completed x3 this shift- she will assist. Peg tube site cleansed scant drainage
from site, tube feeding at goal- no residuals.
SC port with KVO for antibiotics. Betancur in place good output, no stool this shift. Miralax was held this am. Care d/w sister in law Perez on phone this pm.
[2025-07-18] MEDS: XALATAN OPHTHALMIC SOLUTION 1 DROP BOTH EYES (21:36)
[2025-07-18] MEDS: SENOKOT TUBE (21:36)
[2025-07-18] MEDS: LANTUS SC (23:22)
[2025-07-18 23:27] LABS: Glucose - Point of Care 118 mg/dl (70-99)
[2025-07-18] MEDS: LANTUS 0.05 UNITS SC (23:34)
[2025-07-19] VITALS (13 sets, daily range): BP systolic 89–117; BP diastolic 67–93; BMI 17.6
[2025-07-19] MEDS: UNASYN IV ×4 (03:34→21:48)
[2025-07-19] MEDS: DUONEB 3 ML INH ×4 (04:36→19:41)
[2025-07-19] MEDS: ROBITUSSIN 100 MG TUBE (04:54)
[2025-07-19] MEDS: ROXICODONE 15 MG TUBE ×3 (04:54→21:37)
--- NOTE | 2025-07-19 05:15 | PTCARENOTE ---
Addendum entered by Adrian Anderson RN 07/19/25 05:49:
Pt is on nonrebreather plus the 15L MF for recover after being clean. Will wean down as tolerated.
Original Note:
Pt is AAOx3, forgetful at times. Pt started to desaturate to the low 80's. Pt was not able to tolerate 10L MF.pt O2 was increased to 15L MF and respiratory was notified. Breathing tx given. Pt is Asymptotic, no c/o SOB. Pt does have a moist
nonproductive cough. Pt is dyspneic w/ exertion. Q2 turn provided and wound care done.
[2025-07-19 05:42] LABS: Hematocrit 32.2 % (37.0-47.0); Hemoglobin 10.2 g/dL (12.0-16.0); Mean Corp Hgb Conc. 31.7 g/dL (33.0-37.0); Mean Corpuscular Volume 101.6 fL (81.0-99.0); Platelet Count 37 10^3/uL (130-400); Red Cell Dist. Width 14.7 % (11.5-14.5)
[2025-07-19 05:52] LABS: Blood Urea Nitrogen 36 mg/dl (7-17); Calcium 8.3 mg/dl (8.4-10.2); Carbon Dioxide 26 mmol/L (22-30); Chloride 114 mmol/L (98-107); Estimated Creatinine Clearance 68 ml/min; Glucose 123 mg/dl (70-99); Potassium 3.5 mmol/L (3.5-5.1); Sodium 147 mmol/L (135-145); eGFR > 60.00
[2025-07-19] MEDS: NOVOLOG FLEXPEN-LOW RESISTANCE SC ×2 (05:54→12:26)
[2025-07-19 06:04] LABS: Glucose - Point of Care 130 mg/dl (70-99)
--- NOTE | 2025-07-19 10:43 | HOSPNOTE ---
Addendum entered by Tamie Valverde RN 07/19/25 13:43:
Sister in law Erasto asked to speak to hospice. I spoke to her and reviewed that hospice would not support alternative curative measures under the hospice philosophy. I reviewed hospice options with her. Erasto voiced that today is the first time
hospice has been mentioned to patient and that patient at this time remains a full code. Erasto asked that we speak to patient tomorrow with either herself or patients brother present. Will ask Ольга to reach out to Erasto to coordinate this for
tomorrow. More information to follow. Attending updated.
Original Note:
Hospice has been following in the distance. Reviewed notes. Hospice remains available if and when patient becomes ready.
[2025-07-19] MEDS: DELTASONE 40 MG PO (11:48)
[2025-07-19] MEDS: PREVACID 30 MG TUBE (11:48)
[2025-07-19] MEDS: LYRICA 75 MG TUBE ×2 (11:48→19:44)
[2025-07-19] MEDS: LOW STRENGTH ASPIRIN 81 MG TUBE (11:48)
[2025-07-19] MEDS: ROBITUSSIN 200 MG TUBE ×4 (11:49→19:45)
[2025-07-19] MEDS: MIRALAX TUBE ×2 (11:50→19:44)
[2025-07-19 12:12] LABS: Glucose - Point of Care 105 mg/dl (70-99)
[2025-07-19] MEDS: ROBITUSSIN TUBE (13:19)
--- NOTE | 2025-07-19 14:03 | W.PN.HOSP.TC ---
Today's Communication/Plan
-
Back on HiFlo and NRB
CXR this morning shows significant RLL disease - infiltrate v mucous plugging v effusion
Changed steroids back to IV decadron
GoC discussions ongoing, pt and family considering comfort care, considering changing code status to DNR/DNI, remains full code for now
Assessment / Plan
Assessment / Plan
General: No Apparent Distress, Uncomfortable due to dyspnea
HEENT: NormoCephalic, nasal cannula in place
Respiratory: Scattered rhonchi throughout, productive cough
Cardiac: Regular rhythm, tachy w HR 110
GI: Soft, Non Tender, PEG tube in place
Musculoskeletal: No Edema, no deformity
: Betancur draining clear yellow urine
Neuro: Awake, Alert, Nonfocal/grossly intact
Psych: Calm and cooperative
IMPRESSION:
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
Acute hypoxic respiratory failure.
Sepsis with septic shock not responding to IV fluid bolus and requiring vasopressors
E. coli bacteremia
Acute kidney injury with mild azotemia
Hyponatremia�sodium 133
Thrombocytopenia
Recent hospitalization with aspiration pneumonia, esophageal candidiasis, infected PEG tube site.
Completed course of antibiotics for aspiration pneumonia and antifungal therapy.
Conditions prior to admission
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
� Status post chemoradiation with cisplatin December - February 2025.
Dysphagia secondary to above with aspiration syndrome requiring PEG tube placement
Malignant pain
CAD
PAD
Bilateral carotid artery stenosis with history of TIA
Essential hypertension
Dyslipidemia
Severe protein calorie malnutrition with BMI of 18
History of tobacco use disorder
History of substance abuse including alcohol
Imaging
CT chest
No evidence of pulmonary embolism.
Pulmonary artery branching order level of the most proximal pulmonary embolism: N/A
Extensive intraluminal opacity in the bronchus intermedius, extending into the right lower lobe, which could represent extensive secretions and/or mucous plugging. Secondary collapse of the right lower lobe with dense consolidation.
Endobronchial opacity also extending into the right middle lobe and scattered throughout the right upper lobe, likely scattered regions of mucous plugging.
Multiple bilateral additional nodules and masslike opacities are demonstrated, as described. This could represent regions of focal pneumonia/infection, though would be difficult to exclude the possibility of neoplastic process, such as metastatic
disease. Further evaluation advised, which may include PET/CT, biopsy, bronchoscopy, and/or follow-up to assess resolution.
If the patient has emphysema, patient should be assessed for an annual low dose lung cancer CT program, as pulmonary emphysema is an independent risk factor for lung cancer.
CT neck
Likely extensive neoplasm involving the central and right paracentral floor of mouth as well as the right paramidline hard palate. This extends posteriorly with soft tissue element obliterating the right vallecula and piriform sinus.
Hypopharynx circumferential wall thickening with severe narrowing of the supraglottic airway. Possibly related to phase of respiration. Neoplastic involvement cannot be excluded. Similar to prior examination.
Progressive metastatic disease/lymph node metastasis along the right lateral neck.
PLAN:
Acute hypoxic respiratory failure with pulse ox in low 80s while on 2 L of nasal cannula.
Required nonrebreather mask and currently on high flow O2
CT scan of the neck and chest as above with progressive metastatic disease, mucous plugging and extensive endobronchial obstruction
MRSA screen negative
Respiratory status had improved and oxygen was weaned down from nonrebreather/high flow to nasal cannula 2 L, however now on HiFlo and NRB
CXR this morning shows significant RLL disease - infiltrate v mucous plugging v effusion
Changed steroids back to IV decadron
GoC discussions ongoing, pt and family considering comfort care, considering changing code status to DNR/DNI, remains full code for now
Antibiotics broadened to vancomycin and Zosyn initially and narrowed to Unasyn on 07/16
AWA
Aspiration precaution
Sepsis with septic shock.
E. coli bacteremia
UTI/urine culture positive for E. coli
Probable sources: Complicated UTI with retention, pulmonary with extensive bronchial obstruction, aspiration, possibly postobstructive process.
Antibiotics broadened to vancomycin and Zosyn and narrowed to Unasyn on 07/16 according to sensitivities
Responded and currently off IV fluids and vasopressors.
Diabetes new diagnosis
Steroid-induced hyperglycemia
Notably glucose lowering medications prior to admission
Hemoglobin A1c 7.4
Initiated on insulin sliding scale
Given persistent hyperglycemia added Lantus at 10 units at bedtime, now held
Squamous cell carcinoma of head and neck/tonsillar CA.
Chemoradiation including cisplatin December - February 2025
Recent PET scan as well as imaging on presentation with concern for local and distant including pulmonary, hepatic metastatic process.
Additional imaging with CT of the chest and neck as above
Unfortunately progressively deteriorated performance status, multiple acute comorbidities predicting further treatment
Ongoing goals of care discussion with suggestion of DNR and hospice pending patient and family discussion
Thrombocytopenia. Noted with decreasing platelet count 40�34.
Heparin discontinued
So far no evidence of DIC given increased fibrinogen
Acute urinary retention with bilateral hydronephrosis.
Betancur catheter placed in ED with close to 2 L of urine removed.
Incontinent at the baseline.
Urine culture with pansensitive E. coli
Maintain Betancur catheter.
Hyponatremia secondary to hypovolemia.
Improved with IV fluid bolus.
Sodium up to 147 today. Increased free water flushes to 40 mL/h. Continue IV fluids with free water. Follow BMP
Dysphagia with aspiration syndrome related to tonsillar lesion.
Given unstable respiratory status, keep n.p.o. with aspiration precautions per
Speech and swallow evaluation.
Status post PEG tube placement. On Jevity 1.5 at 50 mL an hour prior to presentation.
Remains on tube feeds
Speech and swallow evaluation with repeat DSA, occasional ice chips ok
Continue PPI
ASCVD.
� CAD.
� PAD/bilateral carotid artery stenosis with history of TIA.
Recent echocardiogram with preserved biventricular function and no significant valvular abnormalities.
Continue aspirin.
Hold Lipitor acutely.
Holding beta-marcin for hypotension
Malignant pain.
Continue preadmission regimen including oxycodone and Lyrica. Titrate as required
DVT mechanical
Heparin discontinued given thrombocytopenia
Full code
Anticipated Discharge: > 48 hours
Subjective/Interval History
-
Date of Service: July 19, 2025
Patient was seen and examined at bedside this morning. Still with increasing oxygen requirements. Now on high flow and nonrebreather mask. Ongoing goals of care discussion.
Objective Data
-
Labs:
Laboratory Results
07/19/25
04:56
WBC 13.6 H
Hgb 10.2 L
Hct 32.2 L
Plt Count 37 L
Sodium 147 H
Potassium 3.5
Chloride 114 H
Carbon Dioxide 26
BUN 36 H
Creatinine 0.5 L
Glucose 123 H
Calcium 8.3 L
Vital Signs:
Vital Signs
Temp Pulse Resp BP Pulse Ox
98.4 F 111 21 97/79 88
07/19/25 11:29 07/19/25 13:12 07/19/25 13:12 07/19/25 12:00 07/19/25 13:47
I&O
07/18/25 07/19/25 07/20/25
06:59 06:59 06:59
Intake Total 3690 / 3690 1460 / 1460
Output Total 2300 / 2300 1600 / 1600
Balance 1390 / 1390 -140 / -140
Review of Systems
-
History Source: Patient
All other systems: Reviewed and negative
Respiratory: Reports Cough and Trouble Breathing
Physical Exam
-
General: Appears in Distress and Appears Chronically Ill
--- NOTE | 2025-07-19 15:04 | PTCARENOTE ---
Assumed care of patient at beginning of this shift from previous RN with 15L midflow in use. POx was fluctuating between 86-91%; patient would desat with very minimal exertion and would take a long time to recover and required NRB. RT placed patient
on high flow with NRB; POx ranging 88-82%. Patient c/o generalized pain; roxicodone given with relief (patient asleep afterwards). [id number] in to see patient; requesting to speak with physician and hospice nurse. Dr Sullivan up to room and
spoke with patient and [id number]. Hospice nurse spoke with [id number] by phone. Patient to remain full code at this time per booth manager and Dr Sullivan after their conversations with patient and family.
Patient tolerating Jevity 1.5 infusing at goal rate of 50ml/hr with flush of 40ml/hr. See worklist for full assessment and vital signs.
[2025-07-19] MEDS: DECADRON 4 MG IV (16:18)
[2025-07-19] MEDS: NOVOLOG FLEXPEN-LOW RESISTANCE 1 UNITS SC ×2 (17:37→23:23)
[2025-07-19 17:47] LABS: Glucose - Point of Care 165 mg/dl (70-99)
[2025-07-19] MEDS: SENOKOT 17.2 MG TUBE (19:44)
[2025-07-19] MEDS: XALATAN OPHTHALMIC SOLUTION 1 DROP BOTH EYES (21:44)
[2025-07-19 21:50] LABS: Glucose - Point of Care 198 mg/dl (70-99)
[2025-07-19] MEDS: LANTUS 0.1 UNITS SC (23:22)
[2025-07-19 23:33] LABS: Glucose - Point of Care 177 mg/dl (70-99)
[2025-07-20] VITALS (25 sets, daily range): BP systolic 66–141; BP diastolic 40–109; BMI 17.6
[2025-07-20] MEDS: DECADRON 4 MG IV ×2 (01:05→14:31)
[2025-07-20] MEDS: UNASYN IV ×3 (04:20→15:30)
[2025-07-20 05:14] LABS: Blood Urea Nitrogen 33 mg/dl (7-17); Calcium 7.9 mg/dl (8.4-10.2); Carbon Dioxide 27 mmol/L (22-30); Chloride 113 mmol/L (98-107); Estimated Creatinine Clearance 68 ml/min; Glucose 184 mg/dl (70-99); Potassium 3.2 mmol/L (3.5-5.1); Sodium 147 mmol/L (135-145); eGFR > 60.00
[2025-07-20] MEDS: NOVOLOG FLEXPEN-LOW RESISTANCE 1 UNITS SC (05:26)
[2025-07-20 05:29] LABS: Hematocrit 30.6 % (37.0-47.0); Hemoglobin 9.7 g/dL (12.0-16.0); Mean Corp Hgb Conc. 31.7 g/dL (33.0-37.0); Mean Corpuscular Volume 101.3 fL (81.0-99.0); Platelet Count 41 10^3/uL (130-400); Red Cell Dist. Width 14.7 % (11.5-14.5)
[2025-07-20 05:37] LABS: Glucose - Point of Care 199 mg/dl (70-99)
--- NOTE | 2025-07-20 05:49 | PTCARENOTE ---
Caring for patient overnight. 3 family members at bedside, very involved with patients care. Requesting when pt will start PT/OT & stating concerns that she is not going to get stronger staying in bed. Educated them & pt that she cannot start PT
until her oxygenation status improves. Pt is still maxed on HFNC & NRB.
Other concerns that patients FAMILY MEMBERS wanted addressed today: will pass onto day shift.
- PT/OT to work with pt in bed
- neuro consult for concern of right arm/shoulder twitching continuously
- foot drop bilaterally & requesting boots
- concern for large ecchymotic area on patients R flank
- vascular consult for swelling in hands and feet
Pt remains aaox3 but very forgetful & anxious. NSR/ST. Maxed on HFNC & NRB. Betancur in place, d/t be removed this morning. TF running at goal. IVABX. Q2T. NPO- educated pt multiple times on this & the risks. No Bm overnight.
Around 0200 pt was desating & maintaining in the 70's, pt did not look in distress but she was more confused, bp dropped very low at this time. MANAGER ATHLETICS almost called, RT was at bedside and after some time pt recovered & bp improved. Unsure what caused
this.
Around 0500 pt desated again to the 70's briefly but was sustaining the 80's. BP was stable at this time. PT recovered after about 5 minutes. RT at bedside.
[2025-07-20] MEDS: KCL 160 MEQ IV (06:27)
[2025-07-20 06:45] LABS: Absolute Neutrophils -Man Diff 12.2 10^3/uL (1.4-6.5)
[2025-07-20 06:46] LABS: Normal RBC Morphology No; Platelets Checked Yes; Total Cells Counted 100
[2025-07-20] MEDS: DUONEB 3 ML INH ×2 (07:48→13:53)
[2025-07-20] MEDS: PREVACID 30 MG TUBE (08:17)
[2025-07-20] MEDS: ROXICODONE 15 MG TUBE (08:17)
[2025-07-20] MEDS: ROBITUSSIN 200 MG TUBE ×2 (08:17→17:35)
[2025-07-20] MEDS: LYRICA 75 MG TUBE (08:17)
[2025-07-20] MEDS: MIRALAX 17 GRAMS TUBE (08:17)
[2025-07-20] MEDS: LOW STRENGTH ASPIRIN 81 MG TUBE (08:17)
--- NOTE | 2025-07-20 08:29 | W.PN.ONC2 ---
Today's Communication / Plan
-
ongoing GOC
transfer to ICU underway
Impression
Impression
Recurrent and refractory squamous carcinoma of the tonsil with cervical lymphadenopathy; CT scan suggestive of possible liver metastases
Respiratory insufficiency, currently on hi flow O2
mucous plugging
pleural effusion
sepsis/shock
PNA
Ecoli bacteremia, UTI
b/l hydro, urinary retention
dysphagia on TF via PEG
New onset thrombocytopenia -no evidence of acute DIC with elevated fibrinogen -plts >100K Jun 2025, admission 42,000, noman 31,000, today 41,000
DM2
Plan
Plan
abx per primary service
prednisone->IV dexamethasone per primary service
consider therapeutic/diagnostic thoracentesis
pulmonary/ENT evaluating high risk airway
monitor for bleeding, caution use of NSAIDS, AP, AC with platelets count <50,[address]
Dr[address] Sales had a long GOC conversation with pt, Cesar (brother), and Erasto (ALIX), unfortunately, Erasto had to take a call during this conversation so was unable to participate in its entirety. Erasto is attempting to obtain Ivermectan
for pt to trial
Subjective/Objective
Subjective
afebrile, hypotensive 66/40 overnight, increasing supplemental O2 needs
using oxycodone IR prn pain
using miralax for bowel regimen
Vital Signs:
Vital Signs
Temp Pulse Resp BP Pulse Ox
98.1 F 111 21 104/87 99
07/20/25 03:00 07/20/25 07:53 07/20/25 07:53 07/20/25 05:09 07/20/25 07:54
Lab Results:
Laboratory Data
WBC 14.1 10^3/uL (4.8-10.8) H 07/20/25 04:39
Hgb 9.7 g/dL (12.0-16.0) L 07/20/25 04:39
Plt Count 41 10^3/uL (130-400) L 07/20/25 04:39
PT 16.2 Sec (11.4-14.6) H 07/15/25 04:19
INR 1.28 07/15/25 04:19
APTT 29.9 Sec (23.4-35.0) 07/15/25 04:19
eGFR > 60.00 07/20/25 04:39
Physical Exam
HEENT: No Jaundice
Pulmonary: Other (High flow)
GI: Soft (PEG) and Other (Betancur )
Extremities: Pulses Present
Neuro: Other (awake, alert, and oriented)
[2025-07-20 09:50] LABS: ALT (SGPT) 34 U/L (0-35); AST (SGOT) 24 U/L (14-36); Albumin 2.4 g/dl (3.5-5.0); Alkaline Phosphatase 130 U/L (38-126); Total Protein 5.0 g/dl (6.3-8.2)
[2025-07-20 10:55] LABS: Folate 10.0 ng/ml (2.76-20); Vitamin B12 978 pg/ml (239-931)
[2025-07-20 12:27] LABS: Glucose - Point of Care 186 mg/dl (70-99)
--- NOTE | 2025-07-20 12:43 | W.PN.INTV ---
Addendum entered and electronically signed by Soo Guillermo MD 07/20/25 16:00:
Addendum:
Met with patient again regarding goals of care we discussed the option of attempted fiberoptic intubation in OR with possible need for tracheostomy, we also discussed continuing medical management and more comfort focused care including hospice
care. Patient expressed her wish to proceed with hospice care and wanted to take input from her family. I called patient's brother Orlando who arrived about an hour later. Then he had a conference call with Orlando in person, his Ana on phone
and patient along with check patient's brother at bedside. Patient clearly expressed her wishes to proceed with more comfort focused care and pursue hospice understanding that we will be moving forward with end of life care with goal for comfort
and dignity. Family in agreement with current plan.
- CODE STATUS changed to DNR/DNI. Comfort care order set placed.
- Hospice evaluation
- Funeral Director/Embalmer service will be available as needed
Additional 58 minutes of critical care time spent in discussing goals of care with the patient as well as coordinating meeting with family.
Original Note:
Today's Communication / Plan
Recommendations
- Stat ABG, Chest X ray
- Transfer to ICU, strict NPO
- Anesthesia and ENT consult, high risk airways, potential need for tracheostomy
- On going goals of care
Assessment
-
Patient is a 64-year-old female with prior history of smoking with advanced tonsillar carcinoma and aspiration syndrome was recently treated with aspiration pneumonia, esophageal candidiasis and was discharged to a assisted facility. Patient
subsequently presented back to the hospital with abdominal distention and was noted to be hypoxic and pulmonary service was consulted on 07/14. Patient was noted to be hypoxemic, lethargic. There was concern for aspiration event again in addition
to possible metastatic disease with new pulmonary nodules noted which could be infectious versus malignant. Concern for possible underlying COPD as well. Patient was treated with IV Decadron and was subsequently transition to prednisone with plan
to taper over next 10 to 14 days. Patient also noted to have E. coli bacteremia in addition to urine culture positive for E. coli and has lately been on Unasyn.
07/20, patient had increasing oxygen requirement and urgent fourth grade teacher consultation was requested. Patient was evaluated at bedside in IMU and noted to be on high flow nasal cannula as well as nonrebreather with oxygen saturation ranging between
89 to 90% with somewhat increased work of breathing. Oncology service was also at bedside. Patient's brother, [id number] on the phone and multiple family members in the room. Family currently somewhat undecided regarding next steps as patient
is at very high risk of needing intubation and mechanical ventilation. Patient was subsequently transferred to ICU.
#1. Acute hypoxic respiratory failure, worsening (07/20/2025)
- Continue high flow nasal cannula, nonrebreather
- Transferred to ICU, strict n.p.o.
- ENT and anesthesia service consulted, high risk airway, best managed with intubation in OR with ENT backup as patient highly likely to need tracheostomy. Family still undecided whether to proceed with intubation or not. Myself and oncology
service stressed the importance to make the decision rather sooner considering patient has high risk airway and respiratory status is very tenuous.
- Continue empiric IV steroids, check ABG
- Stat chest x-ray suggestive of worsening opacity in the right side concerning for lung collapse versus pleural effusion,
#2. 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
- Disease appears to be locally progressive, reviewed CT scan from 07/2025 and airway appears to be narrower compared to CT scan on 10/2024.
- Patient follows up with [facility], with Dr. Vargas
- Oncology service on case, discussed in person at bedside.
- ENT consult
#3. Pleural effusion. right
- POCUS at bedside more suggestive of small effusion only
- Trachea deviated to right, suspect RML and RLL collapse, likely mucous plug
- Initiate 3% Nebz with albuterol. Chest PT
Conditions present prior to admission:
CAD.
Squamous cell carcinoma, stage IV tonsillar.
Aspiration syndrome.
Gastrostomy tube placement.
COPD suspected.
Critical Care time 65 mins -- The patient is admitted for acute critical illness for the treatment of vital organ failure and/or prevention of further life-threatening conditions. Total care includes time spent in review of history, physical exam,
medications, hemodynamic/ventilator parameters, laboratory data, imaging and discussion with house staff, pharmacy, respiratory therapy, transplant case manager, and nursing.
Subjective Dataa
Subjective Data
Date of Service:
Date of Service: July 20, 2025
Subjective:
Patient reporting increased work of breathing and dyspnea, currently on high flow nasal cannula and nonrebreather with FiO2 100%.
Review of Systems
Genitourinary: Other (Increasing dyspnea, no cough or chest pain reported.)
Objective Data
Data Reviewed
Vital Signs / I&O / Oxygen:
Vital Signs
Temp Pulse Resp BP Pulse Ox
98 F 118 26 104/87 89
07/20/25 07:45 07/20/25 10:15 07/20/25 10:15 07/20/25 10:15 07/20/25 11:00
Intake and Output
07/19/25 07/20/25 07/21/25
06:59 06:59 06:59
Intake Total 1460 / 1460
Output Total 2300 / 2300 1000 / 1000
Balance -840 / -840 -1000 / -1000
SaO2 89
Nasal Cannula flow liters per 60
minute
Physical Exam
General: Respiratory Distress (Moderate respiratory distress on exam)
HEENT: Normocephalic
Cardiovascular: S1-S2
Respiratory: Rhonchi
GI: Soft and Non Distended
Neurology: Awake and Alert
Skin: Warm
Labs/Micro/Reports
Lab Data
07/20/25 04:39
07/20/25 04:39
Microbiology
07/14/25 09:50 Blood/Venous Blood Culture - Final
Escherichia coli
07/14/25 09:50 Blood/Venous Gram Stain - Final
[2025-07-20] MEDS: NOVOLOG FLEXPEN-LOW RESISTANCE SC (13:00)
[2025-07-20] MEDS: ROBITUSSIN TUBE (13:00)
--- NOTE | 2025-07-20 13:13 | HOSPNOTE ---
Spoke with patient and family at length about hospice and the philosophy. Dr Gonzalez Guillermo and myself. The plan is to continue treatment and be moved to the ICU and the patient is a full code. We will continue to follow when we
are needed.
[2025-07-20 13:37] LABS: B.E. 5.0 mmol/L; HCO3 27.6 mmol/L (21-28); O2 Saturation % 94.2 % (94-98); PCO2 33 mmHg (32-35); PO2 62 mmHg (83-108)
--- NOTE | 2025-07-20 14:02 | TRANSFER ---
Received this am on max hf/ nrb 95%. AAOx3, VSS afebrile. Tube feeds at goal via PEG tube. 04/15 Right side neck pain- PRN Roxicodone given. Now Requiring max HF settings 60L / 100% +NRB mask- at this time sao2 88-93% desats with any exertion.
She is AAOx3 she does not want to make her own decisions, brother here asking if hospice came - Ольга did come at this time. Pt and family do not want comfort care at this time. Multiple providers d/w brother over phone. Report given to Taj
and transferred to ICU.
[2025-07-20] MEDS: SODIUM CHLORIDE 3% FOR INHALATION 1 VIAL INH (14:40)
[2025-07-20] MEDS: VENTOLIN NEBULES 2.5 MG INH (14:41)
--- NOTE | 2025-07-20 15:00 | PTCARENOTE ---
Received pt from IMU. Pt aaox3. Slight tremors in upper extremities noted. NSR/ST with PAC on monitor. + pedals, distant heart sounds, +2 trunkal/hip edema, +2 labial edema, +1 L arm edema, trace pedal edema. HFNC 60L 100% with 15L NRB. Lungs
diminished, R worse than L. Scattered rhonchi throughout R lung. Jevity 1.5 tube feed @50ml/hr, 40ml/hr flush through PEG tube. L subQ port. Dr Guillermo at bedside to discuss comfort care/hospice.
--- NOTE | 2025-07-20 16:00 | W.PN.HOSP.TC ---
Today's Communication/Plan
-
Assessment / Plan
Assessment / Plan
General: Respiratory distress, Uncomfortable due to dyspnea
HEENT: NormoCephalic, high flow nasal cannula in place with nonrebreather mask
Respiratory: Scattered rhonchi throughout, productive cough
Cardiac: Regular rhythm, tachy w HR 110
GI: Soft, Non Tender, PEG tube in place
Musculoskeletal: No Edema, no deformity
: Betancur draining clear yellow urine
Neuro: Awake, Alert, Nonfocal/grossly intact
Psych: Calm and cooperative
IMPRESSION:
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
Acute hypoxic respiratory failure.
Sepsis with septic shock not responding to IV fluid bolus and requiring vasopressors
E. coli bacteremia
Acute kidney injury with mild azotemia
Hyponatremia�sodium 133
Thrombocytopenia
Recent hospitalization with aspiration pneumonia, esophageal candidiasis, infected PEG tube site.
Completed course of antibiotics for aspiration pneumonia and antifungal therapy.
Conditions prior to admission
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
� Status post chemoradiation with cisplatin December - February 2025.
Dysphagia secondary to above with aspiration syndrome requiring PEG tube placement
Malignant pain
CAD
PAD
Bilateral carotid artery stenosis with history of TIA
Essential hypertension
Dyslipidemia
Severe protein calorie malnutrition with BMI of 18
History of tobacco use disorder
History of substance abuse including alcohol
Imaging
CT chest
No evidence of pulmonary embolism.
Pulmonary artery branching order level of the most proximal pulmonary embolism: N/A
Extensive intraluminal opacity in the bronchus intermedius, extending into the right lower lobe, which could represent extensive secretions and/or mucous plugging. Secondary collapse of the right lower lobe with dense consolidation.
Endobronchial opacity also extending into the right middle lobe and scattered throughout the right upper lobe, likely scattered regions of mucous plugging.
Multiple bilateral additional nodules and masslike opacities are demonstrated, as described. This could represent regions of focal pneumonia/infection, though would be difficult to exclude the possibility of neoplastic process, such as metastatic
disease. Further evaluation advised, which may include PET/CT, biopsy, bronchoscopy, and/or follow-up to assess resolution.
If the patient has emphysema, patient should be assessed for an annual low dose lung cancer CT program, as pulmonary emphysema is an independent risk factor for lung cancer.
CT neck
Likely extensive neoplasm involving the central and right paracentral floor of mouth as well as the right paramidline hard palate. This extends posteriorly with soft tissue element obliterating the right vallecula and piriform sinus.
Hypopharynx circumferential wall thickening with severe narrowing of the supraglottic airway. Possibly related to phase of respiration. Neoplastic involvement cannot be excluded. Similar to prior examination.
Progressive metastatic disease/lymph node metastasis along the right lateral neck.
PLAN:
Acute hypoxic respiratory failure with pulse ox in low 80s while on 2 L of nasal cannula.
Required nonrebreather mask and currently on high flow O2
CT scan of the neck and chest as above with progressive metastatic disease, mucous plugging and extensive endobronchial obstruction
MRSA screen negative
Respiratory status had improved and oxygen was weaned down from nonrebreather/high flow to nasal cannula 2 L, however now on HiFlo and NRB
CXR yesterday morning 07/19 showed significant RLL disease - infiltrate v mucous plugging v effusion
Changed steroids back to IV decadron
Patient moved to ICU for possible intubation with surgery on standby for possible trach considering complicated anatomy
After long discussion with nitroglycerin separator operator patient and family would like to move forward with hospice, comfort care orders placed, hospice consulted
Sepsis with septic shock.
E. coli bacteremia
UTI/urine culture positive for E. coli
Probable sources: Complicated UTI with retention, pulmonary with extensive bronchial obstruction, aspiration, possibly postobstructive process.
Antibiotics broadened to vancomycin and Zosyn and narrowed to Unasyn on 07/16 according to sensitivities
Responded and currently off IV fluids and vasopressors.
Diabetes new diagnosis
Steroid-induced hyperglycemia
Notably glucose lowering medications prior to admission
Hemoglobin A1c 7.4
Initiated on insulin sliding scale
Given persistent hyperglycemia added Lantus at 10 units at bedtime, now held
Squamous cell carcinoma of head and neck/tonsillar CA.
Chemoradiation including cisplatin December - February 2025
Recent PET scan as well as imaging on presentation with concern for local and distant including pulmonary, hepatic metastatic process.
Additional imaging with CT of the chest and neck as above
Unfortunately progressively deteriorated performance status, multiple acute comorbidities predicting further treatment
Patient and family now pursuing hospice care
Thrombocytopenia. Noted with decreasing platelet count 40�34.
Heparin discontinued
So far no evidence of DIC given increased fibrinogen
Acute urinary retention with bilateral hydronephrosis.
Betancur catheter placed in ED with close to 2 L of urine removed.
Incontinent at the baseline.
Urine culture with pansensitive E. coli
Maintain Betancur catheter.
Hyponatremia secondary to hypovolemia.
Improved with IV fluid bolus.
Sodium up to 147 today. Increased free water flushes to 40 mL/h. Continue IV fluids with free water. Follow BMP
Dysphagia with aspiration syndrome related to tonsillar lesion.
Given unstable respiratory status, keep n.p.o. with aspiration precautions per
Speech and swallow evaluation.
Status post PEG tube placement. On Jevity 1.5 at 50 mL an hour prior to presentation.
Remains on tube feeds
Speech and swallow evaluation with repeat DSA, occasional ice chips ok
Continue PPI
ASCVD.
� CAD.
� PAD/bilateral carotid artery stenosis with history of TIA.
Recent echocardiogram with preserved biventricular function and no significant valvular abnormalities.
Continue aspirin.
Hold Lipitor acutely.
Holding beta-marcin for hypotension
Malignant pain.
Continue preadmission regimen including oxycodone and Lyrica. Titrate as required
DVT mechanical
Heparin discontinued given thrombocytopenia
DNR, comfort measures
Anticipated Discharge: 24 - 48 hours
Subjective/Interval History
-
Date of Service: July 20, 2025
Patient was seen and examined at bedside this morning. Respiratory status continues to deteriorate. Being transferred to ICU for possible intubation.
Objective Data
-
Labs:
Laboratory Results
07/20/25 07/20/25
04:39 13:21
WBC 14.1 H
Hgb 9.7 L
Hct 30.6 L
Plt Count 41 L
HCO3 27.6
Sodium 147 H
Potassium 3.2 L
Chloride 113 H
Carbon Dioxide 27
BUN 33 H
Creatinine 0.5 L
Glucose 184 H
Calcium 7.9 L
Total Bilirubin 0.3
AST 24
ALT 34
Alkaline Phosphatase 130 H
Vital Signs:
Vital Signs
Temp Pulse Resp BP Pulse Ox
97.5 F 112 25 102/79 95
07/20/25 15:23 07/20/25 14:45 07/20/25 14:45 07/20/25 14:45 07/20/25 15:31
I&O
07/19/25 07/20/25 07/21/25
06:59 06:59 06:59
Intake Total 1460 / 1460 500 / 500
Output Total 2300 / 2300 1000 / 1000
Balance -840 / -840 -1000 / -1000 500 / 500
Review of Systems
-
History Source: Patient
All other systems: Reviewed and negative
Constitutional: Reports Weakness
Respiratory: Reports Cough and Trouble Breathing
Physical Exam
-
General: Appears Chronically Ill
--- NOTE | 2025-07-20 17:02 | PTCARENOTE ---
Orders placed for comfort care and DNR resuscitation status.
[2025-07-20] MEDS: MORPHINE SULFATE 2 MG IV ×2 (17:34→22:46)
--- NOTE | 2025-07-20 17:51 | CM ---
F/U: Earlier in the day, the patient/ family decided on aggressive care which was intubation. Later in the day, patient/ family decided on comfort due to the tracheostomy/ intubation that was actually about to happen. PLAN: Inpatient Hospice.
[2025-07-21] MEDS: MORPHINE SULFATE 2 MG IV ×2 (03:56→09:25)
[2025-07-21 03:59] VITALS: BP 121/95
[2025-07-21 05:58] VITALS: BMI 17.6
--- NOTE | 2025-07-21 09:37 | W.DCSUMMARY ---
Discharge Summary
Discharge Data
Date of Admission: 07/14/25
Date of Discharge: 07/21/25
Total time spent discharging patient (in min): 57
-
Pending Results: No
Hospital Course
Ms. Blair is a 64-year-old female with a medical history of metastatic squamous cell carcinoma of the head and neck (status post chemoradiation December through February 2025) with resultant dysphagia requiring PEG placement who presented with hypoxic
respiratory failure. She was recurrently aspirating despite n.p.o. and her respiratory status progressively declined. Her supplemental oxygen requirements increased to the point where she required high flow via nasal cannula and nonrebreather. We
discussed goals of care including aggressive treatment which would very likely require intubation. We discussed that intubation would be difficult and would require surgical assistance and would likely ultimately result in her becoming ventilator
dependent. Patient and her family instead opted for comfort care and she has now been admitted to inpatient hospice.
General: Somnolent, Uncomfortable due to dyspnea
HEENT: NormoCephalic, high flow nasal cannula in place with nonrebreather mask
Respiratory: Scattered rhonchi throughout, productive cough
Cardiac: Regular rhythm, tachy w HR 110
GI: Soft, Non Tender, PEG tube in place
Musculoskeletal: No Edema, no deformity
: Betancur draining clear yellow urine
Neuro: Somnolent, Nonfocal/grossly intact
Psych: Unable to assess
Discharge Plan
-
Patient Disposition: Hospice - Inpatient
Discharge Diagnosis/Procedures: Acute respiratory failure secondary to hypoxia
Activity Restrictions/Additional Instructions:
Wound Care Instructions Open areas on buttocks and sacral/coccyx- Clean with normal saline or soap and water. Apply Calazime to open areas and cover with foam dressing. Change daily and PRN if loose or soiled.
Air surface
Turning Schedule
Referrals:
Balwinder Yousif MD [Family Provider, [facility]]
Prescriptions:
Discontinued
alendronate 70 MG tablet
70 mg PO FR
latanoprost 0.005 % Drops
1 drp BOTH EYES HS
therapeutic multivitamin Tablet
1 tab feeding tube DAILY
chlorhexidine gluconate 0.12 % Mouthwash
15 ml BUCCAL BID
atorvastatin [Lipitor] 20 mg Tablet
20 mg feeding tube DAILY
acetaminophen 325 MG tablet
650 mg PO Q4HPRN PRN (Reason: mild pain)
pregabalin 75 mg capsule
75 mg feeding tube BID
polyethylene glycol 3350 17 gram Powder In Packet
17 g feeding tube BID Qty: 0 0RF
metoprolol tartrate 25 mg Tablet
12.5 mg feeding tube BID Qty: 0 0RF
aspirin 81 MG tablet,chewable
81 mg feeding tube DAILY Qty: 0 0RF
sennosides [senna] 8.6 mg Tablet
17.2 mg feeding tube HS
magnesium hydroxide [Milk of Magnesia] 400 mg/5 mL Suspension
2,400 mg feeding tube [id number] PRN (Reason: constipation)
Fleet Enema 19-7 gram/118 mL Enema
118 ml CA DAILYPRN PRN (Reason: if no bm aftr dulcolax)
Vitamin C 100 mg Tablet
100 mg feeding tube DAILY
Lansoprazole 3mg/Ml
10 ml feeding tube DAILY
oxycodone 15 mg tablet
15 mg feeding tube Q4HPRN PRN (Reason: severe pain)
bisacodyl 10 mg suppository
10 mg CA [id number] PRN (Reason: if no bm aftr mom)
dexamethasone 4 mg tablet
7 mg feeding tube DIRECTED
Rx Instructions:
1 mg BID X 3 days (07/13/25-07/16/25), 1mg daily X 3 days(07/16/25-07/19/25).
lidocaine HCl [Lidocaine Viscous] 2 % solution
5 ml PO Q6HPRN PRN (Reason: pain with swallowing)
Discharge Orders:
Discharge Patient (As Directed); Ordered 07/21/25
Ordered By: Mason Mora
Discharge Date and Time
Discharge Date/Time: 07/21/25 10:23
Print Language: PORTUGUESE
[2025-07-21] MEDS: ATIVAN 1 MG IV (09:42)
--- NOTE | 2025-07-21 10:14 | HOSPNOTE ---
Spoke with patient and family about inpatient hospice. The family and patient are in agreement with inpatient hospice. Attending in agreement and admissions was called. Patient is currently on 15L and will most likely need a drip. Much emotional
support.
== END 2025-07-21 10:23 | disposition hospice, inpatient (51) | DRG 871 ==
LOC: ICU 10:41
PROVIDERS: Internal Medicine; Nurse Practitioner Family; Nurse Practitioner Primary Care; ADMITTING PHYSICIAN Internal Medicine; ATTENDING PHYSICIAN Internal Medicine; CONSULT PHYSICIAN Internal Medicine Critical Care Medicine; EMERGENCY PHYSICIAN Emergency Medicine; FAMILY PHYSICIAN Family Medicine; OTHER PHYSICIAN Internal Medicine Hematology & Oncology
DX: A41.9 Sepsis, unspecified organism (principal); E43 Unspecified severe protein-calorie malnutrition; J69.0 Pneumonitis due to inhalation of food and vomit; J96.01 Acute respiratory failure with hypoxia; R65.21 Severe sepsis with septic shock; C78.7 Secondary malignant neoplasm of liver and intrahepatic bile duct; E87.1 Hypo-osmolality and hyponatremia; E87.20 Acidosis, unspecified; N17.9 Acute kidney failure, unspecified; Z68.1 Body mass index [BMI] 19.9 or less, adult; J44.1 Chronic obstructive pulmonary disease with (acute) exacerbation; F17.200 Nicotine dependence, unspecified, uncomplicated; C09.9 Malignant neoplasm of tonsil, unspecified; Z92.21 Personal history of antineoplastic chemotherapy; Z92.3 Personal history of irradiation; D69.6 Thrombocytopenia, unspecified; Z51.5 Encounter for palliative care; Z66 Do not resuscitate; R62.7 Adult failure to thrive; Z79.82 Long term (current) use of aspirin
CPT/HCPCS: 51702; 70492; 71045; 71275; 74018; 74177; 74230; 80048; 80053; 81003; 81015; 82248; 82533; 82607; 82746; 82805; 82962; 83036; 83605; 83735; 83935; 84100; 84300; 84484; 85025; 85027; 85379; 85384; 85610; 85730; 87040; 87070; 87077; 87086; 87154; 87186; 87205; 87641; 92526; 92610; 92611; 93005; 94640; 96361; 96365; 96375; 97163; 99291; Q9967

== ENCOUNTER 2025-07-21 10:25 | Inpatient (IN) | payer OTHER, SELFPAY ==
--- NOTE | 2025-07-21 09:43 | HPS.HSE ---
Family Physician
-
Family Physician: INTERVIEWE UNKNOWN - PT NOT
Chief Complaint
-
Hospice care
History of Present Illness
Ms. Blair is a 64-year-old female with a medical history of metastatic squamous cell carcinoma of the head and neck (status post chemoradiation December through February 2025) with resultant dysphagia requiring PEG placement who presented with hypoxic
respiratory failure. She was recurrently aspirating despite n.p.o. and her respiratory status progressively declined. Her supplemental oxygen requirements increased to the point where she required high flow via nasal cannula and nonrebreather. We
discussed goals of care including aggressive treatment which would very likely require intubation. We discussed that intubation would be difficult and would require surgical assistance and would likely ultimately result in her becoming ventilator
dependent. Patient and her family instead opted for comfort care and she has now been admitted to inpatient hospice.
Medical History
Past Medical History
Past Medical History: Reports Other
Additional Past Medical History:
CAD. Squamous cell carcinoma, stage IV tonsillar. Aspiration syndrome. Gastrostomy tube placement. COPD suspected
Past Surgical History: Reports Other
Additional Past Surgical History:
PEG
Social History
Tobacco: Former Smoker ([id number] former smoker)
Alcohol: Former
Drug: None
Family History
Family History: Not pertinent
Allergies / Home Medications
Allergies reflects when Allergies were last updated in [facility].
Home Medications with original date entered in [facility]
Allergy/Medication List:
Allergies
Allergy/AdvReac Type Severity Reaction Status Date / Time
bee venom protein (honey bee) Allergy Unknown Verified 07/14/25 06:13
latex Allergy Itching-BLI Verified 07/14/25 06:13
STERS
neomycin Allergy Itching-ecz Verified 07/14/25 06:13
luis
Review of Systems
-
Unable to obtain full review of systems at this time due to: Acuity
Physical Exam
Physical Exam
General: Appears Chronically Ill
Impression/Plan
-
General: Somnolent, Uncomfortable due to dyspnea
HEENT: NormoCephalic, high flow nasal cannula in place with nonrebreather mask
Respiratory: Scattered rhonchi throughout, productive cough
Cardiac: Regular rhythm, tachy w HR 110
GI: Soft, Non Tender, PEG tube in place
Musculoskeletal: No Edema, no deformity
: Betancur draining clear yellow urine
Neuro: Somnolent, Nonfocal/grossly intact
Psych: Unable to assess
Ms. Blair is a 64-year-old female with a medical history of metastatic squamous cell carcinoma of the head and neck (status post chemoradiation December through February 2025) with resultant dysphagia requiring PEG placement who presented with hypoxic
respiratory failure. She was recurrently aspirating despite n.p.o. and her respiratory status progressively declined. Her supplemental oxygen requirements increased to the point where she required high flow via nasal cannula and nonrebreather. We
discussed goals of care including aggressive treatment which would very likely require intubation. We discussed that intubation would be difficult and would require surgical assistance and would likely ultimately result in her becoming ventilator
dependent. Patient and her family instead opted for comfort care and she has now been admitted to inpatient hospice.
Comfort care:
- Comfort measures ordered, will titrate to need
DVT prophylaxis: Not indicated
CODE STATUS: DNR/DNI
[2025-07-21] MEDS: MORPHINE SULFATE 1 MG IV (10:46)
[2025-07-21] MEDS: MORPHINE 100 IV (11:19)
--- NOTE | 2025-07-21 11:20 | PTCARENOTE ---
Patient has transferred to inpatient hospice. emotional support provided, morphine gtt initiated.
[2025-07-21] MEDS: MORPHINE SULFATE 2 MG IV ×3 (12:06→13:23)
--- NOTE | 2025-07-21 13:27 | HOSPNOTE ---
Patient was admitted inpatient hospice, consents are signed and patient now on a morphine drip and we will wean down oxygen support. Emotional support provided to family. Patient will most likely be going to orth when a bed available. We will see
patient daily.
--- NOTE | 2025-07-21 13:30 | CHAP ---
Emotional and spiritual support provided, rig builder request relayed. Monsignor Vela provided Sacrament of the Sick/Last Rites as requested. Will follow.
[2025-07-21] MEDS: MORPHINE SULFATE 4 MG IV ×3 (14:22→16:34)
[2025-07-21] MEDS: ATIVAN 1 MG IV (14:57)
[2025-07-21] MEDS: ROBINUL 0.2 MG IV ×2 (14:58→20:48)
[2025-07-21 15:00] VITALS: BP 79/45
[2025-07-21 19:06] VITALS: BP 75/43
[2025-07-21] MEDS: MORPHINE SULFATE 6 MG IV (20:48)
--- NOTE | 2025-07-21 21:43 | W.PN.DEATH ---
Pronouncement of
-
Called to see patient to pronounce.
No spontaneous heart tones or respirations noted.
Patient not responsive to verbal stimuli.
Patient is pronounced .
Time of : 21:05
Date of : 07/21/25
Family Notified: Yes
--- NOTE | 2025-07-21 22:59 | HOSPNOTE ---
Patient was admitted to inpatient hospice. Hospice will visit daily.
--- NOTE | 2025-07-22 08:42 | W.DCSUMMARY ---
Discharge Summary
Discharge Data
Date of Admission: 07/21/25
Date of Discharge: 07/22/25
Total time spent discharging patient (in min): 48
-
Pending Results: No
Hospital Course
Ms. Blair is a 64-year-old female with a medical history of metastatic squamous cell carcinoma of the head and neck (status post chemoradiation December through February 2025) with resultant dysphagia requiring PEG placement who presented with hypoxic
respiratory failure. She was recurrently aspirating despite n.p.o. and her respiratory status progressively declined. Her supplemental oxygen requirements increased to the point where she required high flow via nasal cannula and nonrebreather. We
discussed goals of care including aggressive treatment which would very likely require intubation. We discussed that intubation would be difficult and would require surgical assistance and would likely ultimately result in her becoming ventilator
dependent. Patient and her family instead opted for comfort care and she has now been admitted to inpatient hospice. She was started on comfort measures and at 21:05 on 07/21/2025.
Discharge Plan
-
Patient Disposition:
Date/Time
Date/Time: 07/21/25 21:05
Discharge Date and Time
Discharge Date/Time: 07/21/25 21:05
Print Language: [place]
== END 2025-07-21 21:05 | disposition expired | DRG 951 ==
LOC: 2 NORTH 10:25
PROVIDERS: ADMITTING PHYSICIAN Internal Medicine
DX: Z51.5 Encounter for palliative care (principal); J96.91 Respiratory failure, unspecified with hypoxia; Z87.891 Personal history of nicotine dependence; Z85.89 Personal history of malignant neoplasm of other organs and systems; Z92.21 Personal history of antineoplastic chemotherapy; Z92.3 Personal history of irradiation; R13.10 Dysphagia, unspecified; Z66 Do not resuscitate; Z93.1 Gastrostomy status